=== PATIENT | female | born 1980 | race Caucasian/White ===

== ENCOUNTER → 2017-10-12 13:58 | Outpatient (CLI) | payer BC, SELFPAY ==
[2017-10-12 14:29] LABS: Basophils % 0.3 % (0.1-2.0); Eosinophils # 0.4 K/mm3 (0.0-0.4); Eosinophils % 3.4 % (0.1-12.0); Hematocrit 47.8 % (37.0-47.0); Hemoglobin 15.8 g/dL (12.2-16.2); Lymphocytes # 3.5 K/mm3 (0.7-4.5); Lymphocytes % 31.7 K/mm3 (10-50); Mean Corpuscular HGB Conc 33.1 g/dL (31.8-35.4); Mean Corpuscular Hemoglobin 30.2 pg (27.0-31.2); Mean Corpuscular Volume 91.3 fl (81-99); Mean Platelet Volume 7.7 fl (7.4-10.4); Monocytes # 0.6 K/mm3 (0.1-1.0); Monocytes % 5.7 % (1.7-9.3); Neutrophils # 6.4 K/mm3 (1.8-7.8); Neutrophils % 58.9 % (37.0-80.0); Platelet Count 253 K/mm3 (142-424); Red Blood Count 5.23 M/mm3 (4.20-5.40); Red Cell Distribution Width 13.7 % (11.5-17.5); White Blood Count 10.9 K/mm3 (4.8-10.8)
[2017-10-12 14:52] LABS: Alanine Aminotransferase 36 U/L (12-78); Albumin Level 3.9 gm/dL (3.4-5.0); Albumin/Globulin Ratio 0.9 (1.1-1.8); Alkaline Phosphatase 128 U/L (46-116); Anion Gap 12.4 mEq/L (5-15); Aspartate Amino Transferase 22 U/L (15-37); Bilirubin,Total 0.4 mg/dL (0.2-1.0); Blood Urea Nitrogen 14 mg/dL (7-18); C-Reactive Protein 0.2 mg/L (0.0-0.9); Calcium 9.3 mg/dL (8.5-10.1); Carbon Dioxide 27 mmol/L (21.0-32.0); Chloride 104 mmol/L (98-107); Creatinine,Serum 0.98 mg/dL (0.55-1.02); Estimated Glomerular Filt Rate 64 ml/min (>60); Ferritin 41 ng/mL (8-388); GFR (African American) 77 ML/MIN (>60); Globulin 4.2 gm/dl (1.3-3.2); Glucose 80 mg/dL (74-106); Potassium 4.4 mmoL/L (3.5-5.1); Sodium 139 mmol/L (136-145); Total Protein,Serum 8.1 gm/dL (6.4-8.2)
[2017-10-14 06:39] LABS: Immunoglobulin A, Qn 447 mg/dL (87-352); Immunoglobulin G, Qn 1252 mg/dL (700-1600)
[2017-10-16 15:36] LABS: Immunoglobulin M, Qn 76 mg/dL (26-217)
[2017-10-16 15:38] LABS: Tissue Transglutaminase IgA Ab <2 U/mL (0-3); Tissue Transglutaminase IgG Ab 2 U/mL (0-5)
[2017-10-19 17:52] LABS: Immunoglobulin E, Total 44 IU/mL (0-100)
== END ==
PROVIDERS: Visit Provider Internal Medicine Gastroenterology
DX: R19.7 Diarrhea, unspecified (principal)
CPT/HCPCS: 36415; 80053; 82728; 82784; 82785; 83516; 85025; 86140

== ENCOUNTER 2018-02-27 13:00 | Outpatient (RCR) | payer BC, SELFPAY | END 2018-02-27 13:01 | disposition home or self-care (01) | LOC: PT 13:00 | PROVIDERS: Family Provider Family Medicine; PCP Family Medicine; Visit Provider Podiatrist | DX: M72.2 Plantar fascial fibromatosis (principal); G57.50 Tarsal tunnel syndrome, unspecified lower limb | CPT/HCPCS: 97010; 97014; 97033; 97035; 97140; 97163; 97164; G0283 ==

== ENCOUNTER → 2018-06-05 09:26 | Outpatient (CLI) | payer BC, SELFPAY ==
--- NOTE | 2018-06-05 09:31 | US_ITS ---
US extremity RT limited CLINICAL INDICATION: ITS.REASON: AXILLARY LYMPHADENDOPATHY ORDERING PHYSICIAN: Harmony Bautista MD PATIENT AGE: 37 years Comparison: 02/28/2017 FINDINGS: Small nodes are present in the right axilla measuring up to 3.4 cm. This is similar when compared to previous exam. No nodule seen in patient's reported palpable area. IMPRESSION: Mildly prominent right axillary lymph node at 3.4 cm. This may BE better evaluate with CT if clinically warranted
== END ==
PROVIDERS: PCP Family Medicine; Visit Provider Family Medicine
DX: R59.0 Localized enlarged lymph nodes (principal)
CPT/HCPCS: 76882

== ENCOUNTER 2018-11-11 11:23 | Observation (INO) ==
--- NOTE | 2018-11-11 12:09 | Emergency Department Note ---
ED Disposition Clinical Impression: Kidney stone on left side Disposition: Admitted as Observation Condition on Discharge: Fair Referrals: Aidan Vizcarra MD [Primary Care Provider] - Time of Disposition: 14:49 - Critical Care Critical Care Time: No Attestation: On 11/11/18, the high probability of a clinically significant, sudden or life threatening deterioration of the following system(s) required my full and direct attention, intervention and personal management. The time I documented below is in addition to time spent performing reported procedures but includes the f ollowing listed in this critical care notation. Medical Decision Making - Medical Records Medical records reviewed: Yes: I reviewed the patient's medical records. - Conrad Inquiry Pt receiving controlled substance: No Conrad was queried for this patient: No Vital Signs: 11/11/18 11:47 11/11/18 12:53 11/11/18 13:46 Temperature 97.7 F Temperature Source Oral Pulse Rate [Left] 105 H 72 66 Respiratory Rate 30 H 18 18 Blood Pressure [Left Arm] 139/70 94/54 L 169/70 H Blood Pressure Mean [Left Arm] 93 67 103 Blood Pressure Source [Left Arm] Automatic Cuff Automatic Cuff Automatic Cuff Blood Pressure Position [Left Arm] Sitting Sitting Supine 02 Sat by Pulse Oximetry 100 95 99 Oxygen Delivery Method Room Air Room Air Room Air 11/11/18 14:21 Temperature Temperature Source Pulse Rate [Left] 68 Respiratory Rate 18 Blood Pressure [Left Arm] 112/55 L Blood Pressure Mean [Left Arm] 74 Blood Pressure Source [Left Arm] Automatic Cuff Blood Pressure Position [Left Arm] Supine 02 Sat by Pulse Oximetry 97 Oxygen Delivery Method Room Air - Lab Data Lab results reviewed: Yes: I reviewed the patient's lab results. Lab Results 11/11/18 12:20: WBC 10.7, RBC 4.79, Hgb 14.6, Hct 42.5, MCV 88.6, MCH 30.4, MCHC 34.3, RDW 13.4, Plt Count 266, MPV 7.2 L, Neut % (Auto) 63.9, Lymph % (Auto) 27.2, Cannon % (Auto) 6.1, Eos % (Auto) 2.5, Baso % (Auto) 0.4, Neut # (Auto) 6.9, Lymph # (Auto) 2.9, Cannon # (Auto) 0.7, Eos # (Auto) 0.3, Baso # (Auto) 0.0 11/11/18 12:20: Sodium 141, Potassium 3.8, Chloride 107, Carbon Dioxide 24, Anion Gap 13.8, BUN 9, Creatinine 0.99, Estimated Creat Clear 101, Estimated GFR 63, Est GFR ( Amer) 76, Glucose 102, Calcium 8.8, Total Bilirubin 0.4, AST 12 L, ALT 23, Alkaline Phosphatase 108, Total Protein 7.5, Albumin 3.5, Globulin 4.0 H, Albumin/Globulin Ratio 0.9 L 11/11/18 12:20: Serum HCG, Qual Negative Result diagrams: 11/11/18 12:20 11/11/18 12:20 Orders (Tests/Meds): ED MEDICATIONS Discontinued Medications Generic Name Dose Route Start Last Admin Trade Name Freq PRN Reason Stop Dose Admin Hydromorphone HCl 1 mg 11/11/18 12:25 11/11/18 12:38 Dilaudid 2mg/Ml Syringe IV 11/11/18 12:26 1 mg ONCE ONE Administration Hydromorphone HCl 2 mg 11/11/18 13:48 11/11/18 13:49 Dilaudid 2mg/Ml Syringe IV 11/11/18 13:49 2 mg ONCE ONE Administration Sodium Chloride 1,000 mls @ 999 mls/hr 11/11/18 11:45 11/11/18 11:45 Sod Chlor 0.9% 1000ml Bag IV 11/11/18 12:45 999 mls/hr .Q1H1M ROJELIO Administration Sodium Chloride 1,000 mls @ 999 mls/hr 11/11/18 13:45 Sod Chlor 0.9% 1000ml Bag IV 11/11/18 14:45 .Q1H1M ROJELIO Ketorolac Tromethamine 30 mg 11/11/18 11:31 11/11/18 11:45 Toradol 30mg/Ml Vial IV 11/11/18 11:32 30 mg ONCE ONE Administration Ondansetron HCl 4 mg 11/11/18 11:31 11/11/18 11:45 Zofran 4mg/2ml Vial IV 11/11/18 11:32 4 mg ONCE ONE Administration Ondansetron HCl 4 mg 11/11/18 13:48 11/11/18 13:49 Zofran 4mg/2ml Vial IV 11/11/18 13:49 4 mg ONCE ONE Administration ORDERS Category Date Time Status UA [Urinalysis and Microscopic] Stat Lab 11/11/18 11:30 Ordered - Physician Consults Physician Consulted: mehdi Time: 14:46 Reason -: Admission, Pt condition, Urology Eval/Care Comment/Response: consult Ruby General Adult HPI - General Chief complaint: PAIN Stated complaint: poss kidney stone Time Seen by Provider: 11/11/18 12:07 Mode of Arrival: Ambulatory Source of Information: Patient Limitations: No Limitations Description of Symptoms (Recalled from ER Triage Doc. by RN): acute severe left kidney pain after quinn eleft kidney pain for the past 2 weeks. was on cirpo 4 weeks ago for WBCs in UA. also difficult urinaiton over past couple weeks - History of Present Illness HPI narrative: history of partial nephrectomy, left. Severe left flank pain today while driving. no history of stones - Related Data Home Medications Medication Instructions Recorded Confirmed Cetirizine HCl [Zyrtec] 10 mg PO DAILY 11/11/18 11/11/18 Allergies Allergy/AdvReac Type Severity Reaction Status Date / Time cefdinir Allergy Intermediate I-RASH Verified 11/11/18 12:37 Penicillins Allergy Intermediate I-RASH Verified 11/11/18 12:37 [facility] History - Hepatitis A Screen Drug use history?: No High risk sexual behaviors?: No History of sexually transmitted infection?: No Currently employed?: No Childcare worker?: No Do you have indoor plumbing?: Yes Do you have electricity?: Yes Attestation statement:: This patient has been screened for Hepatitis A risk factors. I have reviewed the patient's past medical history: Yes Medical History: Reports:: Cancer (left kidney) Denies:: Diabetes Mellitus Type 1, Diabetes Mellitus Type 2, MRSA Amputation: No - Social History Educational Level: Completed College Alcohol Intake: never Occupational Status: employed Housing: house Household Members: spouse - Psychiatric History Expresses thoughts of harming self/others: None Suicide Plan Description: No Plan ROS Obtained: Yes All systems reviewed & no additional complaints - Constitutional Constitutional: Denies fever(s) - Eyes Eyes: Denies blurry vision - Cardiovascular Cardiovascular: Denies chest pain, Denies chest pain at rest, Denies irregular heart rhythm - Gastrointestinal Gastrointestingal: Reports: abdominal pain, nausea - Genitourinary Female Genitourinary: Denies flank pain - Musculoskeletal Musculoskeletal: Denies joint stiffness, Denies joint swelling - Integumentary/Breasts Skin/Breast: Denies rash, Denies skin pain - Neurologic Neurologic: Denies headache(s) - Hematologic/Lymphatic Henatologic/Lymphatic: Denies easy bleeding, Denies easy bruising Physical Exam - General General appearance: alert, in distress - Eye Eye exam: Present: normal appearance, PERRL, EOMI - Chest Chest inspection: Present: normal inspection, symmetric chest wall rise. Absent: tenderness - Respiratory Respiratory exam: Present: normal lung sounds bilaterally. Absent: respiratory distress - Cardiovascular Cardiovascular exam: Present: regular rate, normal rhythm. Absent: JVD - Abdominal Exam Abdominal exam: Present: soft, normal bowel sounds. Absent: distention, tenderness, guarding - Extremities Exam Extremities exam: Present: normal inspection - Neurological Exam Neurological exam: Present: alert, oriented X3 - Psychiatric Psychiatric exam: Present: normal affect, normal mood - Skin Skin exam: Present: warm, dry, intact, normal color
[2018-11-11 12:32] LABS: Basophils % 0.4 % (0.1-2.0); Eosinophils # 0.3 K/mm3 (0.0-0.4); Eosinophils % 2.5 % (0.1-12.0); Hematocrit 42.5 % (37.0-47.0); Hemoglobin 14.6 g/dL (12.2-16.2); Lymphocytes # 2.9 K/mm3 (0.7-4.5); Lymphocytes % 27.2 % (10-50); Mean Corpuscular HGB Conc 34.3 g/dL (31.8-35.4); Mean Corpuscular Hemoglobin 30.4 pg (27.0-31.2); Mean Corpuscular Volume 88.6 fl (81-99); Mean Platelet Volume 7.2 fl (7.4-10.4); Monocytes # 0.7 K/mm3 (0.1-1.0); Monocytes % 6.1 % (1.7-9.3); Neutrophils # 6.9 K/mm3 (1.8-7.8); Neutrophils % 63.9 % (37.0-80.0); Platelet Count 266 K/mm3 (142-424); Red Blood Count 4.79 M/mm3 (4.20-5.40); Red Cell Distribution Width 13.4 % (11.5-17.5); White Blood Count 10.7 K/mm3 (4.8-10.8)
[2018-11-11 12:47] LABS: Albumin Level 3.5 gm/dL (3.4-5.0); Albumin/Globulin Ratio 0.9 (1.1-1.8); Anion Gap 13.8 mEq/L (5-15); Bilirubin,Total 0.4 mg/dL (0.2-1.0); Calcium 8.8 mg/dL (8.5-10.1); Potassium 3.8 mmoL/L (3.5-5.1); Total Protein,Serum 7.5 gm/dL (6.4-8.2)
--- NOTE | 2018-11-11 16:29 | History & Physical Report ---
*Admission Date: 11/11/18 <Petra Lorenzo 11/11/18 16:40> *Chief complaint: Left flank pain <Petra Lorenzo 11/11/18 16:40> *History of present illness: Ms. Tobar is a 37 year old female with a history of allergic rhinitis, hemangioma of the liver, polycystic ovary disease, renal cell carcinoma left kidney, with primary resection in 2017, and history of Clostridium difficile who presented to [facility] emergency via private vehicle with severe left flank pain. She states she was getting out of her vehicle when she had a sudden onset of sharp severe pain. This was associated with some nausea. She drove herself to work and then her mother picked her up and brought her to the emergency room department. In the emergency room she was given 2 L of IV fluids along with Zofran and Dilaudid. CT of the abdomen/ pelvis revealed a 4 to 5 mm stone in the left UVJ. She was then admitted for further evaluation and treatment with plans for urology to see her in the a.m. To note patient was seen in the office of [facility] this a.m. for pharyngitis at which time she had no complaints of abdominal discomfort. In addition to the sharp left flank pain she currently does have some lower abdominal aching. <Petra Lorenzo 11/11/18 16:45> [facility] History Medical History: Reports:: Cancer (left kidney) Denies:: Diabetes Mellitus Type 1, Diabetes Mellitus Type 2, MRSA <Petra Lorenzo 11/11/18 16:40> *Have you ever received a pneumonia vaccine?: No <Petra Lorenzo 11/11/18 16:40> *Have you received a flu vaccine this season?: Yes <Petra Lorenzo 11/11/18 16:40> Comment:: Allergic rhinitis; hemangiomas of the liver; polycystic ovary disease; renal cell carcinoma of the left kidney with primary resection in 2017; clostridium difficile. <Petra Lorenzo 11/11/18 16:40> Other Surgeries: Yes: Cholecystectomy <Petra Lorenzo 11/11/18 16:40> Amputation: No <Petra Lorenzo 11/11/18 16:40> Comment: in 2006 ovarian cyst removal 2004 renal cell carcinoma with removal of the left kidney 12/28/2016 <Petra Lorenzo 11/11/18 16:40> - *Social History Educational Level: Completed College <Petra Lorenzo 11/11/18 16:40> Smoking Status: Never smoker <Petra Lorenzo 11/11/18 16:40> Alcohol Intake: never <Petra Lorenzo 11/11/18 16:40> *Occupational Status:: employed <Petra Lorenzo 11/11/18 16:40> Housing: house <Petra Lorenzo 11/11/18 16:40> Household Members: spouse <Petra Lorenzo 11/11/18 16:40> *Travel in the last 8 weeks: None <Petra Lorenzo 11/11/18 16:40> - Psychiatric History Expresses thoughts of harming self/others: None <Petra Lorenzo Braxton 11/11/18 16:40> Suicide Plan Description: No Plan <Petra Lorenzo 11/11/18 16:40> Family Hx:: Cancer, Diabetes, Heart Attack, Hyperlipidemia, Hypertension, Stroke <Petra Lorenzo 11/11/18 16:40> Review of Systems - *Neurologic Denies headache(s) <Petra Lorenzo 11/11/18 16:40> Meds Home Medications Medication Instructions Recorded Confirmed Type Cetirizine HCl [Zyrtec] 10 mg PO DAILY 11/11/18 11/11/18 History <Aidan Vizcarra - 11/11/18 16:49> Allergies Allergy/AdvReac Type Severity Reaction Status Date / Time cefdinir Allergy Intermediate I-RASH Verified 11/11/18 12:37 Penicillins Allergy Intermediate I-RASH Verified 11/11/18 12:37 <Aidan Vizcarra - 11/11/18 16:49> Exam Vital signs and Labs for Last 24 Hours: Temp Pulse Resp BP Pulse Ox 98.5 F 69 18 127/72 100 11/11/18 16:31 11/11/18 16:31 11/11/18 16:31 11/11/18 16:31 11/11/18 16:31 Laboratory Results - last 24 hr 11/11/18 12:20: WBC 10.7, RBC 4.79, Hgb 14.6, Hct 42.5, MCV 88.6, MCH 30.4, MCHC 34.3, RDW 13.4, Plt Count 266, MPV 7.2 L, Neut % (Auto) 63.9, Lymph % (Auto) 27.2, Cook % (Auto) 6.1, Eos % (Auto) 2.5, Baso % (Auto) 0.4, Neut # (Auto) 6.9, Lymph # (Auto) 2.9, Cook # (Auto) 0.7, Eos # (Auto) 0.3, Baso # (Auto) 0.0 11/11/18 12:20: Sodium 141, Potassium 3.8, Chloride 107, Carbon Dioxide 24, Anion Gap 13.8, BUN 9, Creatinine 0.99, Estimated Creat Clear 101, Estimated GFR 63, Est GFR ( Amer) 76, Glucose 102, Calcium 8.8, Total Bilirubin 0.4, AST 12 L, ALT 23, Alkaline Phosphatase 108, Total Protein 7.5, Albumin 3.5, Globulin 4.0 H, Albumin/Globulin Ratio 0.9 L 11/11/18 12:20: Serum HCG, Qual Negative <[place],Aidan - 11/11/18 16:49> Temp Pulse Resp BP Pulse Ox 97.7 F 71 20 127/68 100 11/11/18 15:36 11/11/18 15:36 11/11/18 15:36 11/11/18 15:36 11/11/18 14:54 Laboratory Results - last 24 hr 11/11/18 12:20: WBC 10.7, RBC 4.79, Hgb 14.6, Hct 42.5, MCV 88.6, MCH 30.4, MCHC 34.3, RDW 13.4, Plt Count 266, MPV 7.2 L, Neut % (Auto) 63.9, Lymph % (Auto) 27.2, Cook % (Auto) 6.1, Eos % (Auto) 2.5, Baso % (Auto) 0.4, Neut # (Auto) 6.9, Lymph # (Auto) 2.9, Cook # (Auto) 0.7, Eos # (Auto) 0.3, Baso # (Auto) 0.0 11/11/18 12:20: Sodium 141, Potassium 3.8, Chloride 107, Carbon Dioxide 24, Anion Gap 13.8, BUN 9, Creatinine 0.99, Estimated Creat Clear 101, Estimated GFR 63, Est GFR ( Amer) 76, Glucose 102, Calcium 8.8, Total Bilirubin 0.4, AST 12 L, ALT 23, Alkaline Phosphatase 108, Total Protein 7.5, Albumin 3.5, Globulin 4.0 H, Albumin/Globulin Ratio 0.9 L 11/11/18 12:20: Serum HCG, Qual Negative <Petra Lorenzo - 11/11/18 16:40> I & O for Last 24 hours: Intake & Output 11/08/18 11/09/18 11/10/18 11/11/18 23:59 23:59 23:59 23:59 Intake Total 1500 / 1500 Balance 1500 / 1500 Weight 192 lb 8 oz <Aidan Vizcarra - 11/11/18 16:49> Intake & Output 11/09/18 11/10/18 11/11/18 11/12/18 11:59 11:59 11:59 11:59 Intake Total 1500 / 1500 Balance 1500 / 1500 Weight 183 lb <Joseline Lorenzohy 11/11/18 16:40> Radiology Reports for the Last 24 Hours: CT abdomen and pelvis 11/11/2018 IMPRESSION: 1. Moderate left hydronephrosis and hydroureter secondary to a 4 to 5 mm stone at the left ureterovesical junction. 2. Moderate amount fluid in the cul-de-sac with some heterogeneous density of the fluid superiorly and on the right raising the question of some underlying debris/infection or blood. <LorenzoPetra 11/11/18 16:40> - Constitutional no acute distress <BjPetra 11/11/18 16:40> - *Routine HEENT Exam Head: Present: normocephalic, atraumatic <LorenzoPetra 11/11/18 16:40> Eye: Present: PERRL. Absent: conjunctival icterus, scleral injection <Petra Lorenzo 11/11/18 16:40> ENT: Present: mucous membranes moist, TM's clear bilaterally <BjPetra - 11/11/18 16:40> Comments: Pharyngeal erythema <BjPetra - 11/11/18 16:40> - *Routine Neck Exam Present: supple. Absent: carotid bruit, lymphadenopathy, thyromegaly <Petra Lorenzo 11/11/18 16:40> - *Routine Respiratory Exam Present: CTA bilaterally (Anteriorly and posteriorly) <Petra Lorenzo 11/11/18 16:40> - *Routine Cardiovascular Exam Present: RRR <Petra Lorenzo 11/11/18 16:40> - *Routine Abdominal Exam Present: soft, normoactive bowel sounds <Petra Lorenzo 11/11/18 16:40> Comments: Left CVA tenderness <Petra Lorenzo 11/11/18 16:40> - *Routine Extremities Exam Absent: edema, calf tenderness <Petra Lorenzo 11/11/18 16:40> Assessment and Plan (1) Kidney stone on left side Current visit: Yes Status: Acute Category: Medical Code(s): N20.0 - Calculus of kidney (2) History of kidney cancer Current visit: Yes Status: Chronic Category: Medical Code(s): Z85.528 - Personal history of other malignant neoplasm of kidney <Aidan Vizcarra 11/11/18 16:49> (1) Kidney stone on left side Current visit: Yes Status: Acute Category: Medical Code(s): N20.0 - Calculus of kidney (2) History of kidney cancer Current visit: Yes Status: Chronic Category: Medical Code(s): Z85.528 - Personal history of other malignant neoplasm of kidney <Petra Lorenzo 11/11/18 16:41> - Assessment and plan all Dx Assessment and Plan for all problems:: Saw patient, agree with above note. <Aidan Vizcarra 11/11/18 16:49> Pain and nausea management. IV fluids. Urology to see in the a.m. Will need to also strain all urine. <BjPetra 11/11/18 16:45>
[2018-11-12 07:18] LABS: Basophils % 0.2 % (0.1-2.0); Eosinophils # 0.1 K/mm3 (0.0-0.4); Hematocrit 37.2 % (37.0-47.0); Lymphocytes # 1.6 K/mm3 (0.7-4.5); Lymphocytes % 20.1 % (10-50); Mean Corpuscular HGB Conc 32.8 g/dL (31.8-35.4); Mean Corpuscular Volume 91.7 fl (81-99); Mean Platelet Volume 7.3 fl (7.4-10.4); Monocytes # 0.6 K/mm3 (0.1-1.0); Monocytes % 7.4 % (1.7-9.3); Neutrophils # 5.8 K/mm3 (1.8-7.8); Neutrophils % 71.3 % (37.0-80.0); Platelet Count 219 K/mm3 (142-424); Red Blood Count 4.06 M/mm3 (4.20-5.40); Red Cell Distribution Width 13.7 % (11.5-17.5); White Blood Count 8.2 K/mm3 (4.8-10.8)
[2018-11-12 07:25] LABS: Anion Gap 11.9 mEq/L (5-15); Potassium 3.9 mmoL/L (3.5-5.1)
[2018-11-12 07:57] LABS: Hemoglobin 12.3 g/dL (12.2-16.2)
[2018-11-12 08:12] LABS: Calcium 7.3 mg/dL (8.5-10.1)
--- NOTE | 2018-11-12 08:38 | Progress Note ---
<Petra Lorenoz - Last Filed: 11/12/18 08:35> Internal Medicine - PN: Subj *Date: 11/12/18 *Time: 08:35 Interval history: She passed some stones during the night. She feels comfortable this morning. No further nausea or retching since 12 midnight. She is hungry. Since IV fluids increase she is voiding QS. She does have somewhat of a cough. Oropharyngeal area with less erythema. Exam Vital signs and Labs for Last 24 Hours: Temp Pulse Resp BP Pulse Ox 98.2 F 82 15 106/54 L 99 11/12/18 07:42 11/12/18 07:42 11/12/18 07:42 11/12/18 07:42 11/12/18 08:25 Laboratory Results - last 24 hr 11/11/18 12:20: WBC 10.7, RBC 4.79, Hgb 14.6, Hct 42.5, MCV 88.6, MCH 30.4, MCHC 34.3, RDW 13.4, Plt Count 266, MPV 7.2 L, Neut % (Auto) 63.9, Lymph % (Auto) 2 7.2, Sawyer % (Auto) 6.1, Eos % (Auto) 2.5, Baso % (Auto) 0.4, Neut # (Auto) 6.9, Lymph # (Auto) 2.9, Sawyer # (Auto) 0.7, Eos # (Auto) 0.3, Baso # (Auto) 0.0 11/11/18 12:20: Sodium 141, Potassium 3.8, Chloride 107, Carbon Dioxide 24, Anion Gap 13.8, BUN 9, Creatinine 0.99, Estimated Creat Clear 101, Estimated GFR 63, Est GFR ( Amer) 76, Glucose 102, Calcium 8.8, Total Bilirubin 0.4, AST 12 L, ALT 23, Alkaline Phosphatase 108, Total Protein 7.5, Albumin 3.5, Globulin 4.0 H, Albumin/Globulin Ratio 0.9 L 11/11/18 12:20: Serum HCG, Qual Negative 11/12/18 05:36: WBC 8.2, RBC 4.06 L, Hgb 12.3 D, Hct 37.2, MCV 91.7, MCH 30.0, MCHC 32.8, RDW 13.7, Plt Count 219, MPV 7.3 L, Neut % (Auto) 71.3, Lymph % (Auto) 20.1, Sawyer % (Auto) 7.4, Eos % (Auto) 1.0, Baso % (Auto) 0.2, Neut # (Auto) 5.8, Lymph # (Auto) 1.6, Sawyer # (Auto) 0.6, Eos # (Auto) 0.1, Baso # (Auto) 0.0 11/12/18 05:36: Sodium 142, Potassium 3.9, Chloride 110 H, Carbon Dioxide 24, An ion Gap 11.9, BUN 9, Creatinine 0.81, Estimated Creat Clear 134, Estimated GFR 79, Est GFR ( Amer) 96 D, Glucose 88, Calcium 7.3 L D I & O for Last 24 hours: Intake & Output 11/09/18 11/10/18 11/11/18 11/12/18 11:59 11:59 11:59 11:59 Intake Total 4207 / 4207 Output Total 600 / 600 Balance 3607 / 3607 Weight 183 lb 198 lb 3.129 oz - Constitutional no acute distress - *Routine HEENT Exam Head: Present: normocephalic, atraumatic ENT: Present: mucous membranes moist Comments: Oropharyngeal area with less erythema - *Routine Respiratory Exam Comments: Few left basilar crackles - *Routine Cardiovascular Exam Present: RRR - *Routine Abdominal Exam Present: soft, normoactive bowel sounds. Absent: tenderness - *Routine Extremities Exam Absent: edema, calf tenderness - *Routine Neurological Exam Present: alert, oriented X3 Assessment and Plan (1) Kidney stone on left side Current visit: Yes Status: Acute Category: Medical Code(s): N20.0 - Calculus of kidney (2) History of kidney cancer Current visit: Yes Status: Chronic Category: Medical Code(s): Z85.528 - Personal history of other malignant neoplasm of kidney - Assessment and plan all Dx Assessment and Plan for all problems:: Patient is feeling much better today. We will discontinue IV fluids and order a diet. Probable home later today <Aidan Vizcarra - Last Filed: 11/12/18 08:42> Internal Medicine - PN: Subj *Date: 11/12/18 *Time: 08:40 Exam Vital signs and Labs for Last 24 Hours: Temp Pulse Resp BP Pulse Ox 98.2 F 82 15 106/54 L 99 11/12/18 07:42 11/12/18 07:42 11/12/18 07:42 11/12/18 07:42 11/12/18 08:25 Laboratory Results - last 24 hr 11/11/18 12:20: WBC 10.7, RBC 4.79, Hgb 14.6, Hct 42.5, MCV 88.6, MCH 30.4, MCHC 34.3, RDW 13.4, Plt Count 266, MPV 7.2 L, Neut % (Auto) 63.9, Lymph % (Auto) 27.2, Sawyer % (Auto) 6.1, Eos % (Auto) 2.5, Baso % (Auto) 0.4, Neut # (Auto) 6.9, Lymph # (Auto) 2.9, Sawyer # (Auto) 0.7, Eos # (Auto) 0.3, Baso # (Auto) 0.0 11/11/18 12:20: Sodium 141, Potassium 3.8, Chloride 107, Carbon Dioxide 24, Anion Gap 13.8, BUN 9, Creatinine 0.99, Estimated Creat Clear 101, Estimated GFR 63, Est GFR ( Amer) 76, Glucose 102, Calcium 8.8, Total Bilirubin 0.4, AST 12 L, ALT 23, Alkaline Phosphatase 108, Total Protein 7.5, Albumin 3.5, Globulin 4.0 H, Albumin/Globulin Ratio 0.9 L 11/11/18 12:20: Serum HCG, Qual Negative 11/12/18 05:36: WBC 8.2, RBC 4.06 L, Hgb 12.3 D, Hct 37.2, MCV 91.7, MCH 30.0, MCHC 32.8, RDW 13.7, Plt Count 219, MPV 7.3 L, Neut % (Auto) 71.3, Lymph % (Auto) 20.1, Sawyer % (Auto) 7.4, Eos % (Auto) 1.0, Baso % (Auto) 0.2, Neut # (Auto) 5.8, Lymph # (Auto) 1.6, Sawyer # (Auto) 0.6, Eos # (Auto) 0.1, Baso # (Auto) 0.0 11/12/18 05:36: Sodium 142, Potassium 3.9, Chloride 110 H, Carbon Dioxide 24, Anion Gap 11.9, BUN 9, Creatinine 0.81, Estimated Creat Clear 134, Estimated GFR 79, Est GFR ( Amer) 96 D, Glucose 88, Calcium 7.3 L D I & O for Last 24 hours: Intake & Output 11/09/18 11/10/18 11/11/18 11/12/18 23:59 23:59 23:59 23:59 Intake Total 2260 / 226 194 / 194 Output Total 150 / 150 450 / 450 Balance 2110 1496 / 1496 Weight 192 lb 8 oz 198 lb 3.129 oz Assessment and Plan (1) Kidney stone on left side Current visit: Yes Status: Acute Category: Medical Code(s): N20.0 - Calculus of kidney (2) History of kidney cancer Current visit: Yes Status: Chronic Category: Medical Code(s): Z85.528 - Personal history of other malignant neoplasm of kidney - Assessment and plan all Dx Assessment and Plan for all problems:: Saw patient, agree with above note. Patient past a couple of small stone fragments but they were not sent to the lab for analysis. Plan to advance diet, possible home later today.
--- NOTE | 2018-11-12 09:26 | Pharmacy Consult Notes ---
[facility] Pharmacy VTE Monitoring - Patient Demographics Admission date: 11/11/18 Report Date: 11/12/18 Time: 09:25 Allergies/Adverse Reactions: Patient Allergies cefdinir Allergy (Intermediate, Verified 11/11/18 12:37) I-RASH Penicillins Allergy (Intermediate, Verified 11/11/18 12:37) I-RASH Height: 1.63 m Weight: 89.9 kg Patient Problems: Current Active Problems (Updated 11/11/18 @ 16:40 by Petra Lorenzo APRN) Kidney stone on left side (Acute) History of kidney cancer (Chronic) - VTE Risk Labs: VTE Related Lab Results Hgb 12.3 g/dL (12.2-16.2) D 11/12/18 05:36 Hct 37.2 % (37.0-47.0) 11/12/18 05:36 Plt Count 219 K/mm3 (142-424) 11/12/18 05:36 BUN 9 mg/dL (7-18) 11/12/18 05:36 Creatinine 0.81 mg/dL (0.55-1.02) 11/12/18 05:36 Estimated Creat Clear 134 mL/min (50-200) 11/12/18 05:36 VTE Score: 0 - Prophylaxis VTE Prophylaxis Ordered?: Yes Types of VTE Prophylaxis: TEDS Knee High Location of Applied Device: Bilateral Lower Extremeties - VTE Diagnosis Confirmed Treatment or plan recommended: Continue Current Treatment
--- NOTE | 2018-11-13 08:17 | Discharge Summary ---
General - General Admission date:: 11/11/18 Discharge date: 11/12/18 HPI HPI: Ms. Tobar is a 37 year old female with a history of allergic rhinitis, hemangioma of the liver, polycystic ovary disease, renal cell carcinoma left kidney, with primary resection in 2017, and history of Clostridium difficile who presented to [facility] emergency via private vehicle with severe left flank pain. She states she was getting out of her vehicle when she had a sudden onset of sharp severe pain. This was associated with some nausea. She drove herself to work and then her mother picked her up and brought her to the emergency room department. In the emergency room she was given 2 L of IV fluids along with Zofran and Dilaudid. CT of the abdomen/ pelvis revealed a 4 to 5 mm stone in the left UVJ. She was then admitted for further evaluation and treatment with plans for urology to see her in the a.m. To note patient was seen in the office of [facility] this a.m. for pharyngitis at which time she had no complaints of abdominal discomfort. In addition to the sharp left flank pain she currently does have some lower abdominal aching. Hospital Course Hospital Course: The patient was admitted for pain and nausea management. She was started on IV fluids and urology was consulted. She passed a few stone fragments during the night and her discomfort resolved. A diet was ordered and she tolerated this well. She was stable to be discharged home and will need to continue to strain her urine at home and follow-up in the office in 1 week. Objective Vital signs: Temp Pulse Resp BP Pulse Ox 98.2 F 82 15 106/54 L 99 11/12/18 07:42 11/12/18 07:42 11/12/18 07:42 11/12/18 07:42 11/12/18 08:25 Narrative: - Constitutional no acute distress - *Routine HEENT Exam Head: Present: normocephalic, atraumatic Eye: Present: PERRL. Absent: conjunctival icterus, scleral injection ENT: Present: mucous membranes moist, TM's clear bilaterally Comments: Pharyngeal erythema - *Routine Neck Exam Present: supple. Absent: carotid bruit, lymphadenopathy, thyromegaly - *Routine Respiratory Exam Present: CTA bilaterally (Anteriorly and posteriorly) - *Routine Cardiovascular Exam Present: RRR - *Routine Abdominal Exam Present: soft, normoactive bowel sounds Comments: Left CVA tenderness - *Routine Extremities Exam Absent: edema, calf tenderness DS: Diagnosis - Discharge Diagnosis (1) Kidney stone on left side Status: Acute (2) History of kidney cancer Status: Chronic Discharge Plan - Patient Discharge Instructions ACTIVITY: Continue current activity DIET: continue same diet Additional Instructions: Patient needs an order for kidney stone analysis. Please continue to strain urine at home with strainer, if any stones collected please place in specimen container and bring container with order for kidney stone analysis to registration. Patient Instructions: DI for Kidney Stones - Follow up Plan Follow up with: Aidan Vizcarra MD [Primary Care Provider] - 1 week Disposition: Home, Self-Half-Way Medications: Home Medications Medication Instructions Recorded Confirmed Type Cetirizine HCl [Zyrtec] 10 mg PO DAILY 11/11/18 11/11/18 History Prescriptions/Medication Reconciliation: Continued Cetirizine HCl [Zyrtec] 10 mg PO DAILY Other Amb Orders: Stone Analysis Location: None Selected
== END 2018-11-12 13:42 | disposition home or self-care (01) ==
LOC: ER 11:23 → 2ND 11:23
PROVIDERS: ADMIT Family Medicine; ATTEND Family Medicine
DX: Z90.5 Acquired absence of kidney; Z84.89 Family history of other specified conditions; Z88.1 Allergy status to other antibiotic agents; Z85.528 Personal history of other malignant neoplasm of kidney; Z82.3 Family history of stroke; R52 Pain, unspecified; Z82.49 Family history of ischemic heart disease and other diseases of the circulatory system; R39.198 Other difficulties with micturition; Z79.899 Other long term (current) drug therapy; Z87.42 Personal history of other diseases of the female genital tract; Z80.9 Family history of malignant neoplasm, unspecified; Z88.0 Allergy status to penicillin; N20.0 Calculus of kidney
CPT/HCPCS: 36415; 74176; 80048; 80053; 84703; 85025; 96365; 96366; 96367; 96375; 96376; 99284; G0378; J2405

== ENCOUNTER → 2018-11-29 08:01 | Outpatient (CLI) | payer BC, SELFPAY ==
--- NOTE | 2018-11-29 08:06 | US_ITS ---
US transvaginal HISTORY: ITS.REASON: UTERUS NEOPLASM ORDERING PHYSICIAN: Aidan Vizcarra MD PATIENT AGE: 38 years Comparison: None FINDINGS: The uterus measures 9.5 x 5 x 4.4 cm. Combined endometrial thickness is 4 mm. There is a section scar noted anteriorly and nabothian cysts are noted. The left ovary measures 4 x 1.7 cm containing small follicles. The right ovary is 4 x 2 cm and contains a 2 cm cyst as well as other small follicles. There is trace cul-de-sac fluid. IMPRESSION: 1. No evidence of uterine mass. 2. Abdomen only noted on the CT scan smoking-related to the left ovary which is situated along the posterior aspect of the uterus. 3. 2 cm right ovarian cyst with a small amount of cul-de-sac fluid.
== END ==
PROVIDERS: PCP Family Medicine; Visit Provider Family Medicine
DX: D39.0 Neoplasm of uncertain behavior of uterus (principal)
CPT/HCPCS: 76830

== ENCOUNTER → 2019-12-29 11:46 | Outpatient (CLI) | payer BC, SELFPAY ==
[2019-12-29 13:04] LABS: Basophils # 0.1 K/mm3 (0-0.2); Basophils % 0.4 % (0.1-2.0); Eosinophils # 0.3 K/mm3 (0.0-0.4); Eosinophils % 2.3 % (0.1-12.0); Hematocrit 46.4 % (37.0-47.0); Hemoglobin 15.6 g/dL (12.2-16.2); Mean Corpuscular HGB Conc 33.7 g/dL (31.8-35.4); Mean Corpuscular Hemoglobin 31.5 pg (27.0-31.2); Mean Corpuscular Volume 93.6 fl (81-99); Mean Platelet Volume 7.4 fl (7.4-10.4); Monocytes # 0.8 K/mm3 (0.1-1.0); Monocytes % 6.7 % (1.7-9.3); Neutrophils # 6.9 K/mm3 (1.8-7.8); Neutrophils % 57.7 % (37.0-80.0); Platelet Count 332 K/mm3 (142-424); Red Blood Count 4.95 M/mm3 (4.20-5.40); Red Cell Distribution Width 13.4 % (11.5-17.5)
[2019-12-29 14:22] LABS: Coronavirus 19 IgG Antibody Negative (Negative); Coronavirus 19 IgM Antibody Negative (Negative)
[2019-12-29 14:35] LABS: Strep Scrn Group A (Rapid) Negative (Negative)
[2019-12-31 09:27] LABS: Covid-19 Nasal PCR Sendout Lex NOT DETECTED
== END ==
PROVIDERS: PCP Family Medicine; Visit Provider Family Medicine
DX: Z03.818 Encounter for observation for suspected exposure to other biological agents ruled out (principal)
CPT/HCPCS: 36415; 85025; 86328; 87430; U0004

== ENCOUNTER → 2020-03-17 15:25 | Outpatient (CLI) | payer BC, SELFPAY ==
--- NOTE | 2020-03-17 15:32 | US_ITS ---
PROCEDURE: US EXTREMITY RT LIMITED CLINICAL INDICATION: RT AXILLA MASS COMPARISON: No exams were available for comparison FINDINGS: Limited ultrasound is performed of the right axillary region in the area of reported palpable abnormality. There is a lentiform area of isoechoic [place] at this region similar to the surrounding adipose tissue and may represent a lipoma or prominence of a fatty lobule. No cystic fluid collection or other soft tissue mass apparent. The area of concern measures approximately 2 cm. IMPRESSION: Possible right axillary lipoma versus prominent fatty lobule Dictated by: Ventura Collazo MD 03/17/2020 18:07 Ventura Collazo MD in [place] 03/17/2020 18:07
== END ==
PROVIDERS: PCP Family Medicine; Visit Provider Physician Assistant
DX: R22.31 Localized swelling, mass and lump, right upper limb (principal)
CPT/HCPCS: 76882

== ENCOUNTER 2020-07-19 10:20 | Emergency (ER) | payer BC, SELFPAY ==
[2020-07-19 11:20] VITALS: BP 139/66; PULSE 78; RESP 20; TEMP 36.5; O2SAT 98; BMI 36.0
--- NOTE | 2020-07-19 11:38 | HMH.EDUTC ---
[facility] [place] Disposition Clinical Impression: Exposure to COVID-19 virus Disposition: Home, Self-Care Condition on Discharge: Good Instructions: DI for COVID-19 (Suspected or Confirmed ), Coronavirus Disease 2019, Preventing the Spread of Coronavirus Discharge Instructions Additional Instructions: *Monitor Temp, Over the counter Motrin or Tylenol as directed/as needed Tylenol every 4 hours and Motrin every 6 hours (as long as your family doctor has told you that you can take it) for fever or pain. and straight to ER if unable to lower temp less than 101.0 after medication given Follow up IMMEDIATELY for new or worsening symptoms or no Noticeable improvement over the next 48-72 hours. 911 for difficulty breathing or swallowing You were tested for today for COVID19 your test result should be back in the next 24-48 hours, you may call to the [facility] to see if your test results are back in the next 48 hours [phone] [facility] hours are 9am-9pm You was given a handout with instructions for Self Quarantine and Self isolation for while you wait on test results and what to do if they are positive If you are positive the Health Dept will be contacting you also Referrals: Aidan Vizcarra MD [Primary Care Provider] - As needed Forms: Work/School Release Time of Disposition: 11:41 Medical Decision Making - Conrad Inquiry Pt receiving controlled substance: No Conrad was queried for this patient: No Vital Signs: 07/19/20 11:20 Temperature 97.7 F Temperature Source Oral Pulse Rate [Right Brachial] 78 Respiratory Rate 20 Blood Pressure [Right Arm] 139/66 Blood Pressure Mean [Right Arm] 90 Blood Pressure Source [Right Arm] Automatic Cuff Blood Pressure Position [Right Arm] Sitting 02 Sat by Pulse Oximetry 98 Oxygen Delivery Method Room Air Orders (Tests/Meds): ORDERS Category Date Time Status Covid-19 Nasal PCR ([facility]) Routine Lab 07/19/20 11:15 Received [facility] [place] HPI - General Stated complaint: covid exposure Time Seen by Provider: 07/19/20 11:39 Mode of Arrival: Ambulatory Source of Information: Patient Limitations: No Limitations Description of Symptoms (Recalled from Triage Doc. by RN): COVID TEST D/T EXPOSURE; DENIES SYMPTOMS HEENT Symptoms (Recalled from RN notes): No Resp Symptoms (Recalled from RN notes): No Skin Symptoms (Recalled from RN notes): No MS Symptoms (Recalled from RN notes): No Functional Status (Recalled from RN notes): WNL - History of Present Illness Provider Complaint: Patient states that she was recently around someone that later tested positive for COVID States that she is not having any symptoms but wanted to get tested before going back to work - Related Data Home Medications Medication Instructions Recorded Confirmed Cetirizine HCl [Zyrtec] 10 mg PO DAILY 11/11/18 11/19/18 Allergies Allergy/AdvReac Type Severity Reaction Status Date / Time cefdinir Allergy Intermediate I-RASH Verified 11/19/18 11:32 Penicillins Allergy Intermediate I-RASH Verified 11/19/18 11:32 - Worker's Comp Is this a Worker's Comp case?: No [facility] History - Hepatitis A Screen Drug use history?: No High risk sexual behaviors?: No History of sexually transmitted infection?: No Currently employed?: No Childcare worker?: No Do you have indoor plumbing?: Yes Do you have electricity?: Yes Attestation statement:: This patient has been screened for Hepatitis A risk factors. I have reviewed the patient's past medical history: Yes Medical History: Reports:: Cancer Denies:: Diabetes Mellitus Type 1, Diabetes Mellitus Type 2, MRSA Comment: Allergic rhinitis; hemangiomas of the liver; polycystic ovary disease; renal cell carcinoma of the left kidney with primary resection in 2016; clostridium difficile. Other Surgeries: Yes: Cholecystectomy Amputation: No Comment: in 2006 ovarian cyst removal 2004 renal cell carcinoma with removal of the left kidney 12/28/2016 - Social History Smoking Status: Never
[2020-07-19 11:44] VITALS: BP 139/66; PULSE 78; RESP 20; TEMP 36.5; O2SAT 98
== END 2020-07-19 11:45 | disposition home or self-care (01) ==
PROVIDERS: Emergency Provider Nurse Practitioner; PCP Family Medicine
DX: Z20.822 Contact with and (suspected) exposure to COVID-19 (principal)
CPT/HCPCS: 99202; G0463; U0003

== ENCOUNTER → 2021-01-13 11:12 | Outpatient (CLI) | payer BC, SELFPAY ==
--- NOTE | 2021-01-13 11:16 | CA_ITS ---
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 Indications c/o ithciness posterior politeal area with bruising Vein Imaging Peroneals (R):Compressible CFV (L): compressive, spontaneous, phasic, augmentation SFJ (L): compressive, spontaneous, phasic, augmentation FEM (L): compressive, spontaneous, phasic, augmentation POP (L): compressive, spontaneous, phasic, augmentation DFV (L): compressive, spontaneous, phasic, augmentation PTV (L): compressive, spontaneous, phasic, augmentation GSV (L): compressive, spontaneous, phasic, augmentation SSV (L): compressive, spontaneous, phasic, augmentation Peroneals (L):compressive, spontaneous, phasic, augmentation GAS (L): compressive, spontaneous, phasic, augmentation Findings Color flow duplex demonstrates no evidence of DVT of the following left lower extremity Veins:Common Femoral Vein, Femoral Vein, Popliteal Vein, Posterior Tibial Veins, Peroneal Veins, Deep Femoral Vein. Negative for DVT. Conclusion Negative for DVT. Electronically signed by : Ventura Collazo MD 01/13/2021 15:28:17
== END ==
PROVIDERS: PCP Nurse Practitioner Family; Visit Provider Nurse Practitioner Family
DX: M79.662 Pain in left lower leg (principal); M79.89 Other specified soft tissue disorders
CPT/HCPCS: 93971

== ENCOUNTER → 2021-03-28 12:52 | Outpatient (CLI) | payer BC, SELFPAY ==
--- NOTE | 2021-03-28 12:58 | XR_ITS ---
PROCEDURE: XR CHEST 2V CLINICAL HISTORY: DYSPNEA ON EXERTION COMPARISON: No exams were available for comparison FINDINGS: The cardiomediastinal silhouette and pulmonary vascularity are within normal limits. The lungs are clear without infiltrates, suspicious nodules, or pleural effusions. Calcified granulomas are present in the lung bases. No acute bony finding. IMPRESSION: No acute findings. Dictated by: Ventura Collazo MD 03/28/2021 13:27 Ventura Collazo MD in [place] 03/28/2021 13:27
== END ==
PROVIDERS: PCP Family Medicine; Visit Provider Family Medicine
DX: R06.00 Dyspnea, unspecified (principal)
CPT/HCPCS: 71046

== ENCOUNTER → 2021-04-07 08:02 | Outpatient (CLI) | payer BC, SELFPAY ==
[2021-04-07 08:25] VITALS: PULSE 68; PULSE 70
== END ==
PROVIDERS: PCP Family Medicine; Visit Provider Family Medicine
DX: R06.09 Other forms of dyspnea (principal)
CPT/HCPCS: 94060; 94618; 94640

== ENCOUNTER → 2021-08-04 11:55 | Outpatient (CLI) | payer BC, SELFPAY | PROVIDERS: Visit Provider Nurse Practitioner | DX: U07.1 COVID-19 (principal) | CPT/HCPCS: C9803; U0003; U0005 ==

== ENCOUNTER → 2021-10-28 14:42 | Outpatient (CLI) | payer BC, SELFPAY ==
--- NOTE | 2021-10-28 14:50 | XR_ITS ---
FINAL REPORT CLINICAL HISTORY: CHEST PAIN, MID STERNAL. SOB COMPARISON: 03/28/2021 FINDINGS: TWO-VIEW CHEST The heart size is normal. The mediastinum is normal. The lungs are clear. There is no pneumothorax. IMPRESSION: No acute cardiopulmonary process. Reviewed, Interpreted and Dictated by Alcides Thayer MD Transcribed by Petra Bird Authenticated by Alcides Thayer MD on 10/28/2021 04:00:18 PM [facility]
== END ==
PROVIDERS: PCP Nurse Practitioner Family; Visit Provider Nurse Practitioner Family
DX: R06.02 Shortness of breath (principal); R07.89 Other chest pain
CPT/HCPCS: 71046

== ENCOUNTER → 2021-11-02 14:14 | Outpatient (CLI) | payer BC, SELFPAY | PROVIDERS: PCP Nurse Practitioner Family; Visit Provider Nurse Practitioner Family | DX: R06.02 Shortness of breath (principal); R07.9 Chest pain, unspecified | CPT/HCPCS: 93225; 93226 ==

== ENCOUNTER → 2021-11-09 16:24 | Outpatient (CLI) | payer BC, SELFPAY ==
[2021-11-09 17:40] LABS: D-Dimer 0.52 ug/mL (0.0-0.5)
== END ==
PROVIDERS: PCP Nurse Practitioner Family; Visit Provider Nurse Practitioner Family
DX: R06.02 Shortness of breath (principal); R07.89 Other chest pain
CPT/HCPCS: 36415; 85378

== ENCOUNTER → 2021-11-10 09:54 | Outpatient (CLI) | payer BC, SELFPAY ==
--- NOTE | 2021-11-10 10:02 | CT_ITS ---
FINAL REPORT TECHNIQUE: Thin section axial CT images were obtained from the lung apices to the upper abdomen. IV contrast was administered. MIP 3-D reformats were obtained. This study was performed with techniques to keep radiation doses as low as reasonably achievable (ALARA). Individualized dose reduction techniques using automated exposure control or adjustment of mA and/or kV according to the patient's size were employed. CLINICAL HISTORY: SOB ELEVATED D-DIMER FINDINGS: The mediastinal vasculature is adequately opacified. The heart size is normal. There is no adenopathy. There is no filling defect to suggest PE. There is no aortic dissection. There is no pericardial effusion. There is no suspicious infiltrate or nodule. No pleural effusion. Limited images of the upper abdomen demonstrate the gallbladder to be absent. There is a minimal sliding-type hiatal hernia. IMPRESSION: No pulmonary embolism or aortic dissection. Reviewed, Interpreted and Dictated by Alcides Thayer MD Transcribed by Nick Busby Authenticated by Alcides Thayer MD on 11/10/2021 11:20:25 AM [facility]
== END ==
PROVIDERS: PCP Nurse Practitioner Family; Visit Provider Nurse Practitioner Family
DX: R06.02 Shortness of breath (principal); R79.89 Other specified abnormal findings of blood chemistry
CPT/HCPCS: 71275; Q9967

== ENCOUNTER → 2021-11-29 06:33 | Outpatient (CLI) | payer BC, SELFPAY ==
--- NOTE | 2021-11-29 08:35 | HMH.ITSHM ---
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 []CETIRIZINE
== END ==
PROVIDERS: PCP Nurse Practitioner Family; Visit Provider Nurse Practitioner
DX: R06.00 Dyspnea, unspecified (principal); R07.89 Other chest pain; R00.0 Tachycardia, unspecified; R00.2 Palpitations; R53.83 Other fatigue
CPT/HCPCS: 78452; 93017; 93306; A9502

== ENCOUNTER → 2022-01-23 12:39 | Outpatient (CLI) | payer BC, SELFPAY | PROVIDERS: PCP Nurse Practitioner Family; Visit Provider Internal Medicine Pulmonary Disease | DX: R06.02 Shortness of breath (principal) | CPT/HCPCS: 94762 ==

== ENCOUNTER → 2022-01-24 08:02 | Outpatient (CLI) | payer BC, SELFPAY ==
[2022-01-24 08:30] VITALS: PULSE 83; PULSE 86
== END ==
PROVIDERS: PCP Nurse Practitioner Family; Visit Provider Internal Medicine Pulmonary Disease
DX: R06.09 Other forms of dyspnea (principal)
CPT/HCPCS: 94060; 94618; 94640; 94727; 94729

== ENCOUNTER → 2022-04-20 14:56 | Outpatient (CLI) | payer BC, SELFPAY | PROVIDERS: PCP Nurse Practitioner Family; Visit Provider Internal Medicine Pulmonary Disease | DX: R06.00 Dyspnea, unspecified (principal) | CPT/HCPCS: 94070; 95070; J7674 ==

== ENCOUNTER → 2022-05-09 12:15 | Outpatient (CLI) | payer BC, SELFPAY | PROVIDERS: PCP Nurse Practitioner Family; Visit Provider Internal Medicine Pulmonary Disease | DX: G47.30 Sleep apnea, unspecified (principal); R06.83 Snoring; R40.0 Somnolence; R53.82 Chronic fatigue, unspecified | CPT/HCPCS: G0399 ==

== ENCOUNTER 2022-08-19 08:37 | Emergency (ER) | payer BC, SELFPAY ==
[2022-08-19 08:50] VITALS: BP 125/83; PULSE 91; RESP 18; TEMP 37.1; O2SAT 98; BMI 38.0
[2022-08-19 09:06] LABS: UTC Strep Screen (Rapid) Negative (Negative)
--- NOTE | 2022-08-19 09:25 | EXP.UTC ---
Discharge Plan Disposition Patient Disposition: Home, Self-Care Condition: Good Prescriptions Prescriptions: New azithromycin [azithromycin] 250 mg tablet 250 mg PO DIRECTED Qty: 6 0RF Rx Instructions: Take two (2) tablets on day #1, then one (1) tablet day #2 thru #5 fluticasone propionate [fluticasone propionate] 50 mcg/actuation spray,suspension 1 spray intranasal DAILY Qty: 9.9 0RF No Action levalbuterol tartrate [Xopenex HFA] 45 mcg/actuation HFA aerosol inhaler 2 inh inhalation Q6H PRN (Reason: shortness of breath or wheezing) 90 Days Qty: 15 3RF fluticasone furoate-vilanterol [Breo Ellipta] 100-25 mcg/dose blister with device 1 inh IH DAILY Qty: 60 1RF cetirizine 10 MG tablet 10 mg PO DAILY Referrals Follow up/Referrals: Aidan Vizcarra MD [Primary Care Provider] - See instructions Activity Restrictions/Add. Instructions Additional Instructions/Restrictions: Start antibiotic patient to take as ordered for a full length of time even if you feel better. Sinus infections do not get better overnight. It may take 2-3 days to notice much improvement so be sure to use conservative measures as discussed for symptoms. Flonase 1 spray each nostril daily to help with nasal congestion, sinus and ear pressure/information Increase fluids Humidifier/vaporizer as needed Tylenol and ibuprofen as needed for fever or pain. If symptoms do not improve or get worse return or be seen in the ER Follow-up with primary care this week Clinical Impressions Clinical Impression: Acute maxillary sinusitis Instructions Patient Instructions: DI for Sinusitis Discharge ED Provider: Brayan ([facility])[place] [facility] [place] HPI General Stated complaint: Sore throat sinus pressure Mode of Arrival: Ambulatory Source of Information: Patient Limitations: No Limitations Time Seen by Provider: 08/19/22 09:25 Description of Symptoms (Recalled from Triage Doc. by RN): PATIENT C/O SORE THROAT AND SINUS PRESSURE X 3 DAYS HEENT Symptoms (Recalled from RN notes): Yes Resp Symptoms (Recalled from RN notes): No Skin Symptoms (Recalled from RN notes): No MS Symptoms (Recalled from RN notes): No Functional Status (Recalled from RN notes): WNL History of Present Illness Provider Complaint: 41 yr old female presents for sore throat, sinus pressure, sinus congestion, teeth pain, and yellow/green sputum Related Data Home Medications Medication Instructions Recorded Confirmed cetirizine 10 mg tablet 10 mg PO DAILY allergies 11/11/18 05/02/22 Previous Rx's Medication Instructions Recorded fluticasone furoate 100 1 inh inhalation DAILY #60 ea 05/02/22 mcg-vilanterol 25 mcg/dose inhalation powder (Breo Ellipta) levalbuterol tartrate 45 2 inh inhalation Q6H PRN shortness 05/02/22 mcg/actuation aerosol inhaler of breath or wheezing 90 days #15 (Xopenex HFA) grams azithromycin 250 mg tablet 250 mg PO DIRECTED #6 tabs 08/19/22 fluticasone propionate 50 1 spray intranasal DAILY #9.9 mL 08/19/22 mcg/actuation nasal spray,suspension Allergies Allergy/AdvReac Type Severity Reaction Status Date / Time cefdinir Allergy Intermediate I-RASH Verified 05/02/22 16:23 Penicillins Allergy Intermediate I-RASH Verified 05/02/22 16:23 Worker's Comp Is this a Worker's Comp case?: No [facility] Disclaimer: The information contained in this section may have been updated after the patient was seen, as this information can be updated by other users. 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
[2022-08-19 09:30] VITALS: BP 125/83; PULSE 91; RESP 18; TEMP 37.1; O2SAT 98
== END 2022-08-19 09:32 | disposition home or self-care (01) ==
PROVIDERS: Emergency Provider Nurse Practitioner Family; PCP Family Medicine
DX: J01.00 Acute maxillary sinusitis, unspecified
CPT/HCPCS: 87880; 99212; 99213; G0463

== ENCOUNTER 2023-03-10 17:14 | Emergency (ER) | payer BC, SELFPAY ==
[2023-03-10 17:14] VITALS: BP 137/72; PULSE 97; RESP 18; TEMP 36.7; O2SAT 99; BMI 37.8
[2023-03-10 17:33] LABS: UTC Strep Screen (Rapid) Positive (Negative)
--- NOTE | 2023-03-10 18:26 | EXP.UTC ---
Discharge Plan Disposition Patient Disposition: Home, Self-Care Condition: Good Prescriptions Prescriptions: New azithromycin [Zithromax] 250 mg tablet See Rx Instructions .ROUTE .COMPLEX Qty: 6 0RF Rx Instructions: For 250 mg dose pack: take 500 mg today (day 1), then 250 mg for 4 days (days 2-5) No Action azithromycin 250 mg tablet See Rx Instructions PO .COMPLEX Qty: 6 0RF Rx Instructions: For 250 mg dose pack: take 500 mg today (day 1), then 250 mg for 4 days (days 2-5) PO estradiol 0.5 mg tablet 0.5 mg PO DAILY Rx Instructions: off 5 days; repeat cycle levalbuterol tartrate [Xopenex HFA] 45 mcg/actuation HFA aerosol inhaler 2 inh inhalation Q6H PRN (Reason: shortness of breath or wheezing) 90 Days Qty: 15 3RF [id number]-[id number] [Bromfed DM] 2-30-10 mg/5 mL syrup 5 ml PO Q4-6H PRN (Reason: cough) Qty: 200 0RF fluticasone propion-salmeterol [Advair HFA] 115-21 mcg/actuation HFA aerosol inhaler 2 puff inhalation BID 90 Days Qty: 12 3RF cetirizine 10 MG tablet 10 mg PO DAILY Referrals Follow up/Referrals: Aidan Vizcarra MD [Primary Care Provider] - See instructions Activity Restrictions/Add. Instructions Additional Instructions/Restrictions: Take all antibiotics until gone Replace toothbrush Clinical Impressions Clinical Impression: Strep pharyngitis Instructions Patient Instructions: DI for Strep Throat Discharge ED Provider: Orly Arriola [facility] [place] General Stated complaint: sore throat Mode of Arrival: Ambulatory Source of Information: Patient Limitations: No Limitations Time Seen by Provider: 03/10/23 17:45 Description of Symptoms (Recalled from Triage Doc. by RN): Complaint of sore throat for 2 days. HEENT Symptoms (Recalled from RN notes): Yes Resp Symptoms (Recalled from RN notes): No Skin Symptoms (Recalled from RN notes): No MS Symptoms (Recalled from RN notes): No Functional Status (Recalled from RN notes): wnl History of Present Illness Provider Complaint: Sore throat X 2 days Onset (ago): day(s) Location: mouth Radiation: non-radiation Associated symptoms: fever/chills and headaches Treatments prior to arrival: none Related Data Home Medications Medication Instructions Recorded Confirmed cetirizine 10 mg tablet 10 mg PO DAILY allergies 11/11/18 09/20/22 estradiol 0.5 mg tablet 0.5 mg PO DAILY 09/12/22 09/20/22 Previous Rx's Medication Instructions Recorded levalbuterol tartrate 45 2 inh inhalation Q6H PRN shortness 09/12/22 mcg/actuation aerosol inhaler of breath or wheezing 90 days #15 (Xopenex HFA) grams azithromycin 250 mg tablet See Rx Instructions PO .COMPLEX #6 09/20/22 tabs [id number]-bxzbgbpnrfowtxb-[id number] 5 ml PO Q4-6H PRN cough #200 mL 09/28/22 2 mg-30 mg-10 mg/5 mL oral syrup (Bromfed DM) fluticasone propionate 115 2 puff inhalation BID 90 days #12 11/14/22 mcg-salmeterol 21 mcg/actuation grams HFA inhaler (Advair HFA) azithromycin 250 mg tablet See Rx Instructions PO .COMPLEX #6 03/10/23 (Zithromax) tabs Allergies Allergy/AdvReac Type Severity Reaction Status Date / Time cefdinir Allergy Intermediate I-RASH Verified 09/20/22 16:12 Penicillins Allergy Intermediate I-RASH Verified 09/20/22 16:12 Worker's Comp Is this a Worker's Comp case?: No [facility] Disclaimer: The information contained in this section may have been updated after the patient was seen, as this information can be updated by other users. Medical History (Updated 03/10/23 @ 18:31 by LO Mcfarland) Acute maxillary sinusitis Asthma Chest pain Chronic dyspnea Daytime somnolence Dyspnea Exposure to COVID-19 virus Fatigue H/O Clostridium difficile infection History of 2019 novel coronavirus disease (COVID-19) History of kidney cancer Hx of Clostridium difficile infection Kidney stone on left side Mild persistent asthma Moderate persistent asthma Palpitations Penicillin allergy
[2023-03-10 18:40] VITALS: BP 137/72; PULSE 97; RESP 18; TEMP 36.7; O2SAT 99
== END 2023-03-10 18:40 | disposition home or self-care (01) ==
PROVIDERS: Emergency Provider Physician Assistant; PCP Family Medicine
DX: J02.0 Streptococcal pharyngitis (principal); R50.9 Fever, unspecified; R51.9 Headache, unspecified; J45.909 Unspecified asthma, uncomplicated
CPT/HCPCS: 87880; 99212; 99214; G0463

== ENCOUNTER 2024-06-05 06:58 | Day surgery (SDC) | payer BC, SELFPAY ==
[2024-06-03 10:56] VITALS: BMI 41.1
[2024-06-05] MEDS: LACTATED RINGERS 1000ML 1,000 ML 25 ML IV (07:37)
[2024-06-05 07:40] VITALS: BP 134/86; PULSE 83; RESP 18; TEMP 36.3; O2SAT 98
--- NOTE | 2024-06-05 07:53 | P.PNANES_ITS ---
[facility] Disclaimer: The information contained in this section may have been updated after the patient was seen, as this information can be updated by other users. Medical History GERD (gastroesophageal reflux disease) Hx of Clostridium difficile infection Strep pharyngitis Visit for TB skin test Acute maxillary sinusitis Moderate persistent asthma Witnessed episode of apnea Daytime somnolence Asthma Peripheral eosinophilia Mild persistent asthma Chronic dyspnea Post-COVID syndrome History of 2019 novel coronavirus disease (COVID-19) Chest pain Fatigue Dyspnea Palpitations Sinus tachycardia Exposure to COVID-19 virus Renal insufficiency H/O Clostridium difficile infection Penicillin allergy Ureteric stone History of kidney cancer Kidney stone on left side Surgical History Hx of hysterectomy History of left nephrectomy History of section Hx of cholecystectomy H/O partial nephrectomy Family History Other Cancer Diabetes Heart attack Hyperlipidemia Hypertension Stroke Social History Smoking Status: Never smoker alcohol intake: never substance use type: denies use current occupational status: other Travel in the last 8 weeks: None household members: family housing: house 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 current occupational exposures/hazards: No [facility] Anesthesia Checklist Patient Identification Patient Identification: Arm Band and Verbal (Name & ) Structural Data Admitted From: Home Planned Operative Procedure/s: EGD Consent for Planned Operative Procedure(s) Verified: Yes Verified Documents: Surgical Consent NPO Status Verified Time NPO: 00:00 Additional verifications Patient : No Anesthesia Reactions: Yes (PONV) Airway Assessment Mallampati Score:: Class II C-Spine Mobility Assessed: Yes TMJ Mobility Assessed: Yes Dentition: Good Dentition Neurological Assessment Level of Consciousness: Awake Hx Seizures: No Numbness or tingling in extremities: No Anesthesia Plan Anesthesia Risk discussed: Yes Anesthesia Plan: Verified ASA Class: III Anesthesia Type: MAC
[2024-06-05 08:22] VITALS: O2SAT 100
--- NOTE | 2024-06-05 08:22 | P.HP_ITS ---
History of Present Illness *Admission Date: 06/05/24 *Reason for visit:: GERD/reflux *History of present illness: Mrs. Tobar is a 43-year-old female who is here for diagnostic upper endoscopy secondary to intractable GERD. She has improved with pantoprazole. She has had asthma that she is struggling to control. She also has some bile acid diarrhea after cholecystectomy. The examination is deemed medically necessary for EGD. The patient has been seen, interviewed and examined prior to the procedure by both myself and the anesthesia provider. [facility] Disclaimer: The information contained in this section may have been updated after the patient was seen, as this information can be updated by other users. Medical History GERD (gastroesophageal reflux disease) Hx of Clostridium difficile infection Strep pharyngitis Visit for TB skin test Acute maxillary sinusitis Moderate persistent asthma Witnessed episode of apnea Daytime somnolence Asthma Peripheral eosinophilia Mild persistent asthma Chronic dyspnea Post-COVID syndrome History of 2019 novel coronavirus disease (COVID-19) Chest pain Fatigue Dyspnea Palpitations Sinus tachycardia Exposure to COVID-19 virus Renal insufficiency H/O Clostridium difficile infection Penicillin allergy Ureteric stone History of kidney cancer Kidney stone on left side Surgical History Hx of hysterectomy History of left nephrectomy History of section Hx of cholecystectomy H/O partial nephrectomy Family History Other Cancer Diabetes Heart attack Hyperlipidemia Hypertension Stroke Social History Smoking Status: Never smoker alcohol intake: never substance use type: denies use current occupational status: other Travel in the last 8 weeks: None household members: family housing: house 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 current occupational exposures/hazards: No Other Medical History Have you received the Flu Vaccine for this season: No Have you received the Pneumonia Vaccine: No Review of Systems Review of Systems Review of systems (narrative): Negative *Cardiovascular Comments: Negative *Gastrointestinal Comments: Negative *Genitourinary Comments: Negative *Musculoskeletal Comments: Negative *Neurologic Comments: Negative Meds Home Medications and Allergies Home Medications ?Medication ?Instructions ?Recorded ?Confirmed ?Type budesonide-formoterol HFA 160 2 puff inhalation BID 90 days 11/06/23 06/03/24 Rx mcg-4.5 mcg/actuation aerosol #10.2 grams inhaler (Symbicort) montelukast 10 mg tablet 10 mg PO QPM 90 days #90 tabs 12/17/23 06/03/24 Rx albuterol sulfate 90 mcg/actuation 90 mcg inhalation DAILY 04/03/24 06/03/24 History aerosol inhaler colestipol 1 gram tablet 1 g PO DAILY #30 tabs 04/03/24 06/03/24 Rx estradiol 0.5 mg/0.5 gram (0.1 %) 0.5 mg topical DAILY 04/03/24 06/03/24 History transdermal gel packet pantoprazole 20 mg tablet,delayed 20 mg PO DAILY #90 tabs 04/03/24 06/03/24 Rx release New Prescriptions to Start Prescriptions: Allergies Allergy/AdvReac Type Severity Reaction Status Date / Time cefdinir Allergy Intermediate I-RASH Verified 06/05/24 07:37 Penicillins Allergy Intermediate I-RASH Verified 06/05/24 07:37 Exam Data for Last 24 hours Vital signs and Labs for Last 24 Hours: Temp Pulse Resp BP Pulse Ox O2 Del Method 97.4 F L 83 18 134/86 98 Room Air 06/05/24 07:40 06/05/24 07:40 06/05/24 07:40 06/05/24 07:40 06/05/24 07:40 06/05/24 07:40 I & O for Last 24 hours: Intake & Output 06/02/24 06/03/24 06/04/24 06/05/24 23:59 23:59 23:59 23:59 Weight 240 lb *Routine HEENT Exam Head: Present normocephalic Eye: Present EOMI and PERRL ENT: Present mucous membranes moist *Routine Neck Exam Neck: Present supple *Routine Respiratory Exam Respiratory: Present CTA bilaterally *Routine Cardiovascular Exam Cardiovascular: Present RRR *Routine Abdominal Exam Abdominal: Present soft and normoactive bowel sounds; Absent tenderness *Routine Rectal Exam Rectal:: deferred *Routine Genitalia Exam Genitalia:: deferred *Routine Extremities Exam Extremities: Absent cyanosis, clubbing or edema *Routine Skin Exam Skin: Present warm; Absent rash *Routine Neurological Exam Neurological: Present alert and oriented X3 Assessment and Plan *Assessment and plan (1) GERD (gastroesophageal reflux disease): Status: Acute Category: Medical Code(s): K21.9 - Gastro-esophageal reflux disease without esophagitis (2) Bile acid malabsorption syndrome: Status: Acute Category: Medical Code(s): K90.89 - Other intestinal malabsorption (3) Moderate persistent asthma: Status: Chronic Category: Medical Code(s): J45.40 - Moderate persistent asthma, uncomplicated Plan A/P: 1. GERD for many years and last EGD more than 20 years ago is the preprocedural diagnosis. The patient will be anesthetized/sedated using MAC sedation. The patient has been seen and examined. Cardiac and lung assessment prior to the examination is stable. Proceed with planned EGD
--- NOTE | 2024-06-05 08:25 | HMH.PROCNOTE ---
[facility] Procedure Note Date: 06/05/24 Time: 08:34 Procedure Note:: Upper Endoscopy Procedure Report: Esophagogastroduodenoscopy with cold biopsies Endoscopost: Harman Bermudez II, MD Referring Physician: Aidan Vizcarra MD Date of Procedure: June 05, 2024 Equipment: Olympus GIF 190 standard upper endoscope Sedation: MAC sedation Indications: Mrs. oTbar is a 43-year-old female who is here for longstanding GERD. She will get this with certain foods. She does take pantoprazole as needed and will only need this once every 2 or 3 weeks. She does get some belching and bloating. She reports no dysphagia. She reports not having any prior EGD. She is having some difficult to control asthma which may be GERD related. She does have a history of renal cell carcinoma and had partial nephrectomy in 2016. She does get some intermittent urgency and diarrhea and had cholecystectomy in 2007. Procedure: Prior to the procedure, a history and physical exam was performed, and patient's medications and allergies were reviewed. The risks, benefits and alternatives of the sedation and procedure were discussed with the patient. All questions were answered and informed consent was obtained. The patient was brought to the procedure room. Patient identification and proposed procedure were verified by the physician and the nurse. The patient was placed in a left lateral decubitus position and the scope was passed under direct vision. Throughout the procedure, the patient's blood pressure, pulse, and oxygen saturations were monitored continuously. The upper GI endoscopy was accomplished without difficulty. The patient tolerated the procedure well. Findings: The scope was passed directly into the upper esophagus and advanced to the third portion of the duodenum. The post bulbar duodenum and duodenal bulb were normal with normal mucosa and conniventes. Cold biopsies were taken from the first portion of the duodenum to rule out celiac disease. The scope was withdrawn through a normal duodenal bulb and pylorus into the stomach. There was moderate bile reflux with mild linear reactive gastropathy of the antrum. The body and fundus of the stomach were normal. Upon retroflexion there was a 2 cm hiatal hernia. Biopsies were taken from the antrum and lesser curvature. The scope was then withdrawn into the esophagus. There was no evidence of reflux esophagitis or Torrez's. There was some tertiary contractions and evidence of mild esophageal dysmotility. The remainder of the esophageal mucosa was normal. Impression: 1. Nonerosive GERD with mild esophageal dysmotility and small 2 cm hiatal hernia 2. Bile reflux with mild linear reactive gastropathy Plan: I do feel that the patient most likely has more duodenal/bile reflux driven by gas pressure gradients. She does have uncomplicated GERD. Uncomplicated GERD (gastro-esophageal reflux disease) is primarily defined as heartburn and reflux symptoms that occur intermittently and at the time of endoscopy there are no breaks in the esophageal lining caused by esophageal reflux. This can be controlled by dietary measures, short-term antacids or short-term acid reflux therapy. Complicated GERD is defined by having more advanced changes with ulceration, erosion or damage to the esophagus and/or with the presence of Torrez's esophagus. With complicated GERD/reflux we are more apt to recommend proton pump inhibitors (i.e. omeprazole) which are more effective in treating GERD long-term and the risks of not taking a PPI outweigh any risk of taking this therapy.
[2024-06-05 08:39] VITALS: BP 127/47; PULSE 99; RESP 16; TEMP 36.3; O2SAT 97
[2024-06-05 08:49] VITALS: BP 114/58; PULSE 89; RESP 18; O2SAT 97
[2024-06-05 08:59] VITALS: BP 106/65; PULSE 92; RESP 18; O2SAT 96
[2024-06-05 09:09] VITALS: BP 105/76; PULSE 80; RESP 16; O2SAT 98
== END 2024-06-05 09:17 | disposition home or self-care (01) ==
PROVIDERS: PCP Family Medicine; Visit Provider Internal Medicine Gastroenterology
PROC: 0DJ08ZZ Inspection of Upper Intestinal Tract, Via Natural or Artificial Opening Endoscopic (ICD-10-PCS; CPT 43235; principal; 2024-06-05 08:30)
DX: K21.9 Gastro-esophageal reflux disease without esophagitis (principal); K90.89 Other intestinal malabsorption; J45.40 Moderate persistent asthma, uncomplicated; K44.9 Diaphragmatic hernia without obstruction or gangrene; K31.9 Disease of stomach and duodenum, unspecified; K22.4 Dyskinesia of esophagus
CPT/HCPCS: 43239; J7120

== ENCOUNTER 2024-06-20 10:49 | Outpatient (CLI) | payer BC, SELFPAY ==
--- OUTSIDE RECORDS SUMMARY | 2024-06-20 10:53 | XMS_ITS | Encounter Summary ---
Author Organization [employer] Address [address] [place] [address] Care Team Providers Care Health Support Specialist Name Role Phone Unavailable Primary Care Provider Unavailabl e Encounter Details Date Type Department Care Team (Late st Contact Info) Description 11/16/2018 Transcribed Document [facility] [place] [address] [place] [address] ProviderGoyo MD [address], [place] [id number] Social History Tobacco Use Types Packs/Day Years Used Date Smoking Tobacco: Never Assessed Comments Unknown Sex and Gender Information Value Date Recorded Sex Assigned at Female 01/10/2022 5:11 PM CDT Legal Sex Female 5:11 PM CDT Gender Identity Female 01/10/2022 5:11 PM CDT Sexual Orientation Not on file documented as of this encounter Miscellaneous Notes * Cerner Conversion Note - Goyo ProviderMD - 11/16/2018 3:38 PM CDT [facility] Main OR PACU Summary Primary Physician: KODY Humphrey, JOHNNY Montgomery MD-URO Finalized Date/Time: 11/16/18 16:29:08 Pt. Name: LORENZO TOBAR /Sex: 1980 Female Med Rec #: [id number] Physician: TAMMI MENA MD-INT Financial #: [id number] Pt. Type: I Room/Bed: [facility]/1 Admit/Disch: 11/16/18 15:12:00 - Institution: [facility] Main OR PACU I Case Times Entry 1 In PACU I 11/16/18 16:00:00 Ready for PACU 11/16/18 16:27:00 Discharge Discharge from PACU 11/16/18 16:30:00 I Last Modified By: Carmina Lizama RN 11/16/18 16:28:58 [facility] Main OR PACU Acuity Entry 1 Start Time 11/16/18 16:27:00 Stop Time 11/16/18 16:30:00 Acuity Level [facility] PACU Acuity I Last Modified By: Carmina Lizama RN 11/16/18 16:29:07 Finalized By: Carmina Lizama, PIA Document Signatures Signed By: Carmina Lizama RN 11/16/18 16:29 Electronically signed by Charissa [facility] Conversion Showcase Maker Cerner at 11/03/2022 3:46 PM CDT documented in this encounter Plan of Treatment Not on file documented as of this encounter Visit Diagnoses Not on filedocumented in this encounter
--- OUTSIDE RECORDS SUMMARY | 2024-06-20 10:53 | XMS_ITS | Encounter Summary ---
Author Organization [employer] Address [address] [place] [address] Care Team Providers Care Sterile Supervisor Name Role Phone Unavailable Primary Care Provider Unavailabl e Encounter Details Date Type Department Care Team (Late st Contact Info) Description 11/16/2018 Transcribed Document [facility] [place] Medicine [facility] [place] [address] ProviderGoyo MD [facility] [address], [place] [id number] Social History Tobacco Use Types Packs/Day Years [...] Conversion Note - Goyo ProviderMD - 11/16/2018 4:06 PM CDT Patient: LORENZO TOBAR Age: 37 Years Sex: Female : 1980 Chief Complaint Left flank and abdominal pain Reason for Consultation Left ureteral stone Consulting physician: Lamont Bain M.D. Requesting physician: Evangelist Hassan EMD History of Present Illness 37-year-old white female, patient of Jose L Beltran M.D., with a history of renal cell cancer status post left partial nephrectomy in 2017. This is her first stone episode. She has been symptomatic about 5 days. She had left flank pain, nausea, and vomiting. She denies fever. She was admitted to [facility] on 11/11/2018 with a left ureterovesical junction stone. She had edema of the hands and feet and was given Lasix. She subsequently was discharged home and came back today with recurrence of severe left flank pain. She denies nausea and vomiting currently. A repeat CT scan showed a 5 mm left ureterovesical junction stone with hydronephrosis. Labs include WBC 10.5, creatinine 1.14, urinalysis blood 3+, nitrite negative, and leukocyte esterase negative. She has a history of C. difficile toxin and has not been treated with antibiotics. She is transferred here for stone extraction. Review of Systems General: No fever or weight loss Cardiovascular: No chest pain or palpitations Respiratory: No shortness of breath or cough Gastrointestinal: Left-sided flank and abdominal pain, previously had nausea and vomiting Genitourinary: Frequency with low urine output, no dysuria or gross hematuria All others negative Vital Signs No qualifying data available Oxygen Settings (Last) No qualifying data available. Physical Exam General: No acute distress, appears comfortable currently Cardiovascular: Heart regular rate and rhythm, 2+ radial pulses Respiratory: Normal respiratory effort, lungs clear to auscultation Gastrointestinal: Abdomen soft, nondistended, no mass, mild left lower quadrant tenderness, no rebound, no guarding, mild left CVA tenderness Genitourinary: Deferred Extremities: Mild ankle edema bilateral Psychological: Mood and affect normal Assessment/Plan 37-year-old female with a 5 mm left ureterovesical junction stone with hydronephrosis. This is her first stone episode. She has a previous history of left partial nephrectomy for renal cell cancer in 2017. She has left renal colic and was admitted to the hospital a few days ago and came back to the emergency room today. She continues to be symptomatic and has been unable to pass the stone. We agreed to proceed with stone extraction. Potential risks include bleeding, infection, injury to the urethra, bladder, ureter, kidney, and anesthetic risks. The postoperative expectations and care were discussed. Her questions were answered. Plan: To the operating room today for cystoscopy with left ureteroscopy, basket stone extraction, possible laser lithotripsy, and stent. She will be admitted postoperatively by the hospitalist for IV fluids and pain control. Calculus of kidney, Calculus of kidney Orders: levoFLOXacin, 500 mg, IV Piggyback, Inj, 1-Time, infuse over 60 Minute(s), Start 11/16/18 16:00:00 EDT, Stop 11/16/18 16:00:00 EDT, 100 mL/Hr, Indication: Surgical Prophylaxis Diet, Adult VTE Prophylaxis - Medical No VTE Prophylaxis Orders. Provider Information Primary Care Physician - GABRIEL HEWITT (REF) T Attending Physician - EVANGELIST HASSAN MD-INT Admitting Physician - EVANGELIST HASSAN MD-INT Consulting Physician - SANDRO, GARCIA Cedillo MD Consulting Physician - KODY Humphrey, LAMONT Montgomery MD-URO Referring Physician - YANIRA, NOT LISTED Problem List/Past Medical History Ongoing Endometriosis Hematuria Irritable bowel syndrome PCO - Polycystic ovaries Prolapsed uterus Renal disease Renal mass, left Historical No qualifying data Left renal cell carcinoma Procedure/Surgical History EXCISION OF LEFT KIDNEY, PERCUTANEOUS ENDOSCOPIC APPROACH (12/28/2016), ROBOTIC ASSISTED PROCEDURE OF TRUNK, PERC ENDO APPROACH (12/28/2016), exploratory laparoscopy (2008), lap wilder (2007), c--section for twin (2005), nasal tumor in nose removed (2005), circlage (2004), ovarian cyst (2003). SN - Proc - Procedure: Cystoscopy Adult (11/16/18 16:02:35 EDT) SN - Proc - Procedure: Ureteroscopy (11/16/18 16:02:35 EDT) SN - Proc - Procedure: Ureteral Stent Insertion (11/16/18 16:02:35 EDT) Medications Inpatient fentaNYL, 25 mcg= 0.5 mL, IV Push, Q10Min, PRN fentaNYL, 25 mcg= 0.5 mL, IV Push, 1-Time, PRN HYDROmorphone, 0.25 mg= 0.25 mL, IV Push, Q10Min, PRN HYDROmorphone, 0.5 mg= 0.5 mL, IV Push, Q10Min, PRN Levaquin, 500 mg= 100 mL, IV Piggyback, 1-Time ondansetron, 4 mg= 2 mL, IV Push, 1-Time, PRN oxyCODONE, 5 mg= 1 Tab, Oral, 1-Time, PRN Home Colace 100 mg oral capsule, 100 mg= 1 Cap, Oral, Daily ibuprofen 600 mg oral tablet, 600 mg= 1 Tab, Oral, Q6H, PRN Non Formulary med, Seasonale ( control) 1 tab, Oral, Daily Percocet 5/325 oral tablet, 2 Tab, Oral, Q4H, PRN ZyrTEC, 10 mg, Oral, Daily Allergies Omnicef (Rash) penicillin Social History Nonsmoker, does not drink alcohol, 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
--- OUTSIDE RECORDS SUMMARY | 2024-06-20 10:53 | XMS_ITS | Encounter Summary ---
Author Organization [employer] Address [address] [place] [address] Care Team Providers Care Phlebotomist Supervisor/Instructor Name Role Phone Unavailable Primary Care Provider Unavailabl e Encounter Details Date Type Department Care Team (Late st Contact Info) Description 11/17/2018 Transcribed Document [facility] [place] Family Medicine [facility] [address] [facility] [place] [id number] Social History Tobacco Use Types Packs/Day Years Used Date Smoking Tobacco: Never Assessed Comments Unknown Sex and Gender Information Value Date Recorded Sex Assigned at Female 01/10/2022 5:11 PM CDT Legal Sex Female 5:11 PM CDT Gender Identity Female 01/10/2022 5:11 PM CDT Sexual Orientation Not on file documented as of this encounter Miscellaneous Notes * Cerner Conversion Note - Goyo ProviderMD - 11/17/2018 9:41 AM CDT Patient: LORENZO TOBAR Age: 38 Years Sex: Female : 1980 Subjective She feels much better today after stone extraction. She is tolerating the stent okay. She has some frequency and slight dysuria. She denies fever or nausea. Her is at the bedside. Intake & Output Intake & Output Totals Last 24 Hours (7a-7a) Intake (3 Events) Medications (2 mL) Surgical Services Intake (900 mL) Output (1 Events) Urine Voided (Volume) (400 mL) Input Total: 902 mL Output Total: 400 mL Balance: 502 mL Vital Signs T: 36.9 ??C TMIN: 36.5 ??C TMAX: 36.9 ??C HR: 72(Monitored) RR: 15 BP: 106/57 SpO2: 98% HT: 162.56 cm WT: 81.82 kg BMI: 31 Physical Exam No acute distress, sitting up in bed, pleasant, appears comfortable Breathing nonlabored VTE Risk Total Score VTE Prophylaxis - Surgical Sequential Compression Device Start: 11/16/18 16:16:00 EDT, Bilateral, Length: Knee High, While patient is in bed, Continuous Order (TAMMI MENA) Assessment/Plan 38 year-old female with a 5 mm left ureterovesical junction stone with hydronephrosis. This is her first stone episode. She has a previous history of left partial nephrectomy for renal cell cancer in 2017. She had left renal colic and was admitted to the hospital a few days ago and came back to the emergency room and was transferred here. She underwent left ureteroscopic basket stone extraction 11/16/2018. Currently she is doing well and is stable for discharge. She is instructed to remove the stent and string on Sunday morning 2018, she may come to the office if needed. She will follow up with me in 2-3 weeks. She was sent home on Colace, ibuprofen, Levaquin 3 days, and Percocet by the hospitalist. Calculus of kidney N20.0, Calculus of kidney N20.0 Orders: phenazopyridine, 95 mg, Oral, Tab, TID, PRN for Urinary Discomfort, Routine, Start 11/16/18 16:28:00 EDT tamsulosin, 0.4 mg, Oral, CR Cap, Daily, Routine, Start 11/17/18 9:00:00 EDT Pathology Tissue Request Medications Inpatient Colace, 100 mg= 1 Cap, Oral, BID DuoNeb 0.5 mg-2.5 mg/3 mL inhalation solution, 3 mL, Nebulized Inhalation , Q6H, PRN Levaquin, 750 mg= 150 mL, IV Piggyback, [id number] loratadine, 10 mg= 1 Tab, Oral, Daily morphine, 2 mg= 1 mL, IV Push, Q2H, PRN Percocet 5/325 oral tablet, 2 Tab, Oral, Q4H, PRN phenazopyridine, 95 mg= 1 Tab, Oral, TID, PRN Protonix, 40 mg= 1 Tab, Oral, Daily Sodium Chloride 0.9% intravenous solution 1,000 mL, 1000 mL, IntraVENous tamsulosin, 0.4 mg= 1 Cap, Oral, Daily Tylenol, 650 mg= 2 Tab, Oral, Q4H, PRN Zofran, 4 mg= 2 mL, IV Push, Q4H, PRN Home Levaquin 500 mg oral tablet, 500 mg= 1 Tab, Oral, [id number] ZyrTEC, 10 mg, Oral, Daily Routine Labs - Last 24 Hours NOVEMBER 17 06:50 141 108 19 / 81 4.1 28 H 1.20 \ Anion Gap: 9 Calcium Level: 8.3 mg/dL Low Imaging Results (Last 24 Hours) No Radiology Results Found Problem List/Past Medical History Ongoing Endometriosis Hematuria Irritable bowel syndrome PCO - Polycystic ovaries Prolapsed uterus Renal disease Renal mass, left Historical No qualifying data Procedure/Surgical History EXCISION OF LEFT KIDNEY, PERCUTANEOUS ENDOSCOPIC APPROACH (12/28/2016), ROBOTIC ASSISTED PROCEDURE OF TRUNK, PERC ENDO APPROACH (12/28/2016), exploratory laparoscopy (2008), lap wilder (2007), c--section for twin (2005), nasal tumor in nose removed (2005), circlage (2004), ovarian cyst (2003). Allergies Omnicef (Rash) penicillin documented in this encounter Plan of Treatment Not on file documented as of this encounter Visit Diagnoses Not on filedocumented in this encounter
--- OUTSIDE RECORDS SUMMARY | 2024-06-20 10:53 | XMS_ITS | Encounter Summary ---
Author Organization [facility] ystem Address [address] [place] [id number] Care Team Providers Care Endoscopy Support Specialist Name Role Phone Aidan Vizcarra MD Primary Care Provider [phone] Reason for Visit * Reason Onset Date Comments Results 04/06/2023 Encounter Details Date Type Department Care Team (Late st Contact Info) Description 04/06/2023 Telephone [facility] OBGYN [address] [address] Shara Timmons MD 1700 [facility] [address] [place], [place] [id number] Results Social History Tobacco Use Types Packs/Day Years Used Date Smoking Tobacco: Never Smokeless Tobacco: Never Alcohol Use Standard Drinks/Week Comments No 0 (1 standard drink = 0.6 oz pur e alcohol) AUDIT-C Answer Date Recorded Q1: How often do you have a drink containing alcohol? Never 06/28/2022 Q2: How many drinks containi ng alcohol do you have on a typical day when you are drinking? Patient does not drink Q3: How often do you have si x or more drinks on one occasion? Never 06/28/2022 Abuse Screen Answer Date Recorded Feels Unsafe at Home or Work/School no 06/28/2022 Feels Threatened by Someone no 06/15 Does Anyone Try to Keep You From Having Contact with Others or Doing Things Outside Your Home? no 06/28/2022 Physical Signs of Abuse Present no 06/28/2022 Housing Stability Answer Date Recorded Current Living Arrangements home 06/15 Potentially Unsafe Housing Conditions Not on carlos e 06/28/2022 Disabilities Answer Date Recorded Difficulty Concentrating, Remembering or Making Decisions no 06/28/2022 Difficulty Managing Errands Independently no 06/28/2022 Education Answer Date Recorded Help with school or training? Not on file Preferred Language Vietnamese 06/22/2022 Comments No Sex and Gender Information Value Date Recorded Sex Assigned at Not on file Legal Sex Female 11:45 AM EDT Gender Identity Not on file Sexual Orientation Not on file documented as of this encounter Miscellaneous Notes * Telephone Encounter - Eva Ramírez RN - 04/06/2023 1:05 PM EDT Informed patient that her results are not back yet. Informed patient that we will contact her when her results are back. She v/u. * Telephone Encounter - Bowen Parks RegSched Rep - 04/06/2023 12:50 PM EDT PATIENT STATES SHE WOULD LIKE A CALL BACK WITH TEST RESULTS. CALL BACK [phone] documented in this encounter Plan of Treatment Upcoming Encounters Date Type Department Care Team (Late st Contact Info) Description 09/02/2024 3:30 PM EST Office Visit [facility] OBGYN [address] [address] Shara Timmons MD [address] [address] documented as of this encounter Visit Diagnoses Not on filedocumented in this encounter Care Teams Endoscopy Support Specialist Relationship Specialty Start Date End Date Aidan Vizcarra MD 1210 [facility] [address] [place] [address] PCP - General Family Medicine 04/20/16 documented as of this encounter
--- OUTSIDE RECORDS SUMMARY | 2024-06-20 10:53 | XMS_ITS | Encounter Summary ---
Author Organization [facility] ystem Address [address] [place] [address] Care Team Providers Care Revenue Collector Name Role Phone Aidan Vizcarra MD Primary Care Provider [phone] Encounter Details Date Type Department Care Team (Late st Contact Info) Description 10/17/2022 Refill [facility] OBGYN [address] [address] Shara Timmons MD 1700 [facility] [address] [place], [place] [address] Hormone replacement therapy (Primary Dx) Social History Tobacco Use Types Packs/Day Years [...] or training? Not on file Preferred Language Polish 06/22/2022 Comments No Sex and Gender Information Value Date Recorded Sex Assigned at Not on file Legal Sex Female 11:45 AM EDT Gender Identity Not on file Sexual Orientation Not on file documented as of this encounter Progress Notes * Benigno Lawson RN - 10/24/2022 2:49 PM EDTAddended by: BENIGNO LAWSON on: 10/24/2022 02:49 PM Modules accepted: Orders documented in this encounter Miscellaneous Notes * Telephone Encounter - Benigno Lawson RN - 10/24/2022 2:41 PM EDT They cover estradiol transdermal gel - I called the pharmacy and she gave the closest generic to Divigel. The cost is still 123.39 going to her deductible. * Telephone Encounter - Shara Timmons MD - 10/24/2022 1:38 PM EDT She cannot do a patch. What about Divigel? * Telephone Encounter - Benigno Lawson RN - 10/17/2022 1:31 PM EDT The pt called back and she is aware this new insurance did not approved the Estrogel. It was expensive with the PA and may not last the full month. She paid 113 dollars and has enough to last for 3 weeks. She has skin reaction to adhesives. * Telephone Encounter - Benigno Lawson RN - 10/17/2022 1:03 PM EDT The PA for Estrogel 0.06% gel was denied.The Formulary alternative(s) are estradiol transdermal gel. LMCB. I called the pharmacy to let them know. documented in this encounter Plan of Treatment Upcoming Encounters Date Type Department Care Team (Late st Contact Info) Description 09/02/2024 3:30 PM EST Office Visit [facility] OBGYN [address] [address] Shara Timmons MD [address] [address] documented as of this encounter Visit Diagnoses Diagnosis Hormone replacement therapy- Primary documented in this encounter Care Teams Revenue Collector Relationship Specialty Start Date End Date Aidan Vizcarra MD 1210 [facility] [address] [facility] [address] [place] [address] PCP - General Family Medicine 04/20/16 documented as of this encounter
--- OUTSIDE RECORDS SUMMARY | 2024-06-20 10:53 | XMS_ITS | Encounter Summary ---
Author Organization [employer] Address [address] [place] [address] Care Team Providers Care Anatomy And Physiology Instructor Name Role Phone Unavailable Primary Care Provider Unavailabl e Encounter Details Date Type Department Care Team (Late st Contact Info) Description 11/17/2018 Transcribed Document [facility] Family Medicine [address] [place] [address] ProviderGoyo MD [address] [place] [id number] Social History Tobacco Use Types Packs/Day Years [...] Conversion Note - Goyo ProviderMD - 11/17/2018 10:18 AM CDT Stroke/Warfarin Instructions Entered On: 11/17/2018 10:18 EDT Performed On: 11/17/2018 10:18 EDT by LISANDRO JOHNSON RN Stroke/Warfarin Instructions Stroke/TIA Discharge Ins : N/A Warfarin Discharge Ins : N/A LISANDRO JOHNSON RN - 11/17/2018 10:18 EDT documented in this encounter Plan of Treatment Not on file documented as of this encounter Visit Diagnoses Not on filedocumented in this encounter
--- OUTSIDE RECORDS SUMMARY | 2024-06-20 10:53 | XMS_ITS | Encounter Summary ---
Author Organization [employer] Address [address] [place] [address] Care Team Providers Care Project Coach Name Role Phone Unavailable Primary Care Provider Unavailabl e Encounter Details Date Type Department Care Team (Late st Contact Info) Description 11/16/2018 Transcribed Document [facility] Radiology [address] [place] [phone] Evangelist Hassan MD [address] [place] [address] [address] Social History Tobacco Use Types Packs/Day Years Used Date Smoking Tobacco: Never Assessed Comments Unknown Sex and Gender Information Value Date Recorded Sex Assigned at Female 01/10/2022 5:11 PM CDT Legal Sex Female 5:11 PM CDT Gender Identity Female 01/10/2022 5:11 PM CDT Sexual Orientation Not on file documented as of this encounter Miscellaneous Notes * Cerner Conversion Note - Evangelist Hassan MD - 11/16/2018 5:17 PM EDT Patient: LORENZO TOBAR Age: 37 years Sex: Female : 1980 Associated Diagnoses: None Author: EVANGELIST HASSAN MD-INT Basic Information Admit information: Admit from ER / [facility] . Source of history: Self, Medical record. Present at bedside: Medical personnel. PCP: Not listed DOA: 11/16/2018 CODE STATUS: Full code Referral source: Emergency department. Chief Complaint 1. Left flank pain 2. Left renal colic 3. Hematuria History of Present Illness This is 37-year-old female transferred from [facility] emergency department for urology evaluation. Patient has a history of kidney disease he has had renal cell carcinoma and underwent partial left nephrectomy in the past and history of kidney stones. Presented to the emergency department with left renal colic and pain and workup revealed left renal lithiasis. Urology accepted the patient to see in consultation we are asked to admit the patient for further Rx and Evaluation. No fever noted. No Syncope. No Headache or Vision Change. No Recent Travel, Trauma or Injury. PAST MEDICAL HISTORY: Partial left nephrectomy History of renal cell carcinoma [per ER physician] Nephrolithiasis PCOD I BS Endometriosis FAMILY HISTORY: Unknown and unrelated to her current condition. SOCIAL HISTORY: Lives at home No current history of smoking alcohol or any other recreational drug use. Histories Family History: No family history items have been selected or recorded. Procedure history: exploratory laparoscopy in 2008 at 28 Years. Comments: 12/25/2016 14:39 - [facility] RN endometriosis lap wilder in 2007 at 27 Years. c--section for twin in 2005 at 25 Years. nasal tumor in nose removed in 2005 at 25 Years. circlage in 2004 at 24 Years. ovarian cyst in 2003 at 23 Years. Social History Social & Psychosocial Habits No Data Available . Allergies (2) Active Reaction Omnicef Rash penicillin None Documented Medications (14) Active Scheduled: (2) docusate sodium 100 mg cap 100 mg 1 Cap, Oral, BID pantoprazole EC 40 mg tab 40 mg 1 Tab, Oral, Daily Continuous: (1) NaCl 0.9% 1,000 mL 1,000 mL, IntraVENous, 75 mL/Hr PRN: (11) acetaminophen 325 mg tab 650 mg 2 Tab, Oral, Q4H acetaminophen/HYDROcodone 325/5 mg tab 1 Tab, Oral, Q4H albuterol-ipratropium inh 3 mL 3 mL, Nebulized Inhalation, Q6H fentaNYL 100 mcg/2 mL inj 25 mcg 0.5 mL, IV Push, Q10Min fentaNYL 100 mcg/2 mL inj 25 mcg 0.5 mL, IV Push, 1-Time HYDROmorphone 1 mg/1 mL inj 0.25 mg 0.25 mL, IV Push, Q10Min HYDROmorphone 1 mg/1 mL inj 0.5 mg 0.5 mL, IV Push, Q10Min morphine 2 mg/1 ml inj 2 mg 1 mL, IV Push, Q2H ondansetron 4 mg/2 mL inj 4 mg 2 mL, IV Push, 1-Time ondansetron 4 mg/2 mL inj 4 mg 2 mL, IV Push, Q4H oxyCODONE 5 mg tab 5 mg 1 Tab, Oral, 1-Time Home Medications (5) Active Colace 100 mg oral capsule 100 mg = 1 Cap, Oral, Daily ibuprofen 600 mg oral tablet 600 mg = 1 Tab, PRN, Oral, Q6H Non Formulary med Seasonale ( control) 1 tab, Oral, Daily Percocet 5/325 oral tablet 2 Tab, PRN, Oral, Q4H ZyrTEC 10 mg, Oral, Daily Review of Systems Patient is very drowsy, status post surgery and sedated. Unable to give a good review of system but seems to be negative unremarkable other than what explained in history of present illness and past medical history. All other systems are negative Health Status Problem list: Active Problems (7) Endometriosis Hematuria Irritable bowel syndrome PCO - Polycystic ovaries Prolapsed uterus Renal disease Renal mass, left Physical Examination VS/Measurements Vitals Signs (last 24 hrs) Last Charted Minimum Maximum Temp 98 (NOVEMBER 16 16:) 98 (NOVEMBER 16 16:00) 98 (NOVEMBER 16:) Mon HR 76 (NOVEMBER 16:15) 76 (NOVEMBER 16:15) 98 (NOVEMBER 16:10) Resp Rate L 12 (NOVEMBER 16:15) L 10 (NOVEMBER 16:05) 19 (NOVEMBER 16 16:10) SBP 119 (NOVEMBER 16:15) 110 (NOVEMBER 16 16:00) 128 (NOVEMBER 16:05) DBP 66 (NOVEMBER 16:15) L 51 (NOVEMBER 16 16:00) 68 (NOVEMBER 16 16:10) MAP 87 (NOVEMBER 16:15) 73 (NOVEMBER 16 16:00) 93 (NOVEMBER 16 16:10) SpO2 100 (NOVEMBER 16:15) 100 (NOVEMBER 16 16:00) 100 (NOVEMBER 16:00) General: No acute distress, Postprocedure and sedated. Eye: Pupils are equal, round and reactive to light, Extraocular movements are intact, Normal conjunctiva. HENT: Normocephalic, Oral mucosa is moist. Neck: Supple, Non-tender, No carotid bruit. Respiratory: Lungs are clear to auscultation, Respirations are non-labored, Breath sounds are equal. Cardiovascular: Normal rate, Regular rhythm, S1, S2. Gastrointestinal: Soft, Non-tender, Non-distended, Normal bowel sounds. Musculoskeletal: Normal range of motion, No tenderness. Integumentary: Warm, Intact, Moist. Neurologic: Alert, Oriented, Normal motor function, No focal deficits. Psychiatric: Cooperative. Review / Management Results review: No qualifying data available. Impression and Plan DIAGNOSIS: Acute Left renal colic Status post cystoscopy and stent placement and stone extraction. Possible UTI. History of left partial nephrectomy Polycystic ovary disease Endometriosis Irritable bowel syndrome PLAN: Postprocedure phase patient is a still sedated but pretty stable. We'll be monitored on the floor Start IV antibiotic continue IV hydration, continue pain management. Br Rx, O2, Pulmonary Toilet Home Meds will be Reconciled, when finalized. D/W Pt and PACU staff nurse D/W Urology documented in this encounter Plan of Treatment Not on file documented as of this encounter Visit Diagnoses Not on filedocumented in this encounter
--- OUTSIDE RECORDS SUMMARY | 2024-06-20 10:53 | XMS_ITS | Encounter Summary ---
Author Organization [facility] Address [address] [place] [id number] Care Team Providers Care Doughnut Icer Machine Name Role Phone Aidan Vizcarra MD Primary Care Provider [phone] Reason for Visit * Reason Onset Date Comments DR. TIMMONS - REFILL ISSUE 11/07/2022 Encounter Details Date Type Department Care Team (Late st Contact Info) Description 11/07/2022 Telephone [facility] OBGYN [address] [place] [phone] Shara Timmons MD [address] [place] [address] DR. TIMMONS - CALLY ISSUE Social History Tobacco Use Types Packs/Day Years [...] or training? Not on file Preferred Language Romansh 06/22/2022 Comments No Sex and Gender Information Value Date Recorded Sex Assigned at Not on file Legal Sex Female 11:45 AM EDT Gender Identity Not on file Sexual Orientation Not on file documented as of this encounter Miscellaneous Notes * Telephone Encounter - Benigno Khan RN - 11/07/2022 3:15 PM EDT Insurance prefers the patch and she has issues with adhesives. Dr. Timmons does not want her to take a pill either. The Estrogel was working fine and she had a coupon for 35 dollars, then she changed plans and it was denied. She is going to call her insurance and ask for a tier exception and I will attempt the PA again for Estrogel. Pending. * Telephone Encounter - Rebekah Cabrera RegSched Rep - 11/07/2022 3:01 PM EDT Caller: Hannah Tobar Relationship: Self Best call back number: [phone] Requested Prescriptions: estradiol 0.25 MG/0.25GM gel [[id number]] Requested Prescriptions No prescriptions requested or ordered in this encounter Pharmacy where request should be sent: [facility] [place] Last office visit with prescribing clinician: 08/15/2022 Last telemedicine visit with prescribing clinician: Visit date not found Next office visit with prescribing clinician: 08/23/2023 Additional details provided by patient: PT'S NEW INSURANCE HAS PT PAYING AN ENORMOUS AMOUNT OUT OF POCKET FOR THIS MEDICATION - IS THERE ANYTHING ELSE THAT CAN BE SENT IN FOR THE PAT?? Does the patient have less than a 3 day supply: [x] Yes [x] No Would you like a call back once the refill request has been completed: [x] Yes [] No If the office needs to give you a call back, can they leave a voicemail: [x] Yes [] No Maicol Mclean Rep 11/07/22 15:02 EDT documented in this encounter Plan of Treatment Upcoming Encounters Date Type Department Care Team (Late st Contact Info) Description 09/02/2024 3:30 PM EST Office Visit [facility] OBGYN 1700 [facility] [address] [place] [phone] Shara Timmons MD [address] [place] [phone] documented as of this encounter Visit Diagnoses Not on filedocumented in this encounter Care Teams Doughnut Icer Machine Relationship Specialty Start Date End Date Aidan Vizcarra MD 1210 [facility] [address] [facility] [address] [place] [address] PCP - General Family Medicine 04/20/16 documented as of this encounter
--- OUTSIDE RECORDS SUMMARY | 2024-06-20 10:53 | XMS_ITS | Encounter Summary ---
Author Organization [employer] Address [address] [place] [address] Care Team Providers Care Home Sales Service Professional Name Role Phone Unavailable Primary Care Provider Unavailabl e Encounter Details Date Type Department Care Team (Late st Contact Info) Description 11/17/2018 Transcribed Document [facility] Family Medicine [facility] [place] [address] ProviderGoyo MD [facility] [place], [place] [id number] Social History Tobacco Use Types Packs/Day Years [...] Conversion Note - Goyo ProviderMD - 11/17/2018 10:19 AM CDT Nursing Discharge Summary Entered On: 11/17/2018 10:20 EDT Performed On: 11/17/2018 10:19 EDT by LISANDRO JOHNSON, tip tester Documentation Discharge Date/Time : 11/17/2018 10:45 EDT LISANDRO JOHNSON RN - 2018 7:24 EDT Patient Disposition, General : Discharge Discharge To : Home with ambulatory/outpatient follow-up Mode Of Departure, General Discharge : Private vehicle Accompanied By, Discharge : Spouse IV Discontinued : Yes Personal Belongings With Patient : Yes Prescriptions Given to Patient : Yes Discharge Instructions Reviewed With, Opportunity For Questions Given : Patient, Spouse Patient Education Completed : Yes Number of Prescriptions Given : 1 Teaching Method : Explanation Teaching Evaluation : Verbalizes understanding Education Comment : Pt v/u of poc, medications, use of call light, fall prevention and safety LISANDRO JOHNSON RN - 11/17/2018 10:19 EDT Electronically signed by Charissa, [facility] Conversion Corporate Treasury Analyst Cerner at 11/03/2022 3:37 PM CDT documented in this encounter Plan of Treatment Not on file documented as of this encounter Visit Diagnoses Not on filedocumented in this encounter
--- OUTSIDE RECORDS SUMMARY | 2024-06-20 10:53 | XMS_ITS | Encounter Summary ---
Author Organization [facility] Address [address] [place] [address] Care Team Providers Care Weir Fisher Name Role Phone Aidan Vizcarra MD Primary Care Provider [phone] Reason for Referral * Diagnostic Imaging (Routine) - Closed Specialty Diagnoses / Procedures Referred By Marly arce Referred To Contact Radiology Diagnoses Screening mammogram for breast cancer Procedures Mammo Screening Digital Tomosynthesis Bilateral With CAD Aidan Vizcarra MD [address] [place] [address] [address] [place] [address] Phone: tel: fax: [address] [address] Phone: tel: fax: Referral ID Status Reason Start Date Expiration Date Visits Re quested Visits Authorized [id number] Closed 03/13/2023 03/12/2024 1 1 Reason for Visit * Diagnostic Imaging (Routine) - Closed Specialty Diagnoses / Procedures Referred By Marly arce Referred To Contact Radiology Diagnoses Screening mammogram for breast cancer Procedures Mammo Screening Digital Tomosynthesis Bilateral With CAD Aidan Vizcarra MD [address] [place] [address] [address] [place] [address] Phone: tel: fax: [address] [address] Phone: tel: fax: Referral ID Status Reason Start Date Expiration Date Visits Re quested Visits Authorized [id number] Closed 03/13/2023 03/12/2024 1 1 Encounter Details Date Type Department Care Team (Latest Contact Info) Description 04/24/2023 9:18 AM EDT - 04/24/2023 11:59 PM EDT Hospital Encounter [facility] [address] [place], [place] [address], [place] [address] Aidan Vizcarra MD [address] [facility] [address] [place] [address] Screening mammogram for breast cancer Discharge Disposition: Home or Self Care Social History Tobacco Use Types Packs/Day Years [...] Housing Conditions Not on carlos e 06/28/2022 Family and Community Support Answer Silver e Recorded Help with Day-to-Day Activities Not on file 04/23/2023 Lonely or Isolated Not on file 04/23/2023 Employment Answer Date Recorded Do you want help finding or keeping work or a brent b? Not on file 04/23/2023 Disabilities Answer Date Recorded Difficulty Concentrating, Remembering or Making Decisions no 06/28/2022 Difficulty Managing Errands Independently no 06/28/2022 Education Answer Date Recorded Help with school or training? Not on file Preferred Language Wallisian 06/22/2022 Comments No Sex and Gender Information Value Date Recorded Sex Assigned at Not on file Legal Sex Female 11:45 AM EDT Gender Identity Not on file Sexual Orientation Not on file documented as of this encounter Medications at Time of Discharge Breo Ellipta 100-25 MCG/INH inhaler 05/02/2022 Cetirizine HCl (ZyrTEC Allergy) 10 MG capsule Zyrtec 10 mg capsule Take by oral route. levalbuterol (XOPENEX HFA) 45 MCG/ACT inhaler 05/02/2022 pantoprazole (PROTONIX) 20 MG EC tablet 03/14/2023 estradiol 0.25 MG/0.25GM gelIndications:Ho rmone replacement therapy Place 1 application on the skin as directed by provider Daily. Right or left upper thigh 30 each 11 10/25/2022 documented as of this encounter Plan of Treatment Upcoming Encounters Date Type Department Care Team (Late st Contact Info) Description 09/02/2024 3:30 PM EST Office Visit [facility] OBGYN [address] [phone] Shara Timmons MD [address] [address] documented as of this encounter Procedures Procedure Name Priority Date/Time Associated Diagnosis Comments MAMMO SCREENING DIGITAL TOMOSYNTHESIS BILATERAL W CAD Routine 04/24/2023 9:39 AM EDT Screening mammogram for breast cancer documented in this encounter Results * Mammo Screening Digital Tomosynthesis Bilateral With CAD (04/24/2023 9:39 AM EDT) Anatomical Region Laterality Modality Breast N/A Mammography 04/27/2023 12:1 8 PM EDT Impressions 04/27/2023 12:18 PM EDT Benign screening mammogram. ??No findings suspicious for malignancy. ?? ACR BI-RADS CATEGORY: ??2, BENIGN RECOMMENDATION: Yearly mammogram, yearly clinical breast exam, and encourage self breast awareness. CAD was used. The standard false negative rate of mammography is between 10% and 25%. Complex patterns or increased breast density will markedly elevate the false negative rate of mammography. A letter, in lay terminology, with the results of this exam will be mailed to the patient. ?? At our facility, a triangular marker is positioned over a palpable area of concern indicated by the patient. A blackfeet marker is placed over a visible skin lesion. A linear marker indicates a scar. If there is a palpable area of concern, biopsy should be considered regardless of imaging findings. This report was finalized on 04/27/2023 12:[address] Serena Porter MD. Narrative 04/27/2023 12:18 PM EDT DIGITAL SCREENING MAMMOGRAM WITH TOMOSYNTHESIS HISTORY: Routine screening. IMAGE COMPARISON: 04/10/2022, 04/05/2021, 03/03/2021, 02/20/2020. TECHNIQUE: Low dose full field digital breast tomosynthesis imaging was performed with 2D and 3D acquisitions consisting of bilateral CC and MLO views. FINDINGS: There are scattered areas of fibroglandular density. The fibroglandular pattern is stable. There is stable mild mammographic nodularity. There is no mass, worrisome microcalcifications, or architectural distortion to suggest development of malignancy. Aidan Vizcarra MD IMG MAMMOGRAPHY ORDERABLES F inal Result documented in this encounter Visit Diagnoses Diagnosis Screening mammogram for breast cancer documented in this encounter Care Teams Weir Fisher Relationship Specialty Start Date End Date Aidan Vizcarra MD [address] [facility] [address] [place] [address] PCP - General Family Medicine 04/20/16 documented as of this encounter
--- OUTSIDE RECORDS SUMMARY | 2024-06-20 10:53 | XMS_ITS | Clinical Summary ---
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 Nitrofurantoin Hives 07/19/2021 Other Rash Low 06/22/2022 Surgical Glue Penicillins Other (See Comments) 04/20/2016 Patient states that this was a reaction that happened when she was a baby. States that her mother doesn't remember what type of reaction she had. Medications Cetirizine HCl (ZyrTEC Allergy) 10 MG capsule Zyrtec 10 mg capsule Take by oral route. Active Breo Ellipta 100-25 MCG/INH inhaler 2 Active levalbuterol (XOPENEX HFA) 45 MCG/ACT inhaler 2 Active pantoprazole (PROTONIX) 20 MG EC tablet 3 Active estradiol 0.5 MG/0.5GM gelIndications:H ormone replacement therapy Place 1 Application on the skin as directed by provider Daily. 90 each 3 4 Active Active Problems Problem Noted Date Diagnosed Date Status post laparoscopic hysterectomy with BSO 1 08/29/2021 Overview (07/18/2022): 06/2022 ERT patch .1mg started PCOS (polycystic ovarian syndrome) Oligomenorrhea Mixed incontinence Fibrocystic breast changes, bilateral Clostridium difficile infection Cancer of kidney, left Vitamin D deficiency Resolved Problems Problem Noted Date Diagnosed Date Resolved Date Abnormal uterine bleeding (AUB) 06/28/2022 06/29/2022 Fibroids 06/22/2022 06/28/2022 Oral contraceptive pill surveillance 04/20/2016 06/20/2017 Uterine prolapse 06/20/2017 Endometriosis 06/29/2022 Encounters Date Type Department Care Team Description 04/25/2024 1:40 PM EDT - 04/25/2024 11:59 PM EDT Hospital Encounter [address] [address] Shara Timmons MD Encounter for breast cancer screening using non-mammogram modality Discharge Disposition: Home or Self Care from Last 3 Months Family History Medical History Relation Name Comments Stroke Father Hermila Malagon Breast cancer Neg Hx Colon cancer Neg Hx Ovarian cancer Neg Hx Uterine cancer Neg Hx Relation Name Status Comments Father Hermila Malagon Social History Tobacco Use Types Packs/Day Years Used Date Smoking Tobacco: Never Smokeless Tobacco: Never Tobacco Cessation:Counseling Given: Not Answered Alcohol Use Standard Drinks/Week Comments No 0 [...] Never 06/28/2022 Abuse Screen Answer Date Recorded Unsafe at Home or Work/School Not on file Feels Threatened by Someone? Not on file Does Anyone Keep You from Co ntacting Others or Doint Things Outside the Home? Not on file 06/29/2023 Physical Sign of Abuse Present Not on file 1 08/30/2022 Housing Stability Answer Date Recorded Current Living Arrangements Not on file 06/15 Potentially Unsafe Housing Conditions Not on carlos e 06/29/2023 Family and Community Support Answer Silver e Recorded Help with Day-to-Day Activities Not on file 04/23/2023 Lonely or Isolated Not on file 04/23/2023 Employment Answer Date Recorded Do you want help finding or keeping work or a brent b? Not on file 04/23/2023 Disabilities Answer Date Recorded Concentrating, Remembering, or Making Decisions Difficulty Not on file 06/29/2023 Doing Errands Independently Difficulty Not on fi le 06/29/2023 Education Answer Date Recorded Help with school or training? Not on file Preferred Language Not on file 06/29/2023 Comments No Sex and Gender Information Value Date Recorded Sex Assigned at Not on file Legal Sex Female 11:45 AM EDT Gender Identity Not on file Sexual Orientation Not on file Last Filed Vital Signs Vital Sign Reading Time Taken Comments Blood Pressure 110/74 08/23/2023 5:02 PM EST Pulse 87 06/29/2022 10:25 AM EST Temperature 37 ??C (98.6 ??F) 06/29/2022 10:25 AM EST Respiratory Rate 16 06/29/2022 10:25 AM EST Oxygen Saturation 91% 06/29/2022 10:25 AM EST Inhaled Oxygen Concentration - - Weight 107 kg (235 lb) 08/23/2023 5:02 PM EST Height 162.6 cm (5' 4 ) 08/23/2023 5:02 PM EST Body Mass Index 40.34 08/23/2023 5:02 PM EST Plan of Treatment Upcoming Encounters Date Type Department Care Team (Late st Contact Info) Description 09/02/2024 3:30 PM EST Office Visit [facility] [address] [address] Shara Timmons MD [address] [facility] [address] [place] [address] Health Maintenance Due Date Last Done Comments BMI FOLLOWUP 1979 TDAP/TD VACCINES (1 - Tdap) 11/17/1998 ANNUAL PHYSICAL 04/03/2016 HEPATITIS C SCREENING 04/03/2016 INFLUENZA VACCINE 01/14/2024 05/24/2023 COVID-19 Vaccine ( season) 2024 11/11/2020, 10/14/2020 PAP SMEAR 07/19/2024 07/19/2021, 06/15, 06/20/2017, Additional history exists Annual Gynecologic Pelvic and Breast Exam 08/24/2024 08/23/2023, 07/19/2021, 06/24/2018, Additional history exists MAMMOGRAM 04/25/2026 04/25/2024, 04/15, 04/10/2022, Additional history exists Pneumococcal Vaccine 0-64 Aged Out No longer eligible based on patient's age to complete this topic Medical Devices Implanted Type Area Porcelain Turner Device Identifier Shelf Expiration Date Model / Serial / Lot Clipapplr M/ Endo Ligamax5 5mm 33cm Md/Lg - [id number] Implanted:Qty : 1 on 06/28/2022 by Shara Timmons MD at [facility] Implant N/A: Abdomen [employer] ENDO [employer] DIV OF J AND J 04/14/2027 [id number] / / [id number] Fermin Adhs I/O Interceed Abs 3x4in - [id number] Implanted:Qty : 1 on 06/28/2022 by Shara Timmons MD at [facility] Implant N/A: Abdomen [employer] DIV OF J AND J 04/14/2026 [id number] / / [id number] Hemost Abs Surgicel 4x8in - [id number] Implanted:Qty : 1 on 06/28/2022 by Shara Timmons MD at [facility] Implant N/A: Abdomen [employer] DIV OF J AND J 02/13/2024 1952 / / [id number] Procedures Procedure Name Priority Date/Time Associated Diagnosis Comments MAMMO SCREENING DIGITAL TOMOSYNTHESIS BILATERAL W CAD Routine 04/25/2024 2:18 PM EDT Encounter for breast cancer screening using non-mammogram modality AMBRY GENETIC ASSESSMENT Routine 04/18/2024 8:12 AM EDT SCANNED - PAP SMEAR 07/19/2021 from Last 3 Months or Most Recently Relevant to Health Maintenance Results * Mammo Screening Digital Tomosynthesis Bilateral With CAD (04/25/2024 2:18 PM EDT) Anatomical Region Laterality Modality Breast N/A Mammography 04/29/2024 12:5 6 PM EDT Impressions 04/29/2024 12:59 PM EDT No findings suspicious for malignancy. ACR BI-RADS CATEGORY: ??1, NEGATIVE RECOMMENDATION: Yearly mammogram, yearly clinical breast exam, and encourage self breast awareness. CAD was used. The standard false negative rate of mammography is between 10% and 25%. Complex patterns or increased breast density will markedly elevate the false negative rate of mammography. A letter, in lay terminology, with the results of this exam will be mailed to the patient. ?? If there is a palpable area of concern, biopsy should be considered regardless of imaging findings. This report was finalized on 04/29/2024 12:59 PM by Lucita Vyas MD. Narrative 04/29/2024 12:59 PM EDT ROUTINE DIGITAL SCREENING MAMMOGRAM WITH TOMOSYNTHESIS HISTORY: Routine screening. IMAGE COMPARISON: Extending to 2020. TECHNIQUE: ??Low dose full field digital breast tomosynthesis imaging was performed with 2D and 3D acquisitions consisting of bilateral CC and MLO views. FINDINGS: There are scattered fibroglandular densities. The fibroglandular pattern appears stable. ??There is no mass, worrisome microcalcifications, or architectural distortion to suggest development of malignancy. us Shara Timmons MD IMG MAMMOGRAPHY ORDERABLES Annelise l Result * [facility]ESS[facility] QUESTIONNAIRE - , (04/18/2024 8:12 AM EDT) Alicia 6.4 SARAH [employer] NCCN NCCN not met [employer] Comment:High Risk Cancer Ris k Assessment 04/18/2024 8:12 AM EDT us Shara Timmons MD GENETIC TESTING Final Result [employer]
[address] [facility], [place], [place] [address], [place] [phone] * SCANNED - PAP SMEAR (07/19/2021) Barbie Martinez [facility] CHART REVIEW TABS F inal Result from Last 3 Months or Most Recently Relevant to Health Maintenance Insurance [employer] Advance Directives * CPR (Attempt to Resuscitate) (Latest Code Status on File) Date Activated Date Inactivated Comments 06/28/2022 4:36 PM 06/29/2022 6:28 PM Question Answer Comments Code Status (Patient has no pulse and is not breathing): CPR (Attempt to Resuscitate) Medical Interventions (Patie nt has pulse or is breathing): Full Support Level Of Support Discussed With: Patient Release to patient: Routine Release 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
--- OUTSIDE RECORDS SUMMARY | 2024-06-20 10:53 | XMS_ITS | Encounter Summary ---
Author Organization [employer] Address [address] [place] [address] Care Team Providers Care Financial Aid Officer Name Role Phone Unavailable Primary Care Provider Unavailabl e Encounter Details Date Type Department Care Team (Late st Contact Info) Description 11/17/2018 Transcribed Document [facility] [place] [facility] [place] [address] ProviderGoyo MD [facility] [place] [address] Social History Tobacco Use Types Packs/Day Years Used Date Smoking Tobacco: Never Assessed Comments Unknown Sex and Gender Information Value Date Recorded Sex Assigned at Female 01/10/2022 5:11 PM CDT Legal Sex Female 5:11 PM CDT Gender Identity Female 01/10/2022 5:11 PM CDT Sexual Orientation Not on file documented as of this encounter Miscellaneous Notes * Cerner Conversion Note - Goyo Jenkins MD - 11/17/2018 10:22 AM CDT [facility] [place] [id number] LORENZO TOBAR :1980 Visit Time:11/16/2018 Your Visit Summary Your Care Team Admitting Physician - TAMMI MENA MD-INT Attending Physician - TAMMI MENA MD-BEN Primary Care Physician - GABRIEL HEWITT (REF), MARCO ANTONIO Referring Physician - YANIRA, NOT LISTED Your Diagnosis Calculus of kidney, Calculus of kidney These Are Your Goals Patient states to get rid of stone and have some pain relief - Met Discharge Vitals Temperature 36.9 ??C Heart Rate (Monitored) 72 Respiratory Rate 15 Blood Pressure 106/57 What to do next Instructions From Your Care Team call office and follow up with MD as instructed Discharge Follow Up Instructions: Instruct the patient to remove the stent and string on Sunday morning 11/19/2018. She may come to the office if needed. Follow Up Instructions: Arrange follow-up with Dr. Bain in 2-3 weeks Follow Up Instructions: Follow-Up Appointments Follow Up with KODY Humphrey, JOHNNY Montgomery MD-URO When Within 1 week Comments follow up as instructed by urology-remove stent in 3 days per note Where: [address] [facility] [place] [address]- Follow Up with GABRIEL HEWITT (REF) T When Within 1 week Comments follow up in 1 week /labs BMP Where: [facility] [address] [place] [address]- Medications What How Much When Instructions Next Dose levoFLOXacin (Levaquin 500 mg oral tablet) 1 Tablet(s) Oral Interval Every 24 Hours Duration: 3 Day(s) Printed Prescription 11/17/18 cetirizine (ZyrTEC) 10 Milligram(s) Oral Every Day Take your medications faithfully. Do NOT skip medication. Do NOT stop taking medications without the direction of a physician. Carry a list of your medications with you at all times, and take this medication list with you to your first follow up visit. Report any side effects. Avoid herbal remedies unless discussed with your physician. As part of your treatment plan, your physician may have prescribed a limited course of a controlled substance. This medication may be given to help people with moderate or severe pain or for other medical conditions, but there are risks involved with treatment. Common side effects may include nausea, constipation, drowsiness, sweating, itching, dry mouth, and rash. More serious side effects may include cognitive and motor impairment, like problems with thinking, concentrating, alertness, and movement (e.g. slowed reflexes), and driving and operating heavy machinery can be dangerous. It is important for you to talk to your physician if you have these side effects or questions. These controlled substances can produce physical dependence and be habit-forming if taken for an extended period of time, which means that the body has gotten used to them and may experience withdrawal symptoms if they are abruptly stopped. Withdrawal symptoms can include runny nose, sweating, goose bumps, diarrhea, abdominal cramping, rapid heartbeat, difficulty sleeping, and nervousness. Please dispose of unused and medications per your retail pharmacy guidance. Allergies Omnicef (Rash) penicillin Immunizations This Visit No Immunizations Found Education Materials Cystoscopy, Care After Refer to this sheet in the next few weeks. These instructions provide you with information about caring for yourself after your procedure. Your health care provider may also give you more specific instructions. Your treatment has been planned according to current medical practices, but problems sometimes occur. Call your health care provider if you have any problems or questions after your procedure. What can I expect after the procedure? After the procedure, it is common to have: ??? Mild pain when you urinate. Pain should stop within a few minutes after you urinate. This may last for up to 1 week. ??? A small amount of blood in your urine for several days. ??? Feeling like you need to urinate but producing only a small amount of urine. Follow these instructions at home: Medicines ??? Take ikxk-kox-ktzljmq and prescription medicines only as told by your health care provider. ??? If you were prescribed an antibiotic medicine, take it as told by your health care provider. Do not stop taking the antibiotic even if you start to feel better. General instructions ??? Return to your normal activities as told by your health care provider. Ask your health care provider what activities are safe for you. ??? Do notdrive for 24 hours if you received a sedative. ??? Watch for any blood in your urine. If the amount of blood in your urine increases, call your health care provider. ??? Follow instructions from your health care provider about eating or drinking restrictions. ??? If a tissue sample was removed for testing (biopsy) during your procedure, it is your responsibility to get your test results. Ask your health care provider or the department performing the test when your results will be ready. ??? Drink enough fluid to keep your urine clear or pale yellow. ??? Keep all follow-up visits as told by your health care provider. This is important. Contact a health care provider if: ??? You have pain that gets worse or does not get better with medicine, especially pain when you urinate. ??? You have difficulty urinating. Get help right away if: ??? You have more blood in your urine. ??? You have blood clots in your urine. ??? You have abdominal pain. ??? You have a fever or chills. ??? You are unable to urinate. This information is not intended to replace advice given to you by your health care provider. Make sure you discuss any questions you have with your health care provider. Document Released: 01/19/2006 Document Revised: 12/07/2016 Document Reviewed: 05/18/2016 [employer] Patient Education ?? 2017 [employer] Kidney Stones Kidney stones (urolithiasis) are solid, rock-like deposits that form inside of the organs that make urine (kidneys). A kidney stone may form in a kidney and move into the bladder, where it can cause intense pain and block the flow of urine. Kidney stones are created when high levels of certain minerals are found in the urine. They are usually passed through urination, but in some cases, medical treatment may be needed to remove them. What are the causes? Kidney stones may be caused by: ??? A condition in which certain glands produce too much parathyroid hormone (primary hyperparathyroidism), which causes too much calcium buildup in the blood. ??? Buildup of uric acid crystals in the bladder (hyperuricosuria). Uric acid is a chemical that the body produces when you eat certain foods. It usually exits the body in the urine. ??? Narrowing (stricture) of one or both of the tubes that drain urine from the kidneys to the bladder (ureters). ??? A kidney blockage that is present at (congenital obstruction). ??? Past surgery on the kidney or the ureters, such as gastric bypass surgery. What increases the risk? The following factors make you more likely to develop kidney stones: ??? Having had a kidney stone in the past. ??? Having a family history of kidney stones. ??? Not drinking enough water. ??? Eating a diet that is high in protein, salt (sodium), or sugar. ??? Being overweight or obese. What are the signs or symptoms? Symptoms of a kidney stone may include: ??? Nausea. ??? Vomiting. ??? Blood in the urine (hematuria). ??? Pain in the side of the abdomen, right below the ribs (flank pain). Pain usually spreads (radiates) to the groin. ??? Needing to urinate frequently or urgently. How is this diagnosed? This condition may be diagnosed based on: ??? Your medical history. ??? A physical exam. ??? Blood tests. ??? Urine tests. ??? CT scan. ??? Abdominal X-ray. ??? A procedure to examine the inside of the bladder (cystoscopy). How is this treated? Treatment for kidney stones depends on the size, location, and makeup of the stones. Treatment may involve: ??? Analyzing your urine before and after you pass the stone through urination. ??? Being monitored at the hospital until you pass the stone through urination. ??? Increasing your fluid intake and decreasing the amount of calcium and protein in your diet. ??? A procedure to break up kidney stones in the bladder using: ? A focused beam of light (laser therapy). ? Shock waves (extracorporeal shock wave lithotripsy). ??? Surgery to remove kidney stones. This may be needed if you have severe pain or have stones that block your urinary tract. Follow these instructions at home: Eating and drinking ??? Drink enough fluid to keep your urine clear or pale yellow. This will help you to pass the kidney stone. ??? If directed, change your diet. This may include: ? Limiting how much sodium you eat. ? Eating more fruits and vegetables. ? Limiting how much meat, poultry, fish, and eggs you eat. ??? Follow instructions from your health care provider about eating or drinking restrictions. General instructions ??? Collect urine samples as told by your health care provider. You may need to collect a urine sample: ? 24 hours after you pass the stone. ? 8???12 weeks after passing the kidney stone, and every 6???12 months after that. ??? Strain your urine every time you urinate, for as long as directed. Use the strainer that your health care provider recommends. ??? Do notthrow out the kidney stone after passing it. Keep the stone so it can be tested by your health care provider. Testing the makeup of your kidney stone may help prevent you from getting kidney stones in the future. ??? Take zynt-lad-kekjkrr and prescription medicines only as told by your health care provider. ??? Keep all follow-up visits as told by your health care provider. This is important. You may need follow-up X-rays or ultrasounds to make sure that your stone has passed. How is this prevented? To prevent another kidney stone: ??? Drink enough fluid to keep your urine clear or pale yellow. This is the best way to prevent kidney stones. ??? Eat a healthy diet and follow recommendations from your health care provider about foods to avoid. You may be instructed to eat a low-protein diet. Recommendations vary depending on the type of kidney stone that you have. ??? Maintain a healthy weight. Contact a health care provider if: ??? You have pain that gets worse or does not get better with medicine. Get help right away if: ??? You have a fever or chills. ??? You develop severe pain. ??? You develop new abdominal pain. ??? You faint. ??? You are unable to urinate. This information is not intended to replace advice given to you by your health care provider. Make sure you discuss any questions you have with your health care provider. Document Released: 07/02/2006 Document Revised: 01/19/2017 Document Reviewed: 12/15/2016 [employer] Patient Education ?? 2017 [employer]. levofloxacin (oral) (ANDREW Cole What is the most important information I should know about levofloxacin? Levofloxacin can cause serious side effects, including tendon problems, nerve damage, serious mood or behavior changes, or low blood sugar. Stop using this medicine and call your doctor at once if you have symptoms such as: headache, hunger, irritability, numbness, tingling, burning pain, confusion, agitation, paranoia, problems with memory or concentration, thoughts of suicide, or sudden pain or movement problems in any of your joints. In rare cases, levofloxacin may cause damage to your aorta, which could lead to dangerous bleeding or . Get emergency medical help if you have severe and constant pain in your chest, stomach, or back. What is levofloxacin? Levofloxacin is a fluoroquinolone (nisi-b-AAEJ-o-lone) antibiotic that fights bacteria in the body. Levofloxacin is used to treat different types of bacterial infections. Levofloxacin is also used to treat people who have been exposed to anthrax or certain types of plague. Fluoroquinolone antibiotics can cause serious or disabling side effects. Levofloxacin should be used only for infections that cannot be treated with a safer antibiotic. Levofloxacin may also be used for purposes not listed in this medication guide. What should I discuss with my healthcare provider before taking levofloxacin? You should not use this medicine if you are allergic to levofloxacin or other fluoroquinolones (ciprofloxacin, gemifloxacin, moxifloxacin, norfloxacin, ofloxacin, and others). Levofloxacin may cause swelling or tearing of a tendon (the fiber that connects bones to muscles in the body), especially in the Achilles' tendon of the heel. This can happen during treatment or up to several months after you stop taking levofloxacin. Tendon problems may be more likely in certain people (children and older adults, or people who use steroid medicine or have had an organ transplant). Tell your doctor if you have ever had: ? tendon problems, bone problems, arthritis or other joint problems (especially in children); ?? blood circulation problems, aneurysm, narrowing or hardening of the arteries; ?? heart problems, high blood pressure; ?? a genetic disease such as Marfan syndrome or Ehler's-Danlos syndrome; ?? diabetes; ?? a muscle or nerve disorder, such as myasthenia gravis; ?? kidney disease; ?? seizures or epilepsy; ?? a head injury or brain tumor; ?? long QT syndrome (in you or a family member); or ?? low levels of potassium in your blood (hypokalemia). Do not give this medicine to a child without medical advice. It is not known whether this medicine will harm an unborn baby. Tell your doctor if you are . You should not breast-feed while using this medicine. How should I take levofloxacin? Follow all directions on your prescription label and read all medication guides or instruction sheets. Use the medicine exactly as directed. Take levofloxacin with water, at the same time each day. Drink extra fluids to keep your kidneys working properly while taking this medicine. You may take levofloxacin tablets with or without food. Take levofloxacin oral solution (liquid) on an empty stomach, at least 1 hour before or 2 hours after a meal. Measure liquid medicine carefully. Use the dosing syringe provided, or use a medicine dose-measuring device (not a kitchen spoon). Use this medicine for the full prescribed length of time, even if your symptoms quickly improve. Skipping doses can increase your risk of infection that is resistant to medication. Levofloxacin will not treat a viral infection such as the flu or a common cold. Do not share levofloxacin with another person. This medicine may affect a drug-screening urine test and you may have false results. Tell the laboratory staff that you use levofloxacin. Store at room temperature away from moisture and heat. Keep the bottle tightly closed when not in use. What happens if I miss a dose? Take the medicine as soon as you can, but skip the missed dose if it is almost time for your next dose. Do not take two doses at one time. What happens if I overdose? Seek emergency medical attention or call the Poison Help line at . What should I avoid while taking levofloxacin? Avoid driving or hazardous activity until you know how this medicine will affect you. Your reactions could be impaired. Antibiotic medicines can cause diarrhea, which may be a sign of a new infection. If you have diarrhea that is watery or bloody, call your doctor before using anti-diarrhea medicine. Levofloxacin could make you sunburn more easily. Avoid sunlight or tanning beds. Wear protective clothing and use sunscreen (SPF 30 or higher) when you are outdoors. Tell your doctor if you have severe burning, redness, itching, rash, or swelling after being in the sun. What are the possible side effects of levofloxacin? Get emergency medical help if you have signs of an allergic reaction (hives, difficult breathing, swelling in your face or throat) or a severe skin reaction (fever, sore throat, burning in your eyes, skin pain, red or purple skin rash that spreads and causes blistering and peeling). Levofloxacin can cause serious side effects, including tendon problems, side effects on your nerves (which may cause permanent nerve damage), serious mood or behavior changes (after just one dose), or low blood sugar (which can lead to coma). Stop taking this medicine and call your doctor at once if you have: ? low blood sugar--headache, hunger, sweating, irritability, dizziness, nausea, fast heart rate, or feeling anxious or shaky; ?? nerve symptoms in your hands, arms, legs, or feet--numbness, weakness, tingling, burning pain; ?? serious mood or behavior changes--nervousness, confusion, agitation, paranoia, hallucinations, memory problems, trouble concentrating, thoughts of suicide; or ?? signs of tendon rupture--sudden pain, swelling, bruising, tenderness, stiffness, movement problems, or a snapping or popping sound in any of your joints (rest the joint until you receive medical care or instructions). In rare cases, levofloxacin may cause damage to your aorta, the main blood artery of the body. This could lead to dangerous bleeding or . Get emergency medical help if you have severe and constant pain in your chest, stomach, or back. Stop taking levofloxacin and call your doctor at once if you have: ? severe stomach pain, diarrhea that is watery or bloody; ?? fast or pounding heartbeats, fluttering in your chest, shortness of breath, and sudden dizziness (like you might pass out); ?? the first sign of any skin rash, no matter how mild; ?? muscle weakness, breathing problems; ?? seizure (convulsions); ?? increased pressure inside the skull--severe headaches, ringing in your ears, dizziness, nausea, vision problems, pain behind your eyes; or ?? liver problems--upper stomach pain, loss of appetite, dark urine, domenic-colored stools, jaundice (yellowing of the skin or eyes). Common side effects may include: ? nausea, constipation, diarrhea; ?? headache, dizziness; or ?? trouble sleeping. This is not a complete list of side effects and others may occur. Call your doctor for medical advice about side effects. You may report side effects to FDA at 0-431-WYB-0107. What other drugs will affect levofloxacin? Some medicines can make levofloxacin much less effective when taken at the same time. If you take any of the following medicines, take your levofloxacin dose 2 hours before or 2 hours after you take the other medicine. ? antacids that contain magnesium or aluminum (such as Maalox, Mylanta, or Rolaids), or the ulcer medicine sucralfate (Carafate); ?? didanosine (Videx) powder or chewable tablets; or ?? vitamin or mineral supplements that contain aluminum, iron, magnesium, or zinc. Tell your doctor about all your other medicines, especially: ? theophylline; ?? a diuretic or 'water pill'; ?? heart rhythm medication; ?? insulin or oral diabetes medicine (check your blood sugar regularly); ?? medicine to treat depression or mental illness; ?? steroid medicine (such as prednisone); ?? a blood thinner--warfarin, Coumadin, Jantoven; or ?? NSAIDs (nonsteroidal anti-inflammatory drugs)--aspirin, ibuprofen (Advil, Motrin), naproxen (Aleve), celecoxib, diclofenac, indomethacin, meloxicam, and others. This list is not complete. Other drugs may affect levofloxacin, including prescription and wdou-hfh-wnkbbag medicines, vitamins, and herbal products. Not all possible drug interactions are listed here. Where can I get more information? Your pharmacist can provide more information about levofloxacin. Remember, keep this and all other medicines out of the reach of children, never share your medicines with others, and use this medication only for the indication prescribed. Every effort has been made to ensure that the information provided by [employer] ('[employer]') is accurate, up-to-date, and complete, but no guarantee is made to that effect. Drug information contained herein may be time sensitive. [employer] information has been compiled for use by healthcare practitioners and consumers in the [place] and therefore [employer] does not warrant that uses outside of the [place] are appropriate, unless specifically indicated otherwise. [employer]'s drug information does not endorse drugs, diagnose patients or recommend therapy. [employer] drug information is an informational resource designed to assist licensed healthcare practitioners in caring for their patients and/or to serve consumers viewing this service as a supplement to, and not a substitute for, the expertise, skill, knowledge and judgment of healthcare practitioners. The absence of a warning for a given drug or drug combination in no way should be construed to indicate that the drug or drug combination is safe, effective or appropriate for any given patient. [employer] does not assume any responsibility for any aspect of healthcare administered with the aid of information [employer] provides. The information contained herein is not intended to cover all possible uses, directions, precautions, warnings, drug interactions, allergic reactions, or adverse effects. If you have questions about the drugs you are taking, check with your doctor, nurse or pharmacist. Copyright 8756-3475 [employer]. Version: 14.01. Revision Date: 07/22/2018. Emergency Awareness and Preventative Care STROKE is an EMERGENCY Every Minute Counts Act FAST and Check for these signs: FACE Does the face look uneven? ARM Does one arm drift down? SPEECH Does their speech sound strange? TIME Call at any sign of stroke Stroke Risk Factors Atrial Fibrillation (irregular heartbeat) Diabetes Family history of stroke Heart Disease Heavy alcohol use High Blood Pressure High Cholesterol Physical inactivity and obesity Smoking Cigarette Smoking The facts are clear, cigarette smoking will shorten your life. Smoking can cause many illnesses along the way. As a healthcare provider, we recommend that you stop smoking. Assistance with quitting is available by contacting 4-811-JKYRRedbiotecNOW. This is a free resource providing counseling, support, and referral. Or you may contact your personal physician. [facility] Suicide Prevention Lifeline: The National Suicide Prevention Lifeline is a national network of local crisis centers that provides free and confidential emotional support to people in suicidal crisis or emotional distress 24 hours a day, 7 days a week. Don't Wait! Stop a Heart Attack Before it Starts What is a heart attack? A heart attack is damage or to a part of the heart from severely decreased or lack of blood flow to the heart. Over time, arteries can become narrow from the buildup of fat and cholesterol, which is called plaque. The plaque can rupture causing a blood clot to form. When the blood clot forms, the artery can become severely narrowed or completely blocked, causing a heart attack. Heart attack is the leading cause of in the [place]. 85% of muscle damage occurs within the first 2 hours. Delay in the recognition of heart attack symptoms increases the chances of . Know the early symptoms of a heart attack: Nausea Feeling of fullness in chest Jaw Pain Pain that travels down one or both arms Fatigue/being tired Anxiety Back Pain Chest pressure, squeezing, or discomfort Shortness of breath Sweating, or a cold sweat Feeling of impending doom There are unusual signs of a heart attack, too! Women, the elderly, and diabetics may present with atypical symptoms: Fainting/dizziness Weakness Confusion Risk Factors for a Heart Attack Some heart disease risk factors, such as age and family history, cannot be changed. Others, like smoking and lack of exercise, can be changed. Smoking High Cholesterol High Blood Pressure Family History Obesity Age Gender (Males are at higher risk) Lack of Exercise Diabetes Diet Stress Excessive Alcohol Intake If you or someone you know is experiencing the signs and symptoms of a heart attack, DON???T DELAY. Call immediately and seek help. If someone collapses, perform CPR! Do not attempt to drive if you are having symptoms of heart attack. Hands-Only CPR Why Hands-Only CPR? Hands-Only CPR has been shown to be as effective as conventional CPR for cardiac arrests that occur outside of a hospital. Survival depends on immediately receiving CPR from someone nearby. How do you perform Hands-Only CPR? There are two easy steps: Call if you see a teen or adult collapse Push hard and fast in the center of the chest at a beat of 100 beats per minute. Save a life! 4 WAYS TO GET AHEAD OF SEPSIS SEPSIS is a MEDICAL EMERGENCY. Time matters! Infections put you and your family at risk for a life-threatening condition called sepsis. Sepsis is the body's extreme response to an infection. It is life-threatening, and without timely treatment, sepsis can rapidly lead to tissue damage, organ failure, and . Sepsis happens when an infection you already have-in your skin, lungs, urinary tract or somewhere else-triggers a chain reaction throughout your body. 1 PREVENT INFECTIONS Take good care of chronic conditions. Talk to your doctor about getting the recommended vaccines. 2 PRACTICE GOOD HYGIENE Wash your hands frequently. Keep cuts or open sores clean and covered until they are healed. 3 KNOW THE SYMPTOMS Confusion or disorientation Shortness of breath High heart rate Fever, shivering, or feeling very cold Extreme pain or discomfort Clammy or sweaty skin 4 ACT FAST Get medical care IMMEDIATELY if you suspect sepsis or if you have an infection that is not getting better or is getting worse. To learn more about sepsis and how to prevent infections, visit www.cdc.gov/sepsis. Patient Portal Reminder: Be sure to sign up for the [facility] patient portal, which gives you 05/02 access to your medical information ??? including these discharge instructions ??? using your computer, smartphone, or tablet. Just go to [employer] to get started. Questions? Call . Test Results Laboratory or Other Results This Visit (last charted value for your 11/16/2018 visit) Hematology 11/17/18 06:50:00 WBC: 7.9 K/uL -- Normal range between ( 4.5 and 10.5 ) RBC: 4.59 Million/uL -- Normal range between ( 3.93 and 5.22 ) Hct: 41.4 % -- Normal range between ( 34.1 and 44.9 ) Hgb: 13.9 g/dL -- Normal range between ( 11.2 and 15.7 ) Platelet Count: 235 K/uL -- Normal range between ( 163 and 369 ) MCH: 30.3 pg -- Normal range between ( 25.6 and 32.2 ) MCHC: 33.6 Gram/dL -- Normal range between ( 32.2 and 36.5 ) MCV: 90.2 fL -- Normal range between ( 79.0 and 94.8 ) Slide Review: No Eos %: 2.5 % -- Normal range between ( 0.0 and 7.0 ) [place] #: 0.75 K/uL -- Normal range between ( 0.16 and 1.00 ) Eos #: 0.20 x10(3)/uL -- Normal range between ( 0.00 and 0.80 ) [place] %: 9.5 % -- Normal range between ( 3.0 and 9.0 ) Baso %: 0.3 % -- Normal range between ( 0.0 and 1.5 ) Baso #: 0.02 x10(3)/uL -- Normal range between ( 0.00 and 0.20 ) RDW: 13.2 % -- Normal range between ( 11.7 and 14.9 ) Neut %: 59.7 % -- Normal range between ( 34.0 and 71.0 ) Neut #: 4.70 K/uL -- Normal range between ( 1.56 and 6.13 ) Lymph %: 27.7 % -- Normal range between ( 19.3 and 53.1 ) Lymph #: 2.18 x10(3)/uL -- Normal range between ( 1.00 and 3.90 ) MPV: 9.8 fL -- Normal range between ( 9.4 and 12.4 ) IG#: 0.02 x10(3)/uL -- Normal range between ( 0.00 and 0.05 ) IG%: 0.30 % -- Normal range between ( 0.00 and 0.60 ) General Chemistry 11/17/18 06:50:00 Creatinine Level: 1.20 mg/dL -- Normal range between ( 0.55 and 1.02 ) Sodium Level: 141 mmol/L -- Normal range between ( 136 and 146 ) Potassium Level: 4.1 mmol/L -- Normal range between ( 3.5 and 5.1 ) Chloride Level: 108 mmol/L -- Normal range between ( 102 and 112 ) Carbon Dioxide Level: 28 mmol/L -- Normal range between ( 21 and 32 ) Anion Gap: 9 -- Normal range between ( 9 and 20 ) Bun/Creatinine: 15.8 -- Normal range between ( 8.0 and 20.0 ) Calcium Level: 8.3 mg/dL -- Normal range between ( 8.4 and 10.1 ) eGFR : >60 mL/min/1.73m2 eGFR NonAfrican: 50 mL/min/1.73m2 Glucose Level: 81 mg/dL -- Normal range between ( 74 and 106 ) Blood Urea Nitrogen: 19 mg/dL -- Normal range between ( 7 and 22 ) Endocrinology 11/16/18 17:00:00 HCG Serum Quant: <1.0 mIU/mL Patient Name:LORENZO TOBAR I have received and understand this information and was given the opportunity to ask questions. Patient/Cotton Stomper Name: Patient/Cotton Stomper Signature: Relationship to Patient: Clinician/Hospital Cotton Stomper Signature: Date: documented in this encounter Plan of Treatment Not on file documented as of this encounter Visit Diagnoses Not on filedocumented in this encounter
--- OUTSIDE RECORDS SUMMARY | 2024-06-20 10:53 | XMS_ITS | Referral Summary ---
Author Organization [employer] [employer] Address [address] [place] [address] Care Team Providers Care Counterintelligence Analyst Name Role Phone Unavailable Primary Care Provider Unavailabl e Social History Tobacco Use Types Packs/Day Years Used Date Smoking Tobacco: Never Assessed Comments Unknown Sex and Gender Information Value Date Recorded Sex Assigned at Female 01/10/2022 5:11 PM CDT Legal Sex Female 5:11 PM CDT Gender Identity Female 01/10/2022 5:11 PM CDT Sexual Orientation Not on file Plan of Treatment Not on file
--- OUTSIDE RECORDS SUMMARY | 2024-06-20 10:53 | XMS_ITS | Encounter Summary ---
[facility] Address [address] [id number] Care Team Providers Care General Dentist/Owner Name Role Phone Aidan Vizcarra MD Primary Care Provider [phone] Reason for Visit * Reason Comments vaginal lesion Encounter Details Date Type Department Care Team (Late st Contact Info) Description 04/03/2023 2:30 PM EDT Office Visit [facility] OBGYN [address] [facility] [address] [place], [place] [id number] Sheryl Amador, PYTHON JAVA DEVELOPER [address] [facility] [address] [place] [address] Perineal laceration involving vagina, initial encounter (Primary Dx); Vaginal burning Social History Tobacco Use Types Packs/Day Years [...] or training? Not on file Preferred Language Mosotho 06/22/2022 Comments No Sex and Gender Information Value Date Recorded Sex Assigned at Not on file Legal Sex Female 11:45 AM EDT Gender Identity Not on file Sexual Orientation Not on file documented as of this encounter Last Filed Vital Signs Vital Sign Reading Time Taken Comments Blood Pressure 108/72 04/03/2023 2:48 PM EDT Pulse - - Temperature - - Respiratory Rate - - Oxygen Saturation - - Inhaled Oxygen Concentration - - Weight 104 kg (229 lb 6.4 oz) 04/03/2023 2:48 PM EDT Height 162.6 cm (5' 4 ) 04/03/2023 2:48 PM EDT Body Mass Index 39.38 04/03/2023 2:48 PM EDT documented in this encounter Progress Notes * Jin Perea MA - 04/03/2023 2:30 PM EDTAddended by: JIN PEREA on: 04/03/2023 03:32 PM Modules accepted: Orders * Sheryl Amador APRN - 04/03/2023 2:30 PM EDT Images from the original note were not included. Chief Complaint Patient presents with vaginal lesion Subjective HPI Hannah Tobar is a 42 y.o. female, . Her last LMP was Patient's last menstrual period was 05/27/2022.. who presents for possible vaginal lesion. Patient reports she thought she may have had a tear or sore somewhere due to burning with urination/bowel movements. She reports it feels like there is something between her vagina and her anus. She reports vaginal itching. Patient reports bleeding with wiping. Denies changes in soaps, detergents, toilet tissues. Discomfort first began x 1 week ago. She reports one new sexual partner. Patient is unsure if she would like STD screening, would like to discuss. Additional SHAKE SAWYER History Last Pap : 07/19/2021 Last Completed Pap Smear PAP SMEAR (Every 3 Years) Next due on 07/19/2024 07/19/2021 SCANNED - PAP SMEAR 06/24/2018 SCANNED - PAP SMEAR 06/20/2017 SCANNED - PAP SMEAR 04/20/2016 SCANNED - PAP SMEAR Tobacco Usage?: No OB History 1 Para 1 Term 1 AB Living 2 SAB IAB Ectopic Molar Multiple 1 Live Births 2 Current Outpatient Medications: Breo Ellipta 100-25 MCG/INH inhaler, , Disp: , Rfl: Cetirizine HCl (ZyrTEC Allergy) 10 MG capsule, Zyrtec 10 mg capsule Take by oral route., Disp: , Rfl: estradiol 0.25 MG/0.25GM gel, Place 1 application on the skin as directed by provider Daily. Right or left upper thigh, Disp: 30 each, Rfl: 11 levalbuterol (XOPENEX HFA) 45 MCG/ACT inhaler, , Disp: , Rfl: pantoprazole (PROTONIX) 20 MG EC tablet, , Disp: , Rfl: Past Medical History: Diagnosis Date Asthma Cancer of kidney, left Clostridium difficile infection COVID 07/2021 Endometriosis Female infertility Kidney stone Mixed incontinence Multiple gestation Oligomenorrhea PCOS (polycystic ovarian syndrome) PMS (premenstrual syndrome) Polycystic ovary syndrome PONV (postoperative nausea and vomiting) Urinary tract infection Uterine prolapse Vitamin D deficiency Past Surgical History: Procedure Laterality Date CERVICAL CERCLAGE SECTION 2005 CHOLECYSTECTOMY D & C HYSTEROSCOPY LAPAROSCOPY ENDOMETRIAL ABLATION KIDNEY STONE SURGERY LAPAROSCOPIC ASSISTED VAGINAL HYSTERECTOMY SALPINGO OOPHORECTOMY 2021 LAPAROSCOPIC CHOLECYSTECTOMY 2009 LAPAROSCOPIC PARTIAL NEPHRECTOMY Left LIPOMA EXCISION back OVARIAN CYST REMOVAL Left laser drilling OVARIAN CYST SURGERY 2003 TOTAL LAPAROSCOPIC HYSTERECTOMY SALPINGO OOPHORECTOMY Bilateral 06/28/2022 Procedure: TOTAL LAPAROSCOPIC HYSTERECTOMY BILATERAL SALPINGECTOMY OOPHORECTOMY, LYSIS OF ADHESIONS, CYSTOSCOPY; Surgeon: Shara Timmons MD; Location: [facility]; Service: Obstetrics/Gynecology; Laterality: Bilateral; TUMOR EXCISION NOSE--BENIGN The additional following portions of the patient's history were reviewed and updated as appropriate: allergies, current medications, past family history, past medical history, past social history, past surgical history, and problem list. Review of Systems Constitutional: Negative. Respiratory: Negative. Cardiovascular: Negative. Gastrointestinal: Negative. Genitourinary: Positive for genital sores. Psychiatric/Behavioral: Negative. I have reviewed and agree with the HPI, ROS, and historical information as entered above. Sheryl Amador, PYTHON JAVA DEVELOPER Objective BP 108/72 Ht 162.6 cm (64 ) Wt 104 kg (229 lb 6.4 oz) LMP 05/27/2022 BMI 39.38 kg/m?? Physical Exam Vitals and nursing note reviewed. Exam conducted with a mill platform supervisor present. Constitutional: Appearance: Normal appearance. Genitourinary: Exam position: Lithotomy position. Labia: Right: No rash, tenderness or lesion. Left: No rash, tenderness or lesion. Vagina: Normal. No lesions. Cervix: No cervical motion tenderness, discharge, lesion or cervical bleeding. Uterus: Normal. Not enlarged, not fixed and not tender. Adnexa: Right adnexa normal and left adnexa normal. Right: No mass or tenderness. Left: No mass or tenderness. Rectum: Normal. No external hemorrhoid. Comments: Home Service Advisor Present. Two, shallow 0.5 cm lacerations at the posterior vaginal introitus andat the perineum superior to the rectum. They do not appear infected. Neurological: Mental Status: She is alert. Assessment & Plan Assessment Problem List Items Addressed This Visit None Visit Diagnoses Perineal laceration involving vagina, initial encounter - Primary Vaginal burning Plan Nuswab sent for culture. Will treat if positive. HSV culture of lacerations Keep area clean and dry. Sitz baths 2-3 times daily. Use a cool blow dryer after bath. Apply antibiotic ointment or aquaphor as a skin barrier. Keep area open to air as much as possible. Return if symptoms worsen or fail to improve. Sheryl Amador APRN 04/03/2023 documented in this encounter Plan of Treatment Upcoming Encounters Date Type Department Care Team (Late st Contact Info) Description 09/02/2024 3:30 PM EST Office Visit [facility] OBGYN [address] [facility] [address] [place] [phone] Shara Timmons MD [address] [facility] [address] [place] [address] documented as of this encounter Procedures Procedure Name Priority Date/Time Associated Diagnosis Comments HSV MELANIA Routine 04/03/2023 12:00 AM EDT Perineal laceration involving vagina, initial encounter Vaginal burning documented in this encounter Results * (ABNORMAL) Herpes Simplex Virus (HSV) 1 & 2, MELANIA (04/03/2023 12:00 AM EDT) HSV 1 MELANIA Positive(A) Negative [facility] HSV 2 [place]ANIA Negative Negative [facility] ThinPrep Vial 04/03/2023 04/04/2023 Comment:ThinPrep Release to p [facility] - 04/07/2023 9:10 AM EDT Performed at: ??01 - [facility] [address] ??[id number] Electrical Appliance Repairer: Donell Collado MD, Phone: ??[phone] Sheryl Amador APRN LAB BLOOD ORDERABLES Final Result [facility] [address] [place] [address], [place] [phone] [facility] [address] [place] [address], [place] [phone] documented in this encounter Visit Diagnoses Diagnosis Perineal laceration involving vagina, initial encounter- Primary Vaginal burning Other specified symptom associated with female genital organs documented in this encounter Care Teams General Dentist/Owner Relationship Specialty Start Date End Date Aidan Vizcarra MD [address] [place] [address] PCP - General Family Medicine 04/20/16 documented as of this encounter
--- OUTSIDE RECORDS SUMMARY | 2024-06-20 10:53 | XMS_ITS | Encounter Summary ---
Author Organization [employer] [facility] Address [address] [place] [address] Care Team Providers Care Car Starter Name Role Phone Unavailable Primary Care Provider Unavailabl e Encounter Details Date Type Department Care Team (Late st Contact Info) Description 11/16/2018 Transcribed Document [facility] Family Medicine [facility] [place] [address] ProviderGoyo MD [address] [place] [id number] Social History Tobacco Use Types Packs/Day Years [...] Conversion Note - Goyo ProviderMD - 11/16/2018 4:21 PM CDT Patient: LORENZO TOBAR Age: 37 Years Sex: Female : 1980 *Operation 1. Cystoscopy with left ureteroscopy and basket stone extraction. 2. Left indwelling ureteral stent placement. 3. Fluoroscopy, supervision and interpretation. Indication for Surgery 37-year-old female with her first stone episode. She has a 5 mm left ureterovesical junction stone with hydronephrosis. This is her first stone episode. She has a previous history of left partial nephrectomy for renal cell cancer in 2017. She has been unable to pass the stone and came back to the emergency room today after an admission a couple days ago. She opts for stone extraction. *Preoperative Diagnosis Left ureteral stone. *Postoperative Diagnosis Left ureteral stone. *Surgeon(s) Primary Surgeon KODY Humphrey, JOHNNY Montgomery MD-URO (Surgeon/Proceduralist, First) *Procedure Narrative After informed consent, the patient was taken to the cystoscopy room in stable condition. Anesthesia was induced without complications. She was placed in a dorsal lithotomy position. The genitalia, groins, and perineum were prepped and draped in the usual fashion. A timeout was taken to identify the correct patient and procedure and side. A 22 Syriac cystoscope was placed per urethra into the bladder. Inspection revealed a normal bladder other than some edema at the left ureteral orifice. A 0.035 hydrophilic guidewire was inserted into the left ureteral orifice and advanced up to the level of the kidney under fluoroscopy guidance. There was no difficulty advancing the wire. The cystoscope was removed. Left ureteroscopy was performed using a semirigid ureteroscope. The stone was readily identified in the distal ureter and pushed back slightly to allow more room. A 1.9 Syriac 0 tip basket was used to extract the stone intact. Follow-up ureteroscopy up to the upper ureter showed no other stones. The ureteroscope was withdrawn. The cystoscope was backloaded over the wire. A 4.8 Syriac by 24 cm double-J indwelling ureteral stent was passed over the wire and up to the level of the kidney under fluoroscopy guidance. The wire was removed. There was adequate crural in the kidney and in the bladder. The string was left intact. The bladder was drained. The cystoscope was removed. Lidocaine jelly was inserted into the urethra. The string was tied and cut shorter and tucked into the vagina. She was awakened from anesthesia and taken to the recovery room in satisfactory condition. Disposition: She will be admitted overnight for observation and likely go home tomorrow. The stent can be removed in approximately 3 days. She may follow up with me or Dr. Beltran afterward. Drains/Packs Used Left ureteral stent 4.8 Syriac by 24 cm, string intact Anesthesia General GARCIA JO MD (Anesthesiologist) GARCIA Howard MD (Anesthesiologist) GARCIA Howard MD (Anesthesiologist) *Estimated Blood Loss Minimal *Findings Normal-appearing urethra and bladder. Mild edema of the left ureteral orifice. Left ureteroscopy revealed a 5 x 4 mm stone inside the ureteral orifice which was extracted intact. There was moderate edema of the ureterovesical junction. There was proper placement of the stent at the end of the procedure. *Specimen(s) Left ureteral stone for stone analysis Complications None Date of Service Date/Time of Service SN - Proc - Start Time: 11/16/18 15:38:00 (EDT) (11/16/18 16:10:21 EDT) SN - Proc - Start Time: 11/16/18 15:38:00 (EDT) (11/16/18 16:10:21 EDT) SN - Proc - Start Time: 11/16/18 15:38:00 (EDT) (11/16/18 16:10:21 EDT) documented in this encounter Plan of Treatment Not on file documented as of this encounter Visit Diagnoses Not on filedocumented in this encounter
--- OUTSIDE RECORDS SUMMARY | 2024-06-20 10:53 | XMS_ITS | Encounter Summary ---
[facility] Organization [facility] Address [address] [id number] Care Team Providers Care It Systems Manager Name Role Phone Aidan Vizcarra MD Primary Care Provider [phone] Reason for Referral * Diagnostic Imaging (Routine) - Closed Specialty Diagnoses / Procedures Referred By Marly arce Referred To Contact Radiology Diagnoses Encounter for breast cancer screening using non-mammogram modality Procedures Mammo Screening Digital Tomosynthesis Bilateral With CAD Shara Timmons MD [address] [address] Phone: tel: fax: [facility] [address] [place] [address] Phone: tel: Referral ID Status Reason Start Date Expiration Date Visits Re quested Visits Authorized [id number] Closed 08/23/2023 08/22/2024 1 1 Reason for Visit * Reason Comments Gynecologic Exam Encounter Details Date Type Department Care Team (Late st Contact Info) Description 08/23/2023 4:30 PM EST Office Visit [facility] OBGYN [address] [address] Shara Timmons MD [address] [place] [address] Women's annual routine gynecological examination (Primary Dx); Hormone replacement therapy; Encounter for breast cancer screening using non-mammogram modality; Status post laparoscopic hysterectomy with BSO Social History Tobacco Use Types Packs/Day Years [...] Pressure 110/74 08/23/2023 5:02 PM EST Pulse - - Temperature - - Respiratory Rate - - Oxygen Saturation - - Inhaled Oxygen Concentration - - Weight 107 kg (235 lb) 08/23/2023 5:02 PM EST Height 162.6 cm (5' 4 ) 08/23/2023 5:02 PM EST Body Mass Index 40.34 08/23/2023 5:02 PM EST documented in this encounter Progress Notes * Shara Timmons MD - 08/23/2023 4:30 PM EST Images from the original note were not included. 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 HPI Hannah Tobar is a 42 y.o. female, , who presents for annual well woman exam as a established patient. She is s/p TLH/BSO on 06/28/2022 for chronic pelvic pain, endometriosis , and ovarian cysts.. Denies vaginal bleeding. There were no changes to her medical or surgical history since her last visit. Marital Status: engaged. She is sexually active. She has not had new partners.. STD testing recommendations have been explained to the patient and she desires STD testing. 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 Details: Estradiol gel Last Pap : 07/19/2021. Results: ASCUS. HPV: HPV pool +. Colpo performed on 08/22/2021. Results were benign. Last Completed Pap Smear Ordered - PAP SMEAR (Every 3 Years) Ordered on 08/23/2023 04/03/2023 Herpes Simplex Virus (HSV) 1 & 2, MELANIA 07/19/2021 SCANNED - PAP SMEAR 06/24/2018 SCANNED - PAP SMEAR 06/20/2017 SCANNED - PAP SMEAR 04/20/2016 SCANNED - PAP SMEAR Only the first 5 history entries have been loaded, but more history exists. History of abnormal Pap smear: yes - ASCUS and HPV pool + in 2021 Family history of uterine, colon, breast, or ovarian cancer: no Performs monthly Self-Breast Exam: yes Last mammogram: 04/24/2023. Done at . Results benign. Last Completed Mammogram This patient has no relevant Health Maintenance data. Last colonoscopy: has never had a colonoscopy or cologuard Last Completed Colonoscopy This patient has no relevant Health Maintenance data. She has never had a bone density scan Exercises Regularly: no Feelings of Anxiety or Depression: no Tobacco Usage?: No Current Outpatient Medications: Breo Ellipta 100-25 MCG/INH inhaler, , Disp: , Rfl: Cetirizine HCl (ZyrTEC Allergy) 10 MG capsule, Zyrtec 10 mg capsule Take by oral route., Disp: , Rfl: levalbuterol (XOPENEX HFA) 45 MCG/ACT inhaler, , Disp: , Rfl: pantoprazole (PROTONIX) 20 MG EC tablet, , Disp: , Rfl: estradiol 0.5 MG/0.5GM gel, Place 1 Application on the skin as directed by provider Daily., Disp: 90 each, Rfl: 3 Patient is requesting refills of Estradiol gel. OB History 1 Para 1 Term 1 AB Living 2 SAB IAB Ectopic Molar Multiple 1 Live Births 2 Past Medical History: Diagnosis Date Asthma Cancer [...] VAGINAL HYSTERECTOMY SALPINGO OOPHORECTOMY 2021 LAPAROSCOPIC CHOLECYSTECTOMY 2008 LAPAROSCOPIC PARTIAL NEPHRECTOMY Left LIPOMA EXCISION back OOPHORECTOMY OVARIAN CYST REMOVAL Left laser drilling OVARIAN CYST SURGERY 2003 TOTAL LAPAROSCOPIC HYSTERECTOMY SALPINGO OOPHORECTOMY Bilateral 06/28/2022 Procedure: TOTAL LAPAROSCOPIC HYSTERECTOMY BILATERAL SALPINGECTOMY OOPHORECTOMY, LYSIS OF ADHESIONS, CYSTOSCOPY; Surgeon: Shara Timmons MD; Location: [facility]; Service: Obstetrics/Gynecology; Laterality: Bilateral; TUMOR EXCISION NOSE--BENIGN Health Maintenance Topic Date Due BMI FOLLOWUP Never done TDAP/TD VACCINES (1 - Tdap) Never done HEPATITIS C SCREENING Never done ANNUAL PHYSICAL Never done Annual Gynecologic Pelvic and Breast Exam 07/20/2022 COVID-19 Vaccine (3 - 2022-24 season) 2023 PAP SMEAR 04/03/2026 INFLUENZA VACCINE Completed Pneumococcal Vaccine 0-64 Aged Out The additional following portions of the patient's history were reviewed and updated as appropriate: allergies, current medications, past family history, past medical history, past social history, past surgical history, and problem list. Review of Systems Constitutional: Negative. HENT: Negative. Eyes: Negative. Respiratory: Negative. Cardiovascular: Negative. Gastrointestinal: Negative. Endocrine: Negative. Genitourinary: Negative. Musculoskeletal: Negative. Skin: Negative. Allergic/Immunologic: Negative. Neurological: Negative. Hematological: Negative. Psychiatric/Behavioral: Negative. I have reviewed and agree with the HPI, ROS, and historical information as entered above. Shara Timmons MD Objective BP 110/74 Ht 162.6 cm (64 ) Wt 107 kg (235 lb) LMP 05/27/2022 BMI 40.34 kg/m?? Physical Exam Vitals and nursing note reviewed. Exam conducted with a sash installer present. Constitutional: Appearance: She is well-developed. HENT: Head: Normocephalic and atraumatic. Neck: Thyroid: No thyroid mass or thyromegaly. Cardiovascular: Rate and Rhythm: Normal rate and regular rhythm. Heart sounds: No murmur heard. Pulmonary: Effort: Pulmonary effort is normal. No retractions. Breath sounds: Normal breath sounds. No wheezing, rhonchi or rales. Chest: Chest wall: No mass or tenderness. Breasts: Right: Normal. No mass, nipple discharge, skin change or tenderness. Left: Normal. No mass, nipple discharge, skin change or tenderness. Abdominal: General: Bowel sounds are normal. Palpations: Abdomen is soft. Abdomen is not rigid. There is no mass. Tenderness: There is no abdominal tenderness. There is no guarding. Hernia: No hernia is present. There is no hernia in the left inguinal area or right inguinal area. Genitourinary: General: Normal vulva. Exam position: Lithotomy position. Pubic Area: No rash. Labia: Right: No rash, tenderness or lesion. Left: No rash, tenderness or lesion. Urethra: No urethral pain or urethral swelling. Vagina: Normal. No vaginal discharge or lesions. Uterus: Absent. Adnexa: Right: No mass, tenderness or fullness. Left: No mass, tenderness or fullness. Rectum: No external hemorrhoid. Comments: Cervix surgically absent. Vaginal cuff intact. Musculoskeletal: Cervical back: Normal range of motion. No muscular tenderness. Neurological: Mental Status: She is alert and oriented to person, place, and time. Psychiatric: Behavior: Behavior normal. 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 Recommended use of Vitamin D replacement and getting adequate calcium in her diet. (1500mg) Reviewed monthly self breast exams. Instructed to call with lumps, pain, or breast discharge. Continue yearly mammography Reviewed HPV guidelines. Reviewed exercise as a preventative health measures. Reviewed risks/benefits of ERT including the lack of evidence estrogen alone increases the risk of breast cancer or stroke and decreases risk of hip fracture, colon cancer and all cause mortality. However there is concern slight increase risk of pulmonary embolism. She is on such a low dose will increase to .5mg. Return in about 1 year (around 08/23/2024), or if symptoms worsen or fail to improve. Shara Timmons MD 08/23/2023 documented in this encounter Plan of Treatment Upcoming Encounters Date Type Department Care Team (Late st Contact Info) Description 09/02/2024 3:30 PM EST Office Visit [facility] OBGYN [address] [address] Shara Timmons MD [address] [address] Scheduled Orders Name Type Priority Associated Diagnoses Orde r Schedule LIQUID-BASED PAP SMEAR WITH HPV GENOTYPING IF ASCUS (ELE,COR,MAD) Pathology and Cytology Routine Women's annual routine gynecological examination Expected: 08/23/2023 (Approximate), Expires: 08/23/2024 documented as of this encounter Results * Mammo Screening Digital [...] Shara Timmons MD IMG MAMMOGRAPHY ORDERABLES Annelise meeks Result documented in this encounter Visit Diagnoses Diagnosis Women's annual routine gynecological examination- Primary Hormone replacement therapy Encounter for breast cancer screening using non-mammogram modality Status post laparoscopic hysterectomy with BSO Acquired absence of both cervix and uterus Encounter for breast cancer screening using non-mammogram modality documented in this encounter Care Teams It Systems Manager Relationship Specialty Start Date End Date Aidan Vizcarra MD [address] [facility] [address] [place] [address] PCP - General Family Medicine 04/20/16 documented as of this encounter
--- OUTSIDE RECORDS SUMMARY | 2024-06-20 10:53 | XMS_ITS | Encounter Summary ---
[facility] Address [address] [id number] Care Team Providers Care O And M Supervisor Name Role Phone Aidan Vizcarra MD Primary Care Provider [phone] Reason for Referral * Diagnostic Imaging (Routine) - Closed Specialty Diagnoses / Procedures Referred By Marly arce Referred To Contact Radiology Diagnoses Encounter for breast cancer screening using non-mammogram modality Procedures Mammo Screening Digital Tomosynthesis Bilateral With CAD Shara Timmons MD [address] [place] [address] Phone: tel: fax: [address] [address] Phone: tel: Referral ID Status Reason Start Date Expiration Date Visits Re quested Visits Authorized [id number] Closed 08/23/2023 08/22/2024 1 1 Reason for Visit * Diagnostic Imaging (Routine) - Closed Specialty Diagnoses / Procedures [facility] Referred To Contact Radiology Diagnoses Encounter for breast cancer screening using non-mammogram modality Procedures Mammo Screening Digital Tomosynthesis Bilateral With CAD Shara Timmons MD [address] [place] [address] Phone: tel: fax: [address] [address] Phone: tel: Referral ID Status Reason Start Date Expiration Date Visits Re quested Visits Authorized [id number] Closed 08/23/2023 08/22/2024 1 1 Encounter Details Date Type Department Care Team (Amol masters Contact Info) Description 04/25/2024 1:40 PM EDT - 04/25/2024 11:59 PM EDT Hospital Encounter [facility] BREAST [address] [place] [address] Shara Timmons MD [address] [facility] [address] [id number] Encounter for breast cancer screening using non-mammogram modality Discharge Disposition: Home or Self Care Social [...] 10 mg capsule Take by oral route. estradiol 0.5 MG/0.5GM gelIndications:Ho rmone replacement therapy Place 1 Application on the skin as directed by provider Daily. 90 each 3 01/24/2024 levalbuterol (XOPENEX HFA) 45 MCG/ACT inhaler 05/02/2022 pantoprazole (PROTONIX) 20 MG EC tablet 03/14/2023 documented as of this encounter Plan of Treatment Upcoming Encounters Date Type Department Care Team (Late st Contact Info) Description 09/02/2024 3:30 PM EST Office Visit [facility] OBGYN [address] [address] Shara Timmons MD [address] [address] documented as of this encounter Procedures Procedure Name Priority Date/Time Associated Diagnosis Comments MAMMO SCREENING DIGITAL TOMOSYNTHESIS BILATERAL W CAD Routine 04/25/2024 2:18 PM EDT Encounter for breast cancer screening using non-mammogram modality documented in this encounter Results * Mammo [...] MD IMG MAMMOGRAPHY ORDERABLES Annelise l Result documented in this encounter Visit Diagnoses Diagnosis Encounter for breast cancer screening using non-mammogram modality documented in this encounter Care Teams O And M Supervisor Relationship Specialty Start Date End Date Aidan Vizcarra MD [address] [facility] [address] [place] [address] PCP - General Family Medicine 04/20/16 documented as of this encounter
--- OUTSIDE RECORDS SUMMARY | 2024-06-20 10:53 | XMS_ITS | Encounter Summary ---
Author Organization [facility] Address [address] [id number] Care Team Providers Care Solar Installer Pv Name Role Phone Aidan Vizcarra MD Primary Care Provider [phone] Reason for Visit * Reason Onset Date Comments DR. TIMMONS - VAGINAL PAIN 04/02/2023 Encounter Details Date Type Department Care Team (Late st Contact Info) Description 04/02/2023 Telephone [facility] OBGYN [address] [address] Shara Timmons MD [address] [facility] [address] [place] [address] DR. TIMMONS - VAGINAL PAIN Social History Tobacco Use Types Packs/Day Years [...] or training? Not on file Preferred Language Azeri 06/22/2022 Comments No Sex and Gender Information Value Date Recorded Sex Assigned at Not on file Legal Sex Female 11:45 AM EDT Gender Identity Not on file Sexual Orientation Not on file documented as of this encounter Miscellaneous Notes * Telephone Encounter - Peyton Moscoso RN - 04/02/2023 1:56 PM EDT LOS patient. Last OV: 08/15/22. Patient reports she thought she may have had a tear or sore somewhere due to burning with urination/bowel movements.She reports it feels like there is something between her vagina and her anus. She reports vaginal itching. Patient reports bleeding with wiping. Denies changes in soaps, detergents, toilet tissues, no new sexual partners. Appointment scheduled for tomorrow, patient v/u. * Telephone Encounter - Patty Dennis RegSched Rep - 04/02/2023 12:29 PM EDT Provider: DR. TIMMONS Caller: LORENZO BOYLE Relationship to Patient: SELF Pharmacy: NA Reason for Call: [facility] S[employer] OFFBEARER PT; SINCE THE BEGINNING OF LAST WEEK SHE'S BEEN EXPERIENCING VAGINAL PAIN MOSTLY WHEN SHE SITS OR USING THE RESTROOM, SHE THINKS THERE MAY BE A POSSIBLE LUMP BETWEEN VAGINA AND ANUS, THAT HAS BEEN CAUSING DISCOMFORT, SHE NOTICED OVER THE WEEKEND WHEN WIPING A BRIGHT RED BLOOD ON TOILET PAPER, PLEASE ADVISE ON SCHEDULING FOR PT When was the patient last seen: 08/15/22 When did it start: VAGINAL PAIN BEGINNING OF LAST WEEK, SPOTTING OVER THE WEEKEND Where is it located: VAGINAL AREA Characteristics of symptom/severity: NA Timing- Is it constant or intermittent: INTERMITTENT What makes it worse: SITTING/ USING THE RESTROOM What makes it better: NA What therapies/medications have you tried: NA OK TO CALLBACK ANYTIME, OK TO LEAVE A VM documented in this encounter Plan of Treatment Upcoming Encounters Date Type Department Care Team (Late st Contact Info) Description 09/02/2024 3:30 PM EST Office Visit [facility] OBGYN [address] [facility] [address] [place] [phone] Shara Timmons MD [address] [address] documented as of this encounter Visit Diagnoses Not on filedocumented in this encounter Care Teams Solar Installer Pv Relationship Specialty Start Date End Date Aidan Vizcarra MD [address] [facility] [address] [facility] [address] [place] [address] PCP - General Family Medicine 04/20/16 documented as of this encounter
--- OUTSIDE RECORDS SUMMARY | 2024-06-20 10:53 | XMS_ITS | Clinical Summary ---
Author Organization [facility] [facility] Address [address] [place] [address] Care Team Providers Care Translator Name Role Phone Unavailable Primary Care Provider [...]
--- OUTSIDE RECORDS SUMMARY | 2024-06-20 10:53 | XMS_ITS | Encounter Summary ---
Author Organization [employer] [facility] [facility] Address [address] [place] [address] Care Team Providers Care Vein Access Technician Name Role Phone Unavailable Primary Care Provider Unavailabl e Encounter Details Date Type Department Care Team (Late st Contact Info) Description 11/17/2018 Transcribed Document [facility] [place] Medicine [facility] [place] [address] ProviderGoyo MD [facility] [place] [id number] Social History Tobacco Use Types Packs/Day Years [...] Note - Goyo Jenkins MD - 11/17/2018 9:39 AM CDT Final Discharge Planning Entered On: 11/17/2018 9:42 EDT Performed On: 11/17/2018 9:39 EDT by Gloria Jung RN Final Discharge Planning Discharge Arrangements : Patient Post-Acute Information Patient Name: LORENZO TOBAR Gender: Female : [birth year] Age: 38 Years No Post-Acute Placement(s) Listed No Post-Acute Service(s) Listed No [place] Referral(s) Listed Discharge To Care Management : Home/Residential/Intermediate or Self Care -01 Gloria Jung RN - 11/17/2018 9:39 EDT Final Narrative Note Final Narrative Note : CM spoke to patient at bedside to aske about discharge needs. Patient is a 38 yr old that was admitted for kidney stones. Patient was seen by urology and stone was extracted and stent placed. MD notes say to follow urology notes remove stent in 3 days and f/u with PCP in 1 week with BMP. Patient is independent and there are no discharge needs. Gloria Jung RN - 11/17/2018 9:39 EDT documented in this encounter Plan of Treatment Not on file documented as of this encounter Visit Diagnoses Not on filedocumented in this encounter
--- OUTSIDE RECORDS SUMMARY | 2024-06-20 10:53 | XMS_ITS | Encounter Summary ---
Author Organization [employer] [facility] Address [address] [place] [address] Care Team Providers Care Algology Teacher Name Role Phone Unavailable Primary Care Provider Unavailabl e Encounter Details Date Type Department Care Team (Late st Contact Info) Description 11/16/2018 Transcribed Document [facility] [place] Family Medicine [address] [place] [address] ProviderGoyo MD [address] [place], [place] [id number] Social History Tobacco Use Types Packs/Day Years [...] Conversion Note - Goyo ProviderMD - 11/16/2018 5:00 PM CDT Chart Check - Review Order Profile Entered On: 11/16/2018 16:57 EDT Performed On: 11/16/2018 17:00 EDT by Rashad Hansen, RN Chart Check All Active Orders Reviewed : Yes Rashad Hansen RN - 11/16/2018 16:57 EDT Electronically signed by Christie Carrington Conversion Logistics Project Manager Leon at 11/03/2022 3:49 PM CDT documented in this encounter Plan of Treatment Not on file documented as of this encounter Visit Diagnoses Not on filedocumented in this encounter
--- OUTSIDE RECORDS SUMMARY | 2024-06-20 10:53 | XMS_ITS | Encounter Summary ---
Author Organization [employer] Address [address] [place] [address] Care Team Providers Care Sheeter Operator Name Role Phone Unavailable Primary Care Provider Unavailabl e Encounter Details Date Type Department Care Team (Late st Contact Info) Description 11/16/2018 Historic Encounter [address] [address] ProviderJaron Historical Social History Tobacco Use Types Packs/Day Years Used Date Smoking Tobacco: Never Assessed Comments Unknown Sex and Gender Information Value Date Recorded Sex Assigned at Female 01/10/2022 5:11 PM CDT Legal Sex Female 5:11 PM CDT Gender Identity Female 01/10/2022 5:11 PM CDT Sexual Orientation Not on file documented as of this encounter Plan of Treatment Not on file documented as of this encounter Procedures Procedure Name Priority Date/Time Associated Diagnosis Comments CBC W/ AUTO DIFF ([facility] DATA CONV) Routine 11/17/2018 6:50 AM EDT AUTOMATED DIFFERENTIAL ([facility] DATA CONV) Routine 11/17/2018 6:50 AM EDT BMP BASIC METABOLIC PANEL ([facility] DATA CONV) Routine 11/17/2018 6:50 AM EDT HCG SERUM QUANTITATIVE ([facility] DATA CONV) Routine 11/16/2018 5:00 PM EDT CALICULI (STONE) ANALYSIS ([facility]KR DATA CONV) Routine 11/16/2018 4:18 PM EDT URINE CULTURE AND SENSITIVITY Routine 11/16/2018 4:16 PM EDT documented in this encounter Results * (ABNORMAL) AUTOMATED DIFFERENTIAL ([facility] DATA CONV) (11/17/2018 6:50 AM EDT) Neut% 59.7 34.0 - 71.0 % 11/17/2018 11:36 AM EDT Lymph% 27.7 19.3 - 53.1 % 11/17/2018 11:36 AM EDT Lancaster% 9.5(H) 3.0 - 9.0 % 11/17/2018 11:36 AM EDT Eos% 2.5 0.0 - 7.0 % 11/17/2018 11:36 AM EDT Baso% 0.3 0.0 - 1.5 % 11/17/2018 11:36 AM EDT IG% 0.30 0.00 - 0.60 % 11/17/2018 11:36 AM EDT Neut# 4.70 1.56 - 6.13 K/uL 11/17/2018 11:36 AM EDT Lymph# 2.18 1.00 - 3.90 x10(3)/uL 11/17/2018 11:36 AM EDT Lancaster# 0.75 0.16 - 1.00 K/uL 11/17/2018 11:36 AM EDT Eos# 0.20 0.00 - 0.80 x10(3)/uL 11/17/2018 11:36 AM EDT Baso# 0.02 0.00 - 0.20 x10(3)/uL 11/17/2018 11:36 AM EDT IG# 0.02 0.00 - 0.05 x10(3)/uL 11/17/2018 11:36 AM EDT Blood 11/17/2018 6:50 AM EDT 11/17/2018 11:30 AM EDT Narrative [facility] - 11/17/2018 11:39 AM EDT Added by Discern Expert us [facility] Historical Provider LAB BLOOD ORDERABLES Fi nal Result [facility] [address] [phone] * (ABNORMAL) BMP BASIC METABOLIC PANEL ([facility]KR DATA CONV) (11/17/2018 6:50 AM EDT) Glucose Level 81 74 - 106 mg/dL 11/17/2018 11:55 AM EDT Comment: [employer] has become aware of sulfasalazine and sulfapyridine drug interference in the assays ALT, AST, T4, CKMB, glucose, and ammonia. The probability of misinterpretation of results for the assays is remote and would be limited to scenarios where a patient has taken the drug and had a blood sample drawn before clearance of the drug to a level that does not interfere with laboratory testing. Venipuncture should occur prior to administration of the drug. Blood Urea Nitrogen 19 7 - 22 mg/dL 11/17/2018 11:55 AM EDT Creatinine Level 1.20(H) 0.55 - 1.02 mg/dL 11/17/2018 11:55 AM EDT Sodium Level 141 136 - 146 mmol/L 11/17/2018 11:55 AM EDT Potassium Level 4.1 3.5 - 5.1 mmol/L 11/17/2018 11:55 AM EDT Chloride Level 108 102 - 112 mmol/L 11/17/2018 11:55 AM EDT Carbon Dioxide Level 28 21 - 32 mmol/L 11/17/2018 11:55 AM EDT Anion Gap 9 9 - 20 11/17/2018 11:55 AM EDT Calcium Level 8.3(L) 8.4 - 10.1 mg/dL 11/17/2018 11:55 AM EDT Bun/Creatinine 15.8 8.0 - 20.0 11/17/2018 11:55 AM EDT eGFR NonAfrican 50(L) >=60 mL/min/1. 73m2 11/17/2018 11:56 AM EDT Comment: GFR <60 suggests chronic kidney disease, if found over 3 month period. GFR <15 indicates renal failure. eGFR >60 >=60 mL/min/1. 73m2 11/17/2018 11:56 AM EDT Comment: GFR <60 suggests chronic kidney disease, if found over 3 month period. GFR <15 indicates renal failure. Blood 11/17/2018 6:50 AM EDT 11/17/2018 11:29 AM EDT [facility] Historical Provider LAB BLOOD ORDERABLES Fi nal Result [facility] [address] [phone] * CBC W/ AUTO DIFF ([facility]KR DATA CONV) (11/17/2018 6:50 AM EDT) WBC 7.9 4.5 - 10.5 K/uL 11/17/2018 11:36 AM EDT RBC 4.59 3.93 - 5.22 Million/uL 11/17/2018 11:36 AM EDT Hgb 13.9 11.2 - 15.7 g/dL 11/17/2018 11:36 AM EDT Hct 41.4 34.1 - 44.9 % 11/17/2018 11:36 AM EDT MCV 90.2 79.0 - 94.8 fL 11/17/2018 11:36 AM EDT MCH 30.3 25.6 - 32.2 pg 11/17/2018 11:36 AM EDT MCHC 33.6 32.2 - 36.5 Gram/dL 11/17/2018 11:36 AM EDT RDW 13.2 11.7 - 14.9 % 11/17/2018 11:36 AM EDT Platelet Count 235 163 - 369 K/uL 11/17/2018 11:36 AM EDT MPV 9.8 9.4 - 12.4 fL 11/17/2018 11:36 AM EDT Slide Review No 11/17/2018 11:39 AM EDT Blood 11/17/2018 6:50 AM EDT 11/17/2018 11:30 AM EDT [facility] Provider LAB BLOOD ORDERABLES Fi nal Result [facility] [address] [phone] * HCG SERUM QUANTITATIVE ([facility]KR DATA CONV) (11/16/2018 5:00 PM EDT) HCG Serum Quant <1.0 mIU/mL 9 9:27 PM EDT Comment: Non- 0 - 5 (miu/ml) Weeks since last menses Approx. HCG Range (miu/ml) 3-4 Weeks ? 9-130 4-5 Weeks ? 75-2,600 5-6 Weeks ? 850-20,800 6-7 Weeks ? 4,000-100,200 7-12 Weeks ?11,500-289,000 12-16 Weeks ? 18,300-137,000 16-29 Weeks ? 1,400-53,000 29-41 Weeks ? 940-60,000 Blood 11/16/2018 5:00 PM EDT 11/16/2018 9:06 PM EDT [facility] Historical Provider LAB BLOOD ORDERABLES Fi nal Result [facility] [address] [phone] * CALICULI (STONE) ANALYSIS ([facility] BKR DATA CONV) (11/16/2018 4:18 PM EDT) Calculi, Color Thakkar 11/21/2018 2:14 PM EDT Calculi, Size 5x3x2 mm 11/21/2018 2:14 PM EDT Calculi, Weight 17.0 mg 9 2:14 PM EDT Calculi, Nidus No Nidus visualized 11/21/2018 2:14 PM EDT Calculi, Comment3 Comment 019 2:14 PM EDT Comment: Physician questions regarding Calculi Analysis contact [facility] at: [phone]. Calculi, Disclaimer Comment 11/21 2:14 PM EDT Comment: This test was developed and its performance characteristics determined by [facility]. It has not been cleared or approved by the Food and Drug Administration. Performed At: [address] [id number] Tobias Marley MD Ph:[phone] Calculi, Composition Comment 03/2019 2:14 PM EDT Comment: Percentage (Represents the % composition) Calculi, Please note Comment 03/2019 2:14 PM EDT Comment: Calculi report without photograph will follow via computer, mail, or postal carrier delivery. Calculi, Caoxalatedihydrate 67 % 11/21/2018 2:14 PM EDT [facility], Caoxalate monohydrate 30 % 11/21/2018 2:14 PM EDT [facility]culi, Ca phosphate 03 % 03/2019 2:14 PM EDT 11/16/2018 4:18 PM EDT 2018 2:33 PM EDT [facility] Historical Provider PATHOLOGY/CYTOLOGY ORDE RABLES Final Result Performing Organization Address City/State/[facility] Co de Phone Number [facility] [address] [phone] * URINE CULTURE AND SENSITIVITY (11/16/2018 4:16 PM EDT) Final No growth Pre No growth 11/16/2018 4:16 PM EDT 11/17/2018 8:53 AM EDT [facility] Provider PATHOLOGY/CYTOLOGY ORDE RABLES Final Result Performing Organization Address [facility]/State/ZIP Co de Phone Number [facility] [address] [phone] documented in this encounter Visit Diagnoses Not on filedocumented in this encounter
--- OUTSIDE RECORDS SUMMARY | 2024-06-20 10:53 | XMS_ITS | Encounter Summary ---
Author Organization [employer] Address [address] [place] [address] Care Team Providers Care Ems Manager Name Role Phone Unavailable Primary Care Provider Unavailabl e Encounter Details Date Type Department Care Team (Late st Contact Info) Description 11/16/2018 Transcribed Document [facility] Family Medicine [facility] [place] [address] ProviderGoyo MD [facility] [place] [id number] Social History Tobacco Use Types Packs/Day Years [...] Conversion Note - Goyo ProviderMD - 11/16/2018 3:10 PM CDT Admission History, Adult Entered On: 11/16/2018 16:56 EDT Performed On: 11/16/2018 15:10 EDT by Rashad Hansen RN Advance Directive Patient has Advance Directive *Q : No, patient refuses Advance Directive information Rashad Hansen RN - 11/16/2018 16:52 EDT Anesthesia/Transfusion History Family History of Anesthesia Reaction : No prior transfusion(s) Transfusion History : Prior anesthesia without reaction Family History of Anesthesia Reaction : None Rashad Hansen RN - 11/16/2018 16:52 EDT Functional Assessment Living Situation : Home Persons Assisting Patient at Home : Spouse Current Home Treatments : None Rashad Hansen RN - 11/16/2018 16:52 EDT General Info Preferred Name : Hannah Support Person/Patient Histologist Technologist : Yes Support Person/Pt Rep Name : Eric Cook spouse Support Person/Pt Rep Contact Information : [phone] cell Want Family/Rep/Phys Notified of Admit : No Emergency Contact #1 : eric cook Emergency Contact #1 Phone Number : [phone] Emergency Contact #1 Relationship : Emergency Contact #2 : na Emergency Contact #2 Phone Number : na Emergency Contact #2 Relationship : na Primary Language : Occitan Preferred Communication Mode : Verbal Communication Barrier : None Rashad Hansen RN - 11/16/2018 16:52 EDT Fall Risk Scales ABCs Fall Injury Risk Identification : Surgery ABC Fall Injury Risk : Moderate to high injury risk MACIAS Hx Falls Immediate/Within 3 Months : No Macias Secondary Diagnosis : No MACIAS Use of Ambulatory Aid : Bed rest/Nurse assist MACIAS IV Therapy or IV Access : Yes Macias Gait/Transferring : Weak Macias Mental Status : Oriented to own ability Macias Fall Risk Score : 30 MACIAS Fall Scale Risk Level : 25-45 Medium Risk K[place] Fall Interventions : Adequate lighting, Assistive devices within reach, Bed in low position, Call device within reach, Fall prevention handout/education per facility policy, Frequent orientation to call device, Frequent orientation to surroundings, Hourly comfort/safety rounds, Personal items within reach, Reinforced to call for assistance before getting out of bed, Room free of clutter/spills, Upper side-rails up, Wheels locked, Wires/Cords secured Rashad Hansen RN - 11/16/2018 16:52 EDT Health Histories Smoking Status : Never (less than 100 in lifetime; none in last 30 days) Smokeless Tobacco Status : Never Rashad Hansen RN - 11/16/2018 16:52 EDT Social History (As Of: 11/16/2018 16:56:15 EDT) Height and Weight, Clinical Dosing Height Source : Stated Height Entry Format : [place] Height, Feet : 5 ft(Converted to: 152 cm, 60 Inch) Height, Inches : 4 Inch(Converted to: 0 ft 4 Inch, 10.16 cm) Clinical Height : 162.56 cm Weight Source : Bed scale Weight Entry Format : [place] Clinical Dosing Weight : 81.82 kg Weight, Pounds : 180 lb Body Surface Area (BSA) : 1.87 m2 Body Mass Index : 31 kg/m2 (HI) [place] Body Weight : 54 kg Rashad Hansen RN - 11/16/2018 16:56 EDT Infectious Disease History Infectious Disease History : Chicken pox/Shingles Isolation Needed : Standard Fever/Chills Last 48 Hours : No Travel To Regions with Travel Advisories : No Travel Outside [place] Within Last 30 Days : No Contact With Traveler to Advisory Region : No Tuberculosis Symptoms : None Rashad Hansen RN - 11/16/2018 16:52 EDT Influenza Vaccine Asmt, Adult Previous Vaccines from Immunization Schedule : No qualifying data available. Influenza Immunization, Current Season : Yes Rashad Hansen RN - 11/16/2018 16:52 EDT Pneumococcal Vaccine Previous Vaccines from Immunization Schedule : No qualifying data available. Pneumonia Immunization Received : No Pneumococcal Risk Assessment < Age 65 : None Rashad Hansen RN - 11/16/2018 16:52 EDT Nutrition History Eating Poorly Due to Decreased Appetite : No Unplanned Weight Loss in Past 3-6 Months : No Malnutrition Screening Tool Total(mal) : 0 Malnutrition Screening Tool Risk Level : Patient not at risk Rashad Hansen RN - 11/16/2018 16:52 EDT Psychosocial History Do You Have a History of the Following? : Patient denies history Currently in Unsafe Situation : No Tried to Harm Yourself in the Past? : No Thoughts of Harming/Killing Yourself : No Rashad Hansen RN - 11/16/2018 16:52 EDT Sleep Apnea Risk Assmt Hx of Obstructive Sleep Apnea Diagnosis : No Snore Loudly : No Tired, Fatigued, or Sleepy During Day : No Observed Stopping Breathing During Sleep : No Have/Are Being Treated for Hypertension : No BMI Greater Than 35 kg/m2 : No Age over 50 Years Old : No Neck Circumference Greater Than 40 cm : No Gender Male : No STOP-BANG Sleep Apnea Risk Level Score : 0 Rashad Hansen RN - 11/16/2018 16:52 EDT Valuables and Belongings Valuables and Belongings : Clothing Clothing : Common streetwear Clothing Disposition : With patient Rashad Hansen RN - 11/16/2018 16:52 EDT documented in this encounter Plan of Treatment Not on file documented as of this encounter Visit Diagnoses Not on filedocumented in this encounter
--- OUTSIDE RECORDS SUMMARY | 2024-06-20 10:53 | XMS_ITS | Encounter Summary ---
Author Organization [employer] Address [address] [place] [address] Care Team Providers Care Information Technology Security Analyst Name Role Phone Unavailable Primary Care Provider Unavailabl e Encounter Details Date Type Department Care Team (Late st Contact Info) Description 11/17/2018 Transcribed Document [facility] Family Medicine [facility] [place] [address] ProviderGoyo MD [address] [place], [place] [id number] Social History Tobacco Use Types Packs/Day Years [...] Note - Goyo Jenkins MD - 11/17/2018 10:17 AM CDT Patient Education Materials Follows: Cystoscopy, Care After Refer to this sheet [...] these instructions at home: Medicines ??? Take thhg-ghs-trrrwld and prescription medicines only as told by [...] 01/19/2006 Document Revised: 12/07/2016 Document Reviewed: 05/18/2016 [employer] Opinion Interactive Patient Education ? 2017 [employer] Kidney Stones Kidney stones (urolithiasis) are [...] hours after you pass the stone. ? 8??12 weeks after passing the kidney stone, and every 6?12 months after that. ??? Strain your urine [...] kidney stones in the future. ??? Take qcxo-dkz-exeyciw and prescription medicines only as told by [...] 07/02/2006 Document Revised: 01/19/2017 Document Reviewed: 12/15/2016 Elsevier Interactive Patient Education ? 2017 [employer] documented in this encounter Plan of Treatment Not on file documented as of this encounter Visit Diagnoses Not on filedocumented in this encounter
--- OUTSIDE RECORDS SUMMARY | 2024-06-20 10:53 | XMS_ITS | Encounter Summary ---
Author Organization [facility] ystem Address [address] [place] [address] Care Team Providers Care Traffic Sign Erection Supervisor Name Role Phone Aidan Vizcarra MD Primary Care Provider [phone] Encounter Details Date Type Department Care Team (Late st Contact Info) Description 01/22/2024 Telephone [facility] OBGYN [address] [address] Shara Timmons MD 1700 [facility] [address] [place], [place] [id number] Social History Tobacco Use Types Packs/Day Years [...] encounter Miscellaneous Notes * Telephone Encounter - Mariela Greene APRN - 01/24/2024 4:[address] PM EDT [address] with dr. Timmons she does not want to change current regimen. [facility] [place] [facility], patient will call and make sure they will be able to get it. She will notify usif they can't. VU. * Telephone Encounter - Pepper Parra RN - 01/22/2024 5:45 PM EDT Pt. Uses topical estrogen (estrogel) and they are on back order. She uses for treatment of vasomotor sx. She is s/p hysterectomy with BSO in 06/2022. She has been on this for over 1 year. * Telephone Encounter - Kari Rodriguez RegSched Rep - 01/22/2024 3:02 PM EDT estradiol 0.5 MG/0.5GM gel PT is having trouble finding a pharmacy that will prescribe this medication and would like a nurse to call her back and advise what to do. documented in this encounter Plan of Treatment Upcoming Encounters Date Type Department Care Team (Late st Contact Info) Description 09/02/2024 3:30 PM EST Office Visit [facility] OBGYN [address] [phone] Shara Timmons MD [address] [address] documented as of this encounter Visit Diagnoses Diagnosis Hormone replacement therapy- Primary documented in this encounter Care Teams Traffic Sign Erection Supervisor Relationship Specialty Start Date End Date Aidan Vizcarra MD [address] [facility] [address] [facility] [address] [place] [address] PCP - General Family Medicine 04/20/16 documented as of this encounter
--- OUTSIDE RECORDS SUMMARY | 2024-06-20 10:53 | XMS_ITS | Encounter Summary ---
Author Organization [facility] ystem Address [address] [place] [address] Care Team Providers Care Library Media Specialist Name Role Phone Aidan Vizcarra MD Primary Care Provider [phone] Encounter Details Date Type Department Care Team (Late st Contact Info) Description 01/25/2024 Telephone [facility] OBGYN [address] [place] [phone] Mariela Greene, STOCK PREPARATION OPERATOR 1700 [facility] [address] [place] [address] Social History Tobacco Use Types Packs/Day Years [...] Telephone Encounter - Eva Ramírez RN - 01/25/2024 10:04 AM EDT Called and spoke with [facility] and 0.5mL daily is equivalent to 0.5mg/0.5g gel. * Telephone Encounter - Nancy Marshall RegSched Rep - 01/25/2024 9:55 AM EDT Needs clarification for estradiol 0.5 MG/0.5GM gel , needing directions clarified how much is she applying at a time and how many mils? and also quantity is written as 90 needs to know if its 90 days, 90 grams etc documented in this encounter Plan of Treatment Upcoming Encounters Date Type Department Care Team (Late st Contact Info) Description 09/02/2024 3:30 PM EST Office Visit [facility] OBGYN [address] [facility] [address] [place] [address] Shara Timmons MD [address] [facility] [address] [place] [address] documented as of this encounter Visit Diagnoses Not on filedocumented in this encounter Care Teams Library Media Specialist Relationship Specialty Start Date End Date Aidan Vizcarra MD [address] [facility] [address] [place] [address] PCP - General Family Medicine 04/20/16 documented as of this encounter
--- OUTSIDE RECORDS SUMMARY | 2024-06-20 10:53 | XMS_ITS | Encounter Summary ---
Author Organization [facility] ystem Address [address] [place] [address] Care Team Providers Care Email Marketer Name Role Phone Aidan Vizcarra MD Primary Care Provider [phone] Encounter Details Date Type Department Care Team (Late st Contact Info) Description 09/05/2023 Telephone [facility] OBGYN [address] [address] Shara Timmons MD 1700 [facility] [address] [place], [place] [id number] Social History Tobacco Use Types Packs/Day Years [...] encounter Miscellaneous Notes * Telephone Encounter - Cara Wynn RN - 09/05/2023 12:22 PM EST Returned patient's call. States estradiol gel is out of stock at her pharmacy and they are not surewhen they will have it again. Advised her to contact other local pharmacies and request to have Rx transferred if another pharmacy has it available. If not, call us back to discuss other options. Shev/u and agreed. * Telephone Encounter - Nancy Marshall RegSched Rep - 09/05/2023 11:33 AM EST States her pharmacy is unable to get .5 estradiol gel, however can still fill the .[address] timmons prescribed enough to where she wont run out and double up on the .25 [facility] in [place] documented in this encounter Plan of Treatment Upcoming Encounters Date Type Department Care Team (Late st Contact Info) Description 09/02/2024 3:30 PM EST Office Visit [facility] OBGYN [address] [place] [phone] Shara Timmons MD [address] [facility] [address] [place] [phone] documented as of this encounter Visit Diagnoses Not on filedocumented in this encounter Care Teams Email Marketer Relationship Specialty Start Date End Date Aidan Vizcarra MD [facility] [address] [facility] [address] [place] [address] PCP - General Family Medicine 04/20/16 documented as of this encounter
--- OUTSIDE RECORDS SUMMARY | 2024-06-20 10:53 | XMS_ITS | Encounter Summary ---
Author Organization [employer] Address [address] [place] [address] Care Team Providers Care Health Administrator Name Role Phone Unavailable Primary Care Provider Unavailabl e Encounter Details Date Type Department Care Team (Late st Contact Info) Description 11/17/2018 Transcribed Document [facility] Radiology [address] [place] [id number] Evangelist Hassan MD [address] [place] [address] [address] Social History Tobacco Use Types [...] Conversion Note - Evangelist Hassan MD - 11/17/2018 9:10 AM EDT Patient: LORENZO TOBAR Age: 38 years Sex: Female : 1980 Associated Diagnoses: None Author: EVANGELIST HASSAN MD-INT Basic Information Admit information: Admit from ER / [facility] . Source of history: Self, Medical record. Present at bedside: Medical personnel. PCP: Aidan Vizcarra DOA: 11/16/2018 DOD: 11/17/2018 CODE STATUS: Full code. CONSULT: Urology Dr. Bain Referral source: Emergency department. Chief Complaint 1. Left flank pain 2. Left renal/Uretric Colic 3. Hematuria History of Present Illness This is 37-year-old female transferred from [facility] emergency department for urology evaluation. Patient [...] Change. No Recent Travel, Trauma or Injury. HOSPITAL COURSE: Patient was admitted from outlying ER, was taken directly to the procedure by Dr. Bain. Underwent urological procedure as listed. Postprocedure phase was uneventful. She remained afebrile. Pain is completely resolved. 11/17/2018 Patient is awake and alert, is at bedside. No chest pain, no shortness of breath, no new complains. Anxious to go home. Labs are fine creatinine is 1.2, white count is normal BP stable. Can be discharged today. OPERATION: 1. Cystoscopy with left ureteroscopy and basket [...] days ago. She opts for stone extraction. Primary Surgeon KODY Humphrey, JOHNNY Montgomery MD-URO (Surgeon/Proceduralist, [facility]) PAST MEDICAL HISTORY: Partial left nephrectomy History of left renal cell carcinoma Nephrolithiasis PCOD I BS Endometriosis Review of Systems Negative in all 14 systems other than as already described in history of present illness and past medical history.. All other systems are negative Health Status Problem list: Active Problems (7) Endometriosis Hematuria Irritable bowel syndrome PCO - Polycystic ovaries Prolapsed uterus Renal disease Renal mass, left Histories Family History: No family history items have been selected or recorded. Procedure history: exploratory laparoscopy in 2008 at 28 Years. Comments: 12/25/2016 14:39 - ELLA CHAMBERS RN endometriosis lap wilder in 2007 at 27 Years. c--section for twin in 2005 at 25 Years. nasal tumor in nose removed in 2005 at 25 Years. circlage in 2004 at 24 Years. ovarian cyst in 2003 at 23 Years. Social History Social & Psychosocial Habits No Data Available . Physical Examination VS/Measurements Vitals Signs (last 24 hrs) Last Charted Minimum Maximum Temp 98.4 (NOVEMBER 17 06:55) 97.7 (NOVEMBER 16 18:05) 98 (NOVEMBER 16 16:00) Mon HR 72 (NOVEMBER 17 06:55) 69 (NOVEMBER 16 18:05) 98 (NOVEMBER 16 16:10) Resp Rate 15 (NOVEMBER 17 06:55) L 10 (NOVEMBER 16 16:05) 19 (NOVEMBER 16 16:10) SBP 106 (NOVEMBER 17 06:55) 106 (NOVEMBER 17 06:55) 128 (NOVEMBER 16 16:05) DBP L 57 (NOVEMBER 17 06:55) L 51 (NOVEMBER 16 16:00) 68 (NOVEMBER 16 16:10) MAP 77 (NOVEMBER 17 06:55) 73 (NOVEMBER 16 16:00) 93 (NOVEMBER 16 16:10) SpO2 98 (NOVEMBER 16 18:05) 98 (NOVEMBER 16 16:20) 100 (NOVEMBER 16 16:00) General: Alert and oriented, No acute distress. Eye: Pupils are equal, round and reactive [...] Psychiatric: Cooperative. Review / Management Results review: Labs (Last four charted values) WBC 7.9 (NOVEMBER 17) HB 13.9 (NOVEMBER 17) HCT 41.4 (NOVEMBER 17) Plt 235 (NOVEMBER 17) Na 141 (NOVEMBER 17) K 4.1 (NOVEMBER 17) Cl 108 (NOVEMBER 17) CO2 28 (NOVEMBER 17) BUN 19 (NOVEMBER 17) Cr H 1.20 (NOVEMBER 17) Glu R 81 (NOVEMBER 17) Ca L 8.3 (NOVEMBER 17) . Impression and Plan DISCHARGE DIAGNOSIS: Acute Left renal/ureteric colic Status post cystoscopy and stent placement and stone extraction - 11/16/2018 History of left partial nephrectomy for renal cell carcinoma. Polycystic ovary disease Endometriosis Irritable bowel syndrome DC INSTRUCTIONS: 1- DC home today. 2- Follow with PCP in 1 week and check BMP 3- Follow with urology instructions. Discharge Medications (5) Active Colace 100 mg oral capsule 100 mg = 1 Cap, Oral, Daily ibuprofen 600 mg oral tablet 600 mg = 1 Tab, PRN, Oral, Q6H Levaquin 500 mg oral tablet 500 mg = 1 Tab, Oral, [id number] ??3 days Percocet 5/325 oral tablet 2 Tab, PRN, Oral, Q4H ZyrTEC 10 mg, Oral, Daily DC time: 31 minutes documented in this encounter Plan of Treatment Not on file documented as of this encounter Visit Diagnoses Not on filedocumented in this encounter
--- OUTSIDE RECORDS SUMMARY | 2024-06-20 10:53 | XMS_ITS | Encounter Summary ---
Author Organization [employer] Address [address] [place] [address] Care Team Providers Care Plant Puller Name Role Phone Unavailable Primary Care Provider Unavailabl e Encounter Details Date Type Department Care Team (Late st Contact Info) Description 11/16/2018 Transcribed Document [facility] Family Medicine [address] [place] [address] ProviderGoyo MD [address] [id number] Social History Tobacco Use Types Packs/Day Years [...] Goyo ProviderMD - 11/16/2018 3:38 PM CDT [facility] Main OR IntraOp Summary Primary Physician: KODY Humphrey, JOHNNY Montgomery MD-URO Finalized Date/Time: 11/17/18 09:30:36 Pt. Name: LORENZO TOBAR /Sex: 1980 Female Med Rec #: [id number] Physician: TAMMI MENA MD-INT Financial #: [id number] Pt. Type: O Room/Bed: [facility]/ Admit/Disch: 11/16/18 16:12:00 - Institution: [facility] IntraOp Case Attendance Entry 1 Entry 2 Entry 3 Case Attendee KODY Humphrey, JOHNNY J, NevaehLisa RN WILSON, MATTHEW L, MD MD-URO Role Performed Surgeon/Proceduralist, Web Database Developer, First Anesthesiologist First Time In 11/16/18 15:20:00 11/16/18 15:20:00 11/16/18 15:20:00 Time Out 11/16/18 15:58:00 11/16/18 15:58:00 11/16/18 15:58:00 Procedure Cystoscopy Adult, Cystoscopy Adult, Cystoscopy Adult, Ureteroscopy, Ureteral Ureteroscopy, Ureteral Ureteroscopy, Ureteral Stent Insertion Stent Insertion Stent Insertion Other Attendee Superficial Wound Closed By: Last Modified By: Lisa Herring, Lisa Deluca, Lisa Deluca, PIA 11/16/18 16:05:56 11/16/18 16:06:01 11/16/18 16:06:01 Entry 4 Entry 5 Case Attendee MARGIE NIETO PAULA R. Role Performed Scrub, First Laser Program Or Project Administrator Time In 11/16/18 15:20:00 11/16/18 15:20:00 Time Out 11/16/18 15:58:00 11/16/18 15:58:00 Procedure Cystoscopy Adult, Cystoscopy Adult, Ureteroscopy, Ureteral Ureteroscopy, Ureteral Stent Insertion Stent Insertion Other Attendee Superficial Wound Closed By: Last Modified By: Lisa Herring, Lisa Deluca RN 11/16/18 16:06:01 11/16/18 16:06:01 [facility] IntraOp Case Attendance Audit 11/16/18 16:06:01 Butcher Or Smallgoods Maker: [id number] Modifier: [id number] 1 <*> Procedure Cystoscopy Adult, Ureteroscopy, Ureteral Stent Insertion 2 <+> Time In 2 <+> Time Out 2 <*> Procedure Cystoscopy Adult, Ureteroscopy, Ureteral Stent Insertion 3 <+> Time In 3 <+> Time Out 3 <*> Procedure Cystoscopy Adult, Ureteroscopy, Ureteral Stent Insertion 4 <+> Time In 4 <+> Time Out 4 <*> Procedure Cystoscopy Adult, Ureteroscopy, Ureteral Stent Insertion 5 <+> Time In 5 <+> Time Out 5 <*> Procedure Cystoscopy Adult, Ureteroscopy, Ureteral Stent Insertion 11/16/18 16:05:56 Butcher Or Smallgoods Maker: [id number] Modifier: [id number] 1 <+> Time In 1 <+> Time Out 1 <*> Procedure Cystoscopy Adult, Ureteroscopy, Ureteral Stent Insertion <+> 2 Case Attendee <+> 2 Role Performed <+> 2 Procedure <+> 3 Case Attendee <+> 3 Role Performed <+> 3 Procedure <+> 4 Case Attendee <+> 4 Role Performed <+> 4 Procedure <+> 5 Case Attendee <+> 5 Role Performed <+> 5 Procedure [facility] IntraOp Case Times Entry 1 Patient In Room Time 11/16/18 15:20:00 Out Room Time 11/16/18 15:58:00 Anesthesia Start Time 11/16/18 15:20:00 Stop Time 11/16/18 15:58:00 Surgery / Procedure Times Start Time 11/16/18 15:38:00 Stop Time 11/16/18 15:50:00 Last Modified By: Lisa Herring RN 11/16/18 16:03:10 [facility] IntraOp Communication Entry 1 Entry 2 Communication To Family/Significant other Family/Significant other Comment START END Communication By Lisa Herring, Lisa Deluca RN Date and Time Last Modified By: Lisa Herring RN Hauer, Jessica, RN 11/16/18 16:06:21 11/16/18 16:06:21 [facility] IntraOp Cultures and Spec Summary Entry 1 Cultrures and Specimens Specimen Ordered: Yes Specimens Types Pathology Specimen(s) Labeled Pathology and Sent to Last Modified By: Lisa Herring RN 11/16/18 16:06:46 General Comments: A. LEFT URETERAL CALCULI [facility] IntraOp Departure from OR Entry 1 Integumentary Assessment Integumentary WDL Assessment WDL Transfer/Handoff Transfer to PACU Phase I Handoff Method Phone call Handoff Reported to KARLY PERKINS RN Post-op Transport Stretcher/Gurney Via Patient Transport Lisa Herring RN, Accompanied by GARCIA JO MD Last Modified By: Lisa Herring RN 11/16/18 16:07:03 [facility] IntraOp Fire Risk Assessment Entry 1 Fire Info Surgical Site or 0- No Incision Above the Xyphoid Open O2 Source 0- No (Mask or Cannula) Available Ignition 1- Yes (ESU, Laser, Light Source) Fire Risk 1 Assessment Score Fire Score Fire Risk Yes Assessment Complete Fire Risk Lisa Herring RN Assessment Verified By Fire Risk 11/16/18 15:20:00 Assessment Verified Date/Time Fire Risk Standard Fire Yes Safety Precautions Followed Last Modified By: Lisa Herring RN 11/16/18 16:07:13 [facility] IntraOp General Case Coin Rolling Machine Operator 1 Case Information OR OR 01 [facility] Case Level 1 Room Verified Yes Wound Class II - Clean-Contaminated Specialty SN Urology Anesthesia Type General ASA Class 2 Diagnosis Preop Diagnosis left ureteral calculi Postop Same As Preop Yes Postop Diagnosis left ureteral calculi Last Modified By: Lisa Herring RN 11/16/18 16:07:35 [facility] IntraOp General Case Data Audit 11/16/18 16:08:53 Butcher Or Smallgoods Maker: [id number] Modifier: [id number] 1 <*> ASA Class 2E [facility] IntraOp Implant Log Entry 1 Type Implant (Synthetic) Implant Log Implant Type Other Implant STENT URET BRAID + Identification [id number] Description Implant Quantity 1 Implant Site LEFT URETER Implant [id number] Identification Lot Number Implant [place] Identification Sci:Urology/Gynecology Flash Ranging Crewmember Name: Implant [id number] Identification Catalog Number Implant Has an Yes Expiration Date Implant Expiration 07/30/21 Date Tissue Implant Last Modified By: Lisa Herring RN 11/16/18 16:14:13 [facility] IntraOp Intraoperative Assessment Entry 1 Handoff Method Bedside/Face to face, Online nursing summary Valid History / Yes Physical in Chart Preoperative Yes Checklist Reviewed/Evaluated Allergies Reviewed Yes Patient is Latex No Sensitive Isolation Not applicable Precautions Noted Level of WDL Consciousness (WDL = Alert, Oriented to Person, Place, and Time) Skin Assessment No Verified Present Upon IVs Arrival to OR Last Modified By: Lisa Herring RN 11/16/18 16:07:49 [facility] IntraOp Intraoperative Equipment Entry 1 Equipment Intraop Monitoring Electrocardiogram Three lead placement (ECG) Electrode Placement Blood Pressure Non-Invasive BP Device Source Blood Pressure Arm, left upper Location Pulse Oximeter Hand, right Probe Site Antiembolic Devices Antiembolic Devices Sequential compression device, knee high Antiembolic Device Bilateral Location Scopes Photo/Video Documentation Last Modified By: Lisa Herring RN 11/16/18 16:08:49 [facility] IntraOp Medication Admin Entry 1 Entry 2 Medication/Irrigant lidocaine 2% urojet LUB SURGLUB JELLY FLIP 10ml jelly - [id number] --[id number] [facility] List Time Administered Route of URETHRA URETHRA Administration Dose Dose 10 10 Unit of Measure ml ml Volume Administered By JOHNNY GATES Md, MONNIG Md, DOMINGO MARQUEZURO MD-URO Procedure Irrigation Irrigant Volume In Irrigant Volume Out Last Modified By: Lisa Herring RN Hauer, Jessica, RN 11/16/18 16:09:24 11/16/18 16:09:24 [facility] IntraOp Patient Positioning Entry 1 Procedure Cystoscopy Adult Left Arm Position Tucked and padded at side Right Arm Position Tucked and padded at side Left Leg Position Secured in Leg Yoder Right Leg Position Secured in Leg Yoder Feet Uncrossed Yes Pressure Points Yes Checked Positioning Devices Head Rest, Table, Cysto, Pad, Elbow, Stirrups/Leg Yoder, Cysto Positioned By KODY Humphrey, JOHNNY Montgomery MD-URO, GARCIA JO MD, Lisa Herring RN Position Verified Positioning Yes Verified by Anesthesia Positioning Yes Verified by Surgeon Last Modified By: Lisa Herring RN 11/16/18 16:09:41 [facility] IntraOp Sign In Entry 1 Patient, Site, Yes Procedure Identified Surgical Consent Yes Confirmed Relevant Surgical Yes Documents Available Surgical Site N/A Marked by person performing procedure Anesthesia Machine Yes Check Completed Medication Checks Yes Completed Allergies Yes Airway Difficult Yes Airway/Aspiration Risk Difficult Yes Airway/Aspiration Intervention Equipment Available Blood Loss Risk Yes Blood Loss Yes Intervention Equipment Prepared and Ready Hypothermia Risk Yes Warming Measures Yes Taken Last Modified By: Lisa Herring RN 11/16/18 16:09:46 [facility] IntraOp Sign Out Entry 1 RN Confirmation Surgical Yes Procedure(s) Identified Instrument, Sponge N/A and Sharps Counts Correct/Documented Equipment Problems N/A Documented Specimen Labeled Yes Correctly Urinary Catheter N/A Documented in IView Ann Patient Yes Recovery Concerns Reviewed with Anesthesia Provider, Surgeon and RN Ann Patient Yes Management Concerns Reviewed with Anesthesia Provider, Surgeon and RN Safety Checklist Yes Elements Complete? RN Sign Out Lisa Herring RN Signature RN Sign Out 11/16/18 15:58:00 Signature Date/Time Plan of Care Outcome - Fire Risk OUTCOME STATEMENT: Goal met Patient is free from injury related to surgical fire Plan of Care Outcome - Pt Positioning OUTCOME STATEMENT: Goal met Absence of signs and symptoms of positioning injury. Plan of Care Outcome - Skin Prep OUTCOME STATEMENT: Goal met Intraoperative care is consistent with measures to prevent infection Plan of Care Outcome - Xray/Images OUTCOME STATEMENT: N/A Absence of observable signs or symptoms of radiation injury Plan of Care Outcome - Counts OUTCOME STATEMENT: Goal met Absence of signs and symptoms of injury related to extraneous objects Last Modified By: Lisa Herring RN 11/16/18 16:09:56 [facility] IntraOp Skin Prep Entry 1 Procedure Cystoscopy Adult, Ureteroscopy, Ureteral Stent Insertion Prescribed N/A Pre-Surgical Prep Completed Prep Area Genitalia Intraop Prep Integumentary WDL Assessment WDL Prep Agents Betadine solution Prep by Lisa Herring RN Hair Removal Last Modified By: Lisa Herring RN 11/16/18 16:10:08 [facility] IntraOp Surgical Procedures Entry 1 Entry 2 Entry 3 Procedure Cystoscopy Adult Ureteroscopy Ureteral Stent Insertion Modifiers Additional CYSTOSCOPY, LEFT Procedure URTEROSCOPY, BASKET Description STONE EXTRACTION, LEFT URETERAL STENT PLACEMENT Primary Procedure No Yes No Primary Surgeon KODY Humphrey, KODY MARQUEZ Md, KODY MARQUEZ Md, JOHNNY Montgomery MD-URO MD-URO MD-URO Start 11/16/18 15:38:00 11/16/18 15:38:00 11/16/18 15:38:00 Stop 11/16/18 15:50:00 11/16/18 15:50:00 11/16/18 15:50:00 Physician States Cecum Reached Anesthesia Type General General General Specialty SN Urology SN Urology SN Urology Wound Class II - Clean-Contaminated II - Clean-Contaminated II - Clean-Contaminated Last Modified By: Lisa Herring RN Hauer, Jessica, RN Hauer, Jessica, RN 11/16/18 16:02:35 11/16/18 16:02:35 11/16/18 16:02:35 General Comments: LEVAQUIN 500MG IV PER ANESTHESIA 1532 [facility] IntraOp Surgical Procedures Audit 11/16/18 16:10:21 Butcher Or Smallgoods Maker: [id number] Modifier: [id number] 1 <*> Procedure Cystoscopy Adult 1 <*> Procedure Cystoscopy Adult 1 <*> Procedure Cystoscopy Adult 1 <*> Start 1 <*> Start 1 <*> Stop 1 <*> Stop 2 <*> Start 2 <*> Start 2 <*> Stop 2 <*> Stop 3 <*> Start 3 <*> Start 3 <*> Stop 3 <*> Stop [facility] IntraOp Temp Regulation Devices Entry 1 Temp Regulation Temperature Warm blankets, Forced Regulation Device Air Warming device Temperature Upper body Regulation Site Temperature monitored per Regulation Comment anesthesia, thiago amaral available Last Modified By: Lisa Herring RN 11/16/18 16:10:24 [facility] IntraOP Time Out Entry 1 Procedure to be Cystoscopy Adult, Performed Ureteroscopy, Ureteral Stent Insertion Time Out Time Out Pause Time 11/16/18 15:38:00 All activity Yes suspended (unless life threatening emergency) Team Verbally Correct patient Confirms Information identity, Correct side and site are marked, Consent form is present and accurate, Agreement on the procedure to be done, Correct patient position, Relevant images/results properly labeled/appropriately displayed, Confirm antibiotics have been administered, Confirm the skin prep has dried, Confirm prosthesis/implant/devic e is present, Performed in location of procedure after prepped/draped Antibiotic Yes Prophylaxis Administered Or In Progress Within the Last 60 Minutes Beta Roslyn N/A Administered Venous Yes Thromboembolism Prophylaxis Required Anticipated Critical Events Surgeon None expected Anesthesia Provider None expected Nursing Assures Sterility of instruments Essential Imaging Yes Labeled and Displayed Last Modified By: Lisa Herring RN 11/16/18 16:13:00 Case Comments <None> Finalized By: MARGIE NIETO Document Signatures Signed By: Lisa Herring RN 11/16/18 16:14 Lisa Herring RN 11/16/18 16:15 MARGIE NIETO 11/17/18 09:30 Unfinalized History Date/Time Username Reason for Unfinalizing Freetext Reason for Unfinalizing 11/16/18 16:15 [id number] Modify Pick List 11/17/18 09:29 [id number] Correct Billing documented in this encounter Plan of Treatment Not on file documented as of this encounter Visit Diagnoses Not on filedocumented in this encounter
--- OUTSIDE RECORDS SUMMARY | 2024-06-20 10:54 | XMS_ITS | Encounter Summary ---
[facility] Address [address] [place] [address] Care Team Providers Care Editor Dictionary Name Role Phone Aidan Vizcarra MD Primary Care Provider + [phone] Reason for Visit * Auth/Cert (Routine) Specialty Diagnoses / Procedures Referred By Marly arce Referred To Contact Procedures OK LAPAROSCOPY W TOT HYSTERECTUTERUS <=250 GRAM W TUBE/OVARY TOTAL LAPAROSCOPIC HYSTERECTOMY BILATERAL SALPINGECTOMY OOPHORECTOMY Referral ID Status Reason Start Date Expiration Date Visits Re quested Visits Authorized [id number] 1 1 Encounter Details Date Type Department Care Team (Late st Contact Info) Description 06/28/2022 12:05 PM EST Anesthesia Event [facility] OR [address] [place] [id number] Ambrocio Cleveland MD [address] [place] [id number] Luis Enrique Vicente SRNA Anesthesia Record Procedure Summary Procedure Name Responsible Anesthesiologist Anesthesia Start Time Anesthesia Stop Time TOTAL LAPAROSCOPIC HYSTERECTOMY BILATERAL SALPINGECTOMY OOPHORECTOMY, LYSIS OF ADHESIONS, CYSTOSCOPY (Bilateral: Abdomen) Ambrocio Cleveland MD 06/28/22 1205 06/28/22 1509 Events Date Time Event Comment 06/28/2022 1008 1120 AN Equip Check 1205 An Start The patient was reevaluated immediately before moderate or deep sedation use and before anesthesia induction. 1205 An Start Data 1217 An Induction 1218 Block Placed 1218 An Intubation 1242 Quick Note recruitment 1457 An Extubation 1504 an stop data 1509 Handoff to RN The following has been completed: 1. Identification of Patient, eisenberg family member(s) or patient surrogate 2. Identification of the responsible Practitioner (primary service) 3. Discussion of the pertinent/attainable medical history 4. Discussion of the surgical/procedure course (procedure, reason for surgery, procedure performed) 5. Intraoperative anesthetic management and issue/concerns to include things such as airway, hemodynamics, narcotic, sedation level and paralytic management and intravenous fluids/blood products and urine output during the procedure 6. Expectations/Plans for the early post-procedure period to include things such as anticipated course (anticipatory guidance), complications, need for laboratory or ECG and medication administration 7. Opportunity for questions and acknowledgment of understanding of report from the receiving PACU/ICU team 1509 An Stop Meds Name Total lidocaine PF (XYLOCAINE) local injection 1% 50 mg propofol (DIPRIVAN) injection 150 mg Rocuronium 50 mg/5mL 70 mg dexamethasone (DECADRON) 4 mg/mL 8 mg fentaNYL citrate (PF) 100 MCG/2ML 200 mc g propofol (DIPRIVAN) infusion 10 mg/mL 10 0 mL 316.25 mg sugammadex (BRIDION) 200 mg/2 mL injecti on 200 mg gentamicin (GARAMYCIN) 370 mg in sodium chloride 0.9 % IVPB 370 mg clindamycin (CLEOCIN) 900 mg in dextrose 5% 50 mL IVPB (premix) 900 mg ePHEDrine Sulfate 50 MG/ML 30 mg ondansetron 2 mg/mL 4 mg lactated ringers infusion 1,400 mL * Agents Name O2 N2O Air Sevoflurane * Blood No blood administrations on file. Lines, Drains, and Airways Type Details Placement Removal Wound 06/28/22; 1231; Othe r (See comments) (LAPAROSCOPIC INCISIONS); midline; abdomen (LAPAROSCOPIC INCISIONS); Incision; N; LAPAROSCOPIC INCISIONS FOR TLH AND BSO 06/28/22 1231 by Gillian Montejo RN Peripheral IV Placement Date: 06/15 11/04; Placement Time: 922; Catheter Size: 18 G; Orientation: Left, Posterior; Location: Hand; Site Prep: Chlorhexidine; Local Anes: Injectable; Technique: Anatomical landmarks; Inserted by: Petra hurt [phone]; Insertion Attempts: 1; Patient Tolerance: Tolerated well; Removal Date: 06/29/22; Removal Time: 15306/28/22922 by Emelyn Mcbride RN 06/29/22 1537 by Khari Juan RN ETT Placement Date: 06/15 11/04; Placement Time: 122 (created via procedure documentation); Tube Size: 7 mm; Blade Size: 3; Location: Oral; Removal Date: 06/28/22; Removal Time: 1457 06/28/22 1222 by Ambrocio Cleveland MD 06/28/22 1457 by Luis Enrique Vicente SRNA Urethral Catheter Placement Date: 06/15 11/04; Placement Time: 1232; Inserted by: Giovana WATKINS MD; Type: Silicone; Size: 16 Fr.; Balloon Size: 10 mL; Urine Returned: Yes; Removal Date: 06/29/22; Removal Time: 134; Removal Reason: Per order 06/28/22 1232 by Gillian Montejo RN 06/29/22 1345 by Khari Juan RN documented in this encounter Social History Tobacco Use Types Packs/Day Years [...] or training? Not on file Preferred Language [place] Citizen 06/22/2022 Comments No Sex and Gender Information Value Date Recorded Sex Assigned at Not on file Legal Sex Female 11:45 AM EDT Gender Identity Not on file Sexual Orientation Not on file documented as of this encounter OR Notes * Anesthesia Postprocedure Evaluation - Vahid Porter CRNA - 06/28/2022 4:30 PM EST Patient: Hannah Tobar Procedure Summary Date: 06/28/22 Room / [facility] Anesthesia Start: 1205 Anesthesia Stop: 1509 Procedure: TOTAL LAPAROSCOPIC HYSTERECTOMY BILATERAL SALPINGECTOMY OOPHORECTOMY, LYSIS OF ADHESIONS, CYSTOSCOPY (Bilateral: Abdomen) Diagnosis: Surgeons: Shara Timmons MD Provider: Ambrocio Cleveland MD Anesthesia Type: general ASA Status: 3 Anesthesia Type: general Vitals Vitals Value Taken Time BP 108/69 06/28/22 1615 Temp 98.3 ??F (36.8 ??C) 06/28/22 1615 Pulse 75 06/28/22 1624 Resp 12 06/28/22 1615 SpO2 90 % 06/28/22 1625 Vitals shown include unvalidated device data. Post Anesthesia Care and Evaluation Patient location during evaluation: PACU Patient participation: complete - patient participated Level of consciousness: awake and alert Pain management: adequate Airway patency: patent Anesthetic complications: No anesthetic complications PONV Status: none Cardiovascular status: hemodynamically stable and acceptable Respiratory status: nonlabored ventilation, acceptable and nasal cannula Hydration status: acceptable * Anesthesia Procedure Notes - Vahid Porter CRNA - 06/28/2022 12:22 PM EST Associated Order(s): Airway Airway Urgency: elective Date/Time: 06/28/2022 12:18 PM Airway not difficult General Information and Staff Patient location during procedure: OR SRNA: Luis Enrique Vicente SRNA Indications and Patient Condition Indications for airway management: airway protection Preoxygenated: yes MILS not maintained throughout Mask difficulty assessment: 1 - vent by mask Final Airway Details Final airway type: endotracheal airway Successful airway: ETT Cuffed: yes Successful intubation technique: direct laryngoscopy Endotracheal tube insertion site: oral Blade: Gladys Blade size: 3 ETT size (mm): 7.0 Cormack-Lehane Classification: grade I - full view of glottis Placement verified by: chest auscultation and capnometry Cuff volume (mL): 8 Measured from: lips ETT/EBT to lips (cm): 22 Number of attempts at approach: 1 Assessment: lips, teeth, and gum same as pre-op and atraumatic intubation Additional Comments Negative epigastric sounds, Breath sound equal bilaterally with symmetric chest rise and fall * Anesthesia Preprocedure Evaluation - Ambrocio Cleveland MD - 06/28/2022 9:31 AM EST Anesthesia Evaluation Patient summary reviewed and Nursing notes reviewed history of anesthetic complications: PONV NPO Solid Status: > 8 hours NPO Liquid Status: > 2 hours Airway Mallampati: II TM distance: >3 FB Neck ROM: full No difficulty expected Dental Pulmonary (+) asthma (MDI x2 sees academy education director data def exercise induced ), (-) shortness of breath, recent URI, sleep apnea ROS comment: Sats 98% RA Gets asthma c exercise but walked extensively in last week . Took rescue MDI once . Sees local academy education director -(data def) had Stress test which reportedly was normal She called her academy education director (at my suggestion) who indicated no contraindication to her surgery Symptoms started after Covid in july Cardiovascular ECG reviewed (-) hypertension, dysrhythmias, angina ROS comment: ECG NSR Neuro/Psych (-) seizures, CVA GI/Hepatic/Renal/Endo (+) renal disease (Ca L kidney ) stones, (-) diabetes, no thyroid disorder Musculoskeletal Abdominal Substance History ACCOUNTS EXECUTIVE Comment: PCOS Other history of cancer (kidney ) remission Anesthesia Plan ASA 3 general (Propofol infusion as part of an anti PONV technique RAD(severity unk) took am MDI ) intravenous induction Anesthetic plan, risks, benefits, and alternatives have been provided, discussed and informed consent has been obtained with: patient. Plan discussed with LOOSE HAND PACKER. CODE STATUS: documented in this encounter Plan of Treatment Upcoming Encounters Date Type Department Care Team (Late st Contact Info) Description 09/02/2024 3:30 PM EST Office Visit [facility] OBGYN [address] [facility] [address] [place] [phone] Shara Timmons MD [address] [facility] [address] [place], [place] [id number] documented as of this encounter Procedures Procedure Name Priority Date/Time Associated Diagnosis Comments ANESTHESIA INTUBATION Routine 06/28/2022 12:22 PM EST documented in this encounter Results * BH AN ETT AIRWAY (06/28/2022 12:22 PM EST) Narrative Vahid Porter CRNA - 06/28/2022 12:22 PM EST Vahid Porter CRNA ? 06/29/2022 ??4:05 PM Airway Urgency: elective Date/Time: 06/28/2022 12:18 PM Airway not difficult General Information and Staff Patient location during procedure: OR SRNA: Luis Enrique Vicente SRNA Indications and Patient Condition Indications for airway management: airway protection Preoxygenated: yes MILS not maintained throughout Mask difficulty assessment: 1 - vent by mask Final Airway Details Final airway type: endotracheal airway Successful airway: ETT Cuffed: yes Successful intubation technique: direct laryngoscopy Endotracheal tube insertion site: oral Blade: Gladys Blade size: 3 ETT size (mm): 7.0 Cormack-Lehane Classification: grade I - full view of glottis Placement verified by: chest auscultation and capnometry Cuff volume (mL): 8 Measured from: lips ETT/EBT ??to lips (cm): 22 Number of attempts at approach: 1 Assessment: lips, teeth, and gum same as pre-op and atraumatic intubation Additional Comments Negative epigastric sounds, Breath sound equal bilaterally with symmetric chest rise and fall us Ambrocio Cleveland MD ANESTHESIA ORDERABLES Final Res ult documented in this encounter Visit Diagnoses Not on filedocumented in this encounter Administered Medications Inactive Administered Medications - up to 3 most recent administrations Medication Order MAR Action Action Date Dose Rate Site clindamycin (CLEOCIN) 900 mg in dextrose 5% 50 mL IVPB (premix) 900 mg, Intravenous, at 50 mL/hr, Administer over 60 Minutes, Once, On Sun06/28/22 at 0902, For 1 dose, Do Not refrigerate., Indications: Surgical ProphylaxisIndications:Surgical Prophylaxis Given 06/28/2022 12:32 PM EST 900 mg dexamethasone (DECADRON) injection Intravenous, As Needed, Starting on Sun06/28/22 at 1217 Given 06/28/2022 12:17 PM EST 8 mg ePHEDrine Sulfate Intravenous, As Needed, Starting on Sun06/28/22 at 1312 Given 06/28/2022 2:45 PM EST 10 mg Given 06/28/2022 1:26 PM EST 10 mg Given 06/28/2022 1:12 PM EST 10 mg fentaNYL citrate (PF) (SUBLIMAZE) injection Intravenous, As Needed, Starting on Sun06/28/22 at 1217 Given 06/28/2022 2:38 PM EST 50 mcg Given 06/28/2022 2:22 PM EST 50 mcg Given 06/28/2022 12:17 PM EST 100 mcg gentamicin (GARAMYCIN) 370 mg in sodium chloride 0.9 % IVPB 370 mg (rounded from 368 mg = 5 mg/kg ? 73.6 kg Adjusted weight), Intravenous, Administer over 30 Minutes, Once, On Sun06/28/22 at 0902, For 1 dose, Indications: Surgical ProphylaxisIndications:Surgic al Prophylaxis New Bag 06/28/2022 12:15 PM EST 370 mg lactated ringers infusion 9 mL/hr, Intravenous, Continuous PRN, Start prior to surgery, Starting on Sun06/28/22 at 0930 Currently Infusing 06/28/2022 12:05 PM EST 9 mL/hr New Bag 06/28/2022 9:31 AM EST 9 mL/hr 9 mL/hr lidocaine PF 1% (XYLOCAINE) injection Intravenous, As Needed, Starting on Sun06/28/22 at 1217 Given 06/28/2022 12:17 PM EST 50 mg ondansetron (ZOFRAN) injection Intravenous, As Needed, Starting on Sun06/28/22 at 1442 Given 06/28/2022 2:42 PM EST 4 mg propofol (DIPRIVAN) infusion 10 mg/mL 100 mL Intravenous, Continuous PRN, Starting on Sun06/28/22 at 1217 New Bag 06/28/2022 12:17 PM EST 25 mcg/kg/min 15.18 mL/hr Propofol (DIPRIVAN) injection Intravenous, As Needed, Starting on Sun06/28/22 at 1217 Given 06/28/2022 12:17 PM EST 150 mg rocuronium (ZEMURON) injection Intravenous, As Needed, Starting on Sun06/28/22 at 1217 Given 06/28/2022 1:26 PM EST 10 mg Given 06/28/2022 12:48 PM EST 10 mg Given 06/28/2022 12:17 PM EST 50 mg sugammadex (BRIDION) injection Intravenous, As Needed, Starting on Sun06/28/22 at 1442 Given 06/28/2022 2:42 PM EST 200 mg documented in this encounter Care Teams Editor Dictionary Relationship Specialty Start Date End Date Aidan Vizcarra MD [address] [facility] [address] [facility] [address] [place] [address] PCP - General Family Medicine 04/20/16 documented as of this encounter
--- OUTSIDE RECORDS SUMMARY | 2024-06-20 10:54 | XMS_ITS | Encounter Summary ---
Author Organization [facility] Address [address] [place] [address] Care Team Providers Care Cyber Security Instructor Name Role Phone Aidan Vizcarra MD Primary Care Provider [phone] Encounter Details Date Type Department Care Team (Late st Contact Info) Description 08/18/2022 Telephone [facility] OBGYN [address] [phone] Shara Timmons MD [address] [facility] [address] [place], [place] [id number] Social History Tobacco Use Types Packs/Day Years [...] or training? Not on file Preferred Language Malawian 06/22/2022 Comments No Sex and Gender Information Value Date Recorded Sex Assigned at Not on file Legal Sex Female 11:45 AM EDT Gender Identity Not on file Sexual Orientation Not on file documented as of this encounter Miscellaneous Notes * Telephone Encounter - Siri Perea MA - 08/18/2022 2:29 PM EST Spoke with patient and let her know that the PA was approved on 08/17/2022 thru 08/17/2023. Patientwill contact her pharmacy and will call us if she has any trouble getting the medication. * Telephone Encounter - Linda Patel RegSched Rep - 08/18/2022 1:25 PM EST Pt calling because her insurance will not cover the estrogel that she was prescribed and she is wanting to know what other options she may have. documented in this encounter Plan of Treatment Upcoming Encounters Date Type Department Care Team (Late st Contact Info) Description 09/02/2024 3:30 PM EST Office Visit [facility] [address] [facility] [address] [place] [phone] Shara Timmons MD [address] [facility] [address] [place] [address] documented as of this encounter Visit Diagnoses Not on filedocumented in this encounter Care Teams Cyber Security Instructor Relationship Specialty Start Date End Date Aidan Vizcarra MD [address] [facility] [address] [place] [address] PCP - General Family Medicine 04/20/16 documented as of this encounter
--- OUTSIDE RECORDS SUMMARY | 2024-06-20 10:54 | XMS_ITS | Encounter Summary ---
Author Organization [facility] Address [address] [place] [address] Care Team Providers Care Boiler House Mechanic Name Role Phone Aidan Vizcarra MD Primary Care Provider [phone] Encounter Details Date Type Department Care Team (Late st Contact Info) Description 07/06/2022 Telephone [facility] OBGYN [address] [phone] Shara Timmons MD 1700 [facility] [address] [place], [place] [id number] Social History Tobacco Use Types Packs/Day Years [...] or training? Not on file Preferred Language [place]ican 06/22/2022 Comments No Sex and Gender Information Value Date Recorded Sex Assigned at Not on file Legal Sex Female 11:45 AM EDT Gender Identity Not on file Sexual Orientation Not on file documented as of this encounter Miscellaneous Notes * Telephone Encounter - Pepper Parra RN - 07/06/2022 10:29 AM EST See previous telephone note: Per LOS start Pepcid OTC and call in Vistaril. Pt. Notified. Rx sent * Telephone Encounter - Linda Patel RegSched Rep - 07/06/2022 10:12 AM EST Pt calling because her rash is continuing to grow and the medications they have told her to try arenot working. documented in this encounter Plan of Treatment Upcoming Encounters Date Type Department Care Team (Late st Contact Info) Description 09/02/2024 3:30 PM EST Office Visit [facility] OBGYN [address] [phone] Shara Timmons MD [address] [facility] [address] [place] [phone] documented as of this encounter Visit Diagnoses Not on filedocumented in this encounter Care Teams Boiler House Mechanic Relationship Specialty Start Date End Date Aidan Vizcarra MD [address] [facility] [address] [place] [address] PCP - General Family Medicine 04/20/16 documented as of this encounter
--- OUTSIDE RECORDS SUMMARY | 2024-06-20 10:54 | XMS_ITS | Encounter Summary ---
[facility] Address [address] [place] [address] Care Team Providers Care Hearing Aid Repairer Name Role Phone Aidan Vizcarra MD Primary Care Provider [phone] Encounter Details Date Type Department Care Team (Latest Contact Info) Description 06/22/2022 12:15 PM EST Pre-Admission Testing [facility] T [address] [place] [phone] Pre-op testing (Primary Dx); Abnormal uterine bleeding (AUB) Social History Tobacco Use Types Packs/Day Years Used Date Smoking Tobacco: Never Smokeless Tobacco: Never Tobacco Cessation:Counseling Given: Not Answered Alcohol Use Standard Drinks/Week Comments No 0 (1 standard drink = 0.6 oz pur e alcohol) Education Answer Date Recorded Help with school [...] Sign Reading Time Taken Comments Blood Pressure - - Pulse - - Temperature - - Respiratory Rate - - Oxygen Saturation - - Inhaled Oxygen Concentration - - Weight 101 kg (223 lb 5.2 oz) 06/22/2022 11:56 A M EST Height 162.6 cm (5' 4 ) 06/22/2022 11:56 AM EST Body Mass Index 38.33 06/22/2022 11:56 AM EST documented in this encounter OR Notes * Michelle Kramer RN - 06/22/2022 12:15 PM EST An arrival time for procedure was not provided during PAT visit. If patient had any questions or concerns about their arrival time, they were instructed to contact their surgeon/physician. Additionally, if the patient referred to an arrival time that was acquired from their my chart account, patient was encouraged to verify that time with their surgeon/physician. Arrival times are NOT provided inPre Admission Testing Department. Patient to apply Chlorhexadine wipes to surgical area (as instructed) the night before procedure and the AM of procedure. Wipes provided. Patient instructed to drink 20 ounces of Gatorade and it needs to be completed 1 hour (for Main OR patients) or 2 hours (scheduled section & [facility] patients) before given arrival timefor procedure (NO RED Gatorade) Patient verbalized understanding. Patient denies any current skin issues. Patient viewed general PAT education video as instructed in their preoperative information receivedfrom their surgeon. Patient stated the general PAT education video was viewed in its entirety and survey completed. Copies of PAT general education handouts (Incentive Spirometry, Meds to Beds Program, Patient Belongings, Pre-op skin preparation instructions, Blood Glucose testing, Visitor policy, Surgery FAQ, Code H) distributed to patient if not printed. Education related to the PAT pass and skin preparation for surgery (if applicable) completed in PAT as a reinforcement to PAT education video. Patient instructed to return PAT pass provided today as well as completed skin preparation sheet ( if applicable) on the day of procedure. Additionally if patient had not viewed video yet but intended to view it at home or in our waiting area, then referred them to the handout with QR code/link provided during PAT visit. Instructed patient to complete survey after viewing the video in its entirety. Encouraged patient/family to read PAT general education handouts thoroughly and notify PAT staff with any questions or concerns. Patientverbalized understanding of all information and priority content. Patient ekg on chart and in epic from 06/22/2022 documented in this encounter Plan of Treatment Upcoming Encounters Date Type Department Care Team (Late st Contact Info) Description 09/02/2024 3:30 PM EST Office Visit [facility] [address] [place] [address] [place] [phone] Shara Timmons MD [address] [facility] [address] [place] [address] documented as of this encounter Procedures Procedure Name Priority Date/Time Associated Diagnosis Comments ABORH 2ND SPECIMEN VERIFICATION Routine 06/22/2022 12:06 PM EST Pre-op testing CBC WITH AUTO DIFFERENTIAL Routine 06/22/2022 11:47 AM EST Abnormal uterine bleeding (AUB) CBC AND DIFFERENTIAL Routine 06/22/2022 11:47 AM EST Abnormal uterine bleeding (AUB) HEMOGLOBIN A1C Routine 06/22/2022 11:47 AM EST Abnormal uterine bleeding (AUB) BASIC METABOLIC PANEL Routine 06/22/2022 11:47 AM EST Pre-op testing documented in this encounter Results * ABORH 2ND SPECIMEN VERIFICATION (06/22/2022 12:06 PM EST) ABO Type O 06/23/2022 12:43 AM EST [facility] RH type Positive 06/23/2022 12:43 AM EST [facility] Blood Venipuncture / Unknown 06/22/2022 12:06 PM EST 06/22/2022 12:52 PM EST us Shara Timmons MD BLOOD BANK TEST ORDERABLES Annelise meeks Result [facility]
[address] [place] [address], * CBC Auto Differential (06/22/2022 11:47 AM EST) WBC 10.67 3.40 - 10.80 10*3/mm3 06/22/2022 12:18 PM [facility] RBC 4.76 3.77 - 5.28 10*6/mm3 06/22/2022 12:18 PM [facility] Hemoglobin 14.6 12.0 - 15.9 g/dL 06/22/2022 12:18 PM [facility] Hematocrit 44.3 34.0 - 46.6 % 06/22/2022 12:18 PM [facility] MCV 93.1 79.0 - 97.0 fL 06/22/2022 12:18 PM [facility] MCH 30.7 26.6 - 33.0 pg 06/22/2022 12:18 PM [facility] MCHC 33.0 31.5 - 35.7 g/dL 06/22/2022 12:18 PM [facility] RDW 13.4 12.3 - 15.4 % 06/22/2022 12:18 PM [facility] RDW-SD 45.6 37.0 - 54.0 fl 06/22/2022 12:18 PM [facility] MPV 9.7 6.0 - 12.0 fL 06/22/2022 12:18 PM [facility] Platelets 299 140 - 450 10*3/mm3 06/22/2022 12:18 PM [facility] Neutrophil % 61.0 42.7 - 76.0 % 06/22/2022 12:18 PM [facility] Lymphocyte % 27.7 19.6 - 45.3 % 06/22/2022 12:18 PM [facility] Monocyte % 7.7 5.0 - 12.0 % 06/22/2022 12:18 PM [facility] Eosinophil % 2.8 0.3 - 6.2 % 06/22/2022 12:18 PM [facility] Basophil % 0.4 0.0 - 1.5 % 06/22/2022 12:18 PM [facility] Immature Grans % 0.4 0.0 - 0.5 % 06/22/2022 12:18 PM EST [facility] Neutrophils, Absolute 6.51 1.70 - 7.00 10*3/mm3 06/22/2022 12:18 PM EST [facility] Lymphocytes, Absolute 2.96 0.70 - 3.10 10*3/mm3 06/22/2022 12:18 PM EST [facility] Monocytes, Absolute 0.82 0.10 - 0.90 10*3/mm3 06/22/2022 12:18 PM EST [facility] Eosinophils, Absolute 0.30 0.00 - 0.40 10*3/mm3 06/22/2022 12:18 PM EST [facility] Basophils, Absolute 0.04 0.00 - 0.20 10*3/mm3 06/22/2022 12:18 PM EST [facility] Immature Grans, Absolute 0.04 0.00 - 0.05 10*3/mm3 06/22/2022 12:18 PM EST [facility] nRBC 0.0 0.0 - 0.2 /100 WBC 06/22/2022 12:18 PM EST [facility] Blood Venipuncture / Unknown 06/22/2022 11:47 AM EST 06/22/2022 12:11 PM EST Shara Timmons MD LAB BLOOD ORDERABLES Final Resu lt [facility]
[address] [place] [address], * Hemoglobin A1c (06/22/2022 11:47 AM EST) Hemoglobin A1C 4.90 4.80 - 5.60 % 06/22/2022 1:02 PM EST [facility] Blood Venipuncture / Unknown 06/22/2022 11:47 AM EST 06/22/2022 12:11 PM EST Narrative [facility] - 06/22/2022 1:02 PM EST Hemoglobin A1C Ranges: Increased Risk for Diabetes ??5.7% to 6.4% Diabetes ? >= 6.5% Diabetic Goal ?< 7.0% Shara Timmons MD LAB BLOOD ORDERABLES Final Resu lt [facility]
[address] [place] [address], * (ABNORMAL) Basic Metabolic Panel (06/22/2022 11:47 AM EST) Glucose 98 65 - 99 mg/dL 06/22/2022 12:46 PM EST [facility] BUN 10 6 - 20 mg/dL 06/22/2022 12:46 PM EST [facility] Creatinine 0.81 0.57 - 1.00 mg/dL 06/22/2022 12:46 PM EST [facility] Sodium 141 136 - 145 mmol/L 06/22/2022 12:46 PM EST [facility] Potassium 4.3 3.5 - 5.2 mmol/L 06/22/2022 12:46 PM EST [facility] Comment:Slight hemolysis det ected by analyzer. Results may be affected. Chloride 108(H) 98 - 107 mmol/L 06/22/2022 12:46 PM EST [facility] CO2 24.0 22.0 - 29.0 mmol/L 06/22/2022 12:46 PM EST [facility] Calcium 9.1 8.6 - 10.5 mg/dL 06/22/2022 12:46 PM EST [facility] BUN/Creatinine Ratio 12.3 7.0 - 25.0 06/22/2022 12:46 PM EST [facility] Anion Gap 9.0 5.0 - 15.0 mmol/L 06/22/2022 12:46 PM [facility] eGFR 93.1 >60.0 mL/min/1. 73 06/22/2022 12:46 PM EST [facility] Comment:National Kidney Foun dation and [place] Society of Nephrology (ASN) Task Force recommended calculation based on the Chronic Kidney Disease Epidemiology Collaboration (CKD-EPI) equation refit without adjustment for race. Blood Venipuncture / Unknown 06/22/2022 11:47 AM EST 06/22/2022 12:10 PM EST Narrative [facility] - 06/22/2022 12:46 PM EST GFR Normal >60 Chronic Kidney Disease <60 Kidney Failure <15 us Shara Timmons MD LAB BLOOD ORDERABLES Final Resu lt [facility]
[address] [place] [address], documented in this encounter Visit Diagnoses Diagnosis Pre-op testing- Primary Unspecified pre-operative examination Abnormal uterine bleeding (AUB) documented in this encounter Care Teams Hearing Aid Repairer Relationship Specialty Start Date End Date Aidan Vizcarra MD [address] [facility] [address] [facility] [address] [facility] [place] [address] PCP - General Family Medicine 04/20/16 documented as of this encounter
--- OUTSIDE RECORDS SUMMARY | 2024-06-20 10:54 | XMS_ITS | Encounter Summary ---
Author Organization [facility] Address [address] [place] [address] Care Team Providers Care Clinic Lpn Name Role Phone Aidan Vizcarra MD Primary Care Provider [phone] Encounter Details Date Type Department Care Team (Late st Contact Info) Description 07/04/2022 Telephone [facility] [address] [phone] Shara Timmons MD [address] [facility] [address] [place], [place] [id number] Social History Tobacco Use Types Packs/Day Years [...] or training? Not on file Preferred Language Barbadian 06/22/2022 Comments No Sex and Gender Information Value Date Recorded Sex Assigned at Not on file Legal Sex Female 11:45 AM EDT Gender Identity Not on file Sexual Orientation Not on file documented as of this encounter Progress Notes * Benigno Lawson RN - 07/04/2022 5:11 PM ESTAddended by: BENIGNO LAWSON on: 07/04/2022 05:11 PM Modules accepted: Orders documented in this encounter Miscellaneous Notes * Telephone Encounter - Benigno Lawson RN - 07/04/2022 5:[address] Timmons said call in Medrol dose pack and benadryl cream and take the bandages off. * Telephone Encounter - Linda Patel RegSched Rep - 07/04/2022 3:54 PM EST Pt returning call. * Telephone Encounter - Benigno Lawson RN - 07/04/2022 3:47 PM EST I was asked to call this patient, she called about a rash and I sent a message to Dr. Timmons yesterday but I do not see a response. LMCB * Telephone Encounter - Linda Patel RegSched Rep - 07/04/2022 3:00 PM EST Pt calling because she is having an allergic reaction to adhesive from bandage. Per pt, Spoke with someone yesterday to see if she could get medications for this. documented in this encounter Plan of Treatment Upcoming Encounters Date Type Department Care Team (Late st Contact Info) Description 09/02/2024 3:30 PM EST Office Visit [facility] [address] [phone] Shara Timmons MD [address] [address] documented as of this encounter Visit Diagnoses Diagnosis Rash- Primary Rash and other nonspecific skin eruption Itching Unspecified pruritic disorder documented in this encounter Care Teams Clinic Lpn Relationship Specialty Start Date End Date Aidan Vizcarra MD [address] [facility] [address] [facility] [address] [place] [address] PCP - General Family Medicine 04/20/16 documented as of this encounter
--- OUTSIDE RECORDS SUMMARY | 2024-06-20 10:54 | XMS_ITS | Encounter Summary ---
Author Organization [facility] Address [address] [id number] Care Team Providers Care Associate Director Of Sales Name Role Phone Aidan Vizcarra MD Primary Care Provider [phone] Reason for Visit * Reason Comments Pre-op Exam Encounter Details Date Type Department Care Team (Late st Contact Info) Description 06/22/2022 9:50 AM EST Office Visit [facility] [address] [phone] Shara Timmons MD [address] [place] [phone] Preoperative exam for gynecologic surgery (Primary Dx); Abnormal uterine bleeding (AUB); Endometriosis Social History Tobacco Use Types Packs/Day Years Used Date Smoking Tobacco: Never Smokeless Tobacco: Never Alcohol Use Standard Drinks/Week Comments No 0 (1 standard drink = 0.6 oz pur e alcohol) Education Answer Date Recorded Help with school or training? Not on file Preferred Language Beninese 06/22/2022 Comments No Sex and Gender Information Value Date Recorded Sex Assigned at Not on file Legal Sex Female 11:45 AM EDT Gender Identity Not on file Sexual Orientation Not on file documented as of this encounter Last Filed Vital Signs Vital Sign Reading Time Taken Comments Blood Pressure 112/80 06/22/2022 10:51 AM EST Pulse - - Temperature - - Respiratory Rate - - Oxygen Saturation - - Inhaled Oxygen Concentration - - Weight 102 kg (224 lb) 06/22/2022 10:51 AM EST Height 162.6 cm (5' 4 ) 06/22/2022 10:51 AM EST Body Mass Index 38.45 06/22/2022 10:51 AM EST documented in this encounter Progress Notes * Shara Timmons MD - 06/22/2022 9:50 AM EST Images from the original note were not included. Gynecologic Preoperative Exam Note Subjective Hannah Tobar is a 41 y.o. year old who is scheduled for TLH with bilateral salpingo-oophorectomy at [facility] on 06/28/2022 at 10AM. Pre Admission testing has been scheduled for 06/22/2022 at 12:15AM at [facility]. Her pre operative diagnosis is DUB, Chronic Pelvic Pain and Symptomatic Endometriosis. She does not need to see her PCP for preop clearance for this surgery. No LMP recorded. Her control method is condoms. Her BMI is There is no height or weighton file to calculate BMI. She has reviewed the informational pamphlet on 06/22/2022. She understands the risks of bleeding, infection, possible damage to other organ systems, includingbut not limited to the gastrointestinal tract and genitourinary tract. She also understands the specific risks listed in the preop information (video, pamphlets, etc.). She has reviewed and signed the preop consent form. She has been instructed to have a light dinner the night before surgery, then nothing to eat or drink after midnight. The day of surgery do not chew gum or smoke. Remove all jewelry, nail fijian, contact lenses prior to coming to the hospital. Do not bring valuables or large sums of money with you.Patient was instructed on what time to arrive and where to check in, maps were given. She was instructed that she will meet an Anesthesiologist and that an IV will be started to provide fluids and sedation. The total time of procedure was discussed. She was instructed that she will need a entry driver operator. Allergies Allergen Reactions ??? Lidocaine-Epinephrine Other (See Comments) Patient states that she had an allergic reaction at the dentist but does not remember what the reaction was. ??? Macrobid [Nitrofurantoin] Hives ??? Penicillins Other (See Comments) Patient states that this was a reaction that happened when she was a baby. States that her mother doesn't remember what type of reaction she had. ??? Cefdinir Rash She has confirmed that she is not allergic to Latex. She is on the following medications. These were reviewed with the patient today and instructed on which medications are ok to take with a sip of water prior to the surgery. Current Outpatient Medications: ??? Breo Ellipta 100-25 MCG/INH inhaler, , Disp: , Rfl: ??? Cetirizine HCl (ZyrTEC Allergy) 10 MG capsule, Zyrtec 10 mg capsule Take by oral route., Disp: , Rfl: ??? levalbuterol (XOPENEX HFA) 45 MCG/ACT inhaler, , Disp: , Rfl: Past Medical History: Diagnosis Date ??? Cancer of kidney, left (HCC) ??? Clostridium difficile infection ??? Endometriosis ??? Female infertility ??? Mixed incontinence ??? Multiple gestation ??? Oligomenorrhea ??? PCOS (polycystic ovarian syndrome) ??? PMS (premenstrual syndrome) ??? Polycystic ovary syndrome ??? PONV (postoperative nausea and vomiting) ??? Urinary tract infection ??? Uterine prolapse ??? Vitamin D deficiency Past Surgical History: Procedure Laterality Date ??? CERVICAL CERCLAGE ??? SECTION ??? CHOLECYSTECTOMY ? ? D & C HYSTEROSCOPY LAPAROSCOPY ??? ENDOMETRIAL ABLATION ??? KIDNEY STONE SURGERY ??? LAPAROSCOPIC CHOLECYSTECTOMY 2008 ??? LAPAROSCOPIC PARTIAL NEPHRECTOMY Left ??? LIPOMA EXCISION back ??? OVARIAN CYST REMOVAL Left laser drilling ??? OVARIAN CYST SURGERY 2003 ??? TUMOR EXCISION NOSE--BENIGN OB History Para Term AB Living 1 1 1 0 0 2 SAB IAB Ectopic Molar Multiple Live Births 0 0 0 0 1 0 # Outcome Date GA Lbr Terrance/2nd Weight Sex Delivery Anes PTL Lv 1 Term Social History Tobacco Use Smoking Status Never Smokeless Tobacco Never Social History Substance and Sexual Activity Alcohol Use No Social History Substance and Sexual Activity Drug Use No Review of Systems Constitutional: Negative. HENT: Negative. Eyes: Negative. Respiratory: Negative. Cardiovascular: Negative. Gastrointestinal: Negative. Endocrine: Negative. Genitourinary: Negative. Musculoskeletal: Negative. Skin: Negative. Allergic/Immunologic: Negative. Neurological: Negative. Hematological: Negative. Psychiatric/Behavioral: Negative. Objective There were no vitals filed for this visit. Physical Exam Vitals and nursing note reviewed. Exam conducted with a family advocate present. Constitutional: Appearance: She is well-developed. HENT: Head: Normocephalic and atraumatic. Cardiovascular: Rate and Rhythm: Normal rate and regular rhythm. Pulmonary: Effort: Pulmonary effort is normal. Breath sounds: Normal breath sounds. Abdominal: General: Bowel sounds are normal. Palpations: Abdomen is soft. Abdomen is not rigid. Musculoskeletal: Cervical back: Normal range of motion. No muscular tenderness. Skin: General: Skin is warm and dry. Neurological: Mental Status: She is alert and oriented to person, place, and time. Psychiatric: Behavior: Behavior normal. Encounter Diagnoses Name Primary? Preoperative exam for gynecologic surgery Yes ??? Abnormal uterine bleeding (AUB) ??? Endometriosis Plan 1. Plan is for TLH/BSO but given h/o endometriosis/previous cesareans/ablation she understands laparotomy is possible 2. H/O previous nephrectomy and reaction to skin glue 3. Risks of surgery were reviewed with the patient including risks of bleeding, infection, damage to other organ systems including, ovarian remnants but not limited to GI and tracts (bowel, bladder, blood vessels, nerves) risks of Anesthesia, as well as the risk the surgery will not produce the desired results, possible need for additional surgery, , risk of uterine perforation. 4. PAT Scheduled 5. Conrad has been obtained and reviewed 6. Pain Medication Consent Form has been signed. A review regarding proper medication administration, impact on driving and working while medicated, the safety of use in , the potential for overdose and the proper disposal and storage of controlled medications has been done with the patient. Eva Ramírez RN 06/22/2022 documented in this encounter Plan of Treatment Upcoming Encounters Date Type Department Care Team (Late st Contact Info) Description 09/02/2024 3:30 PM EST Office Visit [facility] [address] [facility] [address] [place] [address] Shara Timmons MD [address] [facility] [address] [place] [address] documented as of this encounter Visit Diagnoses Diagnosis Preoperative exam for gynecologic surgery- Primary Abnormal uterine bleeding (AUB) Endometriosis Endometriosis, site unspecified documented in this encounter Care Teams Associate Director Of Sales Relationship Specialty Start Date End Date Aidan Vizcarra MD 1210 [facility] [address] [facility] [address] [place] [address] PCP - General Family Medicine 04/20/16 documented as of this encounter
--- OUTSIDE RECORDS SUMMARY | 2024-06-20 10:54 | XMS_ITS | Encounter Summary ---
[facility] Address [address] [place] [address] Care Team Providers Care Company Truck Driver Name Role Phone Aidan Vizcarra MD Primary Care Provider [phone] Encounter Details Date Type Department Care Team (Late Contact Info) Description 06/22/2022 Prep for Surgery [facility] [address] [place] [address] Shara Timmons MD [address] [place] [address] Abnormal uterine bleeding (AUB) (Primary Dx) Social History Tobacco Use Types Packs/Day Years Used Date Smoking Tobacco: Never Smokeless Tobacco: Never Alcohol Use Standard Drinks/Week Comments No 0 (1 standard drink = 0.6 oz pur e alcohol) Education Answer Date Recorded Help with school or training? Not on file Preferred Language Greek 06/22/2022 Comments No Sex and Gender Information Value Date Recorded Sex Assigned at Not on file Legal Sex Female 11:45 AM EDT Gender Identity Not on file Sexual Orientation Not on file documented as of this encounter Plan of Treatment Upcoming Encounters Date Type Department Care Team (Late Contact Info) Description 09/02/2024 3:30 PM EST Office Visit [facility] [facility] [address] [place] [phone] Shara Timmons MD [address] [id number] documented as of this encounter Results * Hemoglobin A1c (06/22/2022 11:47 AM EST) Hemoglobin A1C 4.90 4.80 - 5.60 % 06/22/2022 1:02 PM EST [facility] Blood Venipuncture / Unknown 06/22/2022 11:47 AM EST 06/22/2022 12:11 PM EST Narrative [facility] - 06/22/2022 1:02 PM EST Hemoglobin A1C Ranges: Increased Risk for Diabetes ??5.7% to 6.4% Diabetes ? >= 6.5% Diabetic Goal ?< 7.0% us Shara Timmons MD LAB BLOOD ORDERABLES Final Resu lt [facility]
[address] [place] [address], documented in this encounter Visit Diagnoses Diagnosis Abnormal uterine bleeding (AUB)- Primary documented in this encounter Care Teams Company Truck Driver Relationship Specialty Start Date End Date Aidan Vizcarra MD [address] [place] [address] [address] [facility] [address] [place] [address] PCP - General Family Medicine 04/20/16 documented as of this encounter
--- OUTSIDE RECORDS SUMMARY | 2024-06-20 10:54 | XMS_ITS | Encounter Summary ---
Author Organization [facility] ystem Address [address] [place] [address] Care Team Providers Care Tile Grader Name Role Phone Aidan Vizcarra MD Primary Care Provider [phone] Encounter Details Date Type Department Care Team (Late st Contact Info) Description 07/05/2022 Telephone [facility] OBGYN [address] [phone] Shara Timmons MD [address] [facility] [address] [place], [place] [id number] Social History Tobacco Use Types Packs/Day Years [...] or training? Not on file Preferred Language Bolivian 06/22/2022 Comments No Sex and Gender Information Value Date Recorded Sex Assigned at Not on file Legal Sex Female 11:45 AM EDT Gender Identity Not on file Sexual Orientation Not on file documented as of this encounter Miscellaneous Notes * Telephone Encounter - Eva Ramírez RN - 07/05/2022 2:[address] Timmons patient S/p TLH-BSO & Lysis of adhesions on 06/28/2022 S/w patient- patient states that she called on 07/04/2022 with an allergic reaction to the adhesivetape and bandages. Patient states that she is taking the Medrol dose pack and using Benadryl cream,but the rash is spreading down her legs. Patient states that she had an allergic reaction to adhesive tape and bandages a couple of years ago after another procedure and was given Vistaril and Pepcid. Informed patient that I will inform LOS of this and CB tomorrow with plan of care. She v/u. * Telephone Encounter - Linda Patel RegSched Rep - 07/05/2022 2:48 PM EST Pt requesting to speak to a nurse about her symptoms post op. documented in this encounter Plan of Treatment Upcoming Encounters Date Type Department Care Team (Late st Contact Info) Description 09/02/2024 3:30 PM EST Office Visit [facility] OBGYN [address] [phone] Shara Timmons MD [address] [address] documented as of this encounter Visit Diagnoses Not on filedocumented in this encounter Care Teams Tile Grader Relationship Specialty Start Date End Date Aidan Vizcarra MD [address] [facility] [address] [facility] [address] [place] [address] PCP - General Family Medicine 04/20/16 documented as of this encounter
--- OUTSIDE RECORDS SUMMARY | 2024-06-20 10:54 | XMS_ITS | Encounter Summary ---
[facility] Address [address] [place] [address] Care Team Providers Care Room Designer Name Role Phone Aidan Vizcarra MD Primary Care Provider [phone] Reason for Visit * Auth/Cert (Routine) Specialty Diagnoses / Procedures Referred By Marly arce Referred To Contact Procedures WV LAPAROSCOPY W TOT HYSTERECTUTERUS <=250 GRAM W TUBE/OVARY TOTAL LAPAROSCOPIC HYSTERECTOMY BILATERAL SALPINGECTOMY OOPHORECTOMY Referral ID Status Reason Start Date Expiration Date Visits Re quested Visits Authorized [id number] 1 1 Encounter Details Date Type Department Care Team (Late st Contact Info) Description 06/28/2022 8:21 AM EST - 06/29/2022 4:15 PM [facility] Hospital Encounter [address] [place] [id number] Shara Timmons MD [address] [facility] [address] [place] [address] Status post laparoscopic hysterectomy with BSO (Primary Dx); Abnormal uterine bleeding (AUB); Perineal neuralgia; Hemorrhage in uterus Discharge Disposition: Home or Self Care Social [...] or training? Not on file Preferred Language North Korean 06/22/2022 Comments No Sex and Gender Information Value Date Recorded Sex Assigned at Not on file Legal Sex Female 11:45 AM EDT Gender Identity Not on file Sexual Orientation Not on file documented as of this encounter Last Filed Vital Signs Vital Sign Reading Time Taken Comments Blood Pressure 94/55 06/29/2022 10:25 AM EST Pulse 87 06/29/2022 10:25 AM EST Temperature 37 ??C (98.6 ??F) 06/29/2022 10:25 AM EST Respiratory Rate 16 06/29/2022 10:25 AM EST Oxygen Saturation 91% 06/29/2022 10:25 AM EST Inhaled Oxygen Concentration - - Weight 101 kg (223 lb) 06/28/2022 9:17 AM EST Height 162.6 cm (5' 4 ) 06/28/2022 9:17 AM EST Body Mass Index 38.28 06/28/2022 9:17 AM EST documented in this encounter Discharge Summaries * Shara Timmons MD - 06/29/2022 2:02 PM EST Leesa Mayenkita Tobar : 1980 CSN: [id number] Discharge Summary Date of Admission: 06/28/2022 Date of Discharge: 06/29/2022 Discharge Diagnosis: Status post laparoscopic hysterectomy Procedures Performed: Procedure(s): TOTAL LAPAROSCOPIC HYSTERECTOMY BILATERAL SALPINGECTOMY OOPHORECTOMY, LYSIS OF ADHESIONS, CYSTOSCOPY Consults: None Brief History: Patient is a 41 y.o.who presented for TLH/BSO for pelvic pain Hospital Course: Patient admitted and underwent a TLH/BSO on 06/28/22. Her postoperative course wasunremarkable. She remained hemodynamically stable with good UOP. She was able to void and pain wellcontrolled at discharge home. She will continue ERT and pain meds with pelvic rest for 12 weeks. Pending Studies: None Condition at discharge: stable Discharge Medications: Your medication list START taking these medications Instructions Last Dose Given Next Dose Due estradiol 0.1 MG/24HR patch Commonly known as: VIVELLE-DOT Start taking on: July 03, 2022 Place 1 patch on the skin as directed by provider 2 (Two) Times a Week. oxyCODONE 5 MG immediate release tablet Commonly known as: ROXICODONE Take 1 tablet by mouth Every 4 (Four) Hours As Needed for Moderate Pain for up to 6 days. CONTINUE taking these medications Instructions Last Dose Given Next Dose Due Breo Ellipta 100-25 MCG/ACT aerosol powder Generic drug: Fluticasone Furoate-Vilanterol levalbuterol 45 MCG/ACT inhaler Commonly known as: XOPENEX HFA ZyrTEC Allergy 10 MG capsule Generic drug: Cetirizine HCl Zyrtec 10 mg capsule Take by oral route. Where to Get Your Medications These medications were sent to [facility] [place] [id number] Hours: 7:00 AM-5:30 PM M-F, 8:00 AM-4:30 PM [facility] ?? estradiol 0.1 MG/24HR patch ?? oxyCODONE 5 MG immediate release tablet Discharge Disposition: home Follow-up: Future Appointments Date Time Provider Department Center 07/18/2022 2:10 PM Shara Timmons MD [id number] 07/21/2022 9:00 AM Barbie Martinez APRN [facility] This note has been electronically signed. Shara Timmons MD June 29, 2022 documented in this encounter Discharge Instructions * Discharge Instr - Activity* Khari Juan, RN - 06/29/2022 2:07 PM EST Pelvic rest for 12 weeks * Attachments The following attachments cannot be sent through Care Everywhere. * Estradiol Skin Patches (North Korean) * Acetaminophen; Oxycodone Tablets (North Korean) * Total Laparoscopic Hysterectomy Care After (North Korean) * Cystoscopy (North Korean) * Laparoscopic Lysis of Abdominal Adhesions Care After (North Korean) documented in this encounter Medications at Time of Discharge Breo Ellipta 100-25 MCG/INH inhaler 05/02/2022 Cetirizine HCl (ZyrTEC Allergy) 10 MG capsule Zyrtec 10 mg capsule Take by oral route. levalbuterol (XOPENEX HFA) 45 MCG/ACT inhaler 05/02/2022 estradiol (VIVELLE-DOT) 0.1 MG/24HR patch Place 1 patch on the skin as directed by provider 2 (Two) Times a Week. 24 patch 3 06/29/2022 2:29 PM EST 07/03/2022 3 oxyCODONE (ROXICODONE) 5 MG immediate release tabletIndications: Status post laparoscopic hysterectomy Take 1 tablet by mouth Every 4 (Four) Hours As Needed for Moderate Pain. 15 tablet 06/29/2022 2:29 PM EST 06/29/2022 3 documented as of this encounter H&P Notes * Shara Timomns MD - 06/28/2022 9:54 AM EST Images from the original note were not included. ?? Shara Timmons MD Physician [employer] Progress Notes ?? Addendum Date of Service: 06/28/22951 Creation Time: 06/28/22951 Expand All Collapse All ?? Gynecologic Preoperative Exam Note ? Subjective Hannah Tobar is a 41 y.o. year old who is scheduled for TLH with bilateral salpingo-oophorectomy at [facility] on 06/28/2022 at 10AM. Pre Admission testing has been scheduled for 06/22/2022 at 12:15AM at [facility]. Her pre operative diagnosis is DUB, Chronic Pelvic Pain and Symptomatic Endometriosis. She does not need to see her PCP for preop clearance for this surgery. No LMP recorded. Her control method is condoms. Her BMI is Body mass index is 38.28 kg/m??. ?? She has reviewed the informational pamphlet on 06/22/2022. ?? She understands the risks of bleeding, infection, possible damage to other organ systems, includingbut not limited to the gastrointestinal tract and genitourinary tract. She also understands the specific risks listed in the preop information (video, pamphlets, etc.). ?? She has reviewed and signed the preop consent form. ?? She has been instructed to have a light dinner the night before surgery, then nothing to eat or drink after midnight. The day of surgery do not chew gum or smoke. 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 ?? Allergies Allergen Reactions ??? Lidocaine-Epinephrine Other (See Comments) ? Patient states that she had an allergic reaction at the dentist but does not remember what the reaction was. ??? Macrobid [Nitrofurantoin] Hives ??? Penicillins Other (See Comments) ? Patient states that this was a reaction that happened when she was a baby. States that her mother doesn't remember what type of reaction she had. ??? Cefdinir Rash ??? Other Rash ? Surgical Glue ?? She has confirmed that she is not allergic to Latex. ?? She is on the following medications. These were reviewed with the patient today and instructed on which medications are ok to take with a sip of water prior to the surgery. ? Current Facility-Administered Medications: ??? clindamycin (CLEOCIN) 900 mg in dextrose 5% 50 mL IVPB (premix), 900 mg, Intravenous, Once AND gentamicin (GARAMYCIN) 370 mg in sodium chloride 0.9 % IVPB, 5 mg/kg (Adjusted), Intravenous, Once, Shara Timmons MD ??? lactated ringers infusion, 9 mL/hr, Intravenous, Continuous PRN, Ambrocio Cleveland MD, Last Rate:9 mL/hr at 06/28/22 09, 9 mL/hr at 06/28/22930 ??? midazolam (VERSED) injection 1 mg, 1 mg, Intravenous, Q10 Min PRN, Ambrocio Cleveland MD ??? scopolamine patch 1 mg/72 hr, 1 patch, Transdermal, Continuous, Shara Timmons MD, 1 patch at 06/28/22 09 ??? sodium chloride 0.9 % flush 10 mL, 10 mL, Intravenous, JOSTIN, Shara Timmons MD ??? sodium chloride 0.9 % flush 10 mL, 10 mL, Intravenous, Q12H, Ambrocio Cleveland MD ??? sodium chloride 0.9 % flush 10 mL, 10 mL, Intravenous, PRTk, Ambrocio Cleveland MD ??? sodium chloride 0.9 % flush 3 mL, 3 mL, Intravenous, Q12H, Shara Timmons MD ??? sodium chloride 0.9 % infusion 40 mL, 40 mL, Intravenous, JOSTIN, Shara Timmons MD ??? sodium chloride 0.9 % infusion 40 mL, 40 mL, Intravenous, Megha FRANKEL Paul, MD ?? Medical History Past Medical History: Diagnosis Date ??? COVID 07/2021 ??? Asthma ? Cancer of kidney, left (HCC) ? Clostridium difficile infection ? Endometriosis ? Female infertility ? Kidney stone ? Mixed incontinence ? Multiple gestation ? Oligomenorrhea ? PCOS (polycystic ovarian syndrome) ? PMS (premenstrual syndrome) ? PONV (postoperative nausea and vomiting) ? Urinary tract infection ? Uterine prolapse ? Vitamin D deficiency ? Surgical History Past Surgical History: Procedure Laterality Date ??? CERVICAL CERCLAGE ? SECTION ? 2006 ??? CHOLECYSTECTOMY ? D & C HYSTEROSCOPY LAPAROSCOPY ? ENDOMETRIAL ABLATION ? KIDNEY STONE SURGERY ? LAPAROSCOPIC CHOLECYSTECTOMY ?? 2009 ??? LAPAROSCOPIC PARTIAL NEPHRECTOMY Left ? LIPOMA EXCISION ? back ??? OVARIAN CYST REMOVAL Left ? laser drilling ??? OVARIAN CYST SURGERY ?? 2003 ??? TUMOR EXCISION ? NOSE--BENIGN ?? OB History Para Term AB Living 1 1 1 0 0 2 SAB IAB Ectopic Molar Multiple Live Births 0 0 0 0 1 2 ?? # Outcome Date GA Lbr Terrance/2nd Weight Sex Delivery Anes PTL Lv 1A Term ? HEATHER 1B Term ? HEATHER ?? Social History ?? Tobacco Use Smoking Status Never Smokeless Tobacco Never ?? Social History ?? Substance and Sexual Activity Alcohol Use No ?? Social History ?? Substance and Sexual Activity Drug Use No ? Review of Systems Constitutional: Negative. HENT: Negative. Eyes: Negative. Respiratory: Negative. Cardiovascular: Negative. Gastrointestinal: Negative. Endocrine: Negative. Genitourinary: Negative. Musculoskeletal: Negative. Skin: Negative. Allergic/Immunologic: Negative. Neurological: Negative. Hematological: Negative. Psychiatric/Behavioral: Negative. ? Objective Vitals: ?? 06/28/22916 BP: 126/72 Pulse: 94 Resp: 18 Temp: 98.1 ??F (36.7 ??C) SpO2: 99% ?? Vitals: ?? 06/28/22916 BP: 126/72 Pulse: 94 Resp: 18 Temp: 98.1 ??F (36.7 ??C) SpO2: 99% ? Physical Exam Vitals and nursing note reviewed. Exam conducted with a accounts specialist present. Constitutional: Appearance: She is well-developed. HENT: [...] place, and time. Psychiatric: Behavior: Behavior normal. ? Encounter Diagnoses Name Primary? Preoperative exam for gynecologic surgery Yes ??? Abnormal uterine bleeding (AUB) ? Endometriosis ? Plan 1. Plan is for TLH/BSO but [...] medications has been done with the patient. ? Shara Timmons MD 06/28/2022 ? Revision History documented in this encounter Nursing Notes * Khari Juan RN - 06/29/2022 2:09 PM EST Problem: Adult Inpatient Plan of Care Goal: Optimal Comfort and Wellbeing Outcome: Ongoing, Progressing Intervention: Provide Person-Centered Care Recent Flowsheet Documentation Taken 06/29/2022 0800 by Khari Juan, RN Trust Relationship/Rapport: care explained choices provided Goal Outcome Evaluation: Plan of Care Reviewed With: patient, mother Progress: improving Tolerating PO. No nausea. Pain very well controlled. Ambulating. Weller removed at 1400; due to voidwithin 4-6 hours. Patient will be discharged home once has voided. * Luanne Hyman RN - 06/29/2022 6:00 AM EST Problem: Adult Inpatient Plan of Care Goal: Plan of Care Review Outcome: Ongoing, Progressing Flowsheets (Taken 06/29/2022 0621) Progress: improving Plan of Care Reviewed With: patient Outcome Evaluation: Pt lethargic until 0330 then awakened. VSS. Adequate I&O. c/o LLQ pain thatis better with rest. Offered pains. Pt declined. Ambulated in hallway. Up in chair. Anticipate DC in am. * Khari Juan RN - 06/28/2022 6:03 PM EST Problem: Adult Inpatient Plan of Care Goal: Optimal Comfort and Wellbeing Outcome: Ongoing, Progressing Intervention: Provide Person-Centered Care Recent Flowsheet Documentation Taken 06/28/2022 1645 by Khari Juan RN Trust Relationship/Rapport: care explained choices provided Goal Outcome Evaluation: Plan of Care Reviewed With: patient Progress: improving Weller in place with clear yellow urine. Tolerating some PO. Pain controlled. No nausea. Lap sites CDI. documented in this encounter OR Notes * Op Note - Shara Timmons MD - 06/28/2022 12:31 PM EST Operative Note: Subjective Date of Service: 06/28/22 Time of Service: 14:57 EST Attending: cv rn: Surgeon(s) and Role: * Shara Timmons MD - Primary * Pia Flowers MD - Resident - Assisting * Steven Ferrari MD was responsible for performing the following activities: Retraction, Suction, Irrigation and Suturing and their skilled assistance was necessary for the success of this case. Pre-operative diagnosis(es): H/O endometriosis Pelvic pain Post-operative diagnosis(es): Same Omental adhesions Left ovarian cyst Procedure(s): Total Laparoscopic hysterectomy, bilateral salpingectomy both ovaries Cystoscopy for ureteral integrity Antibiotics: cefazolin (Ancef) ordered flight reservations manager to OR Anesthesia: Type: General ASA: III Objective Operative findings: Omental curtain from umbilicus to LLQ, 5 cm left ovarian cyst Specimens removed: Specimens ID Source Type Tests Collected By Collected At Frozen? A Uterus with Cervix, Bilateral Tubes and Ovaries Tissue ?? TISSUE PATHOLOGY EXAM Shara Timmons MD 06/28/22 3636 No Description: UTERUS, CERVIX, BILATERAL FALLOPIAN TUBES AND OVARIES FOR PERMANENT Comment: UTERUS, CERVIX, BILATERAL FALLOPIAN TUBES AND OVARIES FOR PERMANENT Fluid Intake: 1500 mL Output: Documented Output Est. Blood Loss 150 mL Urine Output 300 ccmL I/O this shift: In: 1500 [I.V.:1400; IV Piggyback:100] Out: 925 [Urine:900; Blood:25] Blood products used: No Drains: Urethral Catheter Silicone 16 Fr. (Active) Implant Information: Complications: None Intraoperative consult(s): Condition: stable Disposition: to PACU and then admit to medical - surgical floor Procedure Note: Patient was taken to the operating room where she underwent general endotracheal anesthesia and was then prepped and draped in the usual sterile fashion. A weighted vaginal speculum was placed in the posterior vaginal fornix and the internal os was identified after placing a single-tooth tenaculum on the anterior lip of the cervix. The uterus was sounded and the correct size uterine manipulator and O ring was then placed and secured with a 0 Vicryl. The intrauterine balloon and vaginal bleeding were then inflated and a Weller catheter was placed. At this point attention was turned to the laparoscopic portion of the case. An incision was made inthe umbilicus and a 12 mm trocar was placed through the fascia and peritoneum without difficulty. Intra-abdominal placement was confirmed with low CO2 pressure and direct visualization. The Umbilicaltrocar was placed through an omental curtain. No bleeding was noted and no bowel was within the omentum. The laparoscope was placed and the anterior abdomen and pelvis was inspected with the aforementioned findings. At this point a 12 mm trocar was placed into the left lower quadrant under direct visualization followed by a 5 mm right lower quadrant trocar both placed with care to avoid injury tothe inferior epigastric artery. The LLQ port ended up behind the omental curtain as well and a second 112 LLQ port was placed low just above the mons but lateral to the round ligament. Both ureters were then visualized peristalsing in the broad ligaments or pelvic sidewalls. At this point the left IP was elevated and with the Harmonic scalpel s transected And carried to the past the round ligament and then ultimately to the uterine artery. The uterine artery was skeletonized. Bladder flap was taken down with care to avoid injury to the bladder and with use of an endo Kitner. Once the bladder flap was adequately developed the uterine artery was secured on the left. The same procedure was performed on the right starting with the IP ligament past the round ligament to the level of the uterine artery which was then secured with the Harmonic scalpel. At this point the Harmonic scalpel was used to enter the anterior vaginal wall at the anterior bevel of the O ring and then the vagina was circumferentially transected and the cervix, uterus, and tubes removed through the vagina. The vaginaloccluder was replaced. The harmonic was not used to take down the omental curtain with good hemostasis. Good hemostasis was noted. The vaginal cuff was closed with the Endo Stitch in a 2 layer fashion. Cystoscopy was now performed after IV injection of methylene blue. No evidence of any stitches orbladder injuries and dye could be seen spilling easily from both ureteral orifices. After cystoscopy attention was turned back to the intra- abdominal portion of the case. All pedicles were inspected oon low pressure. An endoloop was placed around the right IP ligament and noted be hemostatic. Interc eed was placed over the vaginal cuff and all pedicles were inspected on low CO2 pressure. The left lower quadrant trocar sites was closed with a Berhane-Beck device and the remaining incisions with 3-0 Vicryl and Band-Aids were placed over the incisions. The patient went to recovery awake and stable. All sponge, instrument, and needle counts were correct. Shara Timmons MD 06/28/22 14:57 EST documented in this encounter Miscellaneous Notes * Case Management/Social Work - Hannah Carlson MSW - 06/29/2022 2:47 PM EST Continued Stay Note [facility] Patient Name: Hannah Tobar Today's Date: 06/29/2022 Admit Date: 06/28/2022 Plan: Home Discharge Plan Row Name 06/29/22 1446 Plan Plan Home Plan Comments Anticipate discharge home today. Hannah Carlson, Ext. [phone] Final Discharge Disposition Code 01 - home or self-care Discharge Codes No documentation. Expected Discharge Date and Time Expected Discharge Date Expected Discharge Time Jun 29, 2022 MARCI Ricketts documented in this encounter Plan of Treatment Upcoming Encounters Date Type Department Care Team (Late st Contact Info) Description 09/02/2024 3:30 PM EST Office Visit [facility] [address] [facility] [id number] Shara Timmons MD [address] [address] documented as of this encounter Procedures Procedure Name Priority Date/Time Associated Diagnosis Comments CBC WITH AUTO DIFFERENTIAL Routine 06/29/2022 8:37 AM EST CBC AND DIFFERENTIAL Routine 06/29/2022 8:37 AM EST BASIC METABOLIC PANEL Routine 06/29/2022 8:37 AM EST CBC (NO DIFF) Routine 06/28/2022 5:41 PM EST TOTAL LAPAROSCOPIC HYSTERECTOMY BILATERAL SALPINGO OOPHORECTOMY 06/28/2022 11:50 AM EST Special Needs * POCT PEFORM URINE Routine 06/28/2022 9:41 AM EST TISSUE PATHOLOGY EXAM Routine 06/28/2022 9:20 AM EST Perineal neuralgia Hemorrhage in uterus documented in this encounter Results * (ABNORMAL) CBC Auto Differential (06/29/2022 8:37 AM EST) WBC 17.11(H) 3.40 - 10.80 10*3/mm3 06/29/2022 9:34 AM EST [facility] RBC 4.27 3.77 - 5.28 10*6/mm3 06/29/2022 9:34 AM [facility] Hemoglobin 13.0 12.0 - 15.9 g/dL 06/29/2022 9:34 AM [facility] Hematocrit 40.3 34.0 - 46.6 % 06/29/2022 9:34 AM [facility] MCV 94.4 79.0 - 97.0 fL 06/29/2022 9:34 AM [facility] MCH 30.4 26.6 - 33.0 pg 06/29/2022 9:34 AM [facility] MCHC 32.3 31.5 - 35.7 g/dL 06/29/2022 9:34 AM [facility] RDW 13.7 12.3 - 15.4 % 06/29/2022 9:34 AM [facility] RDW-SD 47.4 37.0 - 54.0 fl 06/29/2022 9:34 AM [facility] MPV 10.2 6.0 - 12.0 fL 06/29/2022 9:34 AM [facility] Platelets 319 140 - 450 10*3/mm3 06/29/2022 9:34 AM [facility] Neutrophil % 80.5(H) 42.7 - 76.0 % 06/29/2022 9:34 AM [facility] Lymphocyte % 9.6(L) 19.6 - 45.3 % 06/29/2022 9:34 AM [facility] Monocyte % 9.1 5.0 - 12.0 % 06/29/2022 9:34 AM [facility] Eosinophil % 0.1(L) 0.3 - 6.2 % 06/29/2022 9:34 AM [facility] Basophil % 0.2 0.0 - 1.5 % 06/29/2022 9:34 AM [facility] Immature Grans % 0.5 0.0 - 0.5 % 06/29/2022 9:34 AM [facility] Neutrophils, Absolute 13.79(H) 1.70 - 7.00 10*3/mm3 06/29/2022 9:34 AM [facility] Lymphocytes, Absolute 1.65 0.70 - 3.10 10*3/mm3 06/29/2022 9:34 AM [facility] Monocytes, Absolute 1.55(H) 0.10 - 0.90 10*3/mm3 06/29/2022 9:34 AM [facility] Eosinophils, Absolute 0.01 0.00 - 0.40 10*3/mm3 06/29/2022 9:34 AM [facility] Basophils, Absolute 0.03 0.00 - 0.20 10*3/mm3 06/29/2022 9:34 AM [facility] Immature Grans, Absolute 0.08(H) 0.00 - 0.05 10*3/mm3 06/29/2022 9:34 AM [facility] nRBC 0.0 0.0 - 0.2 /100 WBC 06/29/2022 9:34 AM [facility] Blood Venipuncture / Unknown 06/29/2022 8:37 AM EST 06/29/2022 9:07 AM EST us Shara Timmons MD LAB BLOOD ORDERABLES Final Resu lt [facility]
[address] [place] [address], * (ABNORMAL) Basic Metabolic Panel (06/29/2022 8:37 AM EST) Glucose 79 65 - 99 mg/dL 06/29/2022 10:02 AM [facility] BUN 10 6 - 20 mg/dL 06/29/2022 10:02 AM [facility] Creatinine 0.93 0.57 - 1.00 mg/dL 06/29/2022 10:02 AM [facility] Sodium 140 136 - 145 mmol/L 06/29/2022 10:02 AM [facility] Potassium 4.0 3.5 - 5.2 mmol/L 06/29/2022 10:02 AM [facility] Comment:Slight hemolysis det ected by analyzer. Results may be affected. Chloride 107 98 - 107 mmol/L 06/29/2022 10:02 AM [facility] CO2 20.0(L) 22.0 - 29.0 mmol/L 06/29/2022 10:02 AM [facility] Calcium 8.0(L) 8.6 - 10.5 mg/dL 06/29/2022 10:02 AM [facility] BUN/Creatinine Ratio 10.8 7.0 - 25.0 06/29/2022 10:02 AM [facility] Anion Gap 13.0 5.0 - 15.0 mmol/L 06/29/2022 10:02 AM [facility] eGFR 78.9 >60.0 mL/min/1. 73 06/29/2022 10:02 AM [facility] Comment:National Kidney Foun dation and [place] Society of Nephrology (ASN) Task Force recommended calculation based on the Chronic Kidney Disease Epidemiology Collaboration (CKD-EPI) equation refit without adjustment for race. Blood Venipuncture / Unknown 06/29/2022 8:37 AM EST 06/29/2022 9:07 AM EST [facility] - 06/29/2022 10:02 AM EST GFR Normal >60 Chronic Kidney Disease <60 Kidney Failure <15 us Shara Timmons MD LAB BLOOD ORDERABLES Final Resu lt [facility]
[address] [place] [address], * (ABNORMAL) CBC (No Diff) (06/28/2022 5:41 PM EST) WBC 15.90(H) 3.40 - 10.80 10*3/mm3 06/28/2022 6:17 PM EST [facility] RBC 4.53 3.77 - 5.28 10*6/mm3 06/28/2022 6:17 PM EST [facility] Hemoglobin 14.0 12.0 - 15.9 g/dL 06/28/2022 6:17 PM EST [facility] Hematocrit 42.3 34.0 - 46.6 % 06/28/2022 6:17 PM EST [facility] MCV 93.4 79.0 - 97.0 fL 06/28/2022 6:17 PM EST [facility] MCH 30.9 26.6 - 33.0 pg 06/28/2022 6:17 PM EST [facility] MCHC 33.1 31.5 - 35.7 g/dL 06/28/2022 6:17 PM EST [facility] RDW 13.3 12.3 - 15.4 % 06/28/2022 6:17 PM EST [facility] RDW-SD 45.3 37.0 - 54.0 fl 06/28/2022 6:17 PM EST [facility] MPV 9.9 6.0 - 12.0 fL 06/28/2022 6:17 PM EST [facility] Platelets 294 140 - 450 10*3/mm3 06/28/2022 6:17 PM EST [facility] Blood Venipuncture / Unknown 06/28/2022 5:41 PM EST 06/28/2022 6:13 PM EST us Shara Timmons MD LAB BLOOD ORDERABLES Final Resu lt [facility]
[address] [place] [address], * POC , Urine (06/28/2022 9:41 AM EST) HCG, Urine, QL Negative Negative [facility] Lot Number [id number] [facility] Internal Positive Control Positive Positive, Passed [facility] Internal Negative Control Negative Negative, Passed [facility] Expiration Date 06-07 [facility] Urine 06/28/2022 9:41 AM EST Shara Timmons MD POINT OF CARE TEST ORDERABLES F inal Result [facility]
[address] [place] [address], * Tissue Pathology Exam (06/28/2022 9:20 AM EST) Case Report Surgical Pathology Report ? Case: [id number] ? Authorizing Provider: ??Shara Timmons MD ? Collected: ? 06/28/2022 09:20 AM ? Ordering Location: ? [facility] ?? Received: ?06/29/2022 08:03 AM ? OR ? Pathologist: ? To Connolly MD ? Specimen: ?Uterus with Cervix, Bilateral Tubes and Ovaries, UTERUS, CERVIX, BILATERAL FALLOPIAN ? TUBES AND OVARIES FOR PERMANENT ? 06/30/2022 12:[address] [facility] Clinical Information Perineal neuralgia Hemorrhage in uterus Abnormal uterine bleeding 06/30/2022 12:44 PM [facility] Final Diagnosis UTERUS, CERVIX, BILATERAL OVARIES AND FALLOPIAN TUBES, HYSTERECTOMY WITH BILATERAL SALPINGO-OOPHORECT BIENVENIDO: Benign cervix with mild chronic cervicitis Benign endometrial glands and stroma Adenomyosis Bilateral ovaries with benign physiologic cysts Benign bilateral fimbriated fallopian tubes Negative for dysplasia or malignancy 06/30/2022 12:[address] [facility] Gross Description 1. Uterus with Cervix, Bilateral Tubes and Ovaries. Received in formalin labeled uterus, cervix, bilateral fallopian tubes and ovaries is a 9 cm superior to inferior, 5 cm cornu to cornu, 3.5 cm anterior to posterior, 115.4 g simple hysterectomy with bilateral attached fallopian tubes and ovaries. The serosa is smooth and martin with mild adhesions on the posterior aspect. The martin, glistening ectocervix is 3.5 x 3.5 cm and the slitlike os is 0.7 x 0.2 cm. The endocervix is martin-red and corrugated. The triangular endometrial cavity is 5 cm in length with a cornu to cornu width of 2 cm. The endometrium is smooth, martin-red and glistening. No masses or polyps are grossly identified. The endometrial thickness averages 0.1 cm and the myometrial thickness averages 2 cm. The myometrium is martin and has a scattered glandular pattern. No myometrial nodules or other gross lesions are identified. The martin-mg, cerebriform right ovary is 3 x 2 x 1.6 cm. Sectioning of the right ovary reveals at least 2 cysts containing clear fluid up to 1.2 cm in greatest dimension. The purple, cystic left ovary is 5.2 x 4.5 x 3.5 cm. Sectioning of the left ovary reveals a 4.5 cm in greatest dimension cyst containing yellow watery fluid. Multiple additional peripheral cysts containing clear fluid are present ranging from 0.2 to 0.8 cm in greatest dimension. The cyst wall thickness averages 0.1 cm. Papillary excrescences are not identified. The bilateral fimbriated fallopian tubes average 4.5 cm in length by 0.5 cm in diameter. Sectioning of both tubes reveals a grossly unremarkable lumen. Dinker sections are submitted as follows: 1A-serosal adhesions; 1B-anterior cervix; 1C-posterior cervix; 1D-anterior endomyometrium; 1E-posterior endomyometrium; 1F-right ovary; 1G-1H-left ovary; 1I-right fallopian tube and fimbria; 1J-left fallopian tube and fimbria. LDP 06/30/2022 12:44 PM EST [facility] Microscopic Description The slides are reviewed and demonstrate histopathologic features supporting the above rendered diagnosis. 06/30/2022 12:44 PM EST [facility] Tissue Uterus and cervix, CS / Unknown 06/28/2022 9:20 AM EST 06/29/2022 8:03 AM EST Comment:UTERUS, CERVIX, BILA TERAL FALLOPIAN TUBES AND OVARIES FOR PERMANENT us Shara Timmons MD PATHOLOGY/CYTOLOGY ORDERABLES F inal Result [facility]
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 Hemorrhage in uterus Hematometra Status post laparoscopic hysterectomy with BSO Acquired absence of both cervix and uterus Status post laparoscopic hysterectomy with BSO Acquired absence of both cervix and uterus Abnormal uterine bleeding (AUB) documented in this encounter Admitting Diagnoses Diagnosis Fibroids Leiomyoma of uterus, unspecified Abnormal uterine bleeding (AUB) documented in this encounter Administered Medications Inactive Administered Medications - up to 3 most recent administrations Medication Order MAR Action Action Date Dose Rate Site acetaminophen (TYLENOL) tablet 1,000 mg 1,000 mg, Oral, Once, On Sun06/28/22 at 0902, For 1 dose, Do not exceed 4 grams of acetaminophen in a 24 hr period. If given for pain, use the following pain scale: Mild Pain = Pain Score of 1-3, CPOT 1-2 Moderate Pain = Pain Score of 4-6, CPOT 3-4 Severe Pain = Pain Score of 7-10, CPOT 5-8 Do not exceed 4 grams of acetaminophen in a 24 hr period. Max dose of 2gm for AST/ALT greater than 120 units/L If given for fever, use fever parameter: fever greater than 100.4 ??F. If given for pain, use the following pain scale: Mild Pain = Pain Score of 1-3, CPOT 1-2 Moderate Pain = Pain Score of 4-6, CPOT 3-4 Severe Pain = Pain Score of 7-10, CPOT 5-8Indications:Abnormal uterine bleeding (AUB) Given 06/28/2022 9:15 AM EST 1,000 mg acetaminophen (TYLENOL) tablet 1,000 mg 1,000 mg, Oral, Every 8 Hours, First dose on Sun06/28/22 at 1700, Based on patient request - if ordered for moderate or severe pain, provider allows for administration of a medication prescribed for a lower pain scale. Do not exceed 4 grams of acetaminophen in a 24 hr period. Max dose of 2gm for AST/ALT greater than 120 units/L If given for fever, use fever parameter: fever greater than 100.4 ??F. If given for pain, use the following pain scale: Mild Pain = Pain Score of 1-3, CPOT 1-2 Moderate Pain = Pain Score of 4-6, CPOT 3-4 Severe Pain = Pain Score of 7-10, CPOT 5-8 Given 06/29/2022 8:11 AM EST 1,000 mg Given 06/29/2022 1:17 AM EST 1,000 mg Given 06/28/2022 5:06 PM EST 1,000 mg clindamycin (CLEOCIN) 900 mg in dextrose 5% 50 mL IVPB (premix) 900 mg, Intravenous, at 50 mL/hr, Administer over 60 Minutes, Every 8 Hours, First dose on Sun06/28/22 at 2000, For 2 doses, Time first dose from pre-op dose Do Not refrigerate., Indications: Surgical ProphylaxisIndications:Surgical Prophylaxis New Bag 06/29/2022 3:35 AM EST 900 mg 50 mL/hr New Bag 06/28/2022 7:52 PM EST 900 mg 50 mL/hr droperidol (INAPSINE) injection 0.625 mg 0.625 mg, Intravenous, Every 15 Minutes PRN, Nausea, Vomiting, Starting on Sun06/28/22 at 1510, For 2 doses Given 06/28/2022 3:49 PM EST 0.625 mg estradiol (VIVELLE-DOT) 0.1 MG/24HR patch 1 patch 1 patch, Transdermal, 2 Times Weekly (Once per day on Sun), First dose on Sun06/29/22 at 0900, Apply to clean, dry skin, preferably on lower abdomen, upper buttock, or hip. Do not apply to breast or waistline. Do not use a site twice within seven days. Medication Applied 06/29/2022 8:11 AM EST 1 patch Other famotidine (PEPCID) tablet 20 mg 20 mg, Oral, 60 Minutes Pre-Op, Starting on Sun06/28/22 at 0930, For 1 dose Given 06/28/2022 9:31 AM EST 20 mg fentaNYL citrate (PF) (SUBLIMAZE) 50 mcg/mL injection - ADS Override Pull Starting on Sun06/28/22 at 1603, For 1 dose, Created by cabinet override If given for pain, use the following pain scale: Mild Pain = Pain Score of 1-3, CPOT 1-2 Moderate Pain = Pain Score of 4-6, CPOT 3-4 Severe Pain = Pain Score of 7-10, CPOT 5-8 fentaNYL citrate (PF) (SUBLIMAZE) injection 50 mcg 50 mcg, Intravenous, Every 5 Minutes PRN, Moderate Pain, Starting on Sun06/28/22 at 1510, For 4 doses, Maximum total dose of fentanyl is 200 mcg. If given for pain, use the following pain scale: Mild Pain = Pain Score of 1-3, CPOT 1-2 Moderate Pain = Pain Score of 4-6, CPOT 3-4 Severe Pain = Pain Score of 7-10, CPOT 5-8 Given 06/28/2022 4:12 PM EST 50 mcg Given 06/28/2022 4:03 PM EST 50 mcg gabapentin (NEURONTIN) capsule 100 mg 100 mg, Oral, 3 Times Daily, First dose on Sun06/28/22 at 1730, For 48 hours, {JOSEPH} Given 06/29/2022 8:11 AM EST 10 0 mg Given 06/28/2022 5:06 PM EST 100 mg gabapentin (NEURONTIN) capsule 600 mg 600 mg, Oral, Once, On Sun06/28/22 at 0902, For 1 dose, {JOSEPH}Indications:Abnormal uterine bleeding (AUB) Given 06/28/2022 9:15 AM EST 600 mg heparin (porcine) 5000 UNIT/ML injection 5,000 Units 5,000 Units, Subcutaneous, Every 8 Hours Scheduled, First dose on Cris 06/29/22 at 0600, Indications: VTE ProphylaxisIndications:VTE Prophylaxis Given 06/29/2022 1:40 PM EST 5,000 Units Left Lateral Thigh Given 06/29/2022 6:01 AM EST 5,000 Units R ight Lateral Thigh HYDROmorphone (DILAUDID) 1 MG/ML injection - ADS Override Pull Starting on Sun06/28/22 at 1538, For 1 dose, Created by cabinet override {JOSEPH} Caution: Look alike/sound alike drug alert If given for pain, use the following pain scale: Mild Pain = Pain Score of 1-3, CPOT 1-2 Moderate Pain = Pain Score of 4-6, CPOT 3-4 Severe Pain = Pain Score of 7-10, CPOT 5-8 HYDROmorphone (DILAUDID) injection 0.5 mg 0.5 mg, Intravenous, Every 10 Minutes PRN, Severe Pain, Starting on Sun06/28/22 at 1510, For 4 doses, Maximum total dose of hydromorphone is 2 mg. If given for pain, use the following pain scale: Mild Pain = Pain Score of 1-3, CPOT 1-2 Moderate Pain = Pain Score of 4-6, CPOT 3-4 Severe Pain = Pain Score of 7-10, CPOT 5-8 Given 06/28/2022 3:52 PM EST 0.5 mg Given 06/28/2022 3:39 PM EST 0.5 mg ipratropium-albuterol (DUO-NEB) nebulizer solution 3 mL 3 mL, Nebulization, Once As Needed, Wheezing, Shortness of Air, bronchospasm, Starting on Sun06/28/22 at 1510, For 1 dose Given 06/28/2022 4:07 PM EST 3 mL ketorolac (TORADOL) 30 MG/ML injection - ADS Override Pull Starting on Sun06/28/22 at 1516, For 1 dose, Created by cabinet override {BKC} If given for pain, use the following pain scale: Mild Pain = Pain Score of 1-3, CPOT 1-2 Moderate Pain = Pain Score of 4-6, CPOT 3-4 Severe Pain = Pain Score of 7-10, CPOT 5-8 ketorolac (TORADOL) injection 15 mg 15 mg, Intravenous, Every 6 Hours, First dose on Sun06/28/22 at 1800, For 2 doses, {BKC} If given for pain, use the following pain scale: Mild Pain = Pain Score of 1-3, CPOT 1-2 Moderate Pain = Pain Score of 4-6, CPOT 3-4 Severe Pain = Pain Score of 7-10, CPOT 5-8 Given 06/29/2022 12:13 AM EST 15 mg Given 06/28/2022 5:05 PM EST 15 mg ketorolac (TORADOL) injection 30 mg 30 mg, Intravenous, Once, On Sun06/28/22 at 1517, For 1 dose, (BKC) Based on patient request - if ordered for moderate or severe pain, provider allows for administration of a medication prescribed for a lower pain scale. {BKC} If given for pain, use the following pain scale: Mild Pain = Pain Score of 1-3, CPOT 1-2 Moderate Pain = Pain Score of 4-6, CPOT 3-4 Severe Pain = Pain Score of 7-10, CPOT 5-8 Given 06/28/2022 3:17 PM EST 30 mg lactated ringers infusion 9 mL/hr, Intravenous, Continuous PRN, Start prior to surgery, Starting on Sun06/28/22 at 0930 Currently Infusing 06/28/2022 12:05 PM EST 9 mL/hr New Bag 06/28/2022 9:31 AM EST 9 mL/hr 9 mL/hr meloxicam (MOBIC) tablet 7.5 mg 7.5 mg, Oral, Daily, First dose on Cris 06/29/22 at 0800, For 48 hours, Take with food. If given for pain, use the following pain scale: Mild Pain = Pain Score of 1-3, CPOT 1-2 Moderate Pain = Pain Score of 4-6, CPOT 3-4 Severe Pain = Pain Score of 7-10, CPOT 5-8 Given 06/29/2022 8:11 AM EST 7.5 mg ondansetron (ZOFRAN) 2 mg/mL injection - ADS Override Pull Starting on Sun06/28/22 at 1537, For 1 dose, Created by cabinet override ondansetron (ZOFRAN) injection 4 mg 4 mg, Intravenous, Once As Needed, Nausea, Vomiting, Starting on Sun06/28/22 at 1510, For 1 dose, If BOTH ondansetron (ZOFRAN) and promethazine (PHENERGAN) are ordered use ondansetron first and THEN promethazine IF ondansetron is ineffective. Given 06/28/2022 3:39 PM EST 4 mg scopolamine patch 1 mg/72 hr 1 patch, Transdermal, Administer over 72 Hours, Continuous, Starting on Sun06/28/22 at 0902, For 72 hours, DO NOT use in patients >65 or hx of glaucoma {BK}Indications:Abno rmal uterine bleeding (AUB) Medication Applied 06/28/2022 9:15 AM EST 1 patch Behind Left Ear sodium chloride 0.9 % infusion 125 mL/hr, Intravenous, Continuous, Starting on Sun06/28/22 at 1730 Currently Infusing 06/29/2022 1:26 PM EST 125 mL/hr 125 mL/hr New Bag 06/29/2022 8:54 AM EST 125 mL/hr 125 mL/hr Currently Infusing 06/29/2022 8:12 AM EST 125 mL/hr 125 m L/hr documented in this encounter Active and Recently Administered Medications Times are shown in EST. Scheduled Medication Order 06/27/2022 06/28/2022 06/29/2022 acetaminophen (TYLENOL) tablet 1,000 mg (COMPLETED) 1,000 mg, Oral, Once, On Sun06/28/22 at 0902, For 1 dose, Do not exceed 4 grams of acetaminophen in a 24 hr period. If given for pain, use the following pain scale: Mild Pain = Pain Score of 1-3, CPOT 1-2 Moderate Pain = Pain Score of 4-6, CPOT 3-4 Severe Pain = Pain Score of 7-10, CPOT 5-8 Do not exceed 4 grams of acetaminophen in a 24 hr period. Max dose of 2gm for AST/ALT greater than 120 units/L If given for fever, use fever parameter: fever greater than 100.4 ??F. If given for pain, use the following pain scale: Mild Pain = Pain Score of 1-3, CPOT 1-2 Moderate Pain = Pain Score of 4-6, CPOT 3-4 Severe Pain = Pain Score of 7-10, CPOT 5-8 0915 (Given - Provider: Emelyn Mcbride RN) acetaminophen (TYLENOL) tablet 1,000 mg 1,000 mg, Oral, Every 8 Hours, First dose on Sun06/28/22 at 1700, Based on patient request - if ordered for moderate or severe pain, provider allows for administration of a medication prescribed for a lower pain scale. Do not exceed 4 grams of acetaminophen in a 24 hr period. Max dose of 2gm for AST/ALT greater than 120 units/L If given for fever, use fever parameter: fever greater than 100.4 ??F. If given for pain, use the following pain scale: Mild Pain = Pain Score of 1-3, CPOT 1-2 Moderate Pain = Pain Score of 4-6, CPOT 3-4 Severe Pain = Pain Score of 7-10, CPOT 5-8 1706 (Given - Provider: Khari Juan RN) 0117 (Given - Provider: Luanne Hyman RN)0811 (Given - Provider: Khari Juan RN) clindamycin (CLEOCIN) 900 mg in dextrose 5% 50 mL IVPB (premix) (COMPLETED)(Linked Group 1) 900 mg, Intravenous, at 50 mL/hr, Administer over 60 Minutes, Once, On Sun06/28/22 at 0902, For 1 dose, Do Not refrigerate., Indications: Surgical Prophylaxis 1232 (Given - Provider: ROLAND Templeton) clindamycin (CLEOCIN) 900 mg in dextrose 5% 50 mL IVPB (premix) (COMPLETED) 900 mg, Intravenous, at 50 mL/hr, Administer over 60 Minutes, Every 8 Hours, First dose on Sun06/28/22 at 2000, For 2 doses, Time first dose from pre-op dose Do Not refrigerate., Indications: Surgical Prophylaxis 1951 (New Bag - Provider: Luanne Hyman, PIA)2051 (Stopped - Provider: Luanne Hyman, PIA) 334 (New Bag - Provider: Luanne Hyman, PIA)043 (Stopped - Provider: Luanne Hyman RN) estradiol (VIVELLE-DOT) 0.1 MG/24HR patch 1 patch 1 patch, Transdermal, 2 Times Weekly (Once per day on Sun), First dose on Sun06/29/22 at 0900, Apply to clean, dry skin, preferably on lower abdomen, upper buttock, or hip. Do not apply to breast or waistline. Do not use a site twice within seven days. 0811 (Medication Applied - Provider: Khari Juan RN - Comment: HIP) famotidine (PEPCID) tablet 20 mg (COMPLETED) 20 mg, Oral, 60 Minutes Pre-Op, Starting on Sun06/28/22 at 0930, For 1 dose 0931 (Given - Provider: Emelyn Mcbride RN) gabapentin (NEURONTIN) capsule 100 mg 100 mg, Oral, 3 Times Daily, First dose on Sun06/28/22 at 1730, For 48 hours, {JOSEPH} 1706 (Given - Provider: Khari Juan RN)2204 (Not Given - Provider: Luanne Hyman RN - Reason: Contraindicated - Comment: pt lethargic) 0811 (Given - Provider: Khari Juan RN)1600 (Due) gabapentin (NEURONTIN) capsule 600 mg (COMPLETED) 600 mg, Oral, Once, On Sun06/28/22 at 0902, For 1 dose, {JOSEPH} 0915 (Given - Provider: Emelyn Mcbride RN) gentamicin (GARAMYCIN) 370 mg in sodium chloride 0.9 % IVPB (COMPLETED)(Linked Group 1) 370 mg (rounded from 368 mg = 5 mg/kg ? 73.6 kg Adjusted weight), Intravenous, Administer over 30 Minutes, Once, On Sun06/28/22 at 0902, For 1 dose, Indications: Surgical Prophylaxis 1215 (New Bag - Provider: ROLAND Templeton) heparin (porcine) 5000 UNIT/ML injection 5,000 Units 5,000 Units, Subcutaneous, Every 8 Hours Scheduled, First dose on Cris 06/29/22 at 0600, Indications: VTE Prophylaxis 0601 (Given - Provider: Luanne Hyman RN)1340 (Given - Provider: Khari Juan RN) ketorolac (TORADOL) injection 15 mg (COMPLETED) 15 mg, Intravenous, Every 6 Hours, First dose on Sun06/28/22 at 1800, For 2 doses, {BKC} If given for pain, use the following pain scale: Mild Pain = Pain Score of 1-3, CPOT 1-2 Moderate Pain = Pain Score of 4-6, CPOT 3-4 Severe Pain = Pain Score of 7-10, CPOT 5-8 1705 (Given - Provider: Khari Juan, PIA) 0013 (Given - Provider: Luanne Hyman RN) ketorolac (TORADOL) injection 30 mg (COMPLETED) 30 mg, Intravenous, Once, On Sun06/28/22 at 1517, For 1 dose, (BKC) Based on patient request - if ordered for moderate or severe pain, provider allows for administration of a medication prescribed for a lower pain scale. {BKC} If given for pain, use the following pain scale: Mild Pain = Pain Score of 1-3, CPOT 1-2 Moderate Pain = Pain Score of 4-6, CPOT 3-4 Severe Pain = Pain Score of 7-10, CPOT 5-8 1517 (Given - Provider: Harjinder Hilario RN) meloxicam (MOBIC) tablet 7.5 mg 7.5 mg, Oral, Daily, First dose on Cris 06/29/22 at 0800, For 48 hours, Take with food. If given for pain, use the following pain scale: Mild Pain = Pain Score of 1-3, CPOT 1-2 Moderate Pain = Pain Score of 4-6, CPOT 3-4 Severe Pain = Pain Score of 7-10, CPOT 5-8 0811 (Given - Provider: Khari Juan RN) Continuous Medication Order 06/27/2022 06/28/2022 06/29/2022 scopolamine patch 1 mg/72 hr (CANCELED) 1 patch, Transdermal, Administer over 72 Hours, Continuous, Starting on Sun06/28/22 at 0902, For 72 hours, DO NOT use in patients >65 or hx of glaucoma {BK} 0915 (Medication Applied - Provider: Emelyn Mcbride RN)1715 (Canceled Entry - Provider: Khari Juan RN - Comment: Time automatically adjusted from order being discontinued) sodium chloride 0.9 % infusion 125 mL/hr, Intravenous, Continuous, Starting on Sun06/28/22 at 1730 1705 (New Bag - Provider: Khari Juan RN)1952 (Currently Infusing - Provider: Luanne Hyman RN) 0012 (Stopped - Provider: Luanne Hyman RN)0013 (New Bag - Provider: Luanne Hyman RN)0340 (Currently Infusing - Provider: Luanne Hyman RN)0604 (Currently Infusing - Provider: Luanne Hyman RN)0812 (Currently Infusing - Provider: Khari Juan RN)0854 (New Bag - Provider: Khari Juan RN)1326 (Currently Infusing - Provider: Khari Juan RN)1358 (Stopped - Provider: Khari Juan RN) PRN Medication Order 06/27/2022 06/28/2022 06/29/2022 Chloroprocaine HCl (PF) (NESACAINE) 3 % injection (CANCELED) As Needed, Starting on Sun06/28/22 at 1231 1231 (Given - Provider: Shara Timmons MD - Comment: given to sterile field) docusate sodium (COLACE) capsule 100 mg 100 mg, Oral, 2 Times Daily PRN, Constipation, Starting on Sun06/28/22 at 1636, Swallow whole. Do not open, crush, or chew capsule. droperidol (INAPSINE) injection 0.625 mg (CANCELED)(Linked Group 2) 0.625 mg, Intravenous, Every 15 Minutes PRN, Nausea, Vomiting, Starting on Sun06/28/22 at 1510, For 2 doses 1549 (Given - Provider: Harjinder Hilario RN) fentaNYL citrate (PF) (SUBLIMAZE) injection 50 mcg (CANCELED) 50 mcg, Intravenous, Every 5 Minutes PRN, Moderate Pain, Starting on Sun06/28/22 at 1510, For 4 doses, Maximum total dose of fentanyl is 200 mcg. If given for pain, use the following pain scale: Mild Pain = Pain Score of 1-3, CPOT 1-2 Moderate Pain = Pain Score of 4-6, CPOT 3-4 Severe Pain = Pain Score of 7-10, CPOT 5-8 1603 (Given - Provider: Harjinder Hilario RN)1612 (Given - Provider: Harjinder Hilario RN) HYDROmorphone (DILAUDID) injection 0.5 mg (CANCELED) 0.5 mg, Intravenous, Every 10 Minutes PRN, Severe Pain, Starting on Sun06/28/22 at 1510, For 4 doses, Maximum total dose of hydromorphone is 2 mg. If given for pain, use the following pain scale: Mild Pain = Pain Score of 1-3, CPOT 1-2 Moderate Pain = Pain Score of 4-6, CPOT 3-4 Severe Pain = Pain Score of 7-10, CPOT 5-8 1539 (Given - Provider: Harjinder Hilario RN)1552 (Given - Provider: Harjinder Hilario RN) ipratropium-albuterol (DUO-NEB) nebulizer solution 3 mL (COMPLETED) 3 mL, Nebulization, Once As Needed, Wheezing, Shortness of Air, bronchospasm, Starting on Sun06/28/22 at 1510, For 1 dose 1607 (Given - Provider: Za Mcconnell) lactated ringers infusion (CANCELED) 9 mL/hr, Intravenous, Continuous PRN, Start prior to surgery, Starting on Sun06/28/22 at 0930 0931 (New Bag - Provider: Emelyn Mcbride RN)1205 (Currently Infusing - Provider: ROLAND Templeton)1415 (Anesthesia Volume Adjustment - Provider: ROLAND Templeton)1445 (Anesthesia Volume Adjustment - Provider: ROLAND Templeton) ondansetron (ZOFRAN) injection 4 mg (COMPLETED) 4 mg, Intravenous, Once As Needed, Nausea, Vomiting, Starting on Sun06/28/22 at 1510, For 1 dose, If BOTH ondansetron (ZOFRAN) and promethazine (PHENERGAN) are ordered use ondansetron first and THEN promethazine IF ondansetron is ineffective. 1539 (Given - Provider: Harjinder Hilario RN) oxyCODONE (ROXICODONE) immediate release tablet 5 mg 5 mg, Oral, Every 4 Hours PRN, Moderate Pain, Starting on Sun06/28/22 at 1636, For 7 days, Based on patient request - if ordered for moderate or severe pain, provider allows for administration of a medication prescribed for a lower pain scale. {JOSEPH} If given for pain, use the following pain scale: Mild Pain = Pain Score of 1-3, CPOT 1-2 Moderate Pain = Pain Score of 4-6, CPOT 3-4 Severe Pain = Pain Score of 7-10, CPOT 5-8 0505 (Return to [facility] - Provider: Luanne Hyman RN) oxyCODONE-acetaminophen (PERCOCET) 10-325 MG per tablet 1 tablet 1 tablet, Oral, Every 4 Hours PRN, Severe Pain, Starting on Sun06/28/22 at 1636, For 7 days, Based on patient request - if ordered for moderate or severe pain, provider allows for administration of a medication prescribed for a lower pain scale. [JOSEPH] Do not exceed 4 grams of acetaminophen in a 24 hr period. Max dose of 2gm for AST/ALT greater than 120 units/L If given for pain, use the following pain scale: Mild Pain = Pain Score of 1-3, CPOT 1-2 Moderate Pain = Pain Score of 4-6, CPOT 3-4 Severe Pain = Pain Score of 7-10, CPOT 5-8 simethicone (MYLICON) chewable tablet 80 mg 80 mg, Oral, 4 Times Daily PRN, Flatulence, Starting on Sun06/28/22 at 1636 sodium chloride (NS) irrigation solution (CANCELED) As Needed, Starting on Sun06/28/22 at 1231 1231 (Given - Provider: Shara Timmons MD - Comment: IRRIGATION) sodium chloride (NS) irrigation solution (CANCELED) As Needed, Starting on Sun06/28/22 at 1337 1337 (Given - Provider: Shara Timmons MD - Comment: CYSTO IRRIGATION) sodium chloride 0.9 % bolus 1,000 mL 1,000 mL, Intravenous, at 2,000 mL/hr, Administer over 0.5 Hours, Once As Needed, if urine output < 30mL/hr x 2 hours, then give fluid bolus of 500mL. If UOP remains <30 mL/hr, notify MD, Starting on Sun06/28/22 at 1636, For 1 dose sterile water irrigation solution (CANCELED) As Needed, Starting on Sun06/28/22 at 1158 1158 (Given - Provider: Shara Timmons MD - Comment: GIVEN TO STERILE FIELD) temazepam (RESTORIL) capsule 15 mg 15 mg, Oral, Nightly PRN, Sleep, Starting on Sun06/28/22 at 1636, For 7 days, For patient less than 65 years old {JOSEPH} Linked Groups Order Group 1: clindamycin (CLEOCIN) 900 mg in dextrose 5% 50 mL IVPB (premix) (COMPLETED)Jump to med 900 mg, Intravenous, at 50 mL/hr, Administer over 60 Minutes, Once, On Sun06/28/22 at 0902, For 1 dose, Do Not refrigerate., Indications: Surgical Prophylaxis And gentamicin (GARAMYCIN) 370 mg in sodium chloride 0.9 % IVPB (COMPLETED)Jump to med 370 mg (rounded from 368 mg = 5 mg/kg ? 73.6 kg Adjusted weight), Intravenous, Administer over 30 Minutes, Once, On Sun06/28/22 at 0902, For 1 dose, Indications: Surgical Prophylaxis Group 2: droperidol (INAPSINE) injection 0.625 mg (CANCELED)Jump to med 0.625 mg, Intravenous, Every 15 Minutes PRN, Nausea, Vomiting, Starting on Sun06/28/22 at 1510, For 2 doses Or droperidol (INAPSINE) injection 0.625 mg (CANCELED) 0.625 mg, Intramuscular, Once As Needed, Nausea, Vomiting, Starting on Sun06/28/22 at 1510, For 2 doses documented in this encounter Care Teams Room Designer Relationship Specialty Start Date End Date Aidan Vizcarra MD [address] [place] [address] PCP - General Family Medicine 04/20/16 documented as of this encounter
--- OUTSIDE RECORDS SUMMARY | 2024-06-20 10:54 | XMS_ITS | Encounter Summary ---
[facility] Address [address] [place] [address] Care Team Providers Care Hospice Team Lead Name Role Phone Aidan Vizcarra MD Primary Care Provider [phone] Reason for Visit * Auth/Cert (Routine) Specialty Diagnoses / Procedures Referred By Marly arce Referred To Contact Procedures [place] LAPAROSCOPY W TOT HYSTERECTUTERUS <=250 GRAM W TUBE/OVARY TOTAL LAPAROSCOPIC HYSTERECTOMY BILATERAL SALPINGECTOMY OOPHORECTOMY Referral ID Status Reason Start Date Expiration Date Visits Re quested Visits Authorized [id number] 1 1 Encounter Details Date Type Department Care Team (Late st Contact Info) Description 06/28/2022 10:11 AM EST - 06/28/2022 1:09 PM EST Surgery [facility] OR [address] [place] [id number] Shara Timmons MD [address] [facility] [address] [place] [address] TOTAL LAPAROSCOPIC HYSTERECTOMY BILATERAL SALPINGECTOMY OOPHORECTOMY, LYSIS OF ADHESIONS, CYSTOSCOPY Social History Tobacco Use Types Packs/Day Years [...] or training? Not on file Preferred Language Bahraini 06/22/2022 Comments No Sex and Gender Information Value Date Recorded Sex Assigned at Not on file Legal Sex Female 11:45 AM EDT Gender Identity Not on file Sexual Orientation Not on file documented as of this encounter Last Filed Vital Signs Vital Sign Reading Time Taken Comments Blood Pressure 126/72 06/28/2022 9:17 AM EST Pulse 94 06/28/2022 9:17 AM EST Temperature 36.7 ??C (98.1 ??F) 06/28/2022 9:17 AM ES T Respiratory Rate 18 06/28/2022 9:17 AM EST Oxygen Saturation 99% 06/28/2022 9:17 AM EST Inhaled Oxygen Concentration - - Weight 101 kg (223 lb) 06/28/2022 9:17 AM EST Height 162.6 cm (5' 4 ) 06/28/2022 9:17 AM EST Body Mass Index 38.28 06/28/2022 9:17 AM EST documented in this encounter Discharge Summaries * Shara Timmons MD - 06/29/2022 2:02 PM EST Leesa Hannah Tobar : 1980 CSN: [id number] Discharge Summary Date of Admission: 06/28/2022 Date [...] Your Medications These medications were sent to [facility] - [place] [address] Hours: 7:00 AM-5:30 PM M-F, 8:00 AM-4:30 PM Sat-Sun ?? estradiol 0.1 MG/24HR patch ?? oxyCODONE 5 MG immediate release tablet Discharge Disposition: home Follow-up: Future Appointments Date Time Provider Department Center 07/18/2022 2:10 PM Shara Timmons MD [facility] [id number] 07/21/2022 9:00 AM Barbie Martinez APRN [facility] This note has been electronically signed. Shara Timmons MD June 29, 2022 documented in this encounter Discharge Instructions * Discharge Instr - Activity* Abshear, Khari N, RN - 06/29/2022 2:07 PM EST Pelvic rest for 12 weeks * Attachments The following attachments cannot be sent through Care Everywhere. * Estradiol Skin Patches (Bahraini) * Acetaminophen; Oxycodone Tablets (Bahraini) * Total Laparoscopic Hysterectomy Care After (Bahraini) * Cystoscopy (Bahraini) * Laparoscopic Lysis of Abdominal Adhesions Care After (Bahraini) documented in this encounter Medications at Time [...] of this encounter H&P Notes * Shara Timmons MD - 06/28/2022 9:54 AM EST Images from the original note were not included. ?? Shara Timmons MD Physician RETAIL MERCHANDISING COORDINATOR Progress Notes ?? Addendum Date of Service: 06/28/22951 Creation Time: 06/28/22951 Expand All Collapse All ?? Gynecologic Preoperative Exam Note ? Subjective Hannah Tobar is a 41 y.o. year old who is scheduled for TLH with bilateral salpingo-oophorectomy at [facility] on 06/28/2022 at 10AM. Pre Admission testing has been scheduled for 06/22/2022 at 12:15AM at [facility]. Her pre operative diagnosis is DUB, [...] gum or smoke. Remove all jewelry, nail turkish, contact lenses prior to coming to the [...] was instructed that she will need a wrecker driver. ?? Allergies Allergen Reactions ??? Lidocaine-Epinephrine [...] Cleveland MD, Last Rate:9 mL/hr at 06/28/22 0931, 9 mL/hr at 06/28/22 0931 ??? midazolam (VERSED) injection 1 mg, 1 mg, Intravenous, Q10 Min PRN, Ambrocio Cleveland MD ??? scopolamine patch 1 mg/72 hr, 1 patch, Transdermal, Continuous, Shara Timmons MD, 1 patch at 06/28/22 09 ??? sodium chloride 0.9 % flush 10 mL, 10 mL, Intravenous, PRTk, Shara Timmons MD ??? sodium chloride 0.9 % flush 10 mL, 10 mL, Intravenous, Q12H, Ambrocio Cleveland MD ??? sodium chloride 0.9 % flush 10 mL, 10 mL, Intravenous, Megha FRANKEL Paul, MD ??? sodium chloride 0.9 % flush [...] (36.7 ??C) SpO2: 99% ?? Vitals: ?? 06/28/22 0917 BP: 126/72 Pulse: 94 Resp: 18 Temp: 98.1 ??F (36.7 ??C) SpO2: 99% ? Physical Exam Vitals and nursing note reviewed. Exam conducted with a hander in present. Constitutional: Appearance: She is well-developed. HENT: [...] 06/28/22 Time of Service: 14:57 EST Attending: automotive refinisher: Surgeon(s) and Role: * Shara Timmons MD [...] for ureteral integrity Antibiotics: cefazolin (Ancef) ordered national investigative producer to OR Anesthesia: Type: General ASA: III Objective Operative findings: Omental curtain from umbilicus to LLQ, 5 cm left ovarian cyst Specimens removed: Specimens ID Source Type Tests Collected By Collected At Frozen? A Uterus with Cervix, Bilateral Tubes and Ovaries Tissue ?? TISSUE PATHOLOGY EXAM Shara Timmons MD 06/28/22 8865 No Description: UTERUS, CERVIX, BILATERAL FALLOPIAN TUBES [...] 06/29/2022 2:47 PM EST Continued Stay Note [facility] Patient Name: Hannah Tobar Today's Date: 06/29/2022 Admit Date: 06/28/2022 Plan: Home Discharge Plan Row Name 06/29/22 1446 Plan Plan Home Plan Comments Anticipate discharge home today. Hannah Aldo, Ext. [phone] Final Discharge Disposition Code 01 - home or self-care Discharge Codes No documentation. Expected Discharge Date and Time Expected Discharge Date Expected Discharge Time Jun 29, 2022 MARCI Ricketts documented in this encounter Plan of Treatment Upcoming Encounters Date Type Department Care Team (Late st Contact Info) Description 09/02/2024 3:30 PM EST Office Visit [facility] OBGYN [address] [facility] [address] [place] [phone] Shara Timmons MD [address] [facility] [address] [place] [address] documented as of this encounter Procedures Procedure [...] - 10.80 10*3/mm3 06/29/2022 9:34 AM EST [facility] RBC 4.27 3.77 - 5.28 10*6/mm3 06/29/2022 9:34 AM EST [facility] Hemoglobin 13.0 12.0 - 15.9 g/dL 06/29/2022 9:34 AM [facility] Hematocrit 40.3 34.0 - 46.6 % 06/29/2022 9:34 AM EST [facility] MCV 94.4 79.0 - 97.0 fL 06/29/2022 9:34 AM EST [facility] MCH 30.4 26.6 - 33.0 pg 06/29/2022 9:34 AM EST [facility] MCHC 32.3 31.5 - 35.7 g/dL 06/29/2022 9:34 AM [facility] RDW 13.7 12.3 - 15.4 % 06/29/2022 9:34 AM EST [facility] RDW-SD 47.4 37.0 - 54.0 fl 06/29/2022 9:34 AM [facility] MPV 10.2 6.0 - 12.0 fL 06/29/2022 9:34 AM [facility] Platelets 319 140 - 450 10*3/mm3 06/29/2022 9:34 AM [facility] Neutrophil % 80.5(H) 42.7 - 76.0 % 06/29/2022 9:34 AM EST [facility] Lymphocyte % 9.6(L) 19.6 - 45.3 % 06/29/2022 9:34 AM EST [facility] Monocyte % 9.1 5.0 - 12.0 % 06/29/2022 9:34 AM EST [facility] Eosinophil % 0.1(L) 0.3 - 6.2 % 06/29/2022 9:34 AM EST [facility] Basophil % 0.2 0.0 - 1.5 % 06/29/2022 9:34 AM EST [facility] Immature Grans % 0.5 0.0 - 0.5 % 06/29/2022 9:34 AM EST [facility] Neutrophils, Absolute 13.79(H) 1.70 - 7.00 10*3/mm3 06/29/2022 9:34 AM EST [facility] Lymphocytes, Absolute 1.65 0.70 - 3.10 10*3/mm3 06/29/2022 9:34 AM [facility] Monocytes, Absolute 1.55(H) 0.10 - 0.90 10*3/mm3 06/29/2022 9:34 AM [facility] Eosinophils, Absolute 0.01 0.00 - 0.40 10*3/mm3 06/29/2022 9:34 AM [facility] Basophils, Absolute 0.03 0.00 - 0.20 10*3/mm3 06/29/2022 9:34 AM [facility] Immature Grans, Absolute 0.08(H) 0.00 - 0.05 10*3/mm3 06/29/2022 9:34 AM EST [facility] nRBC 0.0 0.0 - 0.2 /100 WBC 06/29/2022 9:34 AM [facility] Blood Venipuncture / Unknown 06/29/2022 8:37 AM EST 06/29/2022 9:07 AM EST us Shara Timmons MD LAB BLOOD ORDERABLES Final Resu lt [facility]
[address] [place] [address], * (ABNORMAL) Basic Metabolic Panel (06/29/2022 8:37 AM EST) [facility] Glucose 79 65 - 99 mg/dL 06/29/2022 10:02 AM [facility] BUN 10 6 - 20 mg/dL 06/29/2022 10:02 AM [facility] Creatinine 0.93 0.57 - 1.00 mg/dL 06/29/2022 10:02 AM [facility] Sodium 140 136 - 145 mmol/L 06/29/2022 10:02 AM [facility] Potassium 4.0 3.5 - 5.2 mmol/L 06/29/2022 10:02 AM [facility] Comment:Slight hemolysis det ected by analyzer. Results may be affected. Chloride 107 98 - 107 mmol/L 06/29/2022 10:02 AM [facility] CO2 20.0(L) 22.0 - 29.0 mmol/L 06/29/2022 10:02 AM [facility] Calcium 8.0(L) 8.6 - 10.5 mg/dL 06/29/2022 10:02 AM [facility] BUN/Creatinine Ratio 10.8 7.0 - 25.0 06/29/2022 10:02 AM [facility] Anion Gap 13.0 5.0 - 15.0 mmol/L 06/29/2022 10:02 AM [facility] eGFR 78.9 >60.0 mL/min/1. 73 06/29/2022 10:02 AM [facility] Comment:National Kidney Foun dation and [place] Society of Nephrology (ASN) Task Force recommended calculation based on the Chronic Kidney Disease Epidemiology Collaboration (CKD-EPI) equation refit without adjustment for race. Blood Venipuncture / Unknown 06/29/2022 8:37 AM EST 06/29/2022 9:07 AM EST [facility] - 06/29/2022 10:02 AM EST GFR Normal >60 Chronic Kidney Disease <60 Kidney Failure <15 us Shara Timmons MD LAB BLOOD ORDERABLES Final Resu lt [facility]
[address] [place] [address], * (ABNORMAL) CBC (No Diff) (06/28/2022 5:41 PM EST) WBC 15.90(H) 3.40 - 10.80 10*3/mm3 06/28/2022 6:17 PM EST [facility] RBC 4.53 3.77 - 5.28 10*6/mm3 06/28/2022 6:17 PM EST [facility] Hemoglobin 14.0 12.0 - 15.9 g/dL 06/28/2022 6:17 PM EST [facility] Hematocrit 42.3 34.0 - 46.6 % 06/28/2022 6:17 PM EST [facility] MCV 93.4 79.0 - 97.0 fL 06/28/2022 6:17 PM EST [facility] MCH 30.9 26.6 - 33.0 pg 06/28/2022 6:17 PM EST [facility] MCHC 33.1 31.5 - 35.7 g/dL 06/28/2022 6:17 PM EST [facility] RDW 13.3 12.3 - 15.4 % 06/28/2022 6:17 PM EST [facility] RDW-SD 45.3 37.0 - 54.0 fl 06/28/2022 6:17 PM EST [facility] MPV 9.9 6.0 - 12.0 fL 06/28/2022 6:17 PM EST [facility] Platelets 294 140 - 450 10*3/mm3 06/28/2022 6:17 PM EST [facility] Blood Venipuncture / Unknown 06/28/2022 5:41 PM EST 06/28/2022 6:13 PM EST us Shara Timmons MD LAB BLOOD ORDERABLES Final Resu lt [facility]
[address] [place] [id number], * POC , Urine (06/28/2022 9:41 AM EST) HCG, Urine, QL Negative Negative [facility] Lot Number [id number] [facility] Internal Positive Control Positive Positive, Passed [facility] Internal Negative Control Negative Negative, Passed [facility] Expiration Date 06-07 [facility] Urine 06/28/2022 9:41 AM EST us Shara Timmons MD POINT OF CARE TEST ORDERABLES F inal Result [facility]
[address] [place] [address], * Tissue Pathology Exam (06/28/2022 9:20 AM EST) Case Report Surgical Pathology Report ? Case: [id number] ? Authorizing Provider: ??Shara Timmons MD ? Collected: ? 06/28/2022 09:20 AM ? Ordering Location: ? [facility] ?? Received: ?06/29/2022 08:03 AM ? OR ? Pathologist: ? To Connolly MD ? Specimen: ?Uterus with Cervix, Bilateral Tubes and Ovaries, UTERUS, CERVIX, BILATERAL FALLOPIAN ? TUBES AND OVARIES FOR PERMANENT ? 06/30/2022 12:44 PM [facility] Clinical Information Perineal neuralgia Hemorrhage in uterus Abnormal uterine bleeding 06/30/2022 12:44 PM [facility] Final Diagnosis UTERUS, CERVIX, BILATERAL OVARIES AND FALLOPIAN TUBES, HYSTERECTOMY WITH BILATERAL SALPINGO-OOPHORECT BIENVENIDO: Benign cervix with mild chronic cervicitis Benign endometrial glands and stroma Adenomyosis Bilateral ovaries with benign physiologic cysts Benign bilateral fimbriated fallopian tubes Negative for dysplasia or malignancy 06/30/2022 12:44 PM [facility] Gross Description 1. Uterus with Cervix, [...] both tubes reveals a grossly unremarkable lumen. Latcher sections are submitted as follows: 1A-serosal adhesions; 1B-anterior cervix; 1C-posterior cervix; 1D-anterior endomyometrium; 1E-posterior endomyometrium; 1F-right ovary; 1G-1H-left ovary; 1I-right fallopian tube and fimbria; 1J-left fallopian tube and fimbria. LDP 06/30/2022 12:44 PM EST [facility] Microscopic Description The slides are reviewed and demonstrate histopathologic features supporting the above rendered diagnosis. 06/30/2022 12:44 PM [facility] Tissue Uterus and cervix, CS / Unknown 06/28/2022 9:20 AM EST 06/29/2022 8:03 AM EST Comment:UTERUS, CERVIX, BILA TERAL FALLOPIAN TUBES AND OVARIES FOR PERMANENT us Shara Timmons MD PATHOLOGY/CYTOLOGY ORDERABLES F inal Result [facility]
[address] [place] [address], documented in this encounter Visit Diagnoses Not on filedocumented in this encounter Admitting Diagnoses Diagnosis Fibroids [...] Given 06/28/2022 5:06 PM EST 1,000 mg Chloroprocaine HCl (PF) (NESACAINE) 3 % injection As Needed, Starting on Sun06/28/22 at 1231 Given 06/28/2022 12:31 PM EST 20 mL Abdominal Tissue clindamycin (CLEOCIN) 900 mg in dextrose 5% 50 mL IVPB (premix) 900 mg, Intravenous, at 50 mL/hr, Administer over 60 Minutes, Every 8 Hours, First dose on Sun06/28/22 at 2000, For 2 doses, Time first dose from pre-op dose Do Not refrigerate., Indications: Surgical ProphylaxisIndications:Hanna gical Prophylaxis New Bag 06/29/2022 3:35 AM EST [...] in patients >65 or hx of glaucoma {BKC}Indications:Abno rmal uterine bleeding (AUB) Medication Applied 06/28/2022 9:15 AM EST 1 patch Behind Left Ear sodium chloride (NS) irrigation solution As Needed, Starting on Sun06/28/22 at 1231 Given 06/28/2022 12:31 PM EST 3,000 mL sodium chloride (NS) irrigation solution As Needed, Starting on Sun06/28/22 at 1337 Given 06/28/2022 1:37 PM EST 1,000 mL sodium chloride 0.9 % infusion 125 mL/hr, Intravenous, Continuous, Starting on Sun06/28/22 at 1730 Currently Infusing 06/29/2022 1:26 PM EST 125 mL/hr 125 mL/hr New Bag 06/29/2022 8:54 AM EST 125 mL/hr 125 mL/hr Currently Infusing 06/29/2022 8:12 AM EST 125 mL/hr 125 m L/hr sterile water irrigation solution As Needed, Starting on Sun06/28/22 at 1158 Given 06/28/2022 11:58 AM EST 1,000 mL documented in this encounter Active and Recently [...] RN) 0117 (Given - Provider: Luanne Hyman RN)08 (Given - Provider: Khari Juan RN) clindamycin [...] Prophylaxis 1951 (New Bag - Provider: Luanne Hyman RN)2051 (Stopped - Provider: Luanne Hyman RN) 033 (New Bag - Provider: Luanne Hyman RN)0435 (Stopped - Provider: Luanne Hyman RN) estradiol (VIVELLE-DOT) 0.1 MG/24HR patch 1 patch 1 patch, Transdermal, 2 Times Weekly (Once per day on Sun), First dose on Sun06/29/22 at 0900, Apply to clean, dry skin, preferably on lower abdomen, upper buttock, or hip. Do not apply to breast or waistline. Do not use a site twice within seven days. 810 (Medication Applied - Provider: Khari Juan RN [...] - Reason: Contraindicated - Comment: pt lethargic) 08 (Given - Provider: Khari Juan RN)1600 (Due) [...] CPOT 5-8 1705 (Given - Provider: Khari Juan RN) 0013 (Given - Provider: Luanne Hyman RN) [...] of 7-10, CPOT 5-8 0505 (Return to [facility] - Provider: Luanne Hyman RN) oxyCODONE-acetaminophen (PERCOCET) [...] at 1158 1158 (Given - Provider: Shara iTmmons MD - Comment: GIVEN TO STERILE FIELD) [...] doses documented in this encounter Care Teams Hospice Team Lead Relationship Specialty Start Date End Date Aidan Vizcarra MD [address] [facility] [address] [facility] [address] [place] [address] PCP - General Family Medicine 04/20/16 documented as of this encounter
--- OUTSIDE RECORDS SUMMARY | 2024-06-20 10:54 | XMS_ITS | Encounter Summary ---
[facility] Address [address] [place] [address] Care Team Providers Care Metallic Yarn Slitting Machine Operator Name Role Phone Aidan Vizcarra MD Primary Care Provider [phone] Reason for Referral * Diagnostic Imaging (Routine) - Closed Specialty Diagnoses / Procedures Referred By Marly arce Referred To Contact Radiology Diagnoses Visit for screening mammogram Procedures Mammo Screening Digital Tomosynthesis Bilateral With CAD Barbie Martinez APRN Referral ID Status Reason Start Date Expiration Date Visits Re quested Visits Authorized [id number] Closed 03/03/2022 03/03/2023 1 1 Reason for Visit * Diagnostic Imaging (Routine) - Closed Specialty Diagnoses / Procedures Referred By Marly arce Referred To Contact Radiology Diagnoses Visit for screening mammogram Procedures Mammo Screening Digital Tomosynthesis Bilateral With CAD Barbie Martinez APRN Referral ID Status Reason Start Date Expiration Date Visits Re quested Visits Authorized [id number] Closed 03/03/2022 03/03/2023 1 1 Encounter Details Date Type Department Care Team (Latest Contact Info) Description 04/10/2022 11:02 AM EDT - 04/10/2022 11:59 PM EDT Hospital Encounter [address] [phone] Barbie Martinez APRN Visit for screening mammogram Discharge Disposition: Home or Self Care Social History Tobacco Use Types Packs/Day Years Used Date Smoking Tobacco: Never Smokeless Tobacco: Never Alcohol Use Standard Drinks/Week Comments No 0 (1 standard drink = 0.6 oz pur e alcohol) Comments No Sex and Gender Information Value Date Recorded Sex Assigned at Not on file Legal Sex Female 11:45 AM EDT Gender Identity Not on file Sexual Orientation Not on file documented as of this encounter Medications at Time of Discharge cetirizine (zyrTEC) 10 MG tablet Take 10 mg by mouth Daily. 05/04/2022 HAVRIX 1440 EL U/ML vaccine 06/21/2018 05/04/2022 documented as of this encounter Plan of Treatment Upcoming Encounters Date Type Department Care Team (Late st Contact Info) Description 09/02/2024 3:30 PM EST Office Visit [facility] OBGYN [address] [phone] Shara Timmons MD [address] [address] documented as of this encounter Procedures Procedure Name Priority Date/Time Associated Diagnosis Comments MAMMO SCREENING DIGITAL TOMOSYNTHESIS BILATERAL W CAD Routine 04/10/2022 11:52 AM EDT Visit for screening mammogram documented in this encounter Results * Mammo Screening Digital Tomosynthesis Bilateral With CAD (04/10/2022 11:52 AM EDT) Anatomical Region Laterality Modality Breast N/A Mammography 04/11/2022 1:55 PM EDT Impressions 04/11/2022 2:06 PM EDT No findings suspicious for malignancy. BI-RADS CATEGORY: ??1, NEGATIVE RECOMMENDATION: Yearly mammogram, yearly clinical breast exam, and encourage self breast awareness. CAD was used. The standard false negative rate of mammography is between 10% and 25%. Complex patterns or increased breast density will markedly elevate the false negative rate of mammography. A letter, in lay terminology, with the results of this exam will be mailed to the patient. This report was finalized on 04/11/2022 2:[address] Nirali Garza MD. Narrative 04/11/2022 2:06 PM EDT ROUTINE SCREENING MAMMOGRAM WITH TOMOSYNTHESIS HISTORY: 41-year-old female for routine screening IMAGE COMPARISON: ??Prior exams, most recently 03/03/2021 bilaterally TECHNIQUE: Low dose full field digital breast tomosynthesis imaging was performed with 2D and 3D acquisitions consisting of bilateral CC and MLO views. Bilateral extended CC views were also performed. FINDINGS: There are scattered areas of fibroglandular density. There is no worrisome mass, group of calcifications, or architectural distortion to suggest malignancy. Barbie Ponce [facility] IMG MAMMOGRAPHY ORDERA BLES Final Result documented in this encounter Visit Diagnoses Diagnosis Visit for screening mammogram documented in this encounter Care Teams Metallic Yarn Slitting Machine Operator Relationship Specialty Start Date End Date Aidan Vizcarra MD [address] [facility] [address] [facility] [address] [facility] [address] PCP - General Family Medicine 04/20/16 documented as of this encounter
--- OUTSIDE RECORDS SUMMARY | 2024-06-20 10:54 | XMS_ITS | Encounter Summary ---
[facility] Address [address] [id number] Care Team Providers Care Metalsmith Helper Name Role Phone Aidan Vizcarra MD Primary Care Provider [phone] Reason for Visit * Reason Onset Date Comments - MEDICATION REQUEST 06/29/2022 Encounter Details Date Type Department Care Team (Late st Contact Info) Description 06/29/2022 Telephone [facility] O[facility]YN [address] [address] Shara Timmons MD 1700 [facility] [address] [place] [address] - MEDICATION REQUEST Social History Tobacco Use Types Packs/Day Years [...] or training? Not on file Preferred Language Bulgarian 06/22/2022 Comments No Sex and Gender Information Value Date Recorded Sex Assigned at Not on file Legal Sex Female 11:45 AM EDT Gender Identity Not on file Sexual Orientation Not on file documented as of this encounter Miscellaneous Notes * Telephone Encounter - Benigno Khan RN - 06/29/2022 5:02 PM EST She is S/P hysterectomy with Dr. Timmons and she would like Zofran, she has taken it in the past. Rx sent in for the 4mg ODT * Telephone Encounter - Pura Arriola RegSched Rep - 06/29/2022 3:04 PM EST Caller: Hannah Tobar Relationship: Self Best call back number: [phone] What is the best time to reach you: ANYTIME What was the call regarding: PT CALLED IN TO REQUEST A PRESCRIPTION FOR ZOFRAN. CONFIRMED PHARMACY ON FILE. Do you require a callback: YES documented in this encounter Plan of Treatment Upcoming Encounters Date Type Department Care Team (Late st Contact Info) Description 09/02/2024 3:30 PM EST Office Visit [facility] OBGYN [address] [address] [place] [address] Shara Timmons MD [address]00 [facility] [address] [place] [address] documented as of this encounter Visit Diagnoses Not on filedocumented in this encounter Care Teams Metalsmith Helper Relationship Specialty Start Date End Date Aidan Vizcarra MD [address]10 [facility] [address] [place] [address] PCP - General Family Medicine 04/20/16 documented as of this encounter
--- OUTSIDE RECORDS SUMMARY | 2024-06-20 10:54 | XMS_ITS | Encounter Summary ---
[facility] [address] [place] [address] Care Team Providers Care Reshipping Clerk Name Role Phone Aidan Vizcarra MD Primary Care Provider [phone] Reason for Referral * Diagnostic Imaging (Emergency) - Closed Specialty Diagnoses / Procedures Referred By Contact Referred To Contact Obstetrics and Gynecology Diagnoses Pelvic pain Procedures US Non-ob Transvaginal Kalani Timmons MD [address] [address] Phone: tel: fax: [facility] OBGYN [address] [address] Phone: tel: fax: Referral ID Status Reason Start Date Expiration Date Visits Re quested Visits Authorized [id number] Closed 05/04/2022 05/04/2023 1 1 Reason for Visit * Reason Comments Pelvic Pain Encounter Details Date Type Department Care Team (Late st Contact Info) Description 05/04/2022 2:10 PM EDT Office Visit [facility] OBGYN [address] [address] Kalani Timmons MD [address] [address] Pelvic pain (Primary Dx); Abnormal uterine bleeding (AUB); Endometriosis [...] Sign Reading Time Taken Comments Blood Pressure 118/82 05/04/2022 2:32 PM EDT Pulse - - Temperature - - Respiratory Rate - - Oxygen Saturation - - Inhaled Oxygen Concentration - - Weight 102 kg (225 lb 6.4 oz) 05/04/2022 2:32 PM EDT Height 165.1 cm (5' 5 ) 05/04/2022 2:32 PM EDT Body Mass Index 37.51 05/04/2022 2:32 PM EDT documented in this encounter Progress Notes * Kalani Timmons MD - 05/04/2022 2:10 PM EDT Pelvic Pain HPI Lorenzo Tobar is a 41 y.o. female, former patient that is reestablishing care. She presents for initial evaluation evaluation of pelvic pain. The pain is located in the left lower quadrant and lower back and it does not radiate. She has experienced this problem for 3 weeks. She describes the pain as burning, sharp and stabbing and it occured 8 times over the 3 weeks. She rates her pain score as a 4-5/10 when at its worst. Patient reportshaving a dull ache constantly. Patient notes aggravating factors include none and alleviating factors are nothing. The patient reports additional symptoms as heavy bleeding. The patient uses 1 super plus tampon every 1-2 hours. The patient has previously been evaluated for pelvic pain. The patient is sexually active. She has had new partners.. Did the patient have u/s today? No. Her last LMP was No LMP recorded.. Periods are regular every 30-40 days, lasting 5-6 days. Dysmenorrhea:moderate, occurring premenstrually and first 1-2 days of flow. Problems with GI: no History of urinary disease: yes - Kidney CA- Partial nephrectomy 12/2016 Concern for Anxiety or Depression: no Exercises Regularly: no Tobacco Usage?: No Additional OPERA SINGER History Last Pap : 07/19/21 Ascus, HPV pool positive- Colposcopy 08/22/21 Last Completed Pap Smear PAP SMEAR (Every 3 Years) Next due on 07/19/2024 07/19/2021 SCANNED - PAP SMEAR 06/24/2018 SCANNED - PAP SMEAR 06/20/2017 SCANNED - PAP SMEAR 04/20/2016 SCANNED - PAP SMEAR OB History 1 Para 1 Term 1 AB Living 2 SAB IAB Ectopic Molar Multiple 1 Live Births Current Outpatient Medications: ??? Breo Ellipta 100-25 [...] ??? KIDNEY STONE SURGERY ??? LAPAROSCOPIC CHOLECYSTECTOMY 2009 ??? LAPAROSCOPIC PARTIAL NEPHRECTOMY Left ??? LIPOMA EXCISION back ??? OVARIAN CYST REMOVAL Left laser drilling ??? OVARIAN CYST SURGERY 2003 ??? TUMOR EXCISION NOSE--BENIGN The additional following portions of the patient's history were reviewed and updated as appropriate: allergies, current medications, past family history, past medical history, past social history, past surgical history and problem list. Review of Systems Constitutional: Negative. HENT: Negative. Eyes: Negative. Respiratory: Negative. Cardiovascular: Negative. Gastrointestinal: Negative. Endocrine: Negative. Genitourinary: Positive for menstrual problem and pelvic pain. Musculoskeletal: Negative. Skin: Negative. Allergic/Immunologic: Negative. Neurological: Negative. Hematological: Negative. Psychiatric/Behavioral: Negative. All other systems reviewed and are negative. I have reviewed and agree with the HPI, ROS, and historical information as entered above. Kalani Timmons MD Objective BP 118/82 Ht 165.1 cm (65 ) Wt 102 kg (225 lb 6.4 oz) BMI 37.51 kg/m?? Physical Exam Constitutional: Appearance: She is well-developed. HENT: Head: Normocephalic. Eyes: Conjunctiva/sclera: Conjunctivae normal. Pulmonary: Effort: Pulmonary effort is normal. Psychiatric: Behavior: Behavior normal. Assessment & Plan Assessment and Plan Problem List Items Addressed This Visit Genitourinary and Reproductive Endometriosis Other Visit Diagnoses Pelvic pain - Primary Relevant Orders US Non-ob Transvaginal Abnormal uterine bleeding (AUB) 1. AUB/Pelvic pain/ H/O endometriosis - she has not done well with hormonal treatment in the past. She has had an endometrial ablation. Options are somewhat limited to definitive treatment. U/S does not show any worrisome masses or cysts. 2. F/U for preop for TLH/BSO if she decides against another trial of EMERITA or Orlissa. Kalani Timmons MD 05/04/2022 documented in this encounter Plan of Treatment Upcoming Encounters Date Type Department Care Team (Late st Contact Info) Description 09/02/2024 3:30 PM EST Office Visit [facility]YN [address] [facility] [address] [place] [phone] Kalani Timmons MD 1700 [facility] [address] [place] [address] documented as of this encounter Results * US Non-ob Transvaginal (05/04/2022 4:04 PM EDT) Anatomical Region Laterality Modality Body Ultrasound 05/04/2022 3:42 PM EDT Narrative 05/05/2022 9:35 AM EDT PAT NAME: LORENZO TOBAR MED REC#: [id number] DA: 1980 PAT GEND: F PAT TYPE: O EXAM SENTHIL: [id number] REF PHYS KALANI TIMMONS Indication ======== LLQ pain Comparison Studies The findings of this study are compared to the prior ultrasound study dated 09/15/15 History ====== Medical History Surgery: Diag. lap Ovarian cystectomy Previous Outcomes 1 Para 2 Other: c/s, twins Method ======= Voluson E6, Transvaginal ultrasound examination, 3D ultrasound examination. View: Adequate view Uterus ====== Uterus: Visualized Uterus position: Anteverted Description of uterine malformations: none Myometrium: Homogeneous Endometrium: Uniform. Small simple cyst visualized at the level of the c/s site. Cervix details: Nabothian cyst noted Uterus long 83 mm Uterus ap 41 mm Uterus tr 42 mm Uterus Vol 74.6 cm?? Endometrial thickness, total 9.5 mm Right Ovary Rt ovary: Visualized Rt ovary D1 31.4 mm Rt ovary D2 30.1 mm Rt ovary D3 21.9 mm Rt ovary Vol 10.8 cm?? Left Ovary ========= Lt ovary: Visualized Lt ovary D1 42.2 mm Lt ovary D2 21.6 mm Lt ovary D3 21.60 mm Lt ovary Vol 10.3 cm?? Lt ovarian cyst(s): Cysts identified Lt ovarian cyst D1 10.6 mm Lt ovarian cyst D2 11.4 mm Lt ovarian cyst D3 8.5 mm Lt ovarian cyst mean 10.2 mm Lt ovarian cyst vol 0.538 cm?? Lt ovarian cyst findings: Simple cyst Cul de Sac Visualized. No free fluid visualized Impression The uterus is normal in size The endometrium appears sonographically normal in shape and appearance with small cyst a site. The right ovary appear sonographically normal in size, shape and morphology The left ovary appear sonographically normal in size, shape and morphology with small simple cyst Recommendation Follow-up as clinically indicated. Glass Toughening Operator: Roma Holland RDMS Physician: Kalani Timmons MD, FACOG Electronically signed by: Kalani Timmons MD, FACOG at: 09:35 Procedure Note Kalani Timmons MD - 05/05/2022 PAT NAME: LORENZO TOBAR [facility] REC#: [id number] DA: [id number] PAT GEND: F PAT TYPE: O EXAM SENTHIL: [id number] REF PHYS KALANI TIMMONS Indication ======== LLQ pain Comparison Studies The findings of this study are compared to the prior ultrasound studydated 09/15/15 History ====== Medical History Surgery:Diag. lap Ovarian cystectomy Previous Outcomes Gravida1 Para2 Other:c/s, twins Method ======= Voluson E6, Transvaginal ultrasound examination, 3D ultrasoundexamination. View: Adequate view Uterus ====== Uterus:Visualized Uterus position:Anteverted Description of uterine malformations:none Myometrium:Homogeneous Endometrium:Uniform. Small simple cyst visualized at the level of the c/ssite. Cervix details:Nabothian cyst noted Uterus long83 mm Uterus ap41 mm Uterus tr42 mm Uterus Vol74.6 cm?? Endometrial thickness, total9.5 mm Right Ovary Rt ovary:Visualized Rt ovary D131.4 mm Rt ovary D230.1 mm Rt ovary D321.9 mm Rt ovary Vol10.8 cm?? Left Ovary ========= Lt ovary:Visualized Lt ovary D142.2 mm Lt ovary D221.6 mm Lt ovary D321.60 mm Lt ovary Vol10.3 cm?? Lt ovarian cyst(s):Cysts identified Lt ovarian cyst D110.6 mm Lt ovarian cyst D211.4 mm Lt ovarian cyst D38.5 mm Lt ovarian cyst mean10.2 mm Lt ovarian cyst vol0.538 cm?? Lt ovarian cyst findings:Simple cyst Cul de Sac Visualized. No free fluid visualized Impression The uterus is normal in size The endometrium appears sonographically normal in shape and appearancewith small cyst a site. The right ovary appear sonographically normal in size, shape andmorphology The left ovary appear sonographically normal in size, shape and morphologywith small simple cyst Recommendation Follow-up as clinically indicated. Glass Toughening Operator: Roma Holland RDMS Physician: Kalani Timmons MD, FACOG Electronically signed by: Kalani Timmons MD, FACOG at: 09:35 us Kalani Timmons MD [facility] US ORDERABLES Final Result documented in this encounter Visit Diagnoses Diagnosis Pelvic pain- Primary Abnormal uterine bleeding (AUB) Endometriosis Endometriosis, site unspecified Pelvic pain documented in this encounter Care Teams Reshipping Clerk Relationship Specialty Start Date End Date Aidan Vizcarra MD 1210 [facility] [address] [place] [address] PCP - General Family Medicine 04/20/16 documented as of this encounter
--- OUTSIDE RECORDS SUMMARY | 2024-06-20 10:54 | XMS_ITS | Encounter Summary ---
Author Organization [facility] Address [address] [id number] Care Team Providers Care Cost Control Supervisor Name Role Phone Aidan Vizcarra MD Primary Care Provider [phone] Reason for Visit * Diagnostic Imaging (Emergency) - Closed Specialty Diagnoses / Procedures Referred By Contact Referred To Contact Obstetrics and Gynecology Diagnoses Pelvic pain Procedures US Non-ob Transvaginal Kalani Timmons MD [address] [address] Phone: tel: fax: [facility] OBGYN [address] [address] Phone: tel: fax: Referral ID Status Reason Start Date Expiration Date Visits Re quested Visits Authorized [id number] Closed 05/04/2022 05/04/2023 1 1 Encounter Details Date Type Department Care Team (Late st Contact Info) Description 05/04/2022 3:35 PM EDT Ancillary Procedure [facility] OBGYN [address] [address] Pelvic pain Social History Tobacco Use Types Packs/Day Years [...] Description 09/02/2024 3:30 PM EST Office Visit [facility] OBGYN [address] [facility] [address] [place] [address] Kalani Timmons MD 1700 [facility] [address] [place] [address] documented as of this encounter Procedures Procedure Name Priority Date/Time Associated Diagnosis Comments US NON-OB TRANSVAGINAL STAT 05/04/2022 4:04 PM EDT Pelvic pain documented in this encounter Results * US Non-ob Transvaginal (05/04/2022 4:04 PM EDT) Anatomical Region Laterality Modality Body Ultrasound 05/04/2022 3:42 PM EDT Narrative 05/05/2022 9:35 AM EDT PAT NAME: LORENZO TOBAR [facility] REC#: [id number] DA: [id number] PAT GEND: F PAT TYPE: O EXAM SENTHIL: [id number] REF PHYS KALANI TIMMONS Indication ======== LLQ [...] simple cyst Recommendation Follow-up as clinically indicated. Health Care Coach: Roma Holland RDMS Physician: Kalani Timmons MD, FACOG Electronically signed by: Kalani Timmons MD, FACOG at: 09:35 Procedure Note Kalani Timmons MD - 05/05/2022 PAT NAME: LORENZO TOBAR [facility] REC#: [id number] DA: [id number] PAT GEND: F PAT TYPE: O EXAM SENTHIL: [id number] REF PHYS KALANI TIMMONS Indication ======== LLQ [...] simple cyst Recommendation Follow-up as clinically indicated. Health Care Coach: Roma Holland RDMS Physician: Kalani Timmons MD, FACOG Electronically signed by: Kalani Timmons MD, FACOG at: 09:35 Kalani Timmons MD [facility] US ORDERABLES Final Result documented in this encounter Visit Diagnoses Diagnosis Pelvic pain documented in this encounter Care Teams Cost Control Supervisor Relationship Specialty Start Date End Date Aidan Vizcarra MD 1210 [facility] [address] [place] [address] PCP - General Family Medicine 04/20/16 documented as of this encounter
--- OUTSIDE RECORDS SUMMARY | 2024-06-20 10:54 | XMS_ITS | Encounter Summary ---
[facility] Organization [facility] Address [address] [place] [address] Care Team Providers Care Radio Time Buyer Name Role Phone Aidan Vizcarra MD Primary Care Provider [phone] Reason for Visit * Auth/Cert (Routine) Specialty Diagnoses / Procedures Referred By Marly arce Referred To Contact Procedures TN LAPAROSCOPY W TOT HYSTERECTUTERUS <=250 GRAM W TUBE/OVARY TOTAL LAPAROSCOPIC HYSTERECTOMY BILATERAL SALPINGECTOMY OOPHORECTOMY Referral ID Status Reason Start Date Expiration Date Visits Re quested Visits Authorized [id number] 1 1 Encounter Details Date Type Department Care Team (Latest Contact Info) Description 06/28/2022 12:25 PM EST Anesthesia Event Converted [facility] [address] [place] [address] Social History Tobacco Use Types Packs/Day Years [...] or training? Not on file Preferred Language Tajik 06/22/2022 Comments No Sex and Gender Information Value Date Recorded Sex Assigned at Not on file Legal Sex Female 11:45 AM EDT Gender Identity Not on file Sexual Orientation Not on file documented as of this encounter Plan of Treatment Upcoming Encounters Date Type Department Care Team (Late st Contact Info) Description 09/02/2024 3:30 PM EST Office Visit [facility] OBGYN [address] [address] Shara Timmons MD [address] [place] [address] documented as of this encounter Visit Diagnoses Not on filedocumented in this encounter Care Teams Radio Time Buyer Relationship Specialty Start Date End Date Aidan Vizcarra MD 1210 [facility] [address] [facility] [address] [place] [address] PCP - General Family Medicine 04/20/16 documented as of this encounter
--- OUTSIDE RECORDS SUMMARY | 2024-06-20 10:54 | XMS_ITS | Encounter Summary ---
Author Organization [facility] Address [address] [place] [address] Care Team Providers Care Final Coat Sprayer Name Role Phone Aidan Vizcarra MD Primary Care Provider [phone] Encounter Details Date Type Department Care Team (Late st Contact Info) Description 07/03/2022 Telephone [facility] OBGYN [address] [address] Shara Timmons MD 1700 [facility] [address] [place], [place] [id number] Social History Tobacco Use Types Packs/Day Years [...] encounter Miscellaneous Notes * Telephone Encounter - Gloria Auguste RN - 07/03/2022 3:11 PM ESTSummary: Post op call Called patient to follow up on sx with Dr. Timmons. Patient doing well, without s/s of infection at site. No n/v but has Zofran if needed. Patient does report bandage has came off and notices a rash and reports had a terrible rash with previous surgery with Dr. PERSAUD in 2019 and had to get three different things called in to clear it up. Thinks she is allergic to adhesive, wants Dr. Timmons to call in something to pharmacy so it does not get worse over . documented in this encounter Plan of Treatment Upcoming Encounters Date Type Department Care Team (Late st Contact Info) Description 09/02/2024 3:30 PM EST Office Visit [facility] OBGYN [address] [phone] Shara Timmons MD 1700 [facility] [address] [place] [address] documented as of this encounter Visit Diagnoses Not on filedocumented in this encounter Care Teams Final Coat Sprayer Relationship Specialty Start Date End Date Aidan Vizcarra MD 1210 [facility] [address] [place] [address] PCP - General Family Medicine 04/20/16 documented as of this encounter
--- OUTSIDE RECORDS SUMMARY | 2024-06-20 10:54 | XMS_ITS | Encounter Summary ---
Author Organization [facility]: [address] Address [address] [id number] Care Team Providers Care Interlocking Tower Operator Name Role Phone Aidan Vizcarra MD Primary Care Provider [phone] Reason for Visit * Reason Comments Post-op Encounter Details Date Type Department Care Team (Late st Contact Info) Description 08/15/2022 4:30 PM EST Office Visit [facility] OBGYN [address] [phone] Shara Timmons MD [address] [id number] Status post laparoscopic hysterectomy with BSO (Primary Dx) Social History Tobacco Use Types [...] or training? Not on file Preferred Language Burkinan 06/22/2022 Comments No Sex and Gender Information Value Date Recorded Sex Assigned at Not on file Legal Sex Female 11:45 AM EDT Gender Identity Not on file Sexual Orientation Not on file documented as of this encounter Last Filed Vital Signs Vital Sign Reading Time Taken Comments Blood Pressure 120/80 08/15/2022 4:41 PM EST Pulse - - Temperature - - Respiratory Rate - - Oxygen Saturation - - Inhaled Oxygen Concentration - - Weight 101 kg (223 lb) 08/15/2022 4:41 PM EST Height 162.6 cm (5' 4 ) 08/15/2022 4:41 PM EST Body Mass Index 38.28 08/15/2022 4:41 PM EST documented in this encounter Progress Notes * Shara Timmons MD - 08/15/2022 4:30 PM EST Images from the original note were not included. OBGYN Postoperative Exam Note Subjective Chief Complaint Patient presents with ??? Post-op Hannah Tobar is a 41 y.o. year old presenting to be seen for her post-operative visit. She is S/P TLH with bilateral salpingo-oophorectomy, lysis of adhesions, and cystoscopy on 06/28/2022 at [facility] for Chronic Pelvic Pain, Ovarian Cyst and Symptomatic Endometriosis. Currentlyshe reports One incision that has some drainage and tender to the touch. Her.pain is well controlled. She denies any issues with eating patterns. Patient is currently using Vivelle Dot and is experiencing a rash and skin irritation. The results have previously been discussed with Hannah. OTHER THINGS SHE WANTS TO DISCUSS TODAY: Nothing else Current Outpatient Medications: ??? Breo Ellipta 100-25 MCG/INH inhaler, , Disp: , Rfl: ??? Cetirizine HCl (ZyrTEC Allergy) 10 MG capsule, Zyrtec 10 mg capsule Take by oral route., Disp: , Rfl: ??? estradiol (VIVELLE-DOT) 0.1 MG/24HR patch, Place 1 patch on the skin as directed by provider 2 (Two) Times a Week., Disp: 24 patch, Rfl: 3 ??? levalbuterol (XOPENEX HFA) 45 MCG/ACT inhaler, , Disp: , Rfl: Past Medical History: Diagnosis Date ??? Asthma ??? Cancer of kidney, left (HCC) ??? Clostridium difficile infection ??? COVID 07/2021 ??? Endometriosis ??? Female infertility ??? Kidney stone ??? Mixed incontinence ??? Multiple gestation ??? Oligomenorrhea ??? PCOS (polycystic ovarian syndrome) ??? PMS (premenstrual syndrome) ??? Polycystic ovary syndrome ??? PONV (postoperative nausea and vomiting) ??? Urinary tract infection ??? Uterine prolapse ??? Vitamin D deficiency Past Surgical History: Procedure Laterality Date ??? CERVICAL CERCLAGE ??? SECTION 2006 ??? CHOLECYSTECTOMY ? ? D & C HYSTEROSCOPY LAPAROSCOPY ??? ENDOMETRIAL ABLATION ??? KIDNEY STONE SURGERY ??? LAPAROSCOPIC ASSISTED VAGINAL HYSTERECTOMY SALPINGO OOPHORECTOMY 2021 ??? LAPAROSCOPIC CHOLECYSTECTOMY 2008 ??? LAPAROSCOPIC PARTIAL NEPHRECTOMY Left ??? LIPOMA EXCISION back ??? OVARIAN CYST REMOVAL Left laser drilling ??? OVARIAN CYST SURGERY 2003 ??? TOTAL LAPAROSCOPIC HYSTERECTOMY SALPINGO OOPHORECTOMY Bilateral 06/28/2022 Procedure: TOTAL LAPAROSCOPIC HYSTERECTOMY BILATERAL SALPINGECTOMY OOPHORECTOMY, LYSIS OF ADHESIONS, CYSTOSCOPY; Surgeon: Shara Timmons MD; Location: [facility]; Service: Obstetrics/Gynecology; Laterality: Bilateral; ??? TUMOR EXCISION NOSE--BENIGN The following portions of the patient's history were reviewed and updated as appropriate:current medications and allergies Review of Systems Constitutional: Negative. HENT: Negative. Eyes: Negative. Respiratory: Negative. Cardiovascular: Negative. Gastrointestinal: Negative. Endocrine: Negative. Genitourinary: Negative. Musculoskeletal: Negative. Skin: Negative. Allergic/Immunologic: Negative. Neurological: Negative. Hematological: Negative. Psychiatric/Behavioral: Negative. Objective BP 120/80 Ht 162.6 cm (64 ) Wt 101 kg (223 lb) LMP 05/27/2022 BMI 38.28 kg/m?? Physical Exam Vitals and nursing note reviewed. Exam conducted with a batcher operator present. Constitutional: Appearance: She is well-developed. HENT: Head: Normocephalic and atraumatic. Neck: Thyroid: No thyroid mass or thyromegaly. Pulmonary: Breath sounds: No rhonchi. Abdominal: Palpations: Abdomen is soft. Abdomen is not rigid. There is no mass. Tenderness: There is no abdominal tenderness. There is no guarding. Hernia: No hernia is present. Genitourinary: Vagina: Normal. Cervix: Normal. Uterus: Normal. Musculoskeletal: Cervical back: Normal range of motion. No muscular tenderness. Neurological: Mental Status: She is alert and oriented to person, place, and time. Psychiatric: Behavior: Behavior normal. Assessment 1. S/P TLH with bilateral salpingo-oophorectomy Plan 1. OK to drive 2. OK to lift 3. Nothing per vagina still until 4 weeks after her procedure. 4. The importance of keeping all planned follow-up and taking all medications as prescribed was emphasized. 5. Discussed ERT options. Shara Timmons MD 08/15/2022 documented in this encounter Plan of Treatment Upcoming Encounters Date Type Department Care Team (Late st Contact Info) Description 09/02/2024 3:30 PM EST Office Visit [facility] OBGYN [address] [phone] Shara Timmons MD [address] [address] documented as of this encounter Visit Diagnoses Diagnosis Status post laparoscopic hysterectomy with BSO- Primary Acquired absence of both cervix and uterus documented in this encounter Care Teams Interlocking Tower Operator Relationship Specialty Start Date End Date Aidan Vizcarra MD [address] [facility] [address] [place] [address] PCP - General Family Medicine 04/20/16 documented as of this encounter
--- OUTSIDE RECORDS SUMMARY | 2024-06-20 10:54 | XMS_ITS | Encounter Summary ---
Author Organization [facility] Address [address] [place] [address] Care Team Providers Care Bass String Winder Name Role Phone Aidan Vizcarra MD Primary Care Provider [phone] Encounter Details Date Type Department Care Team (Late st Contact Info) Description 10/16/2022 Telephone [facility] OBGYN [address] [phone] Shara Timmons MD 1700 [facility] [address] [place], [place] [id number] Social History Tobacco Use Types Packs/Day Years [...] or training? Not on file Preferred Language Slovak 06/22/2022 Comments No Sex and Gender Information Value Date Recorded Sex Assigned at Not on file Legal Sex Female 11:45 AM EDT Gender Identity Not on file Sexual Orientation Not on file documented as of this encounter Miscellaneous Notes * Telephone Encounter - Benigno Khan RN - 10/16/2022 3:16 PM EDT PA received for [place]. We have a current PA. The pharmacist will investigate and call me back. The pharmacist called back and they think the PA is not syncing up with the plan ID so they will callher insurance and see if they can work it out. documented in this encounter Plan of Treatment Upcoming Encounters Date Type Department Care Team (Late st Contact Info) Description 09/02/2024 3:30 PM EST Office Visit [facility] OBGYN [address] [phone] Shara Timmons MD [address] [address] documented as of this encounter Visit Diagnoses Not on filedocumented in this encounter Care Teams Bass String Winder Relationship Specialty Start Date End Date Aidan Vizcarra MD [address] [facility] [address] [place] [address] PCP - General Family Medicine 04/20/16 documented as of this encounter
--- OUTSIDE RECORDS SUMMARY | 2024-06-20 10:54 | XMS_ITS | Encounter Summary ---
[facility] Address [address] [phone] Care Team Providers Care Director Microbiology Name Role Phone Aidan Vizcarra MD Primary Care Provider [phone] Reason for Visit * Reason Comments Post-op Encounter Details Date Type Department Care Team (Late st Contact Info) Description 07/18/2022 2:10 PM EST Office Visit [facility] OBGYN [address] [phone] Shara Timmons MD 1700 [facility] [address] [place], [place] [phone] Status post laparoscopic hysterectomy with BSO (Primary [...] or training? Not on file Preferred Language Peruvian 06/22/2022 Comments No Sex and Gender Information Value Date Recorded Sex Assigned at Not on file Legal Sex Female 11:45 AM EDT Gender Identity Not on file Sexual Orientation Not on file documented as of this encounter Last Filed Vital Signs Vital Sign Reading Time Taken Comments Blood Pressure 120/76 07/18/2022 2:30 PM EST Pulse - - Temperature - - Respiratory Rate - - Oxygen Saturation - - Inhaled Oxygen Concentration - - Weight 99.8 kg (220 lb) 07/18/2022 2:30 PM EST Height 162.6 cm (5' 4 ) 07/18/2022 2:30 PM EST Body Mass Index 37.76 07/18/2022 2:30 PM EST documented in this encounter Progress Notes * Shara Timmons MD - 07/18/2022 2:10 PM EST Images from the original note were not included. OBGYN Postoperative Exam Note Subjective Chief Complaint Patient presents with ??? Post-op Hannah Tobar is a 41 y.o. year old presenting to be seen for her post-operative visit. She is S/P TLH with bilateral salpingo-oophorectomy, lysis of adhesions, and cystoscopy on 06/28/2022 at [facility] for Chronic Pelvic Pain, Ovarian Cyst and Symptomatic Endometriosis. Currentlyshe reports no problems with eating, bowel movements, voiding, or wound drainage and pain is well controlled. Patient reports mild discomfort in LLQ with movement. Patient describes discomfort as a dull ache. The results were discussed with Hannah. OTHER THINGS SHE WANTS [...] ovarian syndrome) ??? PMS (premenstrual syndrome) ??? PONV (postoperative nausea and vomiting) ??? Urinary tract infection ??? Uterine prolapse ??? Vitamin D deficiency Past Surgical History: Procedure Laterality Date ??? CERVICAL CERCLAGE ??? SECTION 2005 ??? CHOLECYSTECTOMY ? ? D & C [...] ADHESIONS, CYSTOSCOPY; Surgeon: Shara Timmons MD; Location: [facility]; Service: Obstetrics/Gynecology; Laterality: Bilateral; ??? TUMOR EXCISION NOSE--BENIGN The following portions of the patient's history were reviewed and updated as appropriate:current medications and allergies Review of Systems Constitutional: Negative. HENT: Negative. Eyes: Negative. Respiratory: Negative. Cardiovascular: Negative. Gastrointestinal: Positive for abdominal pain. Endocrine: Negative. Genitourinary: Negative. Musculoskeletal: Negative. Skin: Negative. Allergic/Immunologic: Negative. Neurological: Negative. Hematological: Negative. Psychiatric/Behavioral: Negative. Objective BP 120/76 Ht 162.6 cm (64 ) Wt 99.8 kg (220 lb) LMP 05/27/2022 BMI 37.76 kg/m?? Physical Exam Vitals and nursing note reviewed. Constitutional: Appearance: She is well-developed. HENT: Head: Normocephalic and atraumatic. Pulmonary: Effort: Pulmonary effort is normal. Abdominal: General: A surgical scar is present. Palpations: Abdomen is soft. Abdomen is not rigid. Comments: Clean, Dry, and Intact. No erythema. Musculoskeletal: Cervical back: Normal range of motion. Neurological: Mental Status: She is alert and oriented to person, place, and time. Psychiatric: Mood and Affect: Mood normal. Behavior: Behavior normal. Assessment 1. S/P TLH/BSO Plan 1. May return to full activity with no restrictions 2. The importance of keeping all planned follow-up and taking all medications as prescribed was emphasized. 3. Return in about 4 weeks (around 08/15/2022). Shara Timmons MD 07/18/2022 documented in this encounter Plan of Treatment Upcoming Encounters Date Type Department Care Team (Late st Contact Info) Description 09/02/2024 3:30 PM EST Office Visit [facility] OBGYN [address] [phone] Shara Timmons MD [address] [address] documented as of this encounter Visit Diagnoses Diagnosis Status post laparoscopic hysterectomy with BSO- Primary Acquired absence of both cervix and uterus documented in this encounter Care Teams Director Microbiology Relationship Specialty Start Date End Date Aidan Vizcarra MD [address] [facility] [address] [place] [address] PCP - General Family Medicine 04/20/16 documented as of this encounter
--- OUTSIDE RECORDS SUMMARY | 2024-06-20 10:55 | XMS_ITS | Encounter Summary ---
Author Organization [facility] Address [address] [place] [address] Care Team Providers Care Aggregate Conveyor Operator Name Role Phone Unavailable Primary Care Provider Unavailabl e Encounter Details Date Type Department Care Team (Late st Contact Info) Description 04/06/2009 Conversion Encounter [facility] [address] [place] [address] Interface, See Report Social History Tobacco Use Types Packs/Day Years [...] 09/02/2024 3:30 PM EST Office Visit [facility] OBGYN [address] [phone] Shara Timmons MD [address] [address] documented as of this encounter Procedures Procedure Name Priority Date/Time Associated Diagnosis Comments CONVERTED (HISTORICAL) SURGICAL PATHOLOGY Routine 04/06/2009 9:40 AM EDT documented in this encounter Results * Converted Surgical Pathology (04/06/2009 9:40 AM EDT) 04/06/2009 9:40 AM EDT Narrative [facility] - 04/07/2009 3:55 PM EDT [facility] SURGICAL PATHOLOGY REPORT Patient Name: LORENZO TOBAR MR#: [id number] : 1980 Gender: F Ordering Physician: ROSANA ??WALID Copy To: [facility] Location: [facility] Collected: 04/06/2009 Received: 04/06/2009 Reported: 04/07/2009 Clinical Diagnosis and History The working history is biliary colic. Final Diagnosis GALLBLADDER: ? Chronic cholecystitis with microscopic cholesterolosis. ??[facility] Amendments: Electronically Signed Out By Anselmo El M.D. Specimen(s) Received: Gallbladder Gross Description The specimen, labeled gallbladder and contents, received in formalin, consists of a 10.0x3.8x3.0 cm intact gallbladder including up to 0.5 cm of attached cystic duct. ??The serosa is martin/purple, smooth and glistening with prominent vasculature. ??The lumen contains an abundant amount of shad viscid bile. ??No choleliths are appreciated. ??The mucosa is martin and velvety, and the wall thickness averages 0.2 cm. ??No masses are appreciated. ??Curtain Drier sections to include the cystic duct margin, neck, body and fundus are submitted in one cassette. ??HM/mbc ?? Microscopic Description Sections show mucosal distortion with focal collections of foamy histiocytes. There is otherwise an increase in chronic inflammatory cells and perimuscular fibrosis. There is no significant atypia. ??JFJ/mbc Procedures/Addenda us See Report Interface PATHOLOGY/CYTOLOGY ORDERABL ES Final Result [facility] [address] [phone], documented in this encounter Visit Diagnoses Not on filedocumented in this encounter
--- OUTSIDE RECORDS SUMMARY | 2024-06-20 10:55 | XMS_ITS | Encounter Summary ---
Author Organization [facility] Address [address] [place] [address] Care Team Providers Care Fibrous Plasterer Name Role Phone Aidan Vizcarra MD Primary Care Provider [phone] Reason for Visit * Reason Comments Gynecologic Exam Encounter Details Date Type Department Care Team (Latest Contact Info) Description 06/20/2017 1:00 PM EST Office Visit [facility] GYNECOLOGY [address] [facility] [address] [place] [address] Harjinder Marshall MD Encounter for gynecological examination without abnormal finding (Primary Dx); Clostridium difficile infection Social History Tobacco Use Types Packs/Day Years [...] Sign Reading Time Taken Comments Blood Pressure 106/70 06/20/2017 1:08 PM EST Pulse - - Temperature - - Respiratory Rate - - Oxygen Saturation - - Inhaled Oxygen Concentration - - Weight 89.8 kg (198 lb) 06/20/2017 1:08 PM EST Height 165.1 cm (5' 5 ) 06/20/2017 1:08 PM EST Body Mass Index 32.95 06/20/2017 1:08 PM EST documented in this encounter Progress Notes * Harjinder Marshall MD - 06/20/2017 1:00 PM EST Chief Complaint Patient presents with ??? Gynecologic Exam Hannah Renaker is a 36 y.o. year old presenting to be seen for her annual exam.This patient has had a partial left nephrectomy for renal cell carcinoma of the left kidney. She currently has Clostridium difficile colitis and is on her third regimen of vancomycin. She complains of persistent diarrhea and anal pruritus. She has discontinued oral contraceptives and her last several periods have been normal. She has a prior history of oligomenorrhea. SCREENING TESTS Year 2011 Age PAP Neg. HPV high risk Mammogram benign HAVEN score Breast MRI Lipids Vitamin D Colonoscopy DEXA Frax (hip/any) Ovarian Screen She exercises regularly: no. She wears her seat belt: yes. She has concerns about domestic violence: no. She has noticed changes in height: no SANIPRACTIC PHYSICIAN screening history: ?? Last pap: was done on approximately 04/20/2016 and the result was: normal PAP. ?? Last mammogram: was done on approximately 05/02/2016 and the result was: Birads I (Normal).. No Additional Complaints Reported The following portions of the patient's history were reviewed and updated as appropriate:vital signs and She does not have any pertinent problems on file. She has a past surgical history that includes section; Ovarian cyst removal (Left); Cholecystectomy; d&c hysteroscopy laparoscopy; Tumor excision; Cervical cerclage; and Laparoscopic partial nephrectomy (Left). Her family history is not on file. She reports that she has never smoked. She has never used smokeless tobacco. She reports that she does not drink alcohol or use illicit drugs. Current Outpatient Prescriptions Medication Sig Dispense Refill ??? ondansetron ODT (ZOFRAN-ODT) 4 MG disintegrating tablet Take 1 tablet by mouth As Needed. ??? vancomycin (VANCOCIN) 125 MG capsule Take 1 capsule by mouth 4 (Four) Times a Day. ??? vitamin D (ERGOCALCIFEROL) 69599 units capsule capsule Take 1 capsule by mouth 1 (One) Time PerWeek. No current facility-administered medications for this visit. She is allergic to lidocaine-epinephrine and penicillins.. Review of Systems A comprehensive review of systems was taken. Constitutional: negative for fever, chills, activity change, appetite change, fatigue and unexpected weight change. Respiratory: negative Cardiovascular: negative Gastrointestinal: positive for diarrhea and anal itching Genitourinary:negative Musculoskeletal:negative Behavioral/Psych: negative BP 106/70 Ht 165.1 cm (65 ) Wt 89.8 kg (198 lb) LMP 06/12/2017 (Exact Date) BMI 32.95 kg/m2 Physical Exam General: alert; cooperative; well developed; well nourished Skin: No suspicious lesions seen Thyroid: normal to inspection and palpation Lungs: clear to auscultation bilaterally Heart: regular rate and rhythm, S1, S2 normal, no murmur, click, rub or gallop Breasts: Examined in supine position Symmetric without masses or skin dimpling Nipples normal without inversion, lesions or discharge There are no palpable axillary nodes Fibrocystic changes are present both breasts without a discrete mass Abdomen: soft, non-tender; no masses no umbilical or inginual hernias are present no hepato-splenomegaly Pelvis: Clinical staff was present for exam External genitalia: normal appearance of the external genitalia including Bartholin's and Emsworth's glands. Vaginal: normal pink mucosa without prolapse or lesions. Cervix: normal appearance. Uterus: normal size, shape and consistency. anteverted; Adnexa: normal bimanual exam of the adnexa. Rectal: anus visually normal appearing. recto-vaginal exam unremarkable and confirms findings; Lab Review No data reviewed Imaging Mammogram results- benign ASSESSMENT Problems Addressed this Visit Digestive Clostridium difficile infection Other Visit Diagnoses Encounter for gynecological examination without abnormal finding - Primary Relevant Orders Liquid-based Pap Smear, Screening - ThinPrep Vial, Cervix, Endocervix PLAN Medications prescribed this encounter: New Medications Ordered This Visit Medications ??? vitamin D (ERGOCALCIFEROL) 40055 units capsule capsule Sig: Take 1 capsule by mouth 1 (One) Time Per Week. ??? ondansetron ODT (ZOFRAN-ODT) 4 MG disintegrating tablet Sig: Take 1 tablet by mouth As Needed. ??? vancomycin (VANCOCIN) 125 MG capsule Sig: Take 1 capsule by mouth 4 (Four) Times a Day. ?? Pap test done ?? Monthly self breast assessment ?? Follow up CT scan of abdomen and pelvis ?? Calcium, 600 mg/ Vit. D, 400 IU daily; regular weight-bearing exercise ?? Follow up: 12 month(s) *Please note that portions of this documentation may have been completed with a voice recognition program. Efforts were made to edit this dictation, but occasional words may have been mistranscribed. This note was electronically signed. Khanh Marshall MD June 20, 2017 1:34 PM documented in this encounter Plan of Treatment Upcoming Encounters Date Type Department Care Team (Late st Contact Info) Description 09/02/2024 3:30 PM EST Office Visit [facility] OBGYN [address] [facility] [address] [place] [phone] Shara Timmons MD [address] [address] Scheduled Orders Name Type Priority Associated Diagnoses Orde r Schedule Liquid-based Pap Smear, Screening - ThinPrep Vial, Cervix, Endocervix Pathology and Cytology Routine Encounter for gynecological examination without abnormal finding Ordered: 06/20/2017 documented as of this encounter Visit Diagnoses Diagnosis Encounter for gynecological examination without abnormal finding- Primary Clostridium difficile infection Infection due to other anaerobes in conditions classified elsewhere and of unspecified site documented in this encounter Care Teams Fibrous Plasterer Relationship Specialty Start Date End Date Aidan Vizcarra MD 1210 [facility] [address] [facility] [address] [place] [address] PCP - General Family Medicine 04/20/16 documented as of this encounter
--- OUTSIDE RECORDS SUMMARY | 2024-06-20 10:55 | XMS_ITS | Encounter Summary ---
Author Organization [facility] Address [address] [place] [address] Care Team Providers Care Janitorial Maintenance Worker Name Role Phone Aidan Vizcarra MD Primary Care Provider + [phone] Reason for Visit * Reason Comments Annual Exam patient states that she either has some urinary leakage or increased discharge. stays wet all the time, has to wear panty liner. feels that she doesn't empty her bladder completely. Encounter Details Date Type Department Care Team (Latest Contact Info) Description 07/15/2020 9:15 AM EST Office Visit [facility] GYNECOLOGY [address] [facility] [address] [place] [address] Harjinder Marshall MD Fibrocystic breast changes, bilateral (Primary Dx); Mixed incontinence; Encounter for gynecological examination without abnormal finding; Vaginal candidiasis Social History Tobacco Use Types Packs/Day Years [...] Sign Reading Time Taken Comments Blood Pressure 130/86 07/15/2020 9:18 AM EST Pulse - - Temperature - - Respiratory Rate - - Oxygen Saturation - - Inhaled Oxygen Concentration - - Weight 98.1 kg (216 lb 3.2 oz) 07/15/2020 9:18 A M EST Height 165.1 cm (5' 5 ) 07/15/2020 9:18 AM EST Body Mass Index 35.98 07/15/2020 9:18 AM EST documented in this encounter Progress Notes * Harjinder Marshall MD - 07/15/2020 9:15 AM EST Chief Complaint Patient presents with ??? Annual Exam patient states that she either has some urinary leakage or increased discharge. stays wet all the time, has to wear panty liner. feels that she doesn't empty her bladder completely. Hannah Tobar is a 39 y.o. year old presenting to be seen for her annual exam. This patient has a prior history of a renal cell carcinoma of the left kidney with a left partial nephrectomy by Dr. Chu. She has had a cervical cerclage and a section. I did a diagnostic laparoscopy and a hysteroscopy/D&C procedure on her. She has noted occasional leakage of urine. She is also noted increased moisture in the vagina. She denies itching or burning. She denies bowel symptoms. SCREENING TESTS Year 2011 Age PAP Neg. HPV high risk Mammogram benign HAVEN score Breast MRI Lipids Vitamin D Colonoscopy DEXA Frax (hip/any) Ovarian Screen She exercises regularly: yes. She wears her seat belt: yes. She has concerns about domestic violence: no. She has noticed changes in height: no TUNNEL MINER screening history: ?? Last pap: was done on approximately 06/24/2018 and the result was: normal PAP. ?? Last mammogram: was done on approximately 02/20/2020 and the result was: Birads I (Normal).. No Additional Complaints Reported The following portions of the patient's history were reviewed and updated as appropriate:vital signs and She has a past medical history of Cancer of kidney, left (CMS/HCC), Clostridium difficile infection, Fibrocystic breast changes, bilateral, Mixed incontinence, Oligomenorrhea, PCOS (polycystic ovarian syndrome), Uterine prolapse, and Vitamin D deficiency. She does not have any pertinent problems on file. She has a past surgical history that includes section; Ovarian cyst removal (Left); Cholecystectomy; d&c hysteroscopy laparoscopy; Tumor excision; Cervical cerclage; Laparoscopic partialnephrectomy (Left); Lipoma Excision; and Kidney stone surgery. Her family history is not on file. She reports that she has never smoked. She has never used smokeless tobacco. She reports that she does not drink alcohol or use drugs. Current Outpatient Medications Medication Sig Dispense Refill ??? cetirizine (zyrTEC) 10 MG tablet Take 10 mg by mouth Daily. ??? fluconazole (Diflucan) 150 MG tablet Take 1 tablet by mouth Every Other Day for 3 doses. 1 Every other day 3 tablet 1 ??? HAVRIX 1440 EL U/ML vaccine No current facility-administered medications for this visit. She is allergic to lidocaine-epinephrine; penicillins; and cefdinir.. Review of Systems A review of systems was taken. She denies cough, fever, shortness of breath, and loss of her sense of taste or smell Constitutional: negative for fever, chills, activity change, appetite change, fatigue and unexpected weight change. Respiratory: negative Cardiovascular: negative Gastrointestinal: negative Genitourinary:positive for urinary incontinence Musculoskeletal:negative Behavioral/Psych: negative Counseling/Anticipatory Guidance Discussed: nutrition, physical activity, healthy weight, screenings and self-breast exam BP 130/86 Ht 165.1 cm (65 ) Wt 98.1 kg (216 lb 3.2 oz) LMP 06/26/2020 (Exact Date) No BMI 35.98 kg/m?? MEDICALLY INDICATED Physical Exam General: alert; cooperative; well developed; well nourished Skin: No suspicious lesions seen Thyroid: normal to inspection and palpation Lungs: breathing is unlabored clear to auscultation bilaterally Heart: regular rate and rhythm, S1, S2 normal, no murmur, click, rub or gallop normal apical impulse Breasts: Examined in supine position Symmetric without masses or skin dimpling Nipples normal without inversion, lesions or discharge There are no palpable axillary nodes Abdomen: soft, non-tender; no masses no umbilical or inguinal hernias are present no hepato-splenomegaly Pelvis: Clinical staff was present for exam External genitalia: normal appearance of the external genitalia including Bartholin's and [place]'s glands. Vaginal: discharge present - white and thick; pH = 4.0 wet prep done: pseudo- hyphae are present; Cervix: normal appearance. Uterus: normal size, shape and consistency. anteverted; Adnexa: normal bimanual exam of the adnexa. Rectal: anus visually normal appearing. recto-vaginal exam unremarkable and confirms findings; Lab Review Pap results Imaging Mammogram results Advance directives- NO (I have mentioned establishment of advanced directives to the patient) ASSESSMENT Problems Addressed this Visit Other Mixed incontinence Fibrocystic breast changes, bilateral - Primary Other Visit Diagnoses Encounter for gynecological examination without abnormal finding Vaginal candidiasis Relevant Medications fluconazole (Diflucan) 150 MG tablet Diagnoses Codes Comments Fibrocystic breast changes, bilateral - Primary ICD-10-CM: N60.11, N60.12 ICD-9-CM: 610.1 Mixed incontinence ICD-10-CM: N39.46 ICD-9-CM: 788.33 Encounter for gynecological examination without abnormal finding ICD-10-CM: Z01.419 ICD-9-CM: V72.31 Vaginal candidiasis ICD-10-CM: B37.3 ICD-9-CM: 112.1 Substance History: reports that she has never smoked. She has never used smokeless tobacco. reports no history of alcohol use. reports no history of drug use. Substance use counseling is not indicated based on patient history. PLAN Medications prescribed this encounter: New Medications Ordered This Visit Medications ??? fluconazole (Diflucan) 150 MG tablet Sig: Take 1 tablet by mouth Every Other Day for 3 doses. 1 Every other day Dispense: 3 tablet Refill: 1 ?? Monthly self breast assessment and annual breast imaging ?? Urology follow-up ?? Calcium, 600 mg/ Vit. D, 400 IU daily; regular weight-bearing exercise ?? Follow up: 12 month(s) *Please note that portions of this documentation may have been completed with a voice recognition program. Efforts were made to edit this dictation, but occasional words may have been mistranscribed. This note was electronically signed. Khanh Marshall MD July 15, 2020 09:50 EST documented in this encounter Plan of Treatment Upcoming Encounters Date Type Department Care Team (Late st Contact Info) Description 09/02/2024 3:30 PM EST Office Visit [facility] OBGYN [address] [facility] [address] [place] [address] Shara Timmons MD [address] [facility] [address] [place] [address] documented as of this encounter Visit Diagnoses Diagnosis Fibrocystic breast changes, bilateral- Primary Mixed incontinence Mixed incontinence urge and stress (male)(female) Encounter for gynecological examination without abnormal finding Vaginal candidiasis Candidiasis of vulva and vagina documented in this encounter Care Teams Janitorial Maintenance Worker Relationship Specialty Start Date End Date Aidan Vizcarra MD [facility] [address] [place] [address] PCP - General Family Medicine 04/20/16 documented as of this encounter
--- OUTSIDE RECORDS SUMMARY | 2024-06-20 10:55 | XMS_ITS | Encounter Summary ---
Author Organization Healthcare Address [address] [place] [address] Care Team Providers Care Human Relations Teacher Name Role Phone Aidan Vizcarra MD Primary Care Provider [phone] Encounter Details Date Type Department Care Team (Latest Contact Info) Description 03/19/2024 Travel Social History Tobacco Use Types Packs/Day Years Used Date Smoking Tobacco: Never Smokeless Tobacco: Never Alcohol Use Standard Drinks/Week Comments No 0 (1 standard drink = 0.6 oz pur e alcohol) PHQ-2 Answer Date Recorded Patient Health Questionnaire-2 Score 0 12/29/2020 Comments Unknown Sex and Gender Information Value Date Recorded Sex Assigned at Female 12/29/2020 8:42 AM EDT Legal Sex Female 8:46 PM EDT Gender Identity Female 12/29/2020 8:42 AM EDT Sexual Orientation Straight 12/29/2020 8: 42 AM EDT documented as of this encounter Plan of Treatment Upcoming Encounters Date Type Department Care Team (Late st Contact Info) Description 09/18/2024 9:20 AM EST Office Visit [place] [facility] [address] [place] [address] Katie Richmond APRN, DNP [address] [place] [address] 03/25/2025 9:20 AM EDT Appointment [facility] Radiology [address] [place] [address] 03/25/2025 11:40 AM EDT Office Visit [facility] Multidisciplinary Oncology Clinic [address] [place] [address] Nancy Mcbride PA [address] [place] [address] documented as of this encounter Visit Diagnoses Not on filedocumented in this encounter Additional Health Concerns Infection Onset Date Last Indicated Resolved Time C. difficile 12/20/2020 12/20/2020 Assessment Noted Time A fall risk assessment has been complete d for the patient 03/19/2024 2:36 PM EDT A Body Mass Index follow-up plan has been documented for the patient 03/19/2024 3:46 PM EDT documented as of this encounter Care Teams Human Relations Teacher Relationship Specialty Start Date End Date Aidan Vizcarra MD [address] [facility] [address] [place] [address] PCP - General 11/26/20 documented as of this encounter
--- OUTSIDE RECORDS SUMMARY | 2024-06-20 10:55 | XMS_ITS | Encounter Summary ---
Author Organization Healthcare Address [address] [id number] Care Team Providers Care Organic Chemistry Teacher Name Role Phone Aidan Vizcarra MD Primary Care Provider [phone] Reason for Visit * Reason Onset Date Comments HCN - Patient Message 01/24/2024 Encounter Details Date Type Department Care Team (Late st Contact Info) Description 01/24/2024 Telephone [facility] Mult[facility] Oncology Clinic [address] [place] [address] Nancy Mcbride PA [address] [facility] [address] [place] [address] HCN - Patient Message Social History Tobacco Use Types Packs/Day Years [...] AM EDT documented as of this encounter Miscellaneous Notes * Telephone Encounter - Susana Mi - 01/24/2024 1:57 PM EDT Called and spoke to patient. We have rescheduled her 03/12 OV to 09/4 due to provider is out of office. Informed that I will try to get the scan rescheduled as well. Will send appointment reminder also. Patient is aware. * Telephone Encounter - Cuate Webblisamanuel Garcia - 01/24/2024 1:22 PM EDT Patient Phone Message Reason for Call: Pt is returning call from clinic to rs her appt.. Best contact number and optimal time of day to reach caller: [phone] Note: Please do not reply to this message. Follow-up communication and further actions as a result of this message need to be communicated with the patient directly, if the patient is not active onMyChart. If the patient is active on MyChart, they will receive notification of the communication/outcome via [employer]. documented in this encounter Plan of Treatment Upcoming Encounters Date Type Department Care Team (Late st Contact Info) Description 09/18/2024 9:20 AM EST [facility] [address] [place] [address] Katie Richmond APRN, DNP [address] [address] 03/25/2025 9:20 AM EDT Appointment [facility] Radiology [address] [place] [address] 03/25/2025 11:40 AM EDT Office Visit [facility] [address] [place] [address] Nancy Mcbride PA [address] [address] documented as of this encounter Visit Diagnoses Not on filedocumented in this encounter Additional Health Concerns Infection Onset Date Last Indicated Resolved Time C. difficile 12/20/2020 12/20/2020 Assessment Noted Time A fall risk assessment has been complete d for the patient 03/07/2023 10:17 AM EDT A Body Mass Index follow-up plan has been documented for the patient 03/08/2023 2:56 PM EDT documented as of this encounter Care Teams Organic Chemistry Teacher Relationship Specialty Start Date End Date Aidan Vizcarra MD [address] [place] [address] PCP - General 11/26/20 documented as of this encounter
--- OUTSIDE RECORDS SUMMARY | 2024-06-20 10:55 | XMS_ITS | Clinical Summary ---
Author Organization [facility] Address [address] [place] [address] Care Team Providers Care Cement Finishing Supervisor Name Role Phone Aidan Vizcarra MD Primary Care Provider + [phone] Katie Richmond APRN, DNP Unavailable + [phone] Allergies Active Allergy Reactions Criticality Noted Date Comments Cefdinir Rash,Unknown - Patie nt states they do not know rxn details Low 01/31/2017 Penicillins Rash,Unknown - Patie nt states they do not know rxn details Low 01/31/2017 Medications Cetirizine HCl (ZyrTEC ALLERGY) 10 MG capsule Zyrtec 10 mg capsule Take by oral route. Active estradiol (Divigel) gel Place 1 Application (0.25 mg) on the skin 1 (one) time each day. 3 Active cyclobenzaprine (Flexeril) 5 MG tablet Take 1 tablet (5 mg) by mouth if needed for muscle spasms. 4 Active montelukast (Singulair) 10 MG tablet Take 1 tablet (10 mg) by mouth every night. 4 Active Fluticasone Furoate-Vilante rol 100-25 MCG/ACT aerosol powder 4 Active Symbicort 160-4.5 MCG/ACT inhaler Inhale 2 puffs 1 (one) time each day. 4 Active Active Problems Problem Noted Date Diagnosed Date Urinary urgency 06/11/2024 Stress incontinence 06/11/2024 Urge incontinence 06/11/2024 Endometriosis, unspecified 03/19/2024 Overview (03/19/2024): Endometriosis Other allergy status, other than to drugs and biological substances 03/19/2024 Overview (03/19/2024): Environmental allergies Personal history of other di seases of the female genital tract 03/19/2024 Overview (03/19/2024): History of polycystic ovarian syndrome Personal history of other malignant neoplasm of kidney 03/19/2024 Overview (03/19/2024): History of malignant neoplasm of kidney Obesity (BMI 35.0-39.9 without comorbidity) 02/14 Renal cell carcinoma 12/29/2020 Assessment & Plan (12/29/2020 12:25 PM EDT): Renal condition is unchanged. Continue current treatment regimen. Renal condition will be reassessed in [address] Renal Mass w/w/o IV contrast at next visit. Plan for renal U/S in [address] Renal Mass w/w/o IV contrast: 12/29/2020 - Postsurgical changes of left partial nephrectomy. No evidence of disease recurrence. Resolved Problems Problem Noted Date Diagnosed Date Resolved Date Colitis due to Clostridium difficile 08/01/2017 12/29/2020 Encounters Date Type Department Care Team Description 06/11/2024 10:20 AM EST Consult [facility] Urology [address] [place] [address] Katie Richmond, DICK, DNP Urinary urgency (Primary Dx); Stress incontinence; Urge incontinence 06/11/2024 Travel from Last 3 Months Family History Medical History Relation Name Comments Heart attack Father Hypertension Father Stroke Father Lung cancer Maternal Grandmother FH: crispin g cancer Hypertension Mother Relation Name Status Comments Father Maternal Grandmother Mother Social History Tobacco Use Types Packs/Day Years Used Date Smoking Tobacco: Never Smokeless Tobacco: Never Alcohol Use Standard Drinks/Week Comments No 0 (1 standard drink = 0.6 oz pur e alcohol) PHQ-2 Answer Date Recorded Patient Health Questionnaire-2 Score 0 06/11/2024 Comments No Sex and Gender Information Value Date Recorded Sex Assigned at Female 12/29/2020 8:42 AM EDT Legal Sex Female 8:46 PM EDT Gender Identity Female 12/29/2020 8:42 AM EDT Sexual Orientation Straight 12/29/2020 8: 42 AM EDT Last Filed Vital Signs Vital Sign Reading Time Taken Comments Blood Pressure 117/71 06/11/2024 10:45 AM EST Pulse 83 06/11/2024 10:45 AM EST Temperature 36.7 ??C (98 ??F) 06/11/2024 10:45 AM EST Respiratory Rate 16 06/11/2024 10:45 AM EST Oxygen Saturation 96% 06/11/2024 10:45 AM EST Inhaled Oxygen Concentration - - Weight 110 kg (242 lb 8.1 oz) 06/11/2024 10:45 A M EST Height 162.6 cm (5' 4 ) 06/11/2024 10:45 AM EST Body Mass Index 41.63 06/11/2024 10:45 AM EST Plan of Treatment Upcoming Encounters Date Type Department Care Team (Late st Contact Info) Description 09/18/2024 9:20 AM EST Office Visit [place] [facility] [address] [place] [address] Katie Richmond APRN, DNP [address] [facility] [place] [address] 03/25/2025 9:20 AM EDT Appointment [facility] [address] [place] [address] 03/25/2025 11:40 AM EDT Office Visit [facility] [address] [place] [address] Nancy Mcbride PA [address] [place] [address] Health Maintenance Due Date Last Done Comments [facility]-HIV Screening 1979 [facility]-Hepatitis C Screening 1979 [facility]-/Child/Adol SDOH Screenings 1979 [facility]-Pneumococcal Vaccine: Pediatrics (0 to 5 Years) and At-Risk Patients (6 to 64 Years) (1 of 2 - PCV) 11/17/1985 [facility]-Varicella Vaccines (1 of 2 - 13+ 2-dose series) 11/17/1992 [facility]- SDOH Screenings 11/17/1997 [facility]-Adult SDOH Screenings 11/17/1997 [facility]-DTaP,Tdap,and Td Vaccines (1 - Tdap) 11/17/1998 [facility]-Hepatitis B Vaccines (1 of 3 - 19+ 3-dose series) 11/17/1998 [facility]-Zoster Vaccines (1 of 2) 11/17/1998 [id number] Vaccine (3 - Pfizer risk series) 12/09/2020 11/11/2020, 10/14/2020 [facility]-Depression Screening 06/11/2025 06/11/2024 [facility]-RSV Vaccine: 60+ Years or (1 - 1-dose 75+ series) 11/17/2054 [facility]-Hepatitis A Vaccines Aged Out 12/24/2018, 01/2018 No longer eligible based on patient's age to complete this topic [facility]-Influenza Vaccine Completed 04/30/2024 , 05/24/2023, 05/18/2022, Additional history exists [facility]-Obesity Intervention Completed 024, 03/19/2024, 03/07/2023 [facility]-HIB Vaccines Aged Out No longer e ligible based on patient's age to complete this topic [facility]-HPV Vaccines Aged Out No longer e ligible based on patient's age to complete this topic [facility]-IPV Vaccines Aged Out No longer e ligible based on patient's age to complete this topic [facility]-Rotavirus Vaccines Aged Out No lo nger eligible based on patient's age to complete this topic Procedures Procedure Name Priority Date/Time Associated Diagnosis Comments POC US BLADDER SCAN FOR VOLUME Routine 06/11/2024 10:45 AM EST Urinary urgency POCT URINALYSIS DIPSTICK Routine 06/11/2024 10:37 AM EST from Last 3 Months Results * POC US Bladder Volume (06/11/2024 10:45 AM EST) Urine, Volume 0 mL IMAGING Anatomical Region Laterality Modality Other us Katie Richmond APRN, [facility] POINT OF CARE ULTR ASOUND Final Result * (ABNORMAL) POCT URINALYSIS DIPSTICK (06/11/2024 10:37 AM EST) POCT Urine Color Yellow 06/11/2024 10:38 AM EST [facility] PO[facility] Urine Clarity Clear 06/11/2024 10:38 AM EST [facility] PO[facility] Urine Glucose Negative Negative mg/dL 06/11/2024 10:38 AM EST [facility] POCT Urine Bilirubin Negative Negative mg/dL 06/11/2024 10:38 AM EST [facility] UROLOGY POCT Urine Ketones Negative Negative mg/dL 06/11/2024 10:38 AM EST [facility] UROLOG[facility] POCT Urine Specific Dawson >=1.030 1.005 - 1.030 06/11/2024 10:38 AM EST [facility] PO[facility] Urine Blood Small(A) Negative 06/11/2024 10:38 AM EST [facility] UROLOGY POCT pH, Urine 5.5 4.5 to 8.0 06/11/2024 10:38 AM EST [facility] UROLOG[facility] POCT Protein, Urine Negative Negative mg/dL 06/11/2024 10:38 AM EST [facility] UR[facility] POCT Urobilinogen, Urine 0.2 0.2, 1.0 EU/dL 06/11/2024 10:38 AM EST [facility] UROLOG[facility] POCT Nitrite, Urine Negative Negative 06/11/2024 10:38 AM EST [facility] UR[facility] POCT Urine Leukocyte Esterase Negative Negative 06/11/2024 10:38 AM EST [facility] UR[facility] Urine 06/11/2024 10:3 7 AM EST 06/11/2024 10:38 AM EST us Katie Richmond APRN, [facility] POINT OF C ARE TEST DOCKED DEVICE UNSOLICITED RESULTS Final Result [facility] UROLOG[facility] [address], [place] from Last 3 Months Additional Health Concerns Infection Onset Date Last Indicated C. difficile 12/20/2020 12/20/2020 Insurance ANTHEM Care Teams Cement Finishing Supervisor Relationship Specialty Start Date End Date Aidan Vizcarra MD [address] [facility] [address] [place] [address] PCP - General 11/26/20 Katie Richmond APRN, DNP [address] [facility] [address] [place] [address] Nurse Practitioner Urology 06/11/24
--- OUTSIDE RECORDS SUMMARY | 2024-06-20 10:55 | XMS_ITS | Encounter Summary ---
Author Organization Healthcare Address [address] [place] [address] Care Team Providers Care Reheat Furnace Operator Name Role Phone Aidan Vizcarra MD Primary Care Provider [phone] Encounter Details Date Type Department Care Team (Latest Contact Info) Description 03/07/2023 Travel Social History Tobacco Use Types Packs/Day [...] Office Visit [place] [facility] [address] [place] [address] Katie Richmond APRN, DNP [address] [place] [address] 03/25/2025 9:20 AM EDT Appointment [facility] Radiology [address] [place] [address] 03/25/2025 11:40 AM EDT Office Visit [facility] Multidisciplinary Oncology Clinic [address] [place] [address] Nancy Mcbride PA [address] [place] [address] documented as of this encounter Visit Diagnoses [...] documented as of this encounter Care Teams Reheat Furnace Operator Relationship Specialty Start Date End Date Aidan Vizcarra MD [address] [facility] [address] [place] [address] PCP - General 11/26/20 documented as of this encounter
--- OUTSIDE RECORDS SUMMARY | 2024-06-20 10:55 | XMS_ITS | Encounter Summary ---
[facility] Address [address] [id number] Care Team Providers Care Answerer Name Role Phone Provider, No Known Primary Care Provider Unavail able Encounter Details Date Type Department Care Team (Latest Contact Info) Description 09/15/2015 3:42 PM EST - 09/15/2015 11:59 PM EST Hospital Encounter [address] [address] Harjinder Marshall MD Discharge Disposition: Home or Self Care Social [...] Description 09/02/2024 3:30 PM EST Office Visit [facility] OBGYN [address] [address] Shara Timmons MD [address] [id number] documented as of this encounter Visit Diagnoses Not on filedocumented in this encounter Care Teams Answerer Relationship Specialty Start Date End Date Provider, No Known [facility] [place] [address] PCP - General 09/15/15 04/19/16 documented as of this encounter
--- OUTSIDE RECORDS SUMMARY | 2024-06-20 10:55 | XMS_ITS | Encounter Summary ---
Author Organization [facility] ystem Address [address] [id number] Care Team Providers Care Custodial Manager Name Role Phone Unavailable Primary Care Provider Unavailabl e Encounter Details Date Type Department Care Team (Late st Contact Info) Description 03/26/2014 2:36 PM EDT - 03/26/2014 11:59 PM EDT Hospital Encounter [place] [phone] Harjinder Marshall MD Social History Tobacco Use Types Packs/Day Years [...] Description 09/02/2024 3:30 PM EST Office Visit [facility] OBGYN [address] [phone] Shara Timmons MD [address] [phone] documented as of this encounter Visit Diagnoses Not on filedocumented in this encounter
--- OUTSIDE RECORDS SUMMARY | 2024-06-20 10:55 | XMS_ITS | Encounter Summary ---
Author Organization [facility] Address [address] [place] [address] Care Team Providers Care Jewelry Inspector Name Role Phone Unavailable Primary Care Provider Unavailabl e Encounter Details Date Type Department Care Team (Late st Contact Info) Description 02/25/2004 Conversion Encounter [facility]ORICAL CONV [address] [place] [address] Interface, See Report Social History [...] Description 09/02/2024 3:30 PM EST Office Visit [facility] OBGYN [address] [address] Shara Timmons MD [address] [address] documented as of this encounter Procedures Procedure Name Priority Date/Time Associated Diagnosis Comments CONVERTED (HISTORICAL) SURGICAL PATHOLOGY Routine 02/25/2004 11:46 AM EDT documented in this encounter Results * Converted Surgical Pathology (02/25/2004 11:46 AM EDT) 02/25/2004 11:4 6 AM EDT Narrative [facility] - 02/26/2004 11:40 AM EDT [facility] SURGICAL PATHOLOGY REPORT Patient Name: AMAIRANI TOBAR MR#: [id number] : 78 Gender: F Ordering Physician: LEXX CAREY :6C Copy To: [facility] [place] Location: OP Collected: 02/25/04 Received: 02/25/04 Reported: 02/26/04 Clinical Diagnosis and History The working history is left adnexal cyst, RLQ pain, polycystic ovaries. Final Diagnosis FOLLICLE CYST FROM LEFT OVARY. Electronically Signed Out By Luis Addison M.D. Specimen(s) Received: Ovary, cyst, non-neoplastic Gross Description The specimen, labeled left cyst wall, consists of a 3.0 x 1.5 x 0.5 cm aggregate of soft martin to mg membranous portions of tissue. ??The specimen is entirely submitted. ??JM/my Microscopic Description Sections of the cyst wall demonstrate a follicle type lining without atypicality. us See Report Interface PATHOLOGY/CYTOLOGY ORDERABL ES Final Result [facility] [address] [place] [address], documented in this encounter Visit Diagnoses Not on filedocumented in this encounter
--- OUTSIDE RECORDS SUMMARY | 2024-06-20 10:55 | XMS_ITS | Encounter Summary ---
Author Organization [facility] Address [address] [id number] Care Team Providers Care Tennis Coach Name Role Phone Aidan Vizcarra MD Primary Care Provider [phone] Reason for Referral * Imaging (Routine) - Closed Specialty Diagnoses / Procedures Referred By Marly arce Referred To Contact Radiology Diagnoses Renal cell carcinoma of left kidney (CMS/HCC) Procedures US Renal Complete Nancy Mcbride PA [address] [address] Phone: tel: fax: Referral ID Status Reason Start Date Expiration Date Visits Re quested Visits Authorized [id number] Closed 11/06/2023 05/07/2025 1 1 Encounter Details Date Type Department Care Team (Late st Contact Info) Description 11/06/2023 Orders Only [facility] [address] [place] [address] Nancy Mcbride PA [address] [place] [address] Renal cell carcinoma of left kidney (CMS/HCC) (Primary Dx) Social History Tobacco Use Types [...] Office Visit [facility] [address] [place] [address] Katie Richmond, HOME BASED ASSISTANT, DNP [address] [place] [address] 03/25/2025 9:20 AM EDT Appointment [facility] [address] [place] [phone] 03/25/2025 11:40 AM EDT Office Visit [facility] [address] [place] [phone] Nancy Mcbride PA [address] [place] [phone] documented as of this encounter Results * US Renal Complete (03/19/2024 11:08 AM EDT) Anatomical Region Laterality Modality Kidney Ultrasound Impressions 03/19/2024 3:40 PM EDT Unremarkable kidneys CRITICAL RESULT: No. COMMUNICATION: Per this written report. By electronically signing this report, I, the attending physician, attest that I have personally reviewed the images/data for the above examination(s) and agree with the final edited report. Drafted by Paul Talbot MD on 03/19/2024 1:31 PM Final report signed by Gabriel Bosch MD on 03/19/2024 3:40 PM Narrative 03/19/2024 3:40 PM EDT CLINICAL INDICATION: RCC left kidney TECHNIQUE: Multiplanar static and cine mg scale ultrasound images of the kidneys and urinary bladder were obtained, accompanied by selective color Doppler ultrasound images. COMPARISON: CT renal mass from 03/07/2023, 03/08/2022, 12/29/2020 FINDINGS: Right Kidney: Normal in size and echogenicity. Length 10.1 cm. No hydronephrosis or obvious calculi. Left Kidney: Postsurgical change associated with partial nephrectomy of the left kidney. Normal kidney echogenicity. Length 9.5 cm. No hydronephrosis or obvious calculi.. Urinary bladder: Somewhat decompressed but grossly unremarkable. Procedure Note Gabriel Bosch MD - 03/19/2024 CLINICAL INDICATION: RCC left kidney TECHNIQUE: Multiplanar static and cine mg scale ultrasound images of the kidneysand urinary bladder were obtained, accompanied by selective color Dopplerultrasound images. COMPARISON: CT renal mass from 03/07/2023, 03/08/2022, 12/29/2020 FINDINGS: Right Kidney: Normal in size and echogenicity. Length 10.1 cm. Nohydronephrosis or obvious calculi. Left Kidney: Postsurgical change associated with partial nephrectomy ofthe left kidney. Normal kidney echogenicity. Length 9.5 cm. Nohydronephrosis or obvious calculi.. Urinary bladder: Somewhat decompressed but grossly unremarkable. IMPRESSION: Unremarkable kidneys CRITICAL RESULT: No. COMMUNICATION: Per this written report. By electronically signing this report, I, the attending physician, attestthat I have personally reviewed the images/data for the aboveexamination(s) and agree with the final edited report. Drafted by Paul Talbot MD on 03/19/2024 1:31 PM Final report signed by Gabriel Bosch MD on 03/19/2024 3:40 PM us Nancy BLANCHARD IMG US PROCEDURES Final Res ult documented in this encounter Visit Diagnoses Diagnosis Renal cell carcinoma of left kidney (CMS/HCC)- Primary Renal cell carcinoma of left kidney (CMS/HCC) documented in this encounter Additional Health Concerns Infection Onset Date Last Indicated Resolved Time C. difficile 12/20/2020 12/20/2020 Assessment Noted Time A fall risk assessment has been complete d for the patient 03/07/2023 10:17 AM EDT A Body Mass Index follow-up plan has been documented for the patient 03/08/2023 2:56 PM EDT documented as of this encounter Care Teams Tennis Coach Relationship Specialty Start Date End Date Aidan Vizcarra MD [address] [place] [address] PCP - General 11/26/20 documented as of this encounter
--- OUTSIDE RECORDS SUMMARY | 2024-06-20 10:55 | XMS_ITS | Encounter Summary ---
Author Organization [facility] Address [address] [phone] Care Team Providers Care Tank Driver Name Role Phone Aidan Vizcarra MD Primary Care Provider [phone] Encounter Details Date Type Department Care Team (Late st Contact Info) Description 01/24/2024 Telephone [facility] [address] [place] [address] Nancy Mcbride PA [address] [facility] [address] [place] [address] Social History Tobacco Use Types Packs/Day Years [...] Telephone Encounter - Susana Mi - 01/24/2024 1:02 PM EDT Called and left message in regards to rescheduling their OV appointments due to provider is out of office that day. Left office number for call back. documented in this encounter Plan of Treatment Upcoming Encounters Date Type Department Care Team (Late st Contact Info) Description 09/18/2024 9:20 AM EST Office Visit [facility] [address] [place] [phone] Katie Richmond, CENTRAL OFFICE FRAME WIRER, DNP [address] [place] [phone] 03/25/2025 9:20 AM EDT Appointment [facility] [address] [place] [phone] 03/25/2025 11:40 AM EDT Office Visit [facility] [address] [place] [phone] Nancy Mcbride, PA [address] [facility] [address] [place] [phone] documented as of this encounter Visit Diagnoses [...] documented as of this encounter Care Teams Tank Driver Relationship Specialty Start Date End Date Aidan Vizcarra MD [address] [facility] [address] [place] [address] PCP - General 11/26/20 documented as of this encounter
--- OUTSIDE RECORDS SUMMARY | 2024-06-20 10:55 | XMS_ITS | Encounter Summary ---
[facility] Address [address] [place] [address] Care Team Providers Care Laundry Folder Name Role Phone Aidan Vizcarra MD Primary Care Provider [phone] Reason for Visit * Reason Comments Gynecologic Exam Encounter Details Date Type Department Care Team (Latest Contact Info) Description 06/24/2018 2:00 PM EST Office Visit [facility] G[facility]OLOGY [address] [facility] [address] [place] [address] Harjinder Marshall MD Fibrocystic breast changes, bilateral (Primary Dx); Secondary oligomenorrhea; Encounter for gynecological examination without abnormal finding Social History Tobacco Use Types Packs/Day Years [...] Sign Reading Time Taken Comments Blood Pressure 100/66 06/24/2018 2:01 PM EST Pulse - - Temperature - - Respiratory Rate - - Oxygen Saturation - - Inhaled Oxygen Concentration - - Weight 89.2 kg (196 lb 9.6 oz) 06/24/2018 2:01 P M EST Height 165.1 cm (5' 5 ) 06/24/2018 2:01 PM EST Body Mass Index 32.72 06/24/2018 2:01 PM EST documented in this encounter Progress Notes * Harjinder Marshall MD - 06/24/2018 2:00 PM EST Chief Complaint Patient presents with ??? Gynecologic Exam Hannah Tobar is a 37 y.o. year old presenting to be seen for her annual exam. This patienthas previously had a hysteroscopy/D&C/laparoscopy with a left ovarian cystectomy. She has had acholecystectomy. She has had a partial left nephrectomy for carcinoma. She has no evidence of recurrent disease. She has complaints of some swelling in her right axilla. She denies bowel or urinary sy mptoms. SCREENING TESTS Year 2011 Age PAP Neg. HPV high risk Mammogram benign HAVEN score Breast MRI Lipids Vitamin D Colonoscopy DEXA Frax (hip/any) Ovarian Screen She exercises regularly: yes. She wears her seat belt: yes. She has concerns about domestic violence: no. She has noticed changes in height: no AUCTION ASSISTANT screening history: ?? Last pap: was done on approximately 06/20/2017 and the result was: normal PAP. ?? [...] is not on file. She reports that has never smoked. she has never used smokeless tobacco. She reports that she does not drink alcohol or use drugs. Current Outpatient Medications Medication Sig Dispense Refill ??? cetirizine (zyrTEC) 10 MG tablet Take 10 mg by mouth Daily. ??? HAVRIX 1440 EL U/ML vaccine ??? vitamin D (ERGOCALCIFEROL) 09089 units capsule capsule Take 1 capsule by mouth 1 (One) Time PerWeek. No current facility-administered medications for this visit. She is allergic to lidocaine-epinephrine and penicillins.. Review of Systems A comprehensive review of systems was taken. Constitutional: negative for fever, chills, activity change, appetite change, fatigue and unexpected weight change. Respiratory: negative Cardiovascular: negative Gastrointestinal: negative Genitourinary:negative Musculoskeletal:negative Behavioral/Psych: negative BP 100/66 Ht 165.1 cm (65 ) Wt 89.2 kg (196 lb 9.6 oz) LMP 06/03/2018 (Exact Date) BMI 32.72 kg/m?? Physical Exam General: alert; cooperative; well developed; well nourished Skin: No suspicious lesions seen Thyroid: normal to inspection and palpation Lungs: clear to auscultation bilaterally Heart: regular rate and rhythm, S1, S2 normal, no murmur, click, rub or gallop Breasts: Examined in supine position Symmetric without masses or skin dimpling Nipples normal without inversion, lesions or discharge There are no palpable axillary nodes I am unable to feel a mass in the right axilla Abdomen: soft, non-tender; no masses no umbilical or inguinal hernias are present no hepato-splenomegaly Pelvis: Clinical staff was present for exam External genitalia: normal appearance of the external genitalia including [place]'s and [place]'s glands. Vaginal: normal pink mucosa without prolapse or lesions. Cervix: normal appearance. friable; Uterus: normal size, shape and consistency. anteverted; Adnexa: normal bimanual exam of the adnexa. Rectal: anus visually normal appearing. recto-vaginal exam unremarkable and confirms findings; Lab Review No data reviewed Imaging Mammogram results- Birads I ASSESSMENT Problems Addressed this Visit Genitourinary Oligomenorrhea Other Fibrocystic breast changes, bilateral - Primary Other Visit Diagnoses Encounter for gynecological examination without abnormal finding Relevant Orders Liquid-based Pap Smear, Screening PLAN ?? Medications prescribed this encounter: No orders of the defined types were placed in this encounter. ?? Monthly self breast assessment. ?? General surgery follow-up with Dr. PERSAUD ?? Calcium, 600 mg/ Vit. D, 400 IU daily; regular weight-bearing exercise ?? Follow up: 12 month(s) *Please note that portions of this documentation may have been completed with a voice recognition program. Efforts were made to edit this dictation, but occasional words may have been mistranscribed. This note was electronically signed. Khanh Marshall MD June 24, 2018 2:26 PM documented in this encounter Plan of Treatment Upcoming Encounters Date Type Department Care Team (Late st Contact Info) Description 09/02/2024 3:30 PM EST Office Visit [facility] OBGYN [address] [facility] [address] [place] [phone] Shara Timmons MD [address] [address] Scheduled Orders Name Type Priority Associated Diagnoses Orde r Schedule Liquid-based Pap Smear, Screening Pathology and Cytology Routine Encounter for gynecological examination without abnormal finding Ordered: 06/24/2018 documented as of this encounter Visit Diagnoses Diagnosis Fibrocystic breast changes, bilateral- Primary Secondary oligomenorrhea Scanty or infrequent menstruation Encounter for gynecological examination without abnormal finding documented in this encounter Care Teams Laundry Folder Relationship Specialty Start Date End Date Aidan Vizcarra MD [address] [facility] [address] [place] [address] PCP - General Family Medicine 04/20/16 documented as of this encounter
--- OUTSIDE RECORDS SUMMARY | 2024-06-20 10:55 | XMS_ITS | Encounter Summary ---
[facility] [address] [place] [address] Care Team Providers Care Operations Research Scientist Name Role Phone Aidan Vizcarra MD Primary Care Provider [phone] Reason for Visit * Reason Comments Procedure colposcopy Encounter Details Date Type Department Care Team (Late st Contact Info) Description 08/22/2021 8:00 AM EST Office Visit [facility] GYNECOLOGY [address] [phone] Barbie Martinez, DICK Atypical squamous cells of undetermined significance (ASCUS) on Papanicolaou smear of cervix (Primary Dx) Social History Tobacco Use Types [...] Sign Reading Time Taken Comments Blood Pressure 122/88 08/22/2021 8:19 AM EST Pulse - - Temperature - - Respiratory Rate - - Oxygen Saturation - - Inhaled Oxygen Concentration - - Weight 101 kg (223 lb 3.2 oz) 08/22/2021 8:19 AM EST Height 165.1 cm (5' 5 ) 08/22/2021 8:19 AM EST Body Mass Index 37.14 08/22/2021 8:19 AM EST documented in this encounter Progress Notes * Aleisha Maldonado MA - 08/22/2021 8:00 AM ESTAddended by: ALEISHA MALDONADO on: 08/22/2021 09:15 AM Modules accepted: Orders * Mika Srivastava MA - 08/22/2021 8:00 AM ESTAddended by: MIKA SRIVASTAVA on: 08/23/2021 12:48 PM Modules accepted: Orders * Barbie MartinezDICK - 08/22/2021 8:00 AM ESTAssociated Order(s): Colposcopy Post-Procedure Diagnose(s): Atypical squamous cells of undetermined significance (ASCUS) on Papanicolaou smear of cervix Chief Complaint Hannah Tobar is a 40 y.o. female presenting for Procedure (colposcopy) History of Present Illness Very pleasant young woman, here for Colpo of the cx. She has PMHx of twins & had a cerclage. This was her first ABN pap: Recent ASCUS with + HR HPV pool. (She was actually negative for 16, 18, & 45.) We discussed stages of progression vs regression, HPV, and the colposcopic procedure. Consent form was signed. The following portions of the patient's history were reviewed and updated as appropriate: allergies, current medications, past family history, past medical history, past social history, past surgicalhistory and problem list. Allergies Allergen Reactions ??? Lidocaine-Epinephrine Other (See [...] of reaction she had. ??? Cefdinir Rash Current Outpatient Medications: ??? cetirizine (zyrTEC) 10 MG tablet, Take 10 mg by mouth Daily., Disp: , Rfl: ??? HAVRIX 1440 EL U/ML vaccine, , Disp: , Rfl: Past Medical History: Diagnosis Date ??? Cancer of kidney, left (HCC) ??? Clostridium difficile infection ??? Mixed incontinence ??? Oligomenorrhea ??? PCOS (polycystic ovarian syndrome) ??? Uterine prolapse ??? Vitamin D deficiency Past Surgical History: Procedure Laterality Date ??? CERVICAL CERCLAGE ??? SECTION ??? CHOLECYSTECTOMY ? ? D & C HYSTEROSCOPY LAPAROSCOPY ??? KIDNEY STONE SURGERY ??? LAPAROSCOPIC PARTIAL NEPHRECTOMY Left ??? LIPOMA EXCISION back ??? OVARIAN CYST REMOVAL Left laser drilling ??? TUMOR EXCISION NOSE--BENIGN Objective BP 122/88 Ht 165.1 cm (65 ) Wt 101 kg (223 lb 3.2 oz) LMP 08/05/2021 (Exact Date) No BMI 37.14 kg/m?? Physical Exam Genitourinary: Labia: Right: No lesion. Left: No lesion. Vagina: No vaginal discharge or erythema. Cervix: Discharge and friability present. Comments: Abundant mid-cycle type, clear mucoid discharge from cx os. Assessment/Plan Diagnoses and all orders for this visit: 1. Atypical squamous cells of undetermined significance (ASCUS) on Papanicolaou smear of cervix (Primary) Other orders - Colposcopy Colposcopy Date/Time: 08/22/2021 8:56 AM Performed by: Barbie Martinez APRN Authorized by: Barbie Martinez APRN Local anesthesia used: no Anesthesia: Local anesthesia used: no Sedation: Patient sedated: no Patient tolerance: patient tolerated the procedure well with no immediate complications Comments: I am able to visualize all 360 degrees of the current SCJ. There is no leukoplakia. No atypical vessels. There are small foci of thin AW lesion with flocculent borders. Bx taken at first from 1:00, but it looked insufficient. Additional bx taken at 11:00. Hemostasis with silver nitrate stick, then Monsel's solution. Pt tolerated the procedure very well, and left in good condition. She was able to verbalize routine aftercare instructions / importance of vaginal rest x 5 days. No follow-ups on file. Barbie Martinez APRN 08/22/2021 documented in this encounter Plan of Treatment Upcoming Encounters Date Type Department Care Team (Late st Contact Info) Description 09/02/2024 3:30 PM EST Office Visit [facility] [address] [facility] [address] [place] [address] Shara Timmons MD [address] [facility] [address] [place] [address] documented as of this encounter Procedures Procedure Name Priority Date/Time Associated Diagnosis Comments COLPOSCOPY Routine 08/22/2021 8:56 AM EST Atypical squamous cells of undetermined significance (ASCUS) on Papanicolaou smear of cervix TISSUE PATHOLOGY EXAM Routine 08/22/2021 Atypical squamous cells of undetermined significance (ASCUS) on Papanicolaou smear of cervix documented in this encounter Results * Colposcopy (08/22/2021 8:56 AM EST) Narrative Barbie Martinez APRN - 08/22/2021 8:56 AM EST Barbie Martinez APRN ? 08/22/2021 ??9:03 AM Colposcopy Date/Time: 08/22/2021 8:56 AM Performed by: Barbie Martinez APRN Authorized by: Barbie Martinez APRN Local anesthesia used: no Anesthesia: Local anesthesia used: no Sedation: Patient sedated: no Patient tolerance: patient tolerated the procedure well with no immediate complications Comments: I am able to visualize all 360 degrees of the current SCJ. ?? There is no leukoplakia. ??No atypical vessels. ??There are small foci of thin AW lesion with flocculent borders. ??Bx taken at first from 1:00, but it looked insufficient. ??Additional bx taken at 11:00. ??Hemostasis with silver nitrate stick, then Monsel's solution. ??Pt tolerated the procedure very well, and left in good condition. ??She was able to verbalize routine aftercare instructions / importance of vaginal rest x 5 days. ?? us Barbie Martinez APRN PROCEDURE/MINOR SURGIC AL ORDERABLES Final Result * Tissue Pathology Exam (08/22/2021) Tissue Cervix uteri structure / Unknown Barbie Martinez ROLL PRESS OPERATOR PATHOLOGY/CYTOLOGY ORD ERABLES Final Result [facility]
[address] [place] [address], documented in this encounter Visit Diagnoses Diagnosis Atypical squamous cells of undetermined significance (ASCUS) on Papanicolaou smear of cervix- Primary documented in this encounter Care Teams Operations Research Scientist Relationship Specialty Start Date End Date Aidan Vizcarra MD [facility] [address] [facility] [address] [place] [address] PCP - General Family Medicine 04/20/16 documented as of this encounter
--- OUTSIDE RECORDS SUMMARY | 2024-06-20 10:55 | XMS_ITS | Encounter Summary ---
[facility] Organization [facility] Address [address] [place] [id number] Care Team Providers Care Laser Engraver Name Role Phone Aidan Vizcarra MD Primary Care Provider [phone] Reason for Referral * Diagnostic Imaging (Routine) - Closed Specialty Diagnoses / Procedures Referred By Marly arce Referred To Contact Radiology Diagnoses Visit for screening mammogram Procedures Mammo Screening Digital Tomosynthesis Bilateral With CAD Aidan Vizcarra MD [address] [place] [facility] [address] [facility] [place] [address] Phone: tel: fax: Referral ID Status Reason Start Date Expiration Date Visits Re quested Visits Authorized [id number] Closed 01/24/2021 01/24/2022 1 1 Reason for Visit * Diagnostic Imaging (Routine) - Closed Specialty Diagnoses / Procedures Referred By Marly arce Referred To Contact Radiology Diagnoses Visit for screening mammogram Procedures Mammo Screening Digital Tomosynthesis Bilateral With CAD Aidan Vizcarra MD [address] [place] [facility] [facility] [address] [facility] [place] [address] Phone: tel: fax: Referral ID Status Reason Start Date Expiration Date Visits Re quested Visits Authorized [id number] Closed 01/24/2021 01/24/2022 1 1 Encounter Details Date Type Department Care Team (Latest Contact Info) Description 03/03/2021 9:10 AM EDT - 03/03/2021 11:59 PM EDT Hospital Encounter [facility] [place] [address] Aidan Vizcarra MD 1210 [facility] [address] [facility] [address] [place] [address] Visit for screening mammogram Discharge Disposition: Home [...] Description 09/02/2024 3:30 PM EST Office Visit [facility] OBGYN [address] [address] Shara Timmons MD [address] [address] documented as of this encounter Procedures Procedure Name Priority Date/Time Associated Diagnosis Comments MAMMO SCREENING DIGITAL TOMOSYNTHESIS BILATERAL W CAD Routine 03/03/2021 10:15 AM EDT Visit for screening mammogram documented in this encounter Results * (ABNORMAL) Mammo Screening Digital Tomosynthesis Bilateral With CAD (03/03/2021 10:15 AM EDT) Anatomical Region Laterality Modality Breast N/A Mammography 03/08/2021 9:58 AM EDT Impressions 03/08/2021 10:04 AM EDT Focal asymmetry in the left lower outer quadrant with possible associated architectural distortion. RECOMMENDATION: ??Left CC focal compression and left MLO focal compression views with tomosynthesis. BI-RADS CATEGORY 0, INCOMPLETE: ??NEED ADDITIONAL IMAGING EVALUATION. ?? The patient will be contacted by our office to schedule an appointment for the additional studies. ??A letter, in lay terminology, with the results of this exam will be mailed to the patient. CAD was utilized. The standard false-negative rate of mammography is between 10% and 25%. Complex patterns or increased breast density will markedly elevate the false-negative rate of mammography. ?? Physician Order Diagnostic Mammogram and/or Ultrasound. Diagnosis: Abnormal Screening Mammogram This report was finalized on 03/08/2021 10:[address] Steph Hillman MD. Narrative 03/08/2021 10:04 AM EDT BILATERAL SCREENING MAMMOGRAM WITH TOMOSYNTHESIS: HISTORY: The patient has no personal history or significant family history of breast cancer and no new breast complaints at the time of screening mammography. She has gained 9 pounds since her prior mammogram. TECHNIQUE: Bilateral CC and MLO low dose, full field digital mammographic images were obtained with 2-D acquisitions and tomosynthesis. COMPARISON: ??02/20/2020, 09/19/2012, and 06/23/2010 FINDINGS: ??There are scattered areas of fibroglandular density. ?? There is a focal asymmetry with possible associated architectural distortion in the left lower outer quadrant. The remaining bilateral fibroglandular pattern is stable. No new or suspicious findings are noted in the right breast. us Aidan Vizcarra MD IMG MAMMOGRAPHY ORDERABLES F inal Result documented in this encounter Visit Diagnoses Diagnosis Visit for screening mammogram documented in this encounter Care Teams Laser Engraver Relationship Specialty Start Date End Date Aidan Vizcarra MD [address] [place] [address] PCP - General Family Medicine 04/20/16 documented as of this encounter
--- OUTSIDE RECORDS SUMMARY | 2024-06-20 10:55 | XMS_ITS | Encounter Summary ---
Author Organization [facility]stem Address [address] [place] [id number] Care Team Providers Care Primary Class Teacher Name Role Phone Provider, No Known Primary Care Provider Unavail able Encounter Details Date Type Department Care Team (Latest Contact Info) Description 09/15/2015 8:06 AM EST - 09/15/2015 11:59 PM EST Hospital Encounter [address] [phone] Harjinder Marshall MD Discharge Disposition: Home or [...] Description 09/02/2024 3:30 PM EST Office Visit [facility] OBGYN [address] [address] Shara Timmons MD [address] [place] [phone] documented as of this encounter Procedures Procedure Name Priority Date/Time Associated Diagnosis Comments URINALYSIS, MICROSCOPIC ONLY Routine 09/15/2015 10:56 AM EST URINALYSIS W/ CULTURE IF INDICATED Routine 09/15/2015 10:56 AM EST documented in this encounter Results * (ABNORMAL) Urinalysis, Microscopic only (09/15/2015 10:56 AM EST) WBC, UA 0-2 None Seen,0-2 /hpf [facility] RBC, UA 3-6(A) None Seen,0-2 /hpf [facility] Epithelial Cells, UA 0-2 None Seen,0-2 /hpf [facility] Bacteria, UA None Seen None Seen /hpf [facility] Hyaline Casts, UA 0-6 0 - 6 /hpf [facility] Urine specimen (specimen) Urine specimen obtained by clean catch procedure / Unknown 09/15/2015 10:56 AM EST 09/15/2015 12:11 PM EST Narrative [facility] - 09/15/2015 12:11 PM EST Specimen Type : UrineSpecimen Source : Clean Catch Harjinder Marshall MD URINE ORDERABLES Final Re sult [facility]
[address] [place] [address], * (ABNORMAL) Urinalysis w/Culture if Indicated (09/15/2015 10:56 AM EST) Color Yellow [facility] Appearance, UA Clear [facility] pH, UA 6.0 4.5 - 8.0 [facility] Specific [place], UA 1.021 1.001 - 1.030 [facility] Glucose, UA Negative Negative mg/dL [facility] Ketones, UA Negative Negative [facility] Bilirubin, UA Negative Negative [facility] Blood, UA Small(A) Negative [facility] Protein, UA Negative Negative mg/dL [facility] Comment:This test was previo usly referred to as Albumin Nitrite, UA Negative Negative [facility] Leukocytes, UA Negative Negative [facility] Urobilinogen, UA 0.2 0.2 - 1.0 mg/dL [facility] Urine specimen (specimen) Urine specimen obtained by clean catch procedure / Unknown 09/15/2015 10:56 AM EST 09/15/2015 10:57 AM EST Narrative [facility] - 09/15/2015 12:11 PM EST Specimen Type : UrineSpecimen Source : Clean Catch Harjinder Marshall MD URINE ORDERABLES Final Re sult [facility] Organization Address City/State/ZIP Co de Phone Number [facility]
[address] [place] [address], [place] [phone] documented in this encounter Visit Diagnoses Not on filedocumented in this encounter Care Teams Primary Class Teacher Relationship Specialty Start Date End Date Provider, No Known [facility] [place] [address] PCP - General 09/15/15 04/19/16 documented as of this encounter
--- OUTSIDE RECORDS SUMMARY | 2024-06-20 10:55 | XMS_ITS | Encounter Summary ---
Author Organization [facility] Address [address] [place] [address] Care Team Providers Care Vendor Management Consultant Name Role Phone Aidan Vizcarra MD Primary Care Provider [phone] Reason for Referral * Imaging (Routine) - Pending Review Specialty Diagnoses / Procedures Referred By Marly arce Referred To Contact Radiology Diagnoses Renal cell carcinoma of left kidney (CMS/HCC) Procedures CT Abdomen Pelvis w IV Contrast Nancy Mcbride PA [address] [address] Phone: tel: fax: Referral ID Status Reason Start Date Expiration Date V isits Requested Visits Authorized [id number] Pending Review 03/19/2024 09/18/2025 1 1 Reason for Visit * Reason Comments Follow-up Renal cell carcinoma of left kidney (CMS/HCC) Encounter Details Date Type Department Care Team (Late st Contact Info) Description 03/19/2024 2:20 PM EDT Office Visit [facility] Multidisciplinary Oncology Clinic [address] [place] [address] Nancy Mcbride PA [address] [address] Renal cell carcinoma of left kidney (CMS/HCC) (Primary Dx); NATHAN (stress urinary incontinence, female) Social History Tobacco Use Types Packs/Day Years [...] AM EDT documented as of this encounter Last Filed Vital Signs Vital Sign Reading Time Taken Comments Blood Pressure 122/77 03/19/2024 2:36 PM EDT Pulse 99 03/19/2024 2:36 PM EDT Temperature 36.8 ??C (98.3 ??F) 03/19/2024 2:36 PM ED T Respiratory Rate - - Oxygen Saturation 97% 03/19/2024 2:36 PM EDT Inhaled Oxygen Concentration - - Weight 108 kg (238 lb 1.6 oz) 03/19/2024 2:36 PM EDT Height 164.1 cm (5' 4.6 ) 03/19/2024 2:36 PM EDT Body Mass Index 40.11 03/19/2024 2:36 PM EDT documented in this encounter Miscellaneous Notes * Progress Notes - Nancy Mcbride PA - 03/19/2024 2:20 PM EDT Subjective Patient ID: Hannah Tobar is a 43 y.o. female. Chief Complaint Patient presents with Follow-up Renal cell carcinoma of left kidney (CMS/HCC) HPI Hannah Tobar is a 43 y.o. female with a history of endometriosis s/p transvaginal surgery with incidentally discovered renal lesions (back pain) who is status post robotic partial nephrectomy of two left sided lesions on 12/28/[address] Beltran: (1) Anterior fat containing lesion on CT with final pathology consistent with AML. (2) 2 cm posterior solid lesion on CT with final pathology showing pT1a Type II Papillary RCC, Deanna Grade III with positive margin. Surveillance scans have shown no recurrence to date. She returns today, relays doing well since herlast visit. Denies any fevers, chills, UTIs, hematuria, flank pain. She underwent genetic testing and was told she had no actionable findings. DAFNE : FINDINGS: Right Kidney: Normal in size and echogenicity. Length 10.1 cm. No hydronephrosis or obvious calculi. Left Kidney: Postsurgical change associated with partial nephrectomy of the left kidney. Normal kidney echogenicity. Length 9.5 cm. No hydronephrosis or obvious calculi.. Urinary bladder: Somewhat decompressed but grossly unremarkable. IMPRESSION: Unremarkable kidneys Today she reports worsening NATHAN which is impacting QOL. Objective Physical Exam Vitals reviewed. Constitutional: Appearance: Normal appearance. Pulmonary: Effort: Pulmonary effort is normal. Neurological: Mental Status: She is alert and oriented to person, place, and time. Psychiatric: Mood and Affect: Mood normal. Behavior: Behavior normal. Thought Content: Thought content normal. Assessment/Plan Diagnoses and all orders for this visit: Renal cell carcinoma of left kidney (CMS/[facility]) Comments: s/p robotic partial nephrectomy 12/2016, Dr Beltran- pT1a papillary type II, Grade 3 with positive margin. -no recurrence to date. Orders: - CT Abdomen Pelvis w IV Contrast; Future NATHAN (stress urinary incontinence, female) Comments: -referral to female urology team documented in this encounter Plan of Treatment Upcoming Encounters Date Type Department Care Team (Late st Contact Info) Description 09/18/2024 9:20 AM EST Office Visit [facility] [address] [place] [address] Katie Richmond, PICTURE ENGRAVER, DNP [address] [place] [address] 03/25/2025 9:20 AM EDT Appointment [facility] [address] [place] [address] 03/25/2025 11:40 AM EDT Office Visit [facility] [address] [place] [address] Nancy Mcbride PA [address] [facility] [address] [place] [address] Scheduled Orders Name Type Priority Associated Diagnoses Orde r Schedule CT Abdomen Pelvis w IV Contrast Imaging Routine Renal cell carcinoma of left kidney (CMS/HCC) Expected: 03/25/2025 (Approximate), Expires: 09/19/2025 documented as of this encounter Visit Diagnoses Diagnosis Renal cell carcinoma of left kidney (CMS/HCC)- Primary NATHAN (stress urinary incontinence, female) documented in this encounter Additional Health Concerns Infection Onset Date Last Indicated Resolved Time C. difficile 12/20/2020 12/20/2020 Assessment Noted Time A fall risk assessment has been complete d for the patient 03/19/2024 2:36 PM EDT A Body Mass Index follow-up plan has been documented for the patient 03/19/2024 3:46 PM EDT documented as of this encounter Care Teams Vendor Management Consultant Relationship Specialty Start Date End Date Aidan Vizcarra MD [facility] [address] [place] [address] PCP - General 11/26/20 documented as of this encounter
--- OUTSIDE RECORDS SUMMARY | 2024-06-20 10:55 | XMS_ITS | Encounter Summary ---
Author Organization [facility] Address [address] [place] [address] Care Team Providers Care Range Manager Name Role Phone Aidan Vizcarra MD Primary Care Provider + [phone] Katie Richmond APRN, DNP Unavailable + [phone] Encounter Details Date Type Department Care Team (Latest Contact Info) Description 06/11/2024 Travel Social History Tobacco Use Types Packs/Day [...] Office Visit [facility] [address] [place] [address] Katie Richmond, DICK, DNP [address] [place] [address] 03/25/2025 9:20 AM EDT Appointment [facility] [address] [place] [address] 03/25/2025 11:40 AM EDT Office Visit [facility] Multidisciplinary Oncology Clinic [address] [place] [address] Nancy Mcbride PA [address] [facility]00 [place] [address] documented as of this encounter Visit Diagnoses Not on filedocumented in this encounter Additional Health Concerns Infection Onset Date Last Indicated Resolved Time C. difficile 12/20/2020 12/20/2020 Assessment Noted Time A fall risk assessment has been complete d for the patient 03/19/2024 2:36 PM EDT A Body Mass Index follow-up plan has been documented for the patient 06/11/2024 11:24 AM EST documented as of this encounter Care Teams Range Manager Relationship Specialty Start Date End Date Aidan Vizcarra MD [facility]0 [place] [address] [place] [address] PCP - General 11/26/20 Katie Richmond APRN, DNP [address] [facility]00 [place] [address] Nurse Practitioner Urology 06/11/24 documented as of this encounter
--- OUTSIDE RECORDS SUMMARY | 2024-06-20 10:55 | XMS_ITS | Encounter Summary ---
[facility] Address [address] [place] [address] Care Team Providers Care Engineering Faculty Name Role Phone Provider, No Known Primary Care Provider Unavail able Reason for Visit * Reason Onset Date Comments Med Refill 04/03/2016 Encounter Details Date Type Department Care Team (Late st Contact Info) Description 04/03/[address] [facility] OBGYN [address] [facility] [address] [place] [phone] Katie Abbasi, RN Med Refill Social History Tobacco Use Types Packs/Day Years Used Date Smoking Tobacco: Never Assessed Comments Unknown Sex and Gender Information Value Date Recorded Sex Assigned at Not on file Legal Sex Female 11:45 AM EDT Gender Identity Not on file Sexual Orientation Not on file documented as of this encounter Miscellaneous Notes * Telephone Encounter - Katie Abbasi, RN - 04/03/2016 11:43 AM EDT Pt calling to request RX for Leolal[place] ([place]) OCPs. States she has Annual appt scheduled 04/20/16, Last year she had OCP's filled by her PCP. Ok'd by Dr Spicer. documented in this encounter Plan of Treatment Upcoming Encounters Date Type Department Care Team (Late st Contact Info) Description 09/02/2024 3:30 PM EST Office Visit [facility] O[facility]YN [address] [facility] [address] [place] [phone] Shara Timmons MD [address] [place] [phone] documented as of this encounter Visit Diagnoses Not on filedocumented in this encounter Care Teams Engineering Faculty Relationship Specialty Start Date End Date Provider, [place] [address] PCP - General 09/15/15 04/19/16 documented as of this encounter
--- OUTSIDE RECORDS SUMMARY | 2024-06-20 10:55 | XMS_ITS | Encounter Summary ---
Author Organization [facility] ystem Address [address] [place] [id number] Care Team Providers Care Accounts Receivable Analyst Name Role Phone Provider, No Known Primary Care Provider Unavail able Encounter Details Date Type Department Care Team (Late st Contact Info) Description 11/09/2015 1:05 PM EDT - 11/09/2015 11:59 PM EDT Hospital Encounter [address] [place] [address] [address] [place] [phone] Anselmo Nolasco MD 1720 [facility] [address] [place] [address] Discharge Disposition: Home or Self Care Social [...] 09/02/2024 3:30 PM EST Office Visit [facility] OBGYN [address]00 [facility] [address] [place] [phone] Shara Timmons MD [address]00 [facility] [address] [place] [address] documented as of this encounter Procedures Procedure Name Priority Date/Time Associated Diagnosis Comments THROAT / UPPER RESPIRATORY CULTURE (REFERENCE) Routine 11/09/2015 1:00 PM EDT documented in this encounter Results * Throat culture (11/09/2015 1:00 PM EDT) Swab (specimen) 11/09/2015 1 :00 PM EDT 11/09/2015 2:52 PM EDT Narrative [facility] - 11/11/2015 7:29 AM EDT Specimen Type : Throat Specimen: Throat Collected: 11/09/2015 13:00 EDT Status: Final ?Last Updated: 11/10/2015 07:38 EDT ?Culture Result (Final) ?No Beta Hemolytic Streptococcus Isolated us Anselmo Nolasco MD MICROBIOLOGY - GENERAL ORDERABLE S Final Result [facility]
[address] [place] [address], documented in this encounter Visit Diagnoses Not on filedocumented in this encounter Care Teams Accounts Receivable Analyst Relationship Specialty Start Date End Date Provider, No Known [facility] [place] [address] PCP - General 09/15/15 04/19/16 documented as of this encounter
--- OUTSIDE RECORDS SUMMARY | 2024-06-20 10:55 | XMS_ITS | Encounter Summary ---
Author Organization [facility] Address [address] [place] [phone] Care Team Providers Care Global Lead Name Role Phone Aidan Vizcarra MD Primary Care Provider [phone] Reason for Visit * Reason Comments Follow-up Renal cell carcinoma Encounter Details Date Type Department Care Team (Late st Contact Info) Description 03/07/2023 10:20 AM EDT Office Visit [facility] Multidisciplinary Oncology Clinic [address] [place] [address] Nancy Mcbride PA [address] [facility] [address] [place] [address] Renal cell carcinoma of left kidney (CMS/HCC) [...] Sign Reading Time Taken Comments Blood Pressure 127/82 03/07/2023 10:17 AM EDT Pulse 96 03/07/2023 10:17 AM EDT Temperature 36.6 ??C (97.8 ??F) 03/07/2023 10:17 AM E DT Respiratory Rate - - Oxygen Saturation 97% 03/07/2023 10:17 AM EDT Inhaled Oxygen Concentration - - Weight 104 kg (228 lb 2.8 oz) 03/07/2023 10:17 A M EDT Height 162.6 cm (5' 4 ) 03/07/2023 10:17 AM EDT Body Mass Index 39.17 03/07/2023 10:17 AM EDT documented in this encounter Miscellaneous Notes * Progress Notes - Nancy Mcbride PA - 03/07/2023 10:20 AM EDT Subjective Patient ID: Hannah Tobar is a 42 y.o. female. Chief Complaint Patient presents with Follow-up Renal cell carcinoma HPI HPI: Hannah Tobar is a 42 y.o. female with a history of endometriosis [...] Papillary RCC, Deanna Grade III with positive margin Surveillance scans have shown no recurrence to date. She returns today, relays doing well since herlast visit. Denies any fevers, chills, UTIs, hematuria, flank pain. She underwent genetic testing and was told she had no concerning findings. CT RENAL MASS W AND WO IV CONTRAST authorized by: Lamont Ingram MD IMPRESSION: No evidence of recurrence or metastatic disease in the abdomen. Latest Reference Range & Units 03/07/23 09:01 Creatinine, Point of Care 0.6 - 1.1 mg/dL 1.0 Objective Physical Exam Vitals reviewed. Constitutional: Appearance: Normal appearance. Cardiovascular: Rate and Rhythm: Normal rate and regular rhythm. Pulmonary: Effort: Pulmonary effort is normal. Breath sounds: Normal breath sounds. Abdominal: General: Bowel sounds are normal. There is no distension. Palpations: Abdomen is soft. There is no mass. Musculoskeletal: Cervical back: Neck supple. Lymphadenopathy: Cervical: No cervical adenopathy. Skin: General: Skin is warm. Neurological: Mental Status: She is alert and oriented to person, place, and time. Psychiatric: Mood and Affect: Mood normal. Behavior: Behavior normal. Assessment/Plan Diagnoses and all orders for this visit: Renal cell carcinoma of left kidney (CMS/HCC) Comments: s/p robotic partial nephrectomy 12/2016, Dr Beltran- pT1a papillary type II, Grade 3 with positive margin. -no recurrence to date. -she is now 6 years out but considering high risk pathology and young age, reasonable to continue surveillance. Will get DAFNE in [address] q 2 yrs. documented in this encounter Plan of Treatment Upcoming Encounters Date Type Department Care Team (Late st Contact Info) Description 09/18/2024 9:20 AM EST Office Visit [facility] Urology [address] [place] [address] Katie Richmond, PULL WORKER, DNP [address] [facility] [address] [place] [address] 03/25/2025 9:20 AM EDT Appointment [facility] [address] [place] [address] 03/25/2025 11:40 AM EDT Office Visit [facility] [address] [place] [address] Nancy Mcbride PA [address] [facility] [address] [place] [address] documented as of this encounter Visit Diagnoses Diagnosis Renal cell carcinoma of left kidney (CMS/HCC)- Primary documented in this encounter Additional Health Concerns Infection Onset Date Last Indicated Resolved Time C. difficile 12/20/2020 12/20/2020 Assessment Noted Time A fall risk assessment has been complete d for the patient 03/07/2023 10:17 AM EDT A Body Mass Index follow-up plan has been documented for the patient 03/08/2023 2:56 PM EDT documented as of this encounter Care Teams Global Lead Relationship Specialty Start Date End Date Aidan Vizcarra MD [address] [place] [facility] [address] [place] [address] PCP - General 11/26/20 documented as of this encounter
--- OUTSIDE RECORDS SUMMARY | 2024-06-20 10:55 | XMS_ITS | Encounter Summary ---
[facility] Organization [facility] Address [address] [place] [address] Care Team Providers Care Ethical Hacker Name Role Phone Aidan Vizcarra MD Primary Care Provider [phone] Reason for Visit * Reason Comments Gynecologic Exam Encounter Details Date Type Department Care Team (Latest Contact Info) Description 06/25/2019 1:45 PM EST Office Visit [facility] GYNECOLOGY [address] [facility] [address] [place] [address] Harjinder Marshall MD Fibrocystic breast changes, bilateral (Primary Dx); Cancer of kidney, left; Encounter for gynecological examination without abnormal finding [...] Sign Reading Time Taken Comments Blood Pressure 118/70 06/25/2019 1:48 PM EST Pulse - - Temperature - - Respiratory Rate - - Oxygen Saturation - - Inhaled Oxygen Concentration - - Weight 91 kg (200 lb 9.6 oz) 06/25/2019 1:48 PM EST Height 165.1 cm (5' 5 ) 06/25/2019 1:48 PM EST Body Mass Index 33.38 06/25/2019 1:48 PM EST documented in this encounter Progress Notes * Harjinder Marshall MD - 06/25/2019 1:45 PM EST Chief Complaint Patient presents with ??? Gynecologic Exam Hannah Tobar is a 38 y.o. year old presenting to be seen for her annual exam. This patienthas a history of a cervical cerclage and a subsequent section. She had laparoscopy with ovarian drilling prior to that. She has had a hysteroscopy D&C. She has had a cholecystectomy. Shehad a laparoscopic partial left nephrectomy for carcinoma. She is [facility]. She has had no recurrence of disease. She recently underwent cystoscopy with retrieval of a ureteral stone. She is also had excision of a lipoma from her right back in the past year. She denies bowel or urinary symptoms currently. Her menses are cyclic without intermenstrual bleeding. SCREENING TESTS Year 2011 Age PAP Neg. HPV high risk Mammogram benign HAVEN score Breast MRI Lipids Vitamin D Colonoscopy DEXA Frax (hip/any) Ovarian Screen She exercises regularly: yes. She wears her seat belt: yes. She has concerns about domestic violence: no. She has noticed changes in height: no DIVER PUMPER screening history: ?? Last pap: was done [...] Daily. ??? HAVRIX 1440 EL U/ML vaccine No current facility-administered medications for this visit. She is allergic to lidocaine-epinephrine; penicillins; and cefdinir.. Review of Systems A comprehensive review of systems was taken. Constitutional: negative for fever, chills, activity change, appetite change, fatigue and unexpected weight change. Respiratory: negative Cardiovascular: negative Gastrointestinal: negative Genitourinary:negative Musculoskeletal:negative Behavioral/Psych: negative BP 118/70 Ht 165.1 cm (65 ) Wt 91 kg (200 lb 9.6 oz) LMP 06/03/2019 (Exact Date) No BMI 33.38 kg/m?? Physical Exam General: alert; cooperative; well [...] of the external genitalia including Bartholin's and [place]'s glands. Vaginal: normal pink mucosa without prolapse or lesions. Cervix: normal appearance. Uterus: anteverted; bulky and 8 weeks size Adnexa: normal bimanual exam of the adnexa. Rectal: anus visually normal appearing. recto-vaginal exam unremarkable and confirms findings; Lab Review No data reviewed Imaging Mammogram results ASSESSMENT Problems Addressed this Visit Genitourinary Cancer of kidney, left (CMS/HCC) Other Fibrocystic breast changes, bilateral - Primary Other Visit Diagnoses Encounter for gynecological examination without abnormal finding Substance History: reports that she has never smoked. She has never used smokeless tobacco. reports that she does not drink alcohol. reports that she does not use drugs. Substance use counseling is not indicated based on patient history. PLAN ?? Medications prescribed this encounter: No orders of the defined types were placed in this encounter. ?? Monthly self breast assessment, breast imaging in 2019 ?? Calcium, 600 mg/ Vit. D, 400 IU daily; regular weight-bearing exercise ?? Follow up: 12 month(s) *Please note that portions of this documentation may have been completed with a voice recognition program. Efforts were made to edit this dictation, but occasional words may have been mistranscribed. This note was electronically signed. Khanh Marshall MD June 25, 2019 2:31 PM documented in this encounter Plan of Treatment Upcoming Encounters Date Type Department Care Team (Late st Contact Info) Description 09/02/2024 3:30 PM EST Office Visit [facility] OBGYN [address] [address] Shara Timmons MD [address] [facility] [address] [place] [address] documented as of this encounter Visit Diagnoses Diagnosis Fibrocystic breast changes, bilateral- Primary Cancer of kidney, left Encounter for gynecological examination without abnormal finding documented in this encounter Care Teams Ethical Hacker Relationship Specialty Start Date End Date Aidan Vizcarra MD [address] [facility] [address] [place] [address] PCP - General Family Medicine 04/20/16 documented as of this encounter
--- OUTSIDE RECORDS SUMMARY | 2024-06-20 10:55 | XMS_ITS | Encounter Summary ---
[facility] Address [address] [place] [id number] Care Team Providers Care Hospital Monitor Name Role Phone Aidan Vizcarra MD Primary Care Provider [phone] Reason for Visit * (Routine) - Closed Specialty Diagnoses / Procedures Referred By Marly arce Referred To Contact Radiology Diagnoses Abnormal mammogram Procedures Mammo Diagnostic Digital Tomosynthesis Left With CAD Mammo Diagnostic Left With CAD Aidan Vizcarra MD [address] [facility] [address] [place] [id number] Phone: tel: fax: Referral ID Status Reason Start Date Expiration Date Visits Re quested Visits Authorized [id number] Closed 03/09/2021 03/09/2022 1 1 Encounter Details Date Type Department Care Team (Late st Contact Info) Description 04/05/2021 8:06 AM EDT - 04/05/2021 11:59 PM EDT Hospital Encounter [facility] [address] [place] [address] Steph Hillman MD [address] [place] [address] Abnormal mammogram Discharge Disposition: Home or Self Care [...] Description 09/02/2024 3:30 PM EST Office Visit [facility] OBGYN [address] [address] Shara Timmons MD [address] [address] documented as of this encounter Procedures Procedure Name Priority Date/Time Associated Diagnosis Comments MAMMO DIAGNOSTIC DIGITAL TOMOSYNTHESIS LEFT W CAD Routine 04/05/2021 9:47 AM EDT Abnormal mammogram documented in this encounter Results * Mammo Diagnostic Digital Tomosynthesis Left With CAD (04/05/2021 9:47 AM EDT) Anatomical Region Laterality Modality Breast Left Mammography 04/05/2021 9:22 AM EDT Impressions 04/05/2021 9:23 AM EDT No suspicious findings BI-RADS CATEGORY: ??2, BENIGN RECOMMENDATION: ??Return to screening CAD was utilized. The standard false-negative rate of mammography is between 10% and 25%. Complex patterns or increased breast density will markedly elevate the false-negative rate of mammography. ?? A letter, in lay terminology, with the results of this exam was given to the patient at the time of the visit. This report was finalized on 04/05/2021 9:[address] Nirali Garza MD. Narrative 04/05/2021 9:23 AM EDT LEFT DIAGNOSTIC MAMMOGRAM WITH TOMOSYNTHESIS CLINICAL INDICATION: ??Additional views of the left breast for focal asymmetry in the left lower outer quadrant with associated potential distortion TECHNIQUE: Spot compression 2-D 3-D MLO and CC views COMPARISON: Prior exam 02/20/2020 FINDINGS: With the additional imaging reproducible distortion is not appreciated on the ML oh spot compression. On the CC image the tissue effaces and the tissue of concern on the CC view overlaps a stable at the 2:00 position. us Steph Hillman MD IMG MAMMOGRAPHY ORDERABLES Fin al Result documented in this encounter Visit Diagnoses Diagnosis Abnormal mammogram Abnormal mammogram, unspecified documented in this encounter Care Teams Hospital Monitor Relationship Specialty Start Date End Date Aidan Vizcarra MD [address] [facility] [address] [facility] [facility] [address] [place] [address] PCP - General Family Medicine 04/20/16 documented as of this encounter
--- OUTSIDE RECORDS SUMMARY | 2024-06-20 10:55 | XMS_ITS | Encounter Summary ---
[facility] [address] [place] [address] Care Team Providers Care Chief Psychology Name Role Phone Aidan Vizcarra MD Primary Care Provider [phone] Reason for Visit * Reason Comments Annual Exam Urinary Incontinence patient does have a urologist Encounter Details Date Type Department Care Team (Latest Contact Info) Description 07/19/2021 9:30 AM EST Office Visit [facility] GYNECOLOGY [address] [place] [address] Barbie Martinez APRN Encounter for gynecological examination with abnormal finding (Primary Dx); Mixed stress and urge urinary incontinence Social History Tobacco Use Types Packs/Day Years [...] Sign Reading Time Taken Comments Blood Pressure 118/76 07/19/2021 9:44 AM EST Pulse - - Temperature - - Respiratory Rate - - Oxygen Saturation - - Inhaled Oxygen Concentration - - Weight 100 kg (220 lb 6.4 oz) 07/19/2021 9:44 AM EST Height 165.1 cm (5' 5 ) 07/19/2021 9:44 AM EST Body Mass Index 36.68 07/19/2021 9:44 AM EST documented in this encounter Progress Notes * Aleisha Maldonado MA - 07/19/2021 9:30 AM ESTAddended by: ALEISHA MALDONADO on: 07/19/2021 01:15 PM Modules accepted: Orders * Aleisha Maldonado MA - 07/19/2021 9:30 AM ESTAddended by: ALEISHA MALDONADO on: 07/19/2021 01:29 PM Modules accepted: Orders * Barbie Martinez APRN - 07/19/2021 9:30 AM EST Chief Complaint Hannah Tobar is a 40 y.o. 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 No pain or burning with urination, but does note worsening mixed urinary incont x past 2 yrs. We discussed limiting bladder irritants (dion caffeine), doing Kegel's and pelvic floor exercises, staying well estrogenized, and advised modest wt loss (10% of body wt). She has an established urologist and will reach out to him. Otherwise, all ROS neg. The following portions of the patient's history [...] drilling ??? TUMOR EXCISION NOSE--BENIGN Objective BP 118/76 Ht 165.1 cm (65 ) Wt 100 kg (220 lb 6.4 oz) LMP 07/08/2021 (Exact Date) No BMI 36.68 kg/m?? Physical Exam Exam conducted with a clinic md associate present. Constitutional: Appearance: Normal appearance. HENT: Head: Normocephalic. Neck: Thyroid: No thyroid mass or thyromegaly. Cardiovascular: Rate and Rhythm: Normal rate and regular rhythm. Heart sounds: Normal heart sounds. Pulmonary: Effort: Pulmonary effort is normal. Breath sounds: Normal breath sounds. Chest: Breasts: Right: No inverted nipple, mass, nipple discharge, axillary adenopathy or supraclavicular adenopathy. Left: No inverted nipple, mass, nipple discharge, axillary adenopathy or supraclavicular adenopathy. Abdominal: Palpations: Abdomen is soft. There is no mass. Tenderness: There is no abdominal tenderness. Genitourinary: General: Normal vulva. Vagina: No erythema. Cervix: No discharge, lesion or erythema. Uterus: Not enlarged and not tender. Adnexa: Right: No mass or tenderness. Left: No mass or tenderness. Comments: Only mild pelvic organ prolapse. Anus appears wnl. No rectal exam performed. Lymphadenopathy: Upper Body: Right upper body: No supraclavicular or axillary adenopathy. Left upper body: No supraclavicular or axillary adenopathy. Neurological: Mental Status: She is alert. Assessment/Plan Diagnoses and all orders for this visit: 1. Encounter for gynecological examination with abnormal finding (Primary) 2. Mixed stress and urge urinary incontinence To urology for the mixed urinary incont. Couns re: SBE, mammo, and see above couns in HPi. Procedures Return in about 1 year (around 07/19/2022) for Annual physical. Barbie Martinez APRN 07/19/2021 documented in this encounter Plan of Treatment Upcoming Encounters Date Type Department Care Team (Late st Contact Info) Description 09/02/2024 3:30 PM EST Office Visit [facility] OBGYN [address] [facility] [address] [place] [phone] Shara Timmons MD [address] [facility] [address] [place] [address] Scheduled Orders Name Type Priority Associated Diagnoses Orde r Schedule Pap IG, Rfx HPV ASCU Pathology and Cytology Routine Encounter for gynecological examination with abnormal finding Expected: 07/19/2021 (Approximate), Expires: 07/19/2022 documented as of this encounter Visit Diagnoses Diagnosis Encounter for gynecological examination with abnormal finding- Primary Mixed stress and urge urinary incontinence Mixed incontinence urge and stress (male)(female) documented in this encounter Care Teams Chief Psychology Relationship Specialty Start Date End Date Aidan Vizcarra MD [address] [facility] [address] [place] [address] PCP - General Family Medicine 04/20/16 documented as of this encounter
--- OUTSIDE RECORDS SUMMARY | 2024-06-20 10:55 | XMS_ITS | Encounter Summary ---
Author Organization [facility] Address [address] [place] [address] Care Team Providers Care Transit Mixer Driver Name Role Phone Aidan Vizcarra MD Primary Care Provider [phone] Reason for Referral * Imaging (Routine) - Closed Specialty Diagnoses / Procedures Referred By Marly arce Referred To Contact Radiology Diagnoses Renal cell carcinoma of left kidney (CMS/HCC) Procedures US Renal Complete Nancy Mcbride PA [address] [address] Phone: tel: fax: Referral ID Status Reason Start Date Expiration Date Visits Re quested Visits Authorized [id number] Closed 11/06/2023 05/07/2025 1 1 Reason for Visit * Imaging (Routine) - Closed Specialty Diagnoses / Procedures Referred By Marly arce Referred To Contact Radiology Diagnoses Renal cell carcinoma of left kidney (CMS/HCC) Procedures US Renal Complete Nancy Mcbride PA [address] [facility] [address] [place] [address] Phone: tel: fax: Referral ID Status Reason Start Date Expiration Date Visits Re quested Visits Authorized [id number] Closed 11/06/2023 05/07/2025 1 1 Encounter Details Date Type Department Care Team (Latest Contact Info) Description 03/19/2024 10:32 AM EDT - 03/19/2024 11:59 PM EDT Hospital Encounter [facility] [address] [place] [address] Renal cell carcinoma of left kidney (CMS/HCC) Discharge Disposition: Home or Self Care Social [...] AM EDT documented as of this encounter Medications at Time of Discharge Cetirizine HCl (ZyrTEC ALLERGY) 10 MG capsule Zyrtec 10 mg capsule Take by oral route. cyclobenzaprine (Flexeril) 5 MG tablet Take 1 tablet (5 mg) by mouth if needed for muscle spasms. 08/17/2023 estradiol (Divigel) gel Place 1 Application (0.25 mg) on the skin 1 (one) time each day. 10/25/2022 Fluticasone Furoate-Vilanter ol 100-25 MCG/ACT aerosol powder 10/13/2023 montelukast (Singulair) 10 MG tablet Take 1 tablet (10 mg) by mouth every night. 12/17/2023 Symbicort 160-4.5 MCG/ACT inhaler Inhale 2 puffs 1 (one) time each day. 11/06/2023 documented as of this encounter Plan of Treatment Upcoming Encounters Date Type Department Care Team (Late st Contact Info) Description 09/18/2024 9:20 AM EST Office Visit [facility] [address] [place] [address] Katie Richmond APRN, DNP [address] [place] [address] 03/25/2025 9:20 AM EDT Appointment [facility] [address] [place] [address] 03/25/2025 11:40 AM EDT Office Visit [facility] [address] [place] [phone] Nancy Mcbride, LO [address] [place] [address] documented as of this encounter Procedures Procedure Name Priority Date/Time Associated Diagnosis Comments US RENAL COMPLETE Routine 03/19/2024 11: 08 AM EDT Renal cell carcinoma of left kidney (CMS/HCC) documented in this encounter Results * US Renal Complete [...] signing this report, I, the attending physician, zeynepat I have personally reviewed the images/data for the aboveexamination(s) and agree with the final edited report. Drafted by Paul Talbot MD on 03/19/2024 1:31 PM Final report signed by Gabriel Bosch MD on 03/19/2024 3:40 PM us Nancy BLANCHARD IMG US PROCEDURES Final Res ult documented in this encounter Visit Diagnoses Diagnosis Renal cell carcinoma of left kidney (CMS/HCC) [...] documented as of this encounter Care Teams Transit Mixer Driver Relationship Specialty Start Date End Date Aidan Vizcarra MD [facility] [place] [address] PCP - General 11/26/20 documented as of this encounter
--- OUTSIDE RECORDS SUMMARY | 2024-06-20 10:55 | XMS_ITS | Encounter Summary ---
[facility] Address [address] [place] [address] Care Team Providers Care Property Underwriter Name Role Phone Aidan Vizcarra MD Primary Care Provider [phone] Reason for Visit * Reason Comments Gynecologic Exam Med Refill Encounter Details Date Type Department Care Team (Latest Contact Info) Description 04/20/2016 9:15 AM EDT Office Visit [facility] OBGYN [address] [facility] [address] [place] [phone] Harjinder Marshall MD PCOS (polycystic ovarian syndrome) (Primary Dx); Oral contraceptive pill surveillance; Encounter for gynecological examination without abnormal finding Social History Tobacco Use Types Packs/Day Years Used Date Smoking Tobacco: Never Alcohol Use Standard Drinks/Week Comments [...] Sign Reading Time Taken Comments Blood Pressure 126/80 04/20/2016 9:21 AM EDT Pulse - - Temperature - - Respiratory Rate - - Oxygen Saturation - - Inhaled Oxygen Concentration - - Weight 88.5 kg (195 lb) 04/20/2016 9:21 AM EDT Height 165.1 cm (5' 5 ) 04/20/2016 9:21 AM EDT Body Mass Index 32.45 04/20/2016 9:21 AM EDT documented in this encounter Progress Notes * Harjinder Marshall MD - 04/20/2016 9:53 AM EDT Chief Complaint Patient presents with ??? Gynecologic Exam ??? Med Refill Hannah Tobar is a 35 y.o. year old presenting to be seen for her annual exam. He has a history of metabolic syndrome (polycystic ovarian disease) and is treated with generic Seasonale oral contraceptives for cycling. She has menses every 3 months. She has had a decrease in dysmenorrhea. Has complaints of dyspareunia. She is also had a recent urinary tract infection which was treated withciprofloxacin. She complains of soreness in the right axilla and has had a benign mammogram in 2012. SCREENING TESTS Year 2011 2012 2013 2014 2016 2016 Age PAP Neg. HPV high risk Mammogram HAVEN score Breast MRI Lipids Vitamin D Colonoscopy DEXA Frax (hip/any) Ovarian Screen normal Enter the month test was performed. If month not known, enter X' ?? Black numbers = normal results ?? Red numbers = abnormal results ?? Black X = patient reported normal ?? Red X - patient reported abnormal Referred by: Profession: Other info: History Sexual Activity ??? Sexual activity: Yes ??? Partners: Male ??? control/ protection: OCP , She would not like to be screened for STD's at today's exam. She exercises regularly: yes. She wears her seat belt: yes. She has concerns about domestic violence: no. She has noticed changes in height: no MOLD DESIGNER screening history: ?? Last pap: was done on approximately 03/26/2014 and the result was: normal PAP.. No Additional Complaints Reported The following portions of the patient's history were reviewed and updated as appropriate:vital signs and She does not have any pertinent problems on file. She has a past surgical history that includes section; Ovarian cyst removal (Left); Cholecystectomy; d&c hysteroscopy laparoscopy; Tumor excision; and Cervical cerclage. Her family history is not on file. She reports that she has never smoked. She does not have any smokeless tobacco history on file. Shereports that she does not drink alcohol or use illicit drugs. Current Outpatient Prescriptions on File Prior to Visit Medication Sig ??? [DISCONTINUED] levonorgestrel-ethinyl estradiol (SEASONALE) 0.15-0.03 MG per tablet Take 1 tablet by mouth daily. No current facility-administered medications on file prior to visit. She is allergic to lidocaine-epinephrine and penicillins.. Review of Systems A comprehensive review of systems was negative. Constitutional: negative for fever, chills, activity change, appetite change, fatigue and unexpected weight change. Respiratory: negative Cardiovascular: negative Gastrointestinal: negative Genitourinary:negative Musculoskeletal:negative Behavioral/Psych: negative Visit Vitals ??? BP 126/80 ??? Ht 65 (165.1 cm) ??? Wt 195 lb (88.5 kg) ??? LMP 04/01/2016 (Exact Date) ??? BMI 32.45 kg/m2 Physical Exam General: alert; cooperative; well [...] without a discrete mass Abdomen: soft, non-tender; bowel sounds normal; no masses, no organomegaly Pelvis: Clinical staff was present for exam External genitalia: normal appearance of the external genitalia including Bartholin's and [place]'s glands Vaginal: normal pink mucosa without prolapse or lesions Cervix: normal appearance Uterus: normal size, shape and consistency and anteverted Adnexa: normal bimanual exam of the adnexa Rectal: anus visually normal appearing, recto-vaginal exam unremarkable and confirms findings Lab Review No data reviewed Imaging No data reviewed ASSESSMENT Problems Addressed this Visit Endocrine PCOS (polycystic ovarian syndrome) - Primary Other Oral contraceptive pill surveillance Relevant Medications levonorgestrel-ethinyl estradiol (SEASONALE) 0.15-0.03 MG per tablet Other Visit Diagnoses Encounter for gynecological examination without abnormal finding Relevant Orders Liquid-based Pap Smear, Screening PLAN Medications prescribed this encounter: New Medications Ordered This Visit Medications ??? cetirizine (ZyrTEC) 10 MG tablet Sig: Take 10 mg by mouth Daily. ??? levonorgestrel-ethinyl estradiol (SEASONALE) 0.15-0.03 MG per tablet Sig: Take 1 tablet by mouth Daily. Dispense: 91 tablet Refill: 3 ?? Pap test ?? Calcium, 600 mg/ Vit. D, 400 IU daily; regular weight-bearing exercise ?? Follow up: 12 month(s) The patient called on 04/26/2016 and requested a consultative mammogram and scan of the right breast due to persistent soreness in the right axilla. She was advised that there may be out of pocket expenses for this study. This note was electronically signed. Khanh Marshall MD April 20, 2016 9:53 AM documented in this encounter Plan of Treatment Upcoming Encounters Date Type Department Care Team (Late st Contact Info) Description 09/02/2024 3:30 PM EST Office Visit [facility] OBGYN [address] [address] Shara Timmons MD [address] [address] Scheduled Orders Name Type Priority Associated Diagnoses Orde r Schedule Liquid-based Pap Smear, Screening Pathology and Cytology Routine Encounter for gynecological examination without abnormal finding Ordered: 04/20/2016 documented as of this encounter Visit Diagnoses Diagnosis PCOS (polycystic ovarian syndrome)- Primary Polycystic ovaries Oral contraceptive pill surveillance Encounter for gynecological examination without abnormal finding documented in this encounter Care Teams Property Underwriter Relationship Specialty Start Date End Date Aidan Vizcarra MD [address] [facility] [address] [place] [address] PCP - General Family Medicine 04/20/16 documented as of this encounter
--- OUTSIDE RECORDS SUMMARY | 2024-06-20 10:55 | XMS_ITS | Encounter Summary ---
Author Organization [facility] Address [address] [place] [address] Care Team Providers Care Cable Mock Up Assembler Name Role Phone Aidan Vizcarra MD Primary Care Provider + [phone] Katie Richmond APRN, DNP Unavailable + [phone] Reason for Referral * Consultation (Routine) - Pending Review Specialty Diagnoses / Procedures Referred By Marly arce Referred To Contact Physical Therapy Diagnoses Urinary urgency Stress incontinence Urge incontinence Katie Richmond APRN, DNP [address] [address] Phone: tel: fax: Referral ID Status Reason Start Date Expiration Date Visits Requested Visits Authorized [id number] Pending Review Specialty Services Required 4 12/11/2025 1 1 Reason for Visit * Reason Comments Urinary Incontinence Encounter Details Date Type Department Care Team (Late st Contact Info) Description 06/11/2024 10:20 AM EST Consult [facility] [address] [place] [address] Katie Richmond APRN, DNP [address] [address] Urinary urgency (Primary Dx); Stress incontinence; Urge incontinence Social History Tobacco Use Types Packs/Day [...] Mass Index 41.63 06/11/2024 10:45 AM EST documented in this encounter Miscellaneous Notes * Progress Notes - Katie Richmond, DICK, DNP - 06/11/2024 10:20 AM EST [facility] Note Consulting provider: No ref. provider found CC: Urinary Incontinence HPI: Hannah Tobar is a 43 y.o. F with a h/o endometriosis s/p transvaginal surgery with incidentally discovered [...] RCC, Deanna Grade III with positive margin. She is followed by IRON Mcbride. Last seen seen Mar 2024, surveillance scans have shown no recurrence to date. She presents in consultation of NATHAN that began following hysterectomy in 2021, that has progressively worsened. Will wear 3-4 panty liners per day, changes more for hygiene not due to saturation. Reports a voiding frequency of 5x/day, severe urgency when first waking, nocturia 1x/night, daily smallvolume NATHAN, stress predominant MARIAH with urge, coughing, laughing, sneezing. No improvement with kegel exercises. Has attempted to stop drinking fluids at 9 pm, goes to bed at midnight. Endorses drinking coffee and iced tea at dinner. PMHx: Patient Active Problem List Diagnosis Renal cell carcinoma (CMS/HCC) Obesity (BMI 35.0-39.9 without comorbidity) Endometriosis, unspecified Other allergy status, other than to drugs and biological substances Personal history of other diseases of the female genital tract Personal history of other malignant neoplasm of kidney Urinary urgency Stress incontinence Urge incontinence Past Medical History: Diagnosis Date Colitis due to Clostridium difficile 08/01/2017 Endometriosis, unspecified Endometriosis Other allergy status, other than to drugs and biological substances Environmental allergies Personal history of other diseases of the female genital tract History of polycystic ovarian syndrome Personal history of other malignant neoplasm of kidney History of malignant neoplasm of kidney PSHx: Past Surgical History: Procedure Laterality Date SECTION, LOW TRANSVERSE N/A section from [facility] SECTION, LOW TRANSVERSE N/A section from [facility] CHOLECYSTECTOMY N/A cholecystectomy from [facility] CHOLECYSTECTOMY N/A Cholecystectomy from [facility] NEPHRECTOMY N/A 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 from [facility] OTHER SURGICAL HISTORY N/A Laparoscopic surgical removal of endometriosis from [facility] OVARIAN CYST REMOVAL N/A ovarian cystectomy from [facility] OVARIAN CYST REMOVAL N/A Ovarian cyst removal from [facility] PARTIAL NEPHRECTOMY N/A nephrectomy partial from [facility] FHx: Family History Problem Relation Name Age of Onset Stroke Father Hypertension Mother Hypertension Father Heart attack Father Lung cancer Maternal Grandmother FH: lung cancer SHx: Social History Tobacco Use Smoking status: Never Smokeless tobacco: Never Vaping Use Vaping status: Never Used Substance Use Topics Alcohol use: No Drug use: No Comment: Drug use: No illicit drug use 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 G 1 P 2, Ovaries: absent bilateral Uterus: absent Vaginal estrogen: No Systemic estrogen: Yes, Divigel nightly Review of Systems : See HPI Physical Exam: Vitals: 06/11/24 1045 BP: 117/71 Pulse: 83 Resp: 16 Temp: 36.7 ??C (98 ??F) SpO2: 96% General: Pleasant, alert, in no acute distress, well appearing Pulmonary: no increased work of breathing or signs of respiratory distress. Cardiovascular: regular rate, palpated Abdomen: soft, flat, no TTP Musculoskeletal: normal gait and station. No spine tenderness. No CVAT. Skin: Warm, dry, and intact Neurologic: perineal sensation to light touch intact and symmetric Psychiatric: oriented to person, place, and time. Mood and affect appeared normal. : Normal external genitalia. The urethral meatus was normal without mucosal prolapse or stenosis. Theurethra had normal mobility without NATHAN with cough or Valsalva; however bladder empty. Vaginal exam showed no erythema, tenderness, bleeding, or mass. Estrogenization was poor. No anterior, apical, or posterior prolapse. Palpation of the bladder revealed no abnormalities. Bilateral anterior and posterior levators not tight or TTP. Kegel ability was weak. Results/Data: Recent Results (from the past week) POCT URINALYSIS DIPSTICK Collection Time: 06/11/24 10:37 AM Result Value Ref Range POCT Urine Color Yellow POCT Urine Clarity Clear POCT Urine Glucose Negative Negative mg/dL POCT Urine Bilirubin Negative Negative mg/dL POCT Urine Ketones Negative Negative mg/dL POCT Urine Specific [place] >=1.030 1.005 - 1.030 POCT Urine Blood Small (A) Negative POCT pH, Urine 5.5 4.5 to 8.0 POCT Protein, Urine Negative Negative mg/dL POCT Urobilinogen, Urine 0.2 0.2, 1.0 EU/dL POCT Nitrite, Urine Negative Negative POCT Urine Leukocyte Esterase Negative Negative POC US Bladder Volume Collection Time: 06/11/24 10:45 AM Result Value Ref Range Urine, Volume 0 mL Urine, Volume Date Value Ref Range Status 06/11/2024 0 mL Final Labs: Lab Results Component Value Date HGBA1C 4.90 06/22/2022 Lab Results Component Value Date GLUCOSE 79 06/29/2022 CALCIUM 8.0 (L) 06/29/2022 NA 140 06/29/2022 K 4.0 06/29/2022 CL 107 06/29/2022 BUN 10 06/29/2022 CREATININE 0.93 06/29/2022 EGFR 72 03/07/2023 Cultures: No results found for: URINECX Imaging: Procedure: Assessment: Hannah Tobar is a 43 y.o. F with Urinary Incontinence Discussed limiting evening bladder irritants including caffeine by mid afternoon; this may improve nocturia and urgency upon awakening. She is most bothered by her NATHAN. We discussed interventions including Kegels, pelvic floor physical therapy, the use of a pessary, bulking agent, and/or sling procedure. Opted to continue Kegel exercises and begin pelvic floor physical therapy. Order and contact list provided. Plan: Behavioral modifications as above Kegel exercises Call to schedule pelvic floor physical therapy Return in 3 months or sooner as needed Katie Richmond APRN, DNP Note to patient: The Century Cures Act makes medical notes like these available to patients inthe interest of transparency. However, be advised this is a medical document. It is intended as peer to peer communication. It is written in medical language and may contain abbreviations or verbiagethat are unfamiliar. It may appear blunt or direct. Medical documents are intended to carry relevant information, facts as evident, and the clinical opinion of the practitioner. documented in this encounter Plan of Treatment Upcoming Encounters Date Type Department Care Team (Late st Contact Info) Description 09/18/2024 9:20 AM EST Office Visit [facility] Urology [address] [place] [address] Katie Richmond APRN, DNP [address] [place] [address] 03/25/2025 9:20 AM EDT Appointment [facility] [address] [place] [address] 03/25/2025 11:40 AM EDT Office Visit [facility] [address] [place] [phone] Nancy Mcbride PA [address] [place] [address] Scheduled Referrals Name Type Priority Associated Diagnoses Orde r Schedule Ambulatory referral to Pelvic Floor Physical Therapy Outpatient Referral Routine Urinary urgency Stress incontinence Urge incontinence 1 Occurrences starting 06/11/2024 until 12/09/2025 documented as of this encounter Procedures Procedure Name Priority Date/Time Associated Diagnosis Comments POC US BLADDER SCAN FOR VOLUME Routine 06/11/2024 10:45 AM EST Urinary urgency POCT URINALYSIS DIPSTICK Routine 06/11/2024 10:37 AM EST documented in this encounter Results * POC US Bladder Volume (06/11/2024 10:45 AM EST) Urine, Volume 0 mL IMAGING Anatomical Region Laterality Modality Other Katie Caballero Basilio OPEN HEARTH DOOR LINER, DNP IMG POINT OF CARE ULTR ASOUND Final Result * (ABNORMAL) POCT URINALYSIS DIPSTICK (06/11/2024 10:37 AM EST) POCT Urine Color Yellow 06/11/2024 10:38 AM EST [facility] POCT Urine Clarity Clear 06/11/2024 10:38 AM EST [facility] POCT Urine Glucose Negative Negative mg/dL 06/11/2024 10:38 AM EST [facility] POCT Urine Bilirubin Negative Negative mg/dL 06/11/2024 10:38 AM EST [facility] POCT Urine Ketones Negative Negative mg/dL 06/11/2024 10:38 AM EST [facility] POCT Urine Specific [place] >=1.030 1.005 - 1.030 06/11/2024 10:38 AM EST [facility] POCT Urine Blood Small(A) Negative 06/11/2024 10:38 AM EST [facility] POCT pH, Urine 5.5 4.5 to 8.0 06/11/2024 10:38 AM EST [facility] POCT Protein, Urine Negative Negative mg/dL 06/11/2024 10:38 AM EST [facility] POCT Urobilinogen, Urine 0.2 0.2, 1.0 EU/dL 06/11/2024 10:38 AM EST [facility] POCT Nitrite, Urine Negative Negative 06/11/2024 10:38 AM EST [facility] POCT Urine Leukocyte Esterase Negative Negative 06/11/2024 10:38 AM EST [facility] Urine 06/11/2024 10:3 7 AM EST 06/11/2024 10:38 AM EST Katie Richmond APRN, DNP LAB POINT OF C ARE TEST DOCKED DEVICE UNSOLICITED RESULTS Final Result [facility] UR[facility] [address], [place] documented in this encounter Visit Diagnoses Diagnosis Urinary urgency- Primary Urgency of urination Stress incontinence Female stress incontinence Urge incontinence documented in this encounter Additional Health Concerns Infection Onset Date Last Indicated Resolved Time C. difficile 12/20/2020 12/20/2020 Assessment Noted Time A fall risk assessment has been complete d for the patient 03/19/2024 2:36 PM EDT A Body Mass Index follow-up plan has been documented for the patient 06/11/2024 11:24 AM EST documented as of this encounter Care Teams Cable Mock Up Assembler Relationship Specialty Start Date End Date Aidan Vizcarra MD [address] [place] [address] PCP - General 11/26/20 Katie Richmond APRN, HOWARD [address] [place] [address] Nurse Practitioner Urology 06/11/24 documented as of this encounter
--- OUTSIDE RECORDS SUMMARY | 2024-06-20 10:55 | XMS_ITS | Encounter Summary ---
Author Organization [facility] Address [address] [place] [address] Care Team Providers Care Engine Designer Name Role Phone Unavailable Primary Care Provider Unavailabl e Encounter Details Date Type Department Care Team (Late st Contact Info) Description 11/08/2007 Conversion Encounter [facility] HISTORICAL CONV [address] [place] [place] [address] Interface, See Report Social History [...] Description 09/02/2024 3:30 PM EST Office Visit [facility] OBGYN [address] [address] Shara Timmons MD [address] [address] documented as of this encounter Procedures Procedure Name Priority Date/Time Associated Diagnosis Comments CONVERTED (HISTORICAL) SURGICAL PATHOLOGY Routine 11/08/2007 11:23 AM EDT documented in this encounter Results * Converted Surgical Pathology (11/08/2007 11:23 AM EDT) 11/08/2007 11:2 3 AM EDT Narrative [facility] - 11/11/2007 2:11 PM EDT [facility] SURGICAL PATHOLOGY REPORT Patient Name: LORENZO TOBAR MR#: [id number] : 1980 Gender: F Ordering Physician: LEXX CAREY :6C Copy To: [facility] Location: LAB Collected: 11/08/2007 Received: 11/08/2007 Reported: 11/11/2007 Clinical Diagnosis and History The working history is dysmenorrhea, dyspareunia, chronic pelvic pain, endometriosis and adhesions. Final Diagnosis ENDOMETRIAL CURETTINGS: ? Tiny fragment of secretory endometrium and mucus. ? DGD/rw Electronically Signed Out By DIANNA VIGIL Specimen(s) Received: Endometrium, curretage Gross Description The specimen, labeled EMC, received in formalin, consists of a 2.5 x 2.5 x 0.3 cm aggregate of martin pink irregular soft tissue fragments which are wrapped and submitted in toto in one cassette. ??HM/my Microscopic Description Sections of the specimen show it to consist almost entirely of mucus and several tiny fragments of endometrium. ??The endometrial glands are in secretory phase and show no evidence of atypia or hyperplasia. ??DGD/rw us See Report Interface PATHOLOGY/CYTOLOGY ORDERABL ES Final Result [facility] [place] [address], documented in this encounter Visit Diagnoses Not on filedocumented in this encounter
--- OUTSIDE RECORDS SUMMARY | 2024-06-20 10:55 | XMS_ITS | Encounter Summary ---
Author Organization [facility] Address [address] [place] [address] Care Team Providers Care Lump Room Supervisor Name Role Phone Aidan Vizcarra MD Primary Care Provider [phone] Reason for Referral * Diagnostic Imaging (Routine) - Closed Specialty Diagnoses / Procedures Referred By Marly arce Referred To Contact Radiology Diagnoses Visit for screening mammogram Procedures Mammo Screening Digital Tomosynthesis Bilateral With CAD Harjinder Marshall MD Referral ID Status Reason Start Date Expiration Date Visits Re quested Visits Authorized [id number] Closed 12/09/2019 12/08/2020 1 1 Reason for Visit * Diagnostic Imaging (Routine) - Closed Specialty Diagnoses / Procedures Referred By Marly arce Referred To Contact Radiology Diagnoses Visit for screening mammogram Procedures Mammo Screening Digital Tomosynthesis Bilateral With CAD Harjinder Marshall MD Referral ID Status Reason Start Date Expiration Date Visits Re quested Visits Authorized [id number] Closed 12/09/2019 12/08/2020 1 1 Encounter Details Date Type Department Care Team (Latest Contact Info) Description 02/20/2020 12:49 PM EDT - 02/20/2020 11:59 PM EDT Hospital Encounter [address] [address] Harjinder Marshall MD Visit for screening mammogram Discharge Disposition: Home [...] Description 09/02/2024 3:30 PM EST Office Visit [facility] OBGYN [address] [facility] [address] [place] [address] Shara Timmnos MD [address] [facility] [address] [place] [address] documented as of this encounter Procedures Procedure Name Priority Date/Time Associated Diagnosis Comments MAMMO SCREENING DIGITAL TOMOSYNTHESIS BILATERAL W CAD Routine 02/20/2020 1:23 PM EDT Visit for screening mammogram documented in this encounter Results * Mammo Screening Digital Tomosynthesis Bilateral With CAD (02/20/2020 1:23 PM EDT) Anatomical Region Laterality Modality Breast N/A Mammography 02/26/2020 9:25 AM EDT Impressions 02/26/2020 9:26 AM EDT No findings suspicious for malignancy. ACR [...] exam will be mailed to the patient. At our facility, a triangular marker is positioned over a palpable area of concern indicated by the patient. A [place] marker is placed over a visible skin lesion. A linear marker indicates a scar. ?? If there is a palpable area of concern, biopsy should be considered regardless of imaging findings. This report was finalized on 02/26/2020 9:[address] Serena Porter MD. Narrative 02/26/2020 9:26 AM EDT ROUTINE DIGITAL SCREENING MAMMOGRAM WITH TOMOSYNTHESIS HISTORY: Routine screening. IMAGE COMPARISON: ??Comparison is made to previous exams of the right breast on 09/19/2012 and 06/23/2010.. TECHNIQUE: ??Low dose full field digital breast tomosynthesis imaging was performed with 2D and 3D acquisitions consisting of bilateral CC and MLO views. In addition, bilateral exaggerated lateral CC views were obtained. FINDINGS: There are scattered areas of fibroglandular density. The fibroglandular pattern of the right breast appears stable. ??There is no mass, worrisome microcalcifications, or architectural distortion to suggest development of malignancy. Harjinder Marshall MD IMG MAMMOGRAPHY ORDERABLE S Final Result documented in this encounter Visit Diagnoses Diagnosis Visit for screening mammogram documented in this encounter Care Teams Lump Room Supervisor Relationship Specialty Start Date End Date Aidan Vizcarra MD [address] [facility] [address] [facility] [address] [place] [address] PCP - General Family Medicine 04/20/16 documented as of this encounter
--- OUTSIDE RECORDS SUMMARY | 2024-06-20 10:56 | XMS_ITS | Encounter Summary ---
Author Organization [facility] Address [address] [place] [address] Care Team Providers Care Gravity Prospector Name Role Phone Aidan Vizcarra MD Primary Care Provider [phone] Reason for Visit * Reason Onset Date Comments HCN - Patient Message 10/11/2021 Encounter Details Date Type Department Care Team ([facility] st Contact Info) Description 10/11/2021 Telephone PFE SCHEDULING [address] [place] [address] Lamont Ingram MD [address] [facility] [address] [place] [phone] HCN - Patient Message Social History Tobacco [...] encounter Miscellaneous Notes * Telephone Encounter - Sridevi Pan - 10/11/2021 2:21 PM EDT Called patient back and moved her appts * Telephone Encounter - Serena Lopes - 10/11/2021 11:39 AM EDT Patient Phone Message Reason for Call: Dr Ingram. Needs to reschedule appts in December to the week after. Please call. Best contact number and optimal time of day to reach caller: [phone] Note: Please do not reply to this message. Follow-up communication and further actions as a result of this message need to be communicated with the patient directly, if the patient is not active onMyChart. If the patient is active on MyChart, they will receive notification of the communication/outcome via CBTechart. documented in this encounter Plan of Treatment Upcoming Encounters Date Type Department Care Team (Late st Contact Info) Description 09/18/2024 9:20 AM EST Office Visit [facility] [address] [place] [address] Katie Richmond, CADDY, DNP [address] [place] [address] 03/25/2025 9:20 AM EDT Appointment [facility] [address] [place] [address] 03/25/2025 11:40 AM EDT Office Visit [facility] [address] [place] [address] Nancy Mcbride PA [address] [place] [address] documented as of this encounter Visit Diagnoses Not on filedocumented in this encounter Additional Health Concerns Infection Onset Date Last Indicated Resolved Time C. difficile 12/20/2020 12/20/2020 Assessment Noted Time A fall risk assessment has been complete d for the patient 12/29/2020 11:32 AM EDT documented as of this encounter Care Teams Gravity Prospector Relationship Specialty Start Date End Date Aidan Vizcarra MD [address] [place] [facility] [address] [place] [address] PCP - General 11/26/20 documented as of this encounter
--- OUTSIDE RECORDS SUMMARY | 2024-06-20 10:56 | XMS_ITS | Encounter Summary ---
Author Organization [facility] Address [address] [place] [address] Care Team Providers Care Lithographer Helper Name Role Phone Aidan Vizcarra MD Primary Care Provider [phone] Reason for Referral * Imaging (Routine) - Closed Specialty Diagnoses / Procedures Referred By Marly arce Referred To Contact Radiology Diagnoses Renal cell carcinoma of left kidney (CMS/HCC) Procedures CT Renal Mass w and wo IV Contrast Lamont Ingram MD [address] [address] Phone: tel: fax: Referral ID Status Reason Start Date Expiration Date Visits Re quested Visits Authorized [id number] Closed 1 1 Reason for Visit * Imaging (Routine) - Closed Specialty Diagnoses / Procedures Referred By Marly arce Referred To Contact Radiology Diagnoses Renal cell carcinoma of left kidney (CMS/HCC) Procedures CT Renal Mass w and wo IV Contrast Lamont Ingram MD [address] [address] Phone: tel: fax: Referral ID Status Reason Start Date Expiration Date Visits Re quested Visits Authorized [id number] Closed 1 1 Encounter Details Date Type Department Care Team (Latest Contact Info) Description 03/08/2022 8:40 AM EDT - 03/08/2022 11:59 PM EDT Hospital Encounter [facility] [address] [place] [address] Renal cell carcinoma of left kidney (CMS/HCC) [...] Orientation Straight 12/29/2020 8: 42 AM EDT COVID-19 Exposure Response Date Recorded In the last 10 days, have yo u been in contact with someone who was confirmed or suspected to have Coronavirus/COVID-19? No / Unsure 03/08/2022 11:04 PM EDT documented as of this encounter Discharge Instructions * Attachments The following attachments cannot be sent through Care Everywhere. * Contrast Imaging Discharge Instructions ([place]) (Ghanaian) documented in this encounter Medications at Time of Discharge Cetirizine HCl (ZyrTEC ALLERGY) 10 MG capsule Zyrtec 10 mg capsule Take by oral route. documented as of this encounter Plan of Treatment Upcoming Encounters Date Type Department Care Team (Late st Contact Info) Description 09/18/2024 9:20 AM EST Office Visit [facility] [address] [place] [address] Katie Richmond APRN, DNP [address] [place] [address] 03/25/2025 9:20 AM EDT Appointment [facility] [address] [place] [phone] 03/25/2025 11:40 AM EDT Office Visit [facility] [address] [place] [address] Nancy Mcbride PA [address] [facility] [address] [place] [address] documented as of this encounter Procedures Procedure Name Priority Date/Time Associated Diagnosis Comments CT RENAL MASS W AND WO IV CONTRAST Routine 03/08/2022 9:19 AM EDT Renal cell carcinoma of left kidney (CMS/HCC) POCT CREATININE ISTAT UNSOLICITED RESULTS Routine 03/08/2022 8:55 AM EDT documented in this encounter Results * CT Renal Mass w and wo IV Contrast (03/08/2022 9:19 AM EDT) Anatomical Region Laterality Modality Kidney Computed Tomogra phy Impressions 03/08/2022 9:36 AM EDT Stable examination. Postsurgical changes from partial left nephrectomy. There is no evidence of recurrence or metastatic disease.. CRITICAL RESULT: No. COMMUNICATION: Per this written report. Dictated by Sharyn Ramirez on 03/08/2022 9:27 AM Signed by Sharyn Ramirez on 03/08/2022 9:36 AM Narrative 03/08/2022 9:36 AM EDT Exam/Procedure: CT RENAL MASS W AND WO IV CONTRAST ordered by LAMONT INGRAM, [id number] CLINICAL INDICATION: Urologic cancer, surveillance TECHNIQUE: Multiple pre-contrast axial CT images were obtained from lower chest through upper pelvis, followed by multiple axial CT images of the abdomen following the administration of IV contrast, Omnipaque 300, 100 mL. Images were obtained in the corticomedullary and excretory phases. Reformatted images in the coronal and sagittal planes were generated from the axial data set to facilitate diagnostic accuracy. Total DLP (Dose-Length Product): 691.03 mGy.cm. Please note: The reported value represents the total of one or more individual components during the CT acquisition on this date and at this time, and as such, the same value may appear in more than one CT report depending on the interpreting/reporting physicians. COMPARISON: None. FINDINGS: Kidneys: Patient has undergone partial left nephrectomy. No stones identified on noncontrasted imaging. Normal symmetric enhancement pattern of the renal parenchyma. There is no evidence of recurrent mass or lesion. Small cyst identified in the right kidney. No significant distention seen of the renal collecting system. Ureters are normal in caliber. Remaining Abdominal Solid Organs: The liver is homogeneous in appearance. No underlying mass or lesion. The gallbladder is been surgically removed. No intrahepatic or extra hepatic biliary ductal dilatation. The spleen is homogeneous. The pancreas is unremarkable. Both adrenal glands are within normal limits. Gi Tract/Mesentery/Peritoneum: Stomach is unremarkable no wall thickening. The small bowel is within normal limits. No mucosal abnormality or distention. Visualized colon is unremarkable. Stool with no evidence of obvious obstruction or obstructing lesion. Free Fluid: None. Lymph Nodes and Vasculature:There is no adenopathy according to CT size criteria. No significant atherosclerotic disease within the abdominal aorta or iliac vessels. Musculoskeletal and Body Wall: There is no ventral abdominal wall mass. There is a small ventral abdominal wall hernia in the. Helical hernia just left of midline containing fat only. No aggressive osseous abnormality. Lower Chest: The lung bases are grossly clear.. Procedure Note Sharyn Ramirez MD - 03/08/2022 Exam/Procedure: CT RENAL MASS W AND WO IV CONTRAST ordered by LAMONT HERCULES, [id number] CLINICAL INDICATION: Urologic cancer, surveillance TECHNIQUE: Multiple pre-contrast axial CT images were obtained from lower chestthrough upper pelvis, followed by multiple axial CT images of the abdomenfollowing the administration of IV contrast, Omnipaque 300, 100 mL. Imageswere obtained in the corticomedullary and excretory phases. Reformattedimages in the coronal and sagittal planes were generated from the axialdata set to facilitate diagnostic accuracy. Total DLP (Dose-Length Product): 691.03 mGy.cm. Please note: The reportedvalue represents the total of one or more individual components during theCT acquisition on this date and at this time, and as such, the same valuemay appear in more than one CT report depending on theinterpreting/reporting physicians. COMPARISON: None. FINDINGS: Kidneys: Patient has undergone partial left nephrectomy. No stonesidentified on noncontrasted imaging. Normal symmetric enhancement patternof the renal parenchyma. There is no evidence of recurrent mass or lesion.Small cyst identified in the right kidney. No significant distention seenof the renal collecting system. Ureters are normal in caliber. Remaining Abdominal Solid Organs: The liver is homogeneous in appearance.No underlying mass or lesion. The gallbladder is been surgically removed.No intrahepatic or extra hepatic biliary ductal dilatation. The spleen ishomogeneous. The pancreas is unremarkable. Both adrenal glands are withinnormal limits. Gi Tract/Mesentery/Peritoneum: Stomach is unremarkable no wall thickening.The small bowel is within normal limits. No mucosal abnormality ordistention. Visualized colon is unremarkable. Stool with no evidence ofobvious obstruction or obstructing lesion. Free Fluid: None. Lymph Nodes and Vasculature:There is no adenopathy according to CT sizecriteria. No significant atherosclerotic disease within the abdominalaorta or iliac vessels. Musculoskeletal and Body Wall: There is no ventral abdominal wall mass.There is a small ventral abdominal wall hernia in the. Helical hernia justleft of midline containing fat only. No aggressive osseous abnormality. Lower Chest: The lung bases are grossly clear.. IMPRESSION: Stable examination. Postsurgical changes from partial left nephrectomy.There is no evidence of recurrence or metastatic disease.. CRITICAL RESULT: No. COMMUNICATION: Per this written report. Dictated by Sharyn Ramirez on 03/08/2022 9:27 AM Signed by Sharyn Ramirez on 03/08/2022 9:36 AM Lamont Ingram MD IMG CT PROCEDURES Final Resul t * POCT creatinine (03/08/2022 8:55 AM EDT) Creatinine, Point of Care 0.6 0.6 - 1.1 mg/dL 03/08/2022 9:00 AM EDT [facility] POCT eGFR 115 mL/min/1. 73m*2 03/08/2022 9:00 AM EDT [email or web address] Pulmonologist/Intensivist ID BINTA WASHBURN 03/08/2022 9:00 AM EDT [facility] Device ID [id number] 03/08/2022 9:00 AM EDT [facility] Comment 03/08/2022 9:00 AM EDT [facility] Comment: Testing performed on i-STAT at the point of care. Testing performed on i-STAT at the point of care. Reported eGFRcr in mL/min/1.73m2 is based the CKD-EPI 2021 equation that does not use a race coefficient. Effective 02/08/22 our laboratory changed the eGFR calculation to the CKD-EPI 2021 equation from the previously reported eGFR, based on the MDRD equation. For comparisons between the two equations, please see laboratory website: [email or web address] Blood Venous blood specimen / Unknown 03/08/2022 8:55 AM EDT 03/08/2022 9:00 AM EDT us Generic Provider Poct LAB POINT OF CARE TEST DOCKED DEVICE UNSOLICITED RESULTS Final Result [facility] [address] [place] [address] documented in this encounter Visit Diagnoses Diagnosis Renal cell carcinoma of left kidney (CMS/HCC) documented in this encounter Administered Medications Inactive Administered Medications - up to 3 most recent administrations Medication Order MAR Action Action Date Dose Rate Site iohexol (OMNIPaque) 350 MG/ML injection 100 mL 100 mL, Intravenous, Once in imaging, 1 dose, Starting on Sun03/08/22 at 0847, Until Sun03/08/22 at 0909, Routine Given 03/08/2022 9:09 AM EDT 100 mL documented in this encounter Additional Health Concerns Infection Onset Date Last Indicated Resolved Time C. difficile 12/20/2020 12/20/2020 Assessment Noted Time A fall risk assessment has been complete d for the patient 03/08/2022 12:06 PM EDT documented as of this encounter Care Teams Lithographer Helper Relationship Specialty Start Date End Date Aidan Vizcarra MD [address] [place] [address] PCP - General 11/26/20 documented as of this encounter
--- OUTSIDE RECORDS SUMMARY | 2024-06-20 10:56 | XMS_ITS | Encounter Summary ---
Author Organization [facility] Address [address] [place] [address] Care Team Providers Care Timber Sizer Name Role Phone Aidan Vizcarra MD Primary Care Provider [phone] Encounter Details Date Type Department Care Team (Latest Contact Info) Description 12/29/2020 Travel Social History Tobacco Use Types Packs/Day [...] Exposure Response Date Recorded In the last month, have you been in contact with someone who was confirmed or suspected to have Coronavirus / COVID-19? No / Unsure 12/29/2020 8:31 AM EDT documented as of this encounter Plan of Treatment Upcoming Encounters Date Type Department Care Team (Late st Contact Info) Description 09/18/2024 9:20 AM EST Office Visit [facility] [address] [place] [address] Katie Richmond, [employer], DNP [address] [place] [address] 03/25/2025 9:20 AM EDT Appointment [facility] [address] [place] [address] 03/25/2025 11:40 AM EDT Office Visit [facility] [address] [place] [address] Nancy Mcbride PA [address] [place] [address] documented as of this encounter Visit Diagnoses Not on filedocumented in this encounter Additional Health Concerns Infection Onset Date Last Indicated Resolved Time C. difficile 12/20/2020 12/20/2020 Assessment Noted Time A fall risk assessment has been complete d for the patient 12/29/2020 11:32 AM EDT documented as of this encounter Care Teams Timber Sizer Relationship Specialty Start Date End Date Aidan Vizcarra MD [address] [facility] [address] [place] [address] PCP - General 11/26/20 documented as of this encounter
--- OUTSIDE RECORDS SUMMARY | 2024-06-20 10:56 | XMS_ITS | Encounter Summary ---
Author Organization [facility] Address [address] [place] [address] Care Team Providers Care Turpentine Distiller Name Role Phone Aidan Vizcarra MD Primary Care Provider [phone] Reason for Referral * Imaging (Routine) - Closed Specialty Diagnoses / Procedures Referred By Marly arce Referred To Contact Radiology Diagnoses Renal cell carcinoma of left kidney (CMS/HCC) Procedures CT Renal Mass w and wo IV Contrast Lamont Inrgam MD [address] [address] Phone: tel: fax: Referral ID Status Reason Start Date Expiration Date Visits Re quested Visits Authorized [id number] Closed 1 1 Encounter Details Date Type Department Care Team (Late st Contact Info) Description 12/29/2020 10:00 AM EDT Office Visit [facility] [address] [place] [address] Lamont Ingram MD [address] [facility] [place] [address] Renal cell carcinoma of left [...] Sign Reading Time Taken Comments Blood Pressure 132/80 12/29/2020 11:31 AM EDT Pulse 82 12/29/2020 11:31 AM EDT Temperature 36.7 ??C (98.1 ??F) 12/29/2020 11:31 AM E DT Respiratory Rate 18 12/29/2020 11:31 AM EDT Oxygen Saturation 100% 12/29/2020 11:31 AM EDT Inhaled Oxygen Concentration - - Weight 98.7 kg (217 lb 9.5 oz) 12/29/2020 11:31 AM EDT Height 165.1 cm (5' 5 ) 12/29/2020 11:31 AM EDT Body Mass Index 36.21 12/29/2020 11:31 AM EDT documented in this encounter Miscellaneous Notes * Assessment & Plan Note - Sai Raymundo MD - 12/29/2020 11:47 AM EDT Associated Problem(s): Renal cell carcinoma (CMS/HCC) Renal condition is unchanged. Continue current treatment regimen. Renal condition will be reassessed in [address] Renal Mass w/w/o IV contrast at next visit.Plan for renal U/S in [address] Renal Mass w/w/o IV contrast: 12/29/2020 - Postsurgical changes of left partial nephrectomy. No evidence of disease recurrence. * Progress Notes - Sai Raymundo MD - 12/29/2020 10:00 AM EDT Subjective HPI: Hannah Tobar is a 40 y.o. female that was last seen in our clinic on 12/31/2019 for second opinion of her known RCC. She underwent robotic partial nephrectomy of two left sided lesions on 12/28/[address] Beltran: (1) Anterior fat containing lesion on CT with final pathology consistent with AML. (2) 2 cm posterior solid lesion on CT with final pathology showing pT1a Type II Papillary RCC, Deanna Grade III with positive margin. Her post-operative course was complicated by C diff colitis. Her post-operative serum creatinine was 0.9 with GFR>60. Due to positive margins seen on CT, she has been following with us with yearly CT scans. Patient has not had any recent fevers, chills, nausea, vomiting, headache, chest pain, shortness ofbreath, GI/ issues, MSK problems, or new skin wounds/ulcers. No dysuria, hematuria, no incontinence, no increased frequency, no enuresis. The following portions of the chart were reviewed this encounter and updated as appropriate: Tobacco Allergies Meds Problems Med Hx Surg Hx Fam Hx Review of Systems Constitutional: Negative. HENT: Negative. Eyes: Negative. Respiratory: Negative. Cardiovascular: Negative. Gastrointestinal: Negative. Endocrine: Negative. Genitourinary: Positive for flank pain (June 2020, managed conservatively). Negative for difficulty urinating, dysuria, enuresis, frequency, hematuria, pelvic pain and urgency. Allergic/Immunologic: Negative. Neurological: Negative. Hematological: Negative. Psychiatric/Behavioral: Negative. Objective Physical Exam Constitutional: Appearance: She is obese. HENT: Head: Normocephalic and atraumatic. Nose: Nose normal. Eyes: Extraocular Movements: Extraocular movements intact. Conjunctiva/sclera: Conjunctivae normal. Pupils: Pupils are equal, round, and reactive to light. Pulmonary: Effort: Pulmonary effort is normal. No respiratory distress. Abdominal: Comments: obese Musculoskeletal: General: Normal range of motion. Cervical back: Normal range of motion. Skin: General: Skin is warm. Capillary Refill: Capillary refill takes less than 2 seconds. Neurological: General: No focal deficit present. Mental Status: She is alert and oriented to person, place, and time. Mental status is at baseline. Psychiatric: Mood and Affect: Mood normal. Behavior: Behavior normal. Thought Content: Thought content normal. Judgment: Judgment normal. Assessment/Plan Problem List Items Addressed This Visit Genitourinary Renal cell carcinoma (CMS/HCC) - Primary Renal condition is unchanged. Continue current treatment regimen. Renal condition will be reassessed in [address] Renal Mass w/w/o IV contrast at next visit.Plan for renal U/S in [address] Renal Mass w/w/o IV contrast: 12/29/2020 - Postsurgical changes of left partial nephrectomy. No evidence of disease recurrence. Sai Raymundo MD (Jay), PhD, MS General Surgery Resident, PGY-1 Pager: Cosigned by Lamont Ingram MD at 01/10/2021 6:59 AM EDT Associated attestation - Lamont Ingram MD - 01/10/2021 6:59 AM EDT I saw and evaluated the patient with the resident/fellow. I discussed the case with the resident/fellow and agree with the findings and plan as documented. documented in this encounter Plan of Treatment Upcoming Encounters Date Type Department Care Team (Late st Contact Info) Description 09/18/2024 9:20 AM EST Office Visit [facility] [address] [place] [address] Katie Richmond, [employer]INET ATTENDANT, DNP [address] [place] [address] 03/25/2025 9:20 AM EDT Appointment [facility] [address] [place] [address] 03/25/2025 11:40 AM EDT Office Visit [facility] [address] [place] [address] Nancy Mcbride PA [address] [place] [address] documented as of this encounter Results * CT Renal Mass [...] WO IV CONTRAST ordered by LAMONT INGRAM, [id number] CLINICAL INDICATION: Urologic cancer, surveillance TECHNIQUE: Multiple [...] WO IV CONTRAST ordered by LAMONT HERCULES, [id number] CLINICAL INDICATION: Urologic cancer, surveillance TECHNIQUE: Multiple [...] MD IMG CT PROCEDURES Final Resul t documented in this encounter Visit Diagnoses Diagnosis [...] documented as of this encounter Care Teams Turpentine Distiller Relationship Specialty Start Date End Date Aidan Vizcarra MD [address] [place] [address] [place] [address] PCP - General 11/26/20 documented as of this encounter
--- OUTSIDE RECORDS SUMMARY | 2024-06-20 10:56 | XMS_ITS | Encounter Summary ---
Author Organization [facility] Address [address] [id number] Care Team Providers Care Head Transfer Clerk Name Role Phone Aidan Vizcarra MD Primary Care Provider + [phone] Reason for Visit * Reason Comments Genetic Counseling * Consultation (Routine) - Closed Specialty Diagnoses / Procedures Referred By Marly arce Referred To Contact Genetics Diagnoses Renal cell carcinoma of left kidney (CMS/HCC) Lamont Ingram MD [address] [facility] [address] [place] [address] Phone: tel: fax: [facility] Genetic Counseling [address] [place] [address] Phone: tel: Referral ID Status Reason Start Date Expiration Date V isits Requested Visits Authorized [id number] Closed Specialty Services Required 03/08/2022 09/07/2023 1 1 Encounter Details Date Type Department Care Team ([facility] Contact Info) Description 03/09/2022 9:45 AM EDT Consult [facility] Multidisciplinary Oncology Clinic [address] [place] [address] Dori Casanova [address] [facility] [address] [place] [address] Renal cell carcinoma of left kidney (CMS/HCC) Social History Tobacco Use Types Packs/Day Years [...] PM EDT documented as of this encounter Miscellaneous Notes * Progress Notes - Dori Toro - 03/09/2022 9:45 AM EDT Images from the original note were not included. [facility] Clinical Cancer Genetics Consultation Patient Name: Hannah Tobar Date of : 1980 This patient's identity has been confirmed using name and date of and the patient has confirmed that they are physically located in [place]. The patient has received and understands the Authorizations and Agreements form and consents to the general terms and conditions of care. The patient has received the Consent for Care Using Telehealth. The risk, benefits, and alternatives of care being provided via telehealth were discussed with the patient who understands and agrees to proceed. Hannah is a 41 y.o. year old female who was referred for genetic counseling due to a personal diagnosis of renal cancer as well as a family history of cancer. She was unaccompanied to her visit. Ms. Tobar was diagnosed with renal cancer in 2017 at age 36. Ms. Tobar has a personal history of endometriosis and PCOS s/p transvaginal surgery with incidentally discovered renal lesions (back pain). She underwent robotic partial nephrectomy of two left sided lesions on 12/28/[address] 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 Tobar stated she did not require further treatment at that time. Ms. Tobar provided the following personal history information: Menarche- 13 Total number of pregnancies- 1 Age at first live - 24 Hx - No control use- Yes, used for 18 years Menopause status - premenopausal Hormone replacement use- No Hormone treatment to help get - Yes, 6 cyles Mammogram- Yes, mammo in 2020 Hx Breast Biopsy- No RADHIKA/BSO- No Colonoscopy- No Upper endoscopy- No Ms. Tobar was interested in discussing her risk for a hereditary cancer syndrome. FAMILY HISTORY (see pedigree below): Father diagnosed with skin cancer, squamous cell carcinoma, at age 64; still living at age 71. Paternal aunt diagnosed with bladder cancer in her late 40s/early 50s; still living at unknown age. Paternal uncle diagnosed with prostate cancer in his late 50s; still living at unknown age. Maternal grandmother diagnosed with lung cancer at age 55; at age 61. We do not have the medical records regarding the diagnoses in the patient's family. She denies any Ashkenazi Sabianism ancestry or consanguinity. CANCER RISK ASSESSMENT AND GENETIC COUNSELING: We reviewed the patient's medical and family historyin detail. We also discussed the characteristics of sporadic cancer versus familial cancer versus hereditary cancer syndromes. Family histories typical of hereditary cancer syndromes usually include multiple close relatives diagnosed with the same type of cancer or cancer types that are part of a defined hereditary condition. Hereditary cancer is usually diagnosed at a younger than expected age (<50 years of age) and may involve more than one primary site in a single individual. Regarding the hereditary forms of cancer, autosomal dominant inheritance was reviewed. We briefly discussed potential changes in screening and management guidelines that could occur, based on genetic testing results. GENETIC TESTING: Ms. Tobar meets criteria for Burton syndrome (MLH1, MSH2, MSH6, PMS2, EPCAM) genetic testing as well as testing for hereditary renal cancer genes such as FH. After reviewing the patient???s medical history, family history, and risk assessment, we discussed genetic testing options. Specifically, we talked about currently available multi-gene panel testing options, including benefits and limitations. ? The patient elected to proceed with the following test: ? CancerNext-Expanded Genes included: AIP, ALK, APC, CYNTHIA, AXIN2, BAP1, BARD1, BLM, BMPR1A, BRCA1, BRCA2, BRIP1, CDC73, CDH1, CDK4, CDKN1B, CDKN2A, CHEK2, CTNNA1, DICER1, EGFR, EGLN1, EPCAM, FANCC, FH, FLCN, GALNT12, GREM1, HOXB13, KIF1B, KIT, LZTR1, MAX, MEN1, MET, MITF, MLH1, MSH2, MSH3, MSH6, MUTYH, NBN, NF1, NF2, NTHL1, PALB2, PDGFRA, PHOX2B, PMS2, POLD1, POLE, POT1, HIYKI6T, PTCH1, PTEN, RAD51C, RAD51D, RB1, RECQL, RET, SDHA, SDHAF2, SDHB, SDHC, SDHD, SMAD4, SMARCA4, SMARCB1, SMARCE1, STK11, SUFU, MXXP717, TP53,TSC1, TSC2, VHL, XRCC2 ? Lab: [facility] ? Turnaround Time:?Approximately 3 weeks ? We explained possible results of genetic testing including positive, negative or a variant of uncertain significance, and briefly discussed the implications of each. PLAN: A saliva sample kit will be mailed to the patient's home and they will send this sample to [facility] for testing via the above panel. [facility] will contact the patient's insurance company to find out if they will pay for the testing. If it is estimated that the patient will receive a bill greater than $100, a retail sales representative from [facility] will call the patient to discuss whether or not the patient still wants the testing performed, the laboratory's available payment plans, etc. I will call the patient with the test results when they are available, usually in about 3 weeks from the date that the lab receives the sample. The Genetic Information Nondiscrimination Act (TOMMY) was reviewed. It was a pleasure to meet with this patient and I remain available to the patient, their physicians, and family for future questions or concerns. I can be reached at [phone]. This telehealth visit occurred via online audio and video. The provider was located at their home. The patient was located at their home. Total time for this visit was approximately 32 minutes. Written information regarding genetic testing was sent to the patient following their appointment. documented in this encounter Plan of Treatment Upcoming Encounters Date Type Department Care Team ([facility] st Contact Info) Description 09/18/2024 9:20 AM EST Office Visit [facility] [address] [place] [address] Katie Richmond APRN, DNP [address] [facility] [address] [place] [phone] 03/25/2025 9:20 AM EDT Appointment [facility] [address] [place] [phone] 03/25/2025 11:40 AM EDT Office Visit [facility] [address] [place] [phone] Nancy Mcbride, PA [address] [facility] [address] [place] [address] documented as of this encounter Visit Diagnoses Diagnosis Renal cell carcinoma of left kidney (CMS/HCC) documented in this encounter Additional Health Concerns Infection Onset Date Last Indicated Resolved Time C. difficile 12/20/2020 12/20/2020 Assessment Noted Time A fall risk assessment has been complete d for the patient 03/08/2022 12:06 PM EDT documented as of this encounter Care Teams Head Transfer Clerk Relationship Specialty Start Date End Date Aidan Vizcarra MD [address] [facility] [address] [place] [address] PCP - General 11/26/20 documented as of this encounter
--- OUTSIDE RECORDS SUMMARY | 2024-06-20 10:56 | XMS_ITS | Encounter Summary ---
Author Organization [facility] Address [address] [place] [address] Care Team Providers Care Thread Dresser Name Role Phone Aidan Vizcarra MD Primary Care Provider [phone] Reason for Referral * Imaging (Routine) - Closed Specialty Diagnoses / Procedures Referred By Marly arce Referred To Contact Radiology Diagnoses Renal cell carcinoma (CMS/HCC) Procedures CT Renal Mass w and wo IV Contrast Lamont Ingram MD [address] [address] Phone: tel: fax: Referral ID Status Reason Start Date Expiration Date Visits Re quested Visits Authorized [id number] Closed 12/05/2020 06/03/2021 1 1 Reason for Visit * Imaging (Routine) - Closed Specialty Diagnoses / Procedures Referred By Marly arce Referred To Contact Radiology Diagnoses Renal cell carcinoma (CMS/HCC) Procedures CT Renal Mass w and wo IV Contrast Lamont Ingram MD [address] [facility] [place] [address] Phone: tel: fax: Referral ID Status Reason Start Date Expiration Date Visits Re quested Visits Authorized [id number] Closed 12/05/2020 06/03/2021 1 1 Encounter Details Date Type Department Care Team (Latest Contact Info) Description 12/29/2020 8:20 AM EDT - 12/29/2020 11:59 PM EDT Hospital Encounter [facility] [address] [place] [address] Renal cell carcinoma (CMS/HCC) Discharge Disposition: Home or Self Care [...] [facility] [address] [place] [address] Katie Richmond APRN, DNP [address] [address] 03/25/2025 9:20 AM EDT Appointment [facility] Radiology [address] [place] [address] 03/25/2025 11:40 AM EDT Office Visit [facility] Multidisciplinary Oncology Clinic [address] [place] [address] Nancy Mcbride PA [address] [address] documented as of this encounter Procedures Procedure Name Priority Date/Time Associated Diagnosis Comments CT RENAL MASS W AND WO IV CONTRAST Routine 12/29/2020 9:43 AM EDT Renal cell carcinoma (CMS/HCC) POCT CREATININE UNSOLICITED RESULTS Routine 12/29/2020 8:55 AM EDT documented in this encounter Results * CT Renal Mass w and wo IV Contrast (12/29/2020 9:43 AM EDT) Anatomical Region Laterality Modality Kidney Computed Tomogra phy Impressions 12/29/2020 11:25 AM EDT Postsurgical changes of left partial nephrectomy. No evidence of disease recurrence. CRITICAL RESULT: No. COMMUNICATION: Per this written report. Signed by Gabriel Bosch on ??12/29/2020 11:25 AM Narrative 12/29/2020 11:25 AM EDT Exam/Procedure: CT RENAL MASS W AND WO IV CONTRAST ordered by LAMONT INGRAM, [id number] CLINICAL INDICATION: Renal cell carcinoma. TECHNIQUE: Multiple pre-contrast axial CT images were [...] facilitate diagnostic accuracy. Total DLP (Dose-Length Product): 2116.41 mGy.cm. Please note: The reported value represents the total of one or more individual components during the CT acquisition on this date and at this time, and as such, the same value may appear in more than one CT report depending on the interpreting/reporting physicians. COMPARISON: None. FINDINGS: Kidneys: Partial nephrectomy changes noted along the left kidney. No recurrent mass. No hydronephrosis. No renal calculi. Remaining Abdominal Solid Organs: Liver contour is smooth. No discrete suspicious focal liver lesions. Absent gallbladder. Unremarkable pancreas and spleen. Unremarkable adrenal glands Gi Tract/Mesentery/Peritoneum: The large and small bowel appear normal in caliber without evidence of inflammation. Free Fluid: No ascites. Lymph Nodes and Vasculature:No lymphadenopathy by CT size criteria. The abdominal aorta is normal in caliber. Musculoskeletal and Body Wall: No clearly aggressive bone lesions Lower Chest: Lung bases are clear. Procedure Note Gabriel Bosch MD - 06/16/2021 Exam/Procedure: CT RENAL MASS W AND WO IV CONTRAST ordered by LAMONT HERCULES, [id number] CLINICAL INDICATION: Renal cell carcinoma. TECHNIQUE: Multiple pre-contrast axial CT images were obtained from lower chestthrough upper pelvis, followed by multiple axial CT images of the abdomenfollowing the administration of IV contrast, Omnipaque 300, 100 mL. Imageswere obtained in the corticomedullary and excretory phases. Reformattedimages in the coronal and sagittal planes were generated from the axialdata set to facilitate diagnostic accuracy. Total DLP (Dose-Length Product): 2116.41 mGy.cm. Please note: The reportedvalue represents the total of one or more individual components during theCT acquisition on this date and at this time, and as such, the same valuemay appear in more than one CT report depending on theinterpreting/reporting physicians. COMPARISON: None. FINDINGS: Kidneys: Partial nephrectomy changes noted along the left kidney. Norecurrent mass. No hydronephrosis. No renal calculi. Remaining Abdominal Solid Organs: Liver contour is smooth. No discretesuspicious focal liver lesions. Absent gallbladder. Unremarkable pancreasand spleen. Unremarkable adrenal glands Gi Tract/Mesentery/Peritoneum: The large and small bowel appear normal incaliber without evidence of inflammation. Free Fluid: No ascites. Lymph Nodes and Vasculature:No lymphadenopathy by CT size criteria. Theabdominal aorta is normal in caliber. Musculoskeletal and Body Wall: No clearly aggressive bone lesions Lower Chest: Lung bases are clear. IMPRESSION: Postsurgical changes of left partial nephrectomy. No evidence of diseaserecurrence. CRITICAL RESULT: No. COMMUNICATION: Per this written report. Signed by Gabriel Bosch on 12/29/2020 11:25 AM us Lamont Ingram MD IMG CT PROCEDURES Final Resul t * POCT creatinine (12/29/2020 8:55 AM EDT) Creatinine, Point of Care 0.9 0.6 - 1.1 mg/dL 12/29/2020 9:00 AM EDT [facility] POCT eGFR >60 >60 mL/min/1 .73m*2 12/29/2020 9:00 AM EDT [facility] Generator Operator ID MIR MCALLISTER 12/29/2020 9:00 AM EDT [facility] Device ID [id number] 12/29/2020 9:00 AM EDT [facility] Comment 12/29/2020 9:00 AM EDT [facility] Comment:Testing performed by staff at point of care. All tests are immediately reported to the physician or primary caregiver. Results have not been confirmed by the Clinical Laboratory. It is the responsibility of the physician to confirm results. Blood Venous blood specimen / Unknown 12/29/2020 8:55 AM EDT 12/29/2020 9:00 AM EDT us Generic Provider Poct LAB POINT OF CARE TEST DOCKED DEVICE UNSOLICITED RESULTS Final Result [facility] [address] [place] [address] documented in this encounter Visit Diagnoses Diagnosis Renal cell carcinoma (CMS/HCC) Malignant neoplasm of kidney, except pelvis documented in this encounter Administered Medications Inactive Administered Medications - up to 3 most recent administrations Medication Order MAR Action Action Date Dose Rate Site iohexol (OMNIPaque) 300 MG/ML injection 100 mL 100 mL, Intravenous, Once in imaging, 1 dose, Starting on Sun12/29/20 at 0852, Until Sun12/29/20 at 0930, Routine, Imaging Protocol Orders Given 12/29/2020 9:30 AM EDT 100 mL documented in this encounter Additional Health Concerns Infection Onset Date Last Indicated Resolved Time C. difficile 12/20/2020 12/20/2020 Assessment Noted Time A fall risk assessment has been complete d for the patient 12/29/2020 11:32 AM EDT documented as of this encounter Care Teams Thread Dresser Relationship Specialty Start Date End Date Aidan Vizcarra MD [address] [place] [address] [place] [address] PCP - General 11/26/20 documented as of this encounter
--- OUTSIDE RECORDS SUMMARY | 2024-06-20 10:56 | XMS_ITS | Encounter Summary ---
Author Organization [facility] Address [address] [place] [address] Care Team Providers Care Sales And Marketing Analyst Name Role Phone Aidan Vizcarra MD Primary Care Provider [phone] Reason for Referral * Imaging (Routine) - Closed Specialty Diagnoses / Procedures Referred By Marly arce Referred To Contact Radiology Diagnoses Renal cell carcinoma of left kidney (CMS/HCC) Procedures CT Renal Mass w and wo IV Contrast Lamont Ingram MD [address] [address] Phone: tel: fax: Referral ID Status Reason Start Date Expiration Date Visits Re quested Visits Authorized [id number] Closed 03/08/2022 09/07/2023 1 1 Reason for Visit * Imaging (Routine) - Closed Specialty Diagnoses / Procedures Referred By Marly arce Referred To Contact Radiology Diagnoses Renal cell carcinoma of left kidney (CMS/HCC) Procedures CT Renal Mass w and wo IV Contrast Lamont Ingram MD [address] [address] Phone: tel: fax: Referral ID Status Reason Start Date Expiration Date Visits Re quested Visits Authorized [id number] Closed 03/08/2022 09/07/2023 1 1 Encounter Details Date Type Department Care Team (Latest Contact Info) Description 03/07/2023 8:40 AM EDT - 03/07/2023 11:59 PM EDT Hospital Encounter [facility] [address] [place] [address] Renal cell carcinoma of left kidney (CMS/HCC) [...] AM EDT documented as of this encounter Discharge Instructions * Attachments The following attachments cannot be sent through Care Everywhere. * Contrast Imaging Discharge Instructions ([place]) ([place]e) documented in this encounter Medications at Time of Discharge Cetirizine HCl (ZyrTEC ALLERGY) 10 MG capsule Zyrtec 10 mg capsule Take by oral route. estradiol (Divigel) gel Place 1 Application (0.25 mg) on the skin 1 (one) time each day. 10/25/2022 documented as of this encounter Plan of Treatment Upcoming Encounters Date Type Department Care Team (Late st Contact Info) Description 09/18/2024 9:20 AM EST Office Visit [facility] [address] [place] [address] Katie Richmond, PASSENGER ATTENDANT, DNP [address] [facility] [address] [place] [address] 03/25/2025 9:20 AM EDT Appointment [facility] [address] [place] [address] 03/25/2025 11:40 AM EDT Office Visit [facility] [address] [place] [address] Nancy Mcbride PA [address] [place] [address] documented as of this encounter Procedures Procedure Name Priority Date/Time Associated Diagnosis Comments CT RENAL MASS W AND WO IV CONTRAST Routine 03/07/2023 9:14 AM EDT Renal cell carcinoma of left kidney (CMS/HCC) POCT CREATININE ISTAT UNSOLICITED RESULTS Routine 03/07/2023 9:01 AM EDT documented in this encounter Results * CT Renal Mass w and wo IV Contrast (03/07/2023 9:14 AM EDT) Anatomical Region Laterality Modality Kidney Computed Tomogra phy Impressions 03/07/2023 10:07 AM EDT No evidence of recurrence or metastatic disease in the abdomen. CRITICAL RESULT: ?? No. COMMUNICATION: Per this written report. By electronically signing this report, I, the attending physician, attest that I have personally reviewed the images/data for the above examination(s) and agree with the final edited report. 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 Delayed images of abdomen and kidneys also obtained. Reformatted images in the coronal and sagittal planes were generated from the axial data set to facilitate diagnostic accuracy. Total DLP (Dose-Length Product): 945.80 mGy.cm. Please note: The reported value represents the total of one or more individual components during the CT acquisition on this date and at this time, and as such, the same value may appear in more than one CT report depending on the interpreting/reporting physicians. COMPARISON: CT renal mass from 03/08/2022 FINDINGS: Lower Chest: No suspicious findings. Kidneys: Postsurgical change associated with partial nephrectomies of the left kidney, with suture material anterior/inferior as well as posterior/superior. No abnormal soft tissue at the surgical beds. There are a few subcentimeter hypoattenuating lesions within both kidneys which are too small to characterize on CT but statistically represent cysts. No suspicious renal mass. No hydronephrosis. Other solid abdominal organs: Liver parenchyma is homogeneous. No suspicious liver lesion. Gallbladder is surgically absent. No intrahepatic or extrahepatic biliary ductal dilatation. Adrenal glands are unremarkable. Pancreas and spleen are unremarkable. GI Tract/Mesentery/Peritoneum: Partially included small and large bowel are unremarkable. No suspicious mesenteric or peritoneal findings. Lymph Nodes/Vasculature: No adenopathy by CT size criteria. Abdominal aorta and IVC maintain normal caliber and contour. Portal vein, SMV, and splenic vein are patent. Free Fluid:No free fluid. Musculoskeletal and Body Wall:No aggressive or suspicious findings. 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 Procedure Note Flores Mg MD - 03/07/2023 CLINICAL INDICATION: 42-year-old female with history of left AML and left papillary renal cellcarcinoma status post partial nephrectomy x2 TECHNIQUE: Multiple axial CT images were obtained from lung bases through pubicsymphysis following administration of IV contrast, Omnipaque 300, 100 mL.Delayed images of abdomen and kidneys also obtained. Reformatted images inthe coronal and sagittal planes were generated from the axial data set tofacilitate diagnostic accuracy. Total DLP (Dose-Length Product): 945.80 mGy.cm. Please note: The reportedvalue represents the total of one or more individual components during theCT acquisition on this date and at this time, and as such, the same valuemay appear in more than one CT report depending on theinterpreting/reporting physicians. COMPARISON: CT renal mass from 03/08/2022 FINDINGS: Lower Chest: No suspicious findings. Kidneys: Postsurgical change associated with partial nephrectomies of theleft kidney, with suture material anterior/inferior as well asposterior/superior. No abnormal soft tissue at the surgical beds. Thereare a few subcentimeter hypoattenuating lesions within both kidneys whichare too small to characterize on CT but statistically represent cysts. Nosuspicious renal mass. No hydronephrosis. Other solid abdominal organs: Liver parenchyma is homogeneous. Nosuspicious liver lesion. Gallbladder is surgically absent. No intrahepaticor extrahepatic biliary ductal dilatation. Adrenal glands areunremarkable. Pancreas and spleen are unremarkable. GI Tract/Mesentery/Peritoneum: Partially included small and large bowelare unremarkable. No suspicious mesenteric or peritoneal findings. Lymph Nodes/Vasculature: No adenopathy by CT size criteria. Abdominalaorta and IVC maintain normal caliber and contour. Portal vein, SMV, andsplenic vein are patent. Free Fluid:No free fluid. 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 IMPRESSION: No evidence of recurrence or metastatic disease in the abdomen. CRITICAL RESULT: No. COMMUNICATION: Per this written report. By electronically signing this report, I, the attending physician, attestthat I have personally reviewed the images/data for the aboveexamination(s) and agree with the final edited report. Drafted by Mariela Spence MD on 03/07/2023 9:26 AM Final report signed by Flores Mg MD on 03/07/2023 10:07 AM Lamont Ingram MD IMG CT PROCEDURES Final Resul t * POCT creatinine (03/07/2023 9:01 AM EDT) Creatinine, Point of Care 1.0 0.6 - 1.1 mg/dL 03/07/2023 9:03 AM EDT [facility] POCT eGFR 72 mL/min/1. 73m*2 03/07/2023 9:03 AM EDT [facility] Test Engineer ID Hortencia Galan 03/07/2023 9:03 AM EDT [facility] Device ID [id number] 03/07/2023 9:03 AM EDT [facility] Comment 03/07/2023 9:03 AM EDT [facility] Comment:Testing performed on i-STAT at the point of care. Reported eGFRcr in mL/min/1.73m2 is based the CKD-EPI 2020 equation that does not use a race coefficient. Blood Venous blood specimen / Unknown 03/07/2023 9:01 AM EDT 03/07/2023 9:03 AM EDT us Generic Provider Poct LAB POINT OF CARE TEST DOCKED DEVICE UNSOLICITED RESULTS Final Result [facility] [address] [place] [address] documented in this encounter Visit Diagnoses Diagnosis Renal cell carcinoma of left kidney (CMS/HCC) documented in this encounter Administered Medications Inactive Administered Medications - up to 3 most recent administrations Medication Order MAR Action Action Date Dose Rate Site iohexol (OMNIPaque) 300 MG/ML injection 100 mL 100 mL, Intravenous, Once in imaging, 1 dose, Starting on Sun03/07/23 at 0848, Until Sun03/07/23 at 0904, Routine, Imaging Protocol Orders Given 03/07/2023 9:04 AM EDT 100 mL documented in this encounter Additional Health Concerns Infection Onset Date Last Indicated Resolved Time C. difficile 12/20/2020 12/20/2020 Assessment Noted Time A fall risk assessment has been complete d for the patient 03/07/2023 10:17 AM EDT A Body Mass Index follow-up plan has been documented for the patient 03/08/2023 2:56 PM EDT documented as of this encounter Care Teams Sales And Marketing Analyst Relationship Specialty Start Date End Date Aidan Vizcarra MD [facility] [place] [address] PCP - General 11/26/20 documented as of this encounter
--- OUTSIDE RECORDS SUMMARY | 2024-06-20 10:56 | XMS_ITS ---
[facility] [address] [place] [id number] Care Team Providers Care Beverage Manager Name Role Phone Bill Bhandari Primary Care Provider Valentina Bautista Unavailable [phone] Aidan Vizcarra Unavailable [phone] ALLERGIES Allergen (clinical drug ingredient) Drug/Non Drug Allergy documented on EMR Reaction Allergy Type Onset Date Status cefdinir Cefdinir rash Drug Allergy Active Penicillin Unknown Drug Allergy Active REASON FOR VISIT swelling in ankles blood work MEDICATIONS Medication SIG (Take, Route, Frequency, Duration) Notes Start Date End Date Status Vitamin D3 1.25 MG (92446 UT) 1 capsule Orally once weekly 09/21/2023 Active Estradiol 0.75 MG/1.25 GM (0.06%) 1 pump to skin to arm Transdermal Once a day for 30 day(s) Active Montelukast Sodium 10 MG 1 tablet Orally Once a day for 30 day(s) Active Ondansetron HCl 4 MG 1 tablet Orally Onc e a day as needed 06/20/2024 Active Zepbound 2.5 MG/0.5ML 0.5 ml Subcutaneou s once weekly 06/20/2024 Active Colestid 1 GM 2 tablets Orally Onc e a day for 30 day(s) Active PROBLEMS Problem Type ICD Code Onset Dates Problem Status W/U Status Risk SNOMED Code Notes Problem Morbid obesity (E66.01) Active confirmed 382634204 VITAL SIGNS Weight 242.6 lbs 06/20/2024 Blood pressure systolic 120 mm Hg 06/20/20 24 Blood pressure diastolic 70 mm Hg 024 Heart Rate 95 /min 06/20/2024 Height 63.75 in 06/20/2024 BMI 41.96 kg/m2 06/20/2024 Encounters Encounter Location Date Provider Diagnosis [facility] [address] [facility] [address] [place] [id number] 06/20/2024 Aidan [place] Peripheral edema R60 .0 ; SOB (shortness of breath) on exertion R06.02 ; Morbid obesity E66.01 ; Vitamin D deficiency E55.9 and B12 deficiency E53.8 ASSESSMENTS Encounter Date Diagnosis Assessment Notes Treatment Notes Treatment Clinical Notes 06/20/2024 Peripheral edema (ICD-10 - R60.0) 06/20/2024 SOB (shortness of breath) on exertion (ICD-10 - R06.02) 06/20/2024 Morbid obesity (ICD-10 - E66.01) 06/20/2024 Vitamin D deficiency (ICD-10 - E55.9) 06/20/2024 B12 deficiency (ICD-10 - E53.8) PLAN OF TREATMENT Medication Medication Name Sig Start Date Stop Date Notes Ondansetron HCl 4 MG 1 tablet Orally Once a day as needed 06/20/2024 Zepbound 2.5 MG/0.5ML 0.5 ml Subcutaneous once weekly 12/2023 Pending Test Test Name Order Date H-TSH 06/20/2024 H-CBC 06/20/2024 H-VITAMIN D 06/20/2024 H-BNP 06/20/2024 H-Lipid Panel 06/20/2024 H-CMP 06/20/2024 H-Glycohemoglobin A1C 06/20/2024 H-VITAMIN B12 06/20/2024 History and Physical Notes * HPI (History of Present Illness) Category Sub-Category Detail Notes Cardiology Leg Edema Pt complains of bilateral ankle swelling for about a week. Pt states that swelling is worse at the end of the day
--- OUTSIDE RECORDS SUMMARY | 2024-06-20 10:56 | XMS_ITS | Encounter Summary ---
Author Organization [facility] Address [address] [place] [address] Care Team Providers Care Ballistician Name Role Phone Aidan Vizcarra MD Primary Care Provider [phone] Encounter Details Date Type Department Care Team (Latest Contact Info) Description 03/03/2022 Travel Social History Tobacco Use Types Packs/Day [...] suspected to have Coronavirus/COVID-19? No / Unsure 03/03/2022 11:08 AM EDT documented as of this encounter Plan of Treatment Upcoming Encounters Date Type Department Care Team (Late st Contact Info) Description 09/18/2024 9:20 AM EST Office Visit [place] [facility] [address] [place] [address] Katie Richmond, QUICKBOOKS BOOKKEEPER, DNP [address] [place] [address] 03/25/2025 9:20 AM EDT Appointment [facility] [address] [place] [address] 03/25/2025 11:40 AM EDT Office Visit [facility] [address] [place] [address] Nancy Mcbride PA [address] [place] [address] documented as of this encounter Visit Diagnoses Not on filedocumented in this encounter Additional Health Concerns Infection Onset Date Last Indicated Resolved Time C. difficile 12/20/2020 12/20/2020 Assessment Noted Time A fall risk assessment has been complete d for the patient 12/29/2020 11:32 AM EDT documented as of this encounter Care Teams Ballistician Relationship Specialty Start Date End Date Aidan Vizcarra MD [address] [facility] [address] [place] [address] PCP - General 11/26/20 documented as of this encounter
--- OUTSIDE RECORDS SUMMARY | 2024-06-20 10:56 | XMS_ITS ---
Author Organization [facility] Address [address] [facility] [address] [facility] [address] [place] [id number] Care Team Providers Care Circuit Board Repair Technician Name Role Phone Bill Bhandari Primary Care Provider Valentina Bautista [phone] REASON FOR VISIT Message MEDICATIONS Medication SIG (Take, Route, Fr equency, Duration) Notes Start Date End Date Status Diflucan 150 MG 1 tablet Orally once 04/18/2024 Active Encounters Encounter Location Date Provider Diagnosis [facility] [address] [facility] [address] [facility] [address] [place] [phone] 04/23/2024 Bill Bhandari PLAN OF TREATMENT Medication Medication Name Sig Start Date Stop Date Notes Diflucan 150 MG 1 tablet Orally once 04/18/2024
--- OUTSIDE RECORDS SUMMARY | 2024-06-20 10:56 | XMS_ITS | Patient Health Record ---
Author Organization [facility] Address [address] [facility] [address] ZOHAIB Prasad [id number] Care Team Providers Care Strickler Attendant Name Role Phone Bill Bhandari Primary Care Provider [phone] Valentina Bautista Unavailable [phone] Aidan Vizcarra Unavailable [phone] Abby Prieto Unavailable [phone] ALLERGIES Allergen (clinical drug ingredient) Drug/Non Drug Allergy documented on EMR Reaction Allergy Type Onset Date Status cefdinir Cefdinir rash Drug Allergy Active Penicillin Unknown Drug Allergy Active RESULTS Component Value Reference Range Notes Rapid Strep- Inhouse Reviewed date:09/19/2023 06:43:09 PM Interpretation: Performing Lab: Notes/Report: strep test Neg CBC Fingerstick (in house) Reviewed date:09/19/2023 06:42:58 PM Interpretation: Performing Lab: Notes/Report: wbc 10.4 3.5 - 10 lym 28.9 15 - 50 mid 7.5 2 - 15 gran 63.6 35 - 80 rbc 4.69 3.5 - 5.5 hgb 14.3 11.5 - 16.5 hct 42.2 35 - 55 mcv 89.8 75 - 100 mch 30.5 25 - 35 mchc 34.0 31 - 38 plat 274 100 - 400 P-Vitamin B12 Reviewed date:09/21/2023 01:46:01 PM Interpretation: Performing Lab: Notes/Report: CLIA: [id number] Roberto Mendes MD, [employer] [address] [place] [address] , [address], [place] [address] Test performed by [employer] Vitamin B12 812 576-9990 pg/mL P-Vitamin D 25-Hydroxy Reviewed date:09/21/2023 01:46:01 PM Interpretation:Vit D 21.4 Performing Lab: Notes/Report: Test performed by [employer] [address] [place] [address] [address], [place] [address] Roberto Mendes MD, [employer] CLIA: [id number] Vitamin D 25-Hydroxy 21.4 30.0-100.0 ng/mL Interpretation of Vitamin D 25 OH: < 20 ng/mL - Deficiency 20 - 29 ng/mL - Insufficiency 30 - 100 ng/mL - Sufficiency > 100 ng/mL - Super-therapeutic- toxicity may occur above this level. Clinical correlation required. Urinalysis - Inhouse Reviewed date:08/17/2023 05:30:30 PM Interpretation: Performing Lab: Notes/Report: Color/Clarity yellow/clear Leuk neg Nitrite neg Urobili 3.2 Protein neg pH 6.0 Blood trace-intact Sp. Gr. <=1.005 Ketone neg Bili neg Gluc neg bacteria WBC RBC P-Culture, Urine Reviewed date:08/20/2023 02:36:45 PM Interpretation:No growth Performing Lab: Notes/Report: CLIA: [id number] Roberto Mendes MD, [employer] [address] [place] [address] , [address], [place] [address] Test performed by [employer] Specimen Source Urine - Void Culture, Urine See Below No growth CBC Fingerstick (in house) Reviewed date:04/15/2024 10:22:22 AM Interpretation: Performing Lab: Notes/Report: wbc 10.8 3.5 - 10 lym 31.5% 15 - 50 mid 7.2% 2 - 15 gran 61.3% 35 - 80 rbc 5.20 3.5 - 5.5 hgb 15.5 11.5 - 16.5 hct 47.1 35 - 55 mcv 90.5 75 - 100 mch 29.7 25 - 35 mchc 32.8 31 - 38 plat 202 100 - 400 P-Comprehensive Metabolic Pa epifanio (CMP) Reviewed date:07/12/2023 08:14:03 AM Interpretation:Alk Phos 130 Performing Lab: Notes/Report: CLIA: [id number] Roberto Mendes MD, [employer] [address] [place] [address] , [address], [place] [address] Test performed by [employer] Sodium 141 135-145 mEq/L Potassium 4.2 3.5-5.3 mEq/L Chloride 105 97-108 mEq/L CO2 25 22-32 mEq/L Glucose 94 65-99 mg/dL BUN 14 6-20 mg/dL Creatinine 0.97 0.50-1.00 mg/dL Calcium 9.3 8.6-10.4 mg/dL eGFR by Creatinine 74 >59 mL/min/1.73m2 Protein 7.1 6.0-8.3 g/dL Albumin 4.2 3.5-5.3 g/dL Alkaline Phosphatase 130 35-121 IU/L ALT (SGPT) 27 <5-47 IU/L AST (SGOT) 23 <5-40 IU/L Bilirubin, Total 0.6 <0.2-1.2 mg/dL A/G Ratio 1.4 1.1-2.5 mg/dL P-Vitamin B12 Reviewed date:07/12/2023 08:14:03 AM Interpretation:Vit B12 197 Performing Lab: Notes/Report: Test performed by [employer] [address] [place] [address] , [address] [id number] Roberto Mendes MD, [employer] CLIA: [id number] Vitamin B12 929 174-1476 pg/mL CBC Venipuncture (in house) Reviewed date:07/10/2023 01:54:11 PM Interpretation: Performing Lab: Notes/Report: wbc 7.5 3.5 - 10 lymph 31.0 15 - 50 mid 7.8 2 - 15 gran 61.2 35 - 80 rbc 5.14 3.5 - 5.5 hgb 15.4 11.5 - 16.5 hct 45.7 35 - 55 mcv 88.9 75 - 100 mch 29.9 25 - 35 mchc 33.6 31 - 38 platlet 277 100 - 400 P-Arthritis Panel, [employer] Reviewed date:07/12/2023 08:14:03 AM Interpretation:Normal Performing Lab: Notes/Report: Test performed by [employer] [address] [place] [address] , [address], [place] [address] Roberto Mendes MD, [employer] CLIA: [id number] Erythrocyte Sedimentation Rate (ESR), Automated 9 <26 mm/hr Rheumatoid Factor <10 <14.1 IU/mL C-Reactive Protein (CRP) 0.42 <0.50 mg/dL Antinuclear Antibodies (BELIA) Screen, Reflex BELIA 9 Panel Negative Negative Test performed by Bux180iplex Bead Immunoassay methodology. Antinuclear Antibodies (BELIA) Result Note SEE COMMENT For positive Autoantibodies, please refer to the interpretive chart here: [email or web address] CCP Antibodies <0.5 <0.5-3.0 U/mL P-Lipid Panel Reviewed date:07/12/2023 08:14:03 AM Interpretation:Normal Performing Lab: Notes/Report: Test performed by [employer], [address] , [place] [address] Roberto Mendes MD, [employer] CLIA: [id number] Cholesterol 144 <200 mg/dL Triglycerides 65 <150 mg/dL HDL Cholesterol 46 >39 mg/dL Cholesterol / HDL Ratio 3.13 0.00-4.44 Ratio Non-HDL Cholesterol 98 <130 mg/dL LDL Cholesterol (Calculation) 85 <130 mg/dL LDL Cholesterol Levels* Less than 100 mg/dL Optimal 100 to 129 mg/dL Near Optimal/ Above Optimal 130 to 159 mg/dL Borderline High 160 to 189 mg/dL High 190 mg/dL and above Very High * Categories as recommended by the 2004 ATPIII guidelines LDL/HDL Ratio 1.8 <3.3 Ratio LDL Cholesterol Patient History Test Date: 07/06/2023 LDL Results: 85 Units: mg/dL % Change: - P-TSH reflex to FT4 Reviewed date:07/12/2023 08:14:03 AM Interpretation:Normal Performing Lab: Notes/Report: Test performed by [employer] [address] [place] [address] , [place] [address] Roberto Mendes MD, [employer] CLIA: [id number] TSH reflex to FT4 4.14 0.43-5.25 mU/L P-Vitamin D 25-Hydroxy Reviewed date:07/12/2023 08:14:03 AM Interpretation:Vit D 18.3 Performing Lab: Notes/Report: Test performed by [employer] [address] [place], [place] [address] [place] , [place] [address] Roberto Mendes MD, [employer] CLIA: [id number] Vitamin D 25-Hydroxy 18.3 30.0-100.0 ng/mL Interpretation of Vitamin D 25 OH: < 20 ng/mL - Deficiency 20 - 29 ng/mL - Insufficiency 30 - 100 ng/mL - Sufficiency > 100 ng/mL - Super-therapeutic- toxicity may occur above this level. Clinical correlation required. P-Vitamin B1 (Thiamine), Ser um/Plasma, LC/MS/MS Reviewed date:07/12/2023 08:14:03 AM Interpretation:Normal Performing Lab: Notes/Report: Vitamin B1 (Thiamine), Serum/Plasma, LC/MS/MS 6 4-15 nmol/L INTERPRETIVE DATA: Vitamin B1, Plasma Thiamine (vitamin B1) is reported. However, thiamine diphosphate (TDP), the biologically active form of thiamine, is not found in measurable concentrations in plasma, and is best determined in whole blood specimens. Plasma thiamine concentration reflects recent intake rather than body stores. This test was developed and its performance characteristics determined by [facility]. It has not been cleared or approved by the [place] Food and Drug Administration. This test was performed in a CLIA certified laboratory and is intended for clinical purposes. Performed By: [facility] [address] [place] [address] [employer]: Yaya Henry MD, PhD CLIA Number: [id number] MEDICATIONS Medication SIG (Take, Route, Frequency, Duration) Notes Start Date End Date Status Vitamin D3 1.25 MG (46750 UT) 1 capsule Orally once weekly 09/21/2023 Active Estradiol 0.75 MG/1.25 GM (0.06%) 1 pump to skin to arm Transdermal Once a day for 30 day(s) Active Ondansetron HCl 4 MG 1 tablet Orally Onc e a day as needed 06/20/2024 Active Montelukast Sodium 10 MG 1 tablet Orally Once a day for 30 day(s) Active Zepbound 2.5 MG/0.5ML 0.5 ml Subcutaneou s once weekly 06/20/2024 Active Colestid 1 GM 2 tablets Orally Onc e a day for 30 day(s) Active IMMUNIZATIONS Vaccine Route Administration Date Status Comme nts COVID 19 Pfizer Unknown 10/14/2020 Administered COVID 19 Pfizer Unknown 11/11/2020 Administered Flublok IM Intramuscular 05/31/2018 Administered Fluzone PF Quad (6-35 months) Unknown 05/24/2023 Administered Fluzone Quad (6months&older) IM Intramuscular 05/17/2015 Administered Fluzone Quad (6months&older) IM Intramuscular 05/19/2017 Administered Fluzone Quad (6months&older) IM Intramuscular 06/13/2019 Administered Hepatitis A (adult) Unknown 06/21/2018 Administered Hepatitis A (adult) Unknown 12/24/2018 Administered xFlu shot-36 months and older IM Intramuscular 05/30/2006 Administered xFlu shot-36 months and older IM Intramuscular 05/31/2007 Administered xFlu shot-36 months and older IM Intramuscular 06/15/2008 Administered xFlu shot-36 months and older IM Intramuscular 06/18/2009 Administered xFlu shot-36 months and older IM Intramuscular 05/07/2010 Administered xFlu shot-36 months and older IM Intramuscular 04/28/2011 Administered xFluzone (6mos and older)-trivalent IM Intramuscular 06/14/2012 Administered SOCIAL HISTORY Sex Assigned At : Social History Observation Description Sex Assigned At Unknown PROBLEMS Problem Type ICD Code Onset Dates Problem Status W/U Status Risk SNOMED Code Notes Problem Vitamin D deficiency (E55.9) Active confirmed 53583663 Problem Vitamin B12 deficiency (E53.8) Active confirmed 568259031 Problem Morbid obesity (E66.01) Active confirmed 363684810 Problem Exercise induced bronchospasm (J45.990) Active confirmed 809784859 Problem Kidney stone (N20.0) Active confirmed 68289224 Problem Allergic reaction, initial encounter (T78.40XA) Active confirmed 206374821 Problem History of renal cell carcinoma (Z85.528) Active confirmed 688245028 Problem Non morbid obesity (E66.9) Active confirmed 387859371 Problem Seasonal allergic rhinitis, unspecified trigger (J30.2) Active confirmed 313725810 VITAL SIGNS Heart Rate 95 /min 06/20/2024 Blood pressure diastolic 70 mm Hg 06/20/2024 Height 63.75 in 06/20/2024 Blood pressure systolic 120 mm Hg 06/20/2024 Weight 242.6 lbs 06/20/2024 BMI 41.96 kg/m2 06/20/2024 Encounters Encounter Location Date Provider Diagnosis [facility] [address] [facility] [address] [place], [place] [id number] 09/19/2023 Aidan Kenmore URI, acute J06.9 ; Vitamin D deficiency E55.9 ; Vitamin B12 deficiency E53.8 and Neck muscle spasm M62.838 [facility] [address] [facility] [address] [place], [place] [id number] 07/06/2023 Aidan Kenmore Fatigue, unspecified type R53.83 ; Vitamin D deficiency E55.9 ; Vitamin B12 deficiency E53.8 ; Polyarthralgia M25.50 and Screening, lipid Z13.220 [facility] [address] [place], [place] [id number] 08/17/2023 Abby Crowdy Trapezius muscle spa sm M62.838 and Dysuria R30.0 [facility] [address] [place], [place] [id number] 04/11/2024 Abby Crowdy [facility] [address] [place], [place] [id number] 04/14/2024 Aidan Kenmore Acute URI J06.9 ; Vitamin D deficiency E55.9 and Non morbid obesity E66.9 [facility] [address] [place], [place] [id number] 06/20/2024 Aidan Kenmore Peripheral edema R60 .0 ; SOB (shortness of breath) on exertion R06.02 ; Morbid obesity E66.01 ; Vitamin D deficiency E55.9 and B12 deficiency E53.8 [facility] [address] [place], [place] [id number] 07/12/2023 R Saw Thony [facility] [address] [place] [id number] 07/17/2023 R Saw Thony [facility] [address] [place] [id number] 09/21/2023 R Saw Thony [facility] [address] [place] [id number] 04/18/2024 R Saw Thony [facility] [address] [place] [id number] 04/23/2024 R Saw Thony ASSESSMENTS Encounter Date Diagnosis Assessment Notes Treatment Notes Treatment Clinical Notes 08/17/2023 Dysuria (ICD-10 - R30.0) 08/17/2023 Trapezius muscle spasm (ICD-10 - M62.838) 09/19/2023 Vitamin D deficiency (ICD-10 - E55.9) 09/19/2023 URI, acute (ICD-10 - J06.9) Probabale resistance strep 04/14/2024 Vitamin D deficiency (ICD-10 - E55.9) 04/14/2024 Acute URI (ICD-10 - J06.9) 06/20/2024 SOB (shortness of breath) on exertion (ICD-10 - R06.02) 06/20/2024 Peripheral edema (ICD-10 - R60.0) 07/06/2023 Vitamin D deficiency (ICD-10 - E55.9) 07/06/2023 Fatigue, unspecified type (ICD-10 - R53.83) 06/20/2024 Morbid obesity (ICD-10 - E66.01) 07/06/2023 Vitamin B12 deficiency (ICD-10 - E53.8) 04/14/2024 Non morbid obesity (ICD-10 - E66.9) Weight loss medications discussed with patient. She will enroll in the [facility] weight loss program through her employer 09/19/2023 Vitamin B12 deficiency (ICD-10 - E53.8) 09/19/2023 Neck muscle spasm (ICD-10 - M62.838) Home exercise program provided to patient TENS unit OTC recommended 06/20/2024 Vitamin D deficiency (ICD-10 - E55.9) 07/06/2023 Polyarthralgia (ICD-10 - M25.50) 06/20/2024 B12 deficiency (ICD-10 - E53.8) 07/06/2023 Screening, lipid (ICD-10 - Z13.220) PLAN OF TREATMENT Pending Test Test Name Order Date H-TSH 06/20/2024 H-CBC 06/20/2024 H-VITAMIN D 06/20/2024 H-BNP 06/20/2024 H-Lipid Panel 06/20/2024 H-CMP 06/20/2024 H-Glycohemoglobin A1C 06/20/2024 H-VITAMIN B12 06/20/2024 Insurance Providers Payer Name Payer Address Payer Phone Subscriber Number Group Number Insured Name Patient Relationship to Insured Coverage Start Date Coverage End Date AFRA [employer]ODHISS [employer] [facility] [id number] [place] [address] [id number] [facility] LORENZO TOBAR Self - patient is the insured MEDICATIONS ADMINISTERED Medication Instructions Date of Administration Dosage Notes Dexamethasone 08/06/2013 Dexamethasone 09/29/2015 1 mL Dexamethasone 06/09/2020 1 mL Dexamethasone 10/12/2022 1 mL MEDICAL (GENERAL) HISTORY Medical History History ICD Code Allergic Rhinitis Liver Hemangiomas SOFTWARE SUPPORT 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 Marshall in [place] Polycystic Ovarian Syndrome Renal Cell Carcinoma, left k lisa, stage I, grade 3, December 2016, s/p primary resection Clostridium difficile, 2016 kidney stones, calcium oxylate, November 2018 Vitamin D deficiency Vitamin B 12 deficiency Surgical History Surgery Date(Month/Year) 2006 [place] 2006 Nasal Mass Removal (Hemangioma), Septopl asty Ovarian Cyst Removal 2003 Endometeriosis Laperscopic Cholecystectomy 04/06/2009 Partial Nephrectomy for Cony l Cell Carcinoma, L kidney/Dr. Beltran/ [facility]. 12/28/2016 Kidney Stone Removal, basket extraction 11/16/2018 Lipoma Removal - [facility] - Dr. Ab Galvez 05/28/2020 hysterectomy vaginal 2021 Hospitalization History Reason Date(Month/Year) Kidney Surgery- [facility] 12/28- Swelling Post Surgery- [facility] ER 01/01/2017 Kidney Stone- [facility] 11/11-11/16/2018 Kidney Stone Surgery- [facility] 11/16/2018
--- OUTSIDE RECORDS SUMMARY | 2024-06-20 10:56 | XMS_ITS | Encounter Summary ---
Author Organization [facility] Address [address] [place] [address] Care Team Providers Care Portfolio Director Name Role Phone Aidan Vizcarra MD Primary Care Provider [phone] Encounter Details Date Type Department Care Team (Late st Contact Info) Description 12/20/2020 [facility] [address] [place] [address] Aidan Vizcarra MD [address] [facility] [address] [place], [place] [id number] Social History Tobacco Use Types Packs/Day Years Used Date Smoking Tobacco: Never Alcohol Use Standard Drinks/Week Comments No 0 (1 standard drink = 0.6 oz pur e alcohol) Comments Unknown Sex and Gender Information Value Date Recorded Sex Assigned at Female 12/29/2020 8:42 AM EDT Legal Sex Female 8:46 PM EDT Gender Identity Female 12/29/2020 8:42 AM EDT Sexual Orientation Straight 12/29/2020 8: 42 AM EDT documented as of this encounter Last Filed Vital Signs Vital Sign Reading Time Taken Comments Blood Pressure 114/79 10/04/2017 10:04 AM EDT Pulse - - Temperature - - Respiratory Rate - - Oxygen Saturation - - Inhaled Oxygen Concentration - - Weight - - Height - - Body Mass Index - - documented in this encounter Plan of Treatment Upcoming Encounters Date Type Department Care Team (Late st Contact Info) Description 09/18/2024 9:20 AM EST Office Visit [facility] Urology [address] [place] [phone] Katie Richmond APRN, DNP [address] [place] [address] 03/25/2025 9:20 AM EDT Appointment [facility] [address] [place] [phone] 03/25/2025 11:40 AM EDT Office Visit [facility] [address] [place] [phone] Nancy Mcbride PA [address] [place] [phone] documented as of this encounter Visit Diagnoses Not on filedocumented in this encounter Additional Health Concerns Infection Onset Date Last Indicated Resolved Time C. difficile 12/20/2020 12/20/2020 documented as of this encounter Care Teams Portfolio Director Relationship Specialty Start Date End Date Aidan Vizcarra MD [address] [address] PCP - General 11/26/20 documented as of this encounter
--- OUTSIDE RECORDS SUMMARY | 2024-06-20 10:56 | XMS_ITS | Encounter Summary ---
Author Organization [facility] Address [address] [place] [address] Care Team Providers Care Inlayer Name Role Phone Aidan Vizcarra MD Primary Care Provider [phone] Reason for Referral * Imaging (Routine) - Closed Specialty Diagnoses / Procedures Referred By Marly arce Referred To Contact Radiology Diagnoses Renal cell carcinoma of left kidney (CMS/HCC) Procedures CT Renal Mass w and wo IV Contrast Lamont Ingram MD [address] [address] Phone: tel: fax: Referral ID Status Reason Start Date Expiration Date Visits Re quested Visits Authorized [id number] Closed 03/08/2022 09/07/2023 1 1 * Consultation (Routine) - Closed Specialty Diagnoses / Procedures Referred By Marly arce Referred To Contact Genetics Diagnoses Renal cell carcinoma of left kidney (CMS/HCC) Lamont Ingram MD [address] [address] Phone: tel: fax: [facility] Genetic Counseling [address] [place] [address] Phone: tel: Referral ID Status Reason Start Date Expiration Date V isits Requested Visits Authorized [id number] Closed Specialty Services Required 03/08/2022 09/07/2023 1 1 Reason for Visit * Reason Comments Cancer Encounter Details Date Type Department Care Team (Late st Contact Info) Description 03/08/2022 11:20 AM EDT Office Visit [facility] Multidisciplinary Oncology Clinic [address] [place] [address] Lamont Ingram MD [address] [place] [address] Renal cell carcinoma of left [...] PM EDT documented as of this encounter Last Filed Vital Signs Vital Sign Reading Time Taken Comments Blood Pressure 123/81 03/08/2022 12:02 PM EDT Pulse 72 03/08/2022 12:02 PM EDT Temperature 36.4 ??C (97.5 ??F) 03/08/2022 12:02 PM E DT Respiratory Rate 20 03/08/2022 12:02 PM EDT Oxygen Saturation 99% 03/08/2022 12:02 PM EDT Inhaled Oxygen Concentration - - Weight 101 kg (222 lb 7.1 oz) 03/08/2022 12:02 P M EDT Height 162.6 cm (5' 4 ) 03/08/2022 12:02 PM EDT Body Mass Index 38.18 03/08/2022 12:02 PM EDT documented in this encounter Miscellaneous Notes * Progress Notes - Amina Carvajal MD - 03/08/2022 11:20 AM EDT [facility] Clinic Note 03/08/22 CC: Papillary type II renal cell carcinoma HPI: Hannah Tobar is a 41 y.o. female with a history of endometriosis [...] RCC, Deanna Grade III with positive margin Since then, surveillance scans have been negative. She returns today with surveillance imaging. Shehas been doing well since her last visit. Denies any fevers, chills, UTIs, hematuria, flank pain. Physical Exam: Vitals: 03/08/22 1202 BP: 123/81 Pulse: 72 Resp: 20 Temp: 36.4 ??C (97.5 ??F) SpO2: 99% GEN: NAD HEENT: NCAT, EOMI RESP: Equal bilateral chest rise, normal work of breathing CV: RRR, appears well perfused ABD: Soft, nontender, nondistended : no flank pain EXT: No gross deformities MSK: Full ROM in BL UE NEURO: No focal deficits, AOx3 PSYCH: Normal mood and affect Labs: Cr today 0.6 Imaging: CT RMP today - IMPRESSION: Stable examination. Postsurgical changes from partial left nephrectomy. There is no evidence of recurrence or metastatic disease. Assessment: Hannah Tobar is a 41 y.o. 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 Surveillance scans have been negative to date. It is interesting that she has also had endometriosis/fibroids requiring surgical intervention. We discussed that this could be connected to a genetic disease called Hereditary Leiomyoma RCC (HLRCC). There are noother family members with renal cancer, but this genetic disease only has a 20% penetrate rate. Shira have a twin 16-year-old daughters, one of which is already struggling with heavy, painful periods. She had renal cell carcinoma at a very young age and therefore would be a candidate for genetic testing anyways. We discussed the pros and cons of undergoing genetic testing. If she were to have HLRCC, she would then have to decide if she would get her daughters tested. If they were to have HLRCC too, they would require surveillance for renal cancer. She understood the pros and cons and wished to proceed with genetic testing. Plan: - referral to genetics - RTC in [address] RMP - At that time, consider spacing surveillance imaging out to 2 years, but due to the aggressive nature of papillary type 2 RCC, will continue with CT instead of renal ultrasound Amina Carvajal MD Cosigned by Lamont Ingram MD at 03/12/2022 9:45 PM EDT Associated attestation - Lamont Ingram MD - 03/12/2022 9:45 PM EDT I saw and evaluated the patient with the resident/fellow. I discussed the case with the resident/fellow and agree with the findings and plan as documented. documented in this encounter Plan of Treatment Upcoming Encounters Date Type Department Care Team (Late st Contact Info) Description 09/18/2024 9:20 AM EST Office Visit [facility] [address] [place] [address] Katie Richmond, INCINERATOR ATTENDANT, DNP [address] [place] [address] 03/25/2025 9:20 AM EDT Appointment [facility] [address] [place] [address] 03/25/2025 11:40 AM EDT Office Visit [facility] [address] [place] [address] Nancy Mcbride PA [address] [place] [address] Scheduled Referrals Name Type Priority Associated Diagnoses Order Schedule Ambulatory Referral to Oncology Genetics Outpatient Referral Routine Renal cell carcinoma of left kidney (CMS/HCC) Expected: 03/08/2022 (Approximate), Expires: 09/08/2023 documented as of this encounter Results * [...] signing this report, I, the attending physician, álvaro I have personally reviewed the images/data for [...] documented as of this encounter Care Teams Inlayer Relationship Specialty Start Date End Date Aidan Vizcarra MD [address] [place] [address] [place] [address] PCP - General 11/26/20 documented as of this encounter
--- OUTSIDE RECORDS SUMMARY | 2024-06-20 10:56 | XMS_ITS | Encounter Summary ---
Author Organization [facility] Address [address] [place] [address] Care Team Providers Care Awning Assembler Name Role Phone Aidan Vizcarra MD Primary Care Provider + [phone] Encounter Details Date Type Department Care Team (Late st Contact Info) Description 02/19/2023 Telephone [facility] [address] [place] [phone] Kimberly Griffiths, RN `````````````````````` `````````````````````` `````````````````````` ```````CH - OPERATING ROOM, PAV A Social History Tobacco Use Types Packs/Day Years [...] encounter Miscellaneous Notes * Telephone Encounter - Kimberly Griffiths RN - 02/19/2023 2:04 PM EDT Called pt to see about moving her appt to [facility] at 10:20, instead of with [facility]. Pt agreed and confirmed appt. documented in this encounter Plan of Treatment Upcoming Encounters Date Type Department Care Team (Late st Contact Info) Description 09/18/2024 9:20 AM EST Office [facility] [address], [address] [place] [address] Katie Richmond, DRILLER MULTIPLE SPINDLE, DNP [address] [place] [address] 03/25/2025 9:20 AM EDT Appointment [facility] Rad[facility] [address] [place] [address] 03/25/2025 11:40 AM EDT Office Visit [facility] [address] [place] [address] Nancy Mcbride PA [address] [facility] [address] [place] [address] documented as of this encounter Visit Diagnoses Not on filedocumented in this encounter Additional Health Concerns Infection Onset Date Last Indicated Resolved Time C. difficile 12/20/2020 12/20/2020 Assessment Noted Time A fall risk assessment has been complete d for the patient 03/08/2022 12:06 PM EDT documented as of this encounter Care Teams Awning Assembler Relationship Specialty Start Date End Date Aidan Vizcarra MD [address] [facility] [address] [place] [address] PCP - General 11/26/20 documented as of this encounter
--- OUTSIDE RECORDS SUMMARY | 2024-06-20 10:56 | XMS_ITS | Encounter Summary ---
Author Organization [facility] Address [address] [place] [address] Care Team Providers Care Tar Heater Operator Name Role Phone Aidan Vizcarra MD Primary Care Provider [phone] Reason for Visit * Imaging (Routine) - Closed Specialty Diagnoses / Procedures Referred By Marly arce Referred To Contact Cardiology Diagnoses Chest pain, unspecified Dyspnea, unspecified Procedures ADULT ECHO OUTSIDE READ Patience Mccracken, SUPERVISOR DRYING [address] [facility] [address] [place] [address] Phone: tel: fax: Referral ID Status Reason Start Date Expiration Date V isits Requested Visits Authorized [id number] Closed Perform Procedure 11/29/2021 05/31/2023 1 1 Encounter Details Date Type Department Care Team (Latest Contact Info) Description 11/29/2021 11:45 AM EDT Ancillary Procedure [facility] [address] [place] [address] [place] [phone] Chest pain, unspecified; Dyspnea, unspecified Social History Tobacco Use Types Packs/Day Years [...] [address] [place] [address] Katie Richmond, SUPERVISOR DRYING, DNP [address] [place] [address] 03/25/2025 9:20 AM EDT Appointment [facility] Radiology [address] [place] [phone] 03/25/2025 11:40 AM EDT Office Visit [facility] [address] [place] [address] Nancy Mcbride, PA [address] [place] [address] documented as of this encounter Procedures Procedure Name Priority Date/Time Associated Diagnosis Comments ADULT ECHO OUTSIDE READ Routine 11/29/2021 11:41 AM EDT Chest pain, unspecified Dyspnea, unspecified documented in this encounter Results * ADULT ECHO OUTSIDE READ (11/29/2021 11:41 AM EDT) Baseline Systolic BP 119 KARINE ISCV Baseline Diastolic BP 61 KARINE ISCV Height 162.6 KARINE ISCV Weight 101.2 KARINE ISCV BSA 2.05 m2 KARINE ISCV Heart Rate 85 KARINE ISCV LVIDd 37 mm KARINE ISCV IVSd 10 mm KARINE ISCV LVPWd 10 mm KARINE ISCV LV RWT 0.54 mm KARINE ISCV Anatomical Region Laterality Modality Echocardiography Narrative 11/29/2021 3:47 PM EDT ?Left??Ventricle: The left ventricle is normal size. There is normal left ventricular myocardial thickness and mass. Based upon the calculated wall thickness and left ventricular mass, there is concentric remodeling. The left ventricular systolic function is normal.The LVEF is visually estimated at 55 - 60%. The diastolic function is normal. The left ventricular filling pressure is normal. ?Right??Ventricle: Right ventricle size is normal. The right ventricular systolic function is normal. ?Pericardium: No pericardial effusion. ?There is no recent echo study available for direct [id number] comparison. Left Ventricle The left ventricle is normal size. There is normal left ventricular myocardial thickness and mass. Based upon the calculated wall thickness and left ventricular mass, there is concentric remodeling. The left ventricular systolic function is normal.The LVEF is visually estimated at 55 - 60%. No regional wall motion abnormalities are seen. The diastolic function is normal. The left ventricular filling pressure is normal. Right Ventricle Right ventricle size is normal. The right ventricular systolic function is normal. Unable to estimate RVSP due to inadequate TR signal. Left Atrium The left atrial size is normal. Right Atrium The right atrial size is normal. IVC/SVC The IVC was not well visualized, and an assumed pressure of 8mmHg was used for calculations. Mitral Valve The mitral valve is normal in appearance with no evidence of mitral valve prolapse. There is trace mitral regurgitation. There is no mitral stenosis. Tricuspid Valve The tricuspid valve is normal in appearance. There is trace tricuspid regurgitation. There is no tricuspid stenosis. Aortic Valve The aortic valve appears to be trileaflet. There is no valvular regurgitation. There is no hemodynamically significant valvular aortic stenosis. Pulmonic Valve The pulmonic valve is normal in appearance. There is trace pulmonic regurgitation. There is no pulmonic stenosis. Pericardium No pericardial effusion. Great Vessels The aortic root is normal in size. Study Details A complete transthoracic echocardiogram using two-dimensional (2D), m-mode, color and spectral flow Doppler imaging was performed. This complete 2D, M-mode, and Doppler transthoracic echocardiogram was performed on site at [facility] ([place], [place]) and interpreted remotely by faculty at the [facility] ([place], [place]). BP: 119/61 mmHg. Heart Rate: 85 bpm. Height: 162.6 cm. Weight: 101.2 kg. BSA: 2.05 m2. Study Recommendation There is no recent echo study available for direct [id number]-[id number] comparison. Patience Mccracken APRN CV ECHO PROCEDURES Fin al Result documented in this encounter Visit Diagnoses Diagnosis Chest pain, unspecified Dyspnea, unspecified documented in this encounter Additional Health Concerns Infection Onset Date Last Indicated Resolved Time C. difficile 12/20/2020 12/20/2020 Assessment Noted Time A fall risk assessment has been complete d for the patient 12/29/2020 11:32 AM EDT documented as of this encounter Care Teams Tar Heater Operator Relationship Specialty Start Date End Date Aidan Vizcarra MD [address] [place] [address] PCP - General 11/26/20 documented as of this encounter
--- OUTSIDE RECORDS SUMMARY | 2024-06-20 10:56 | XMS_ITS | Encounter Summary ---
Author Organization [facility] Address [address] [place] [address] Care Team Providers Care Associate Professor Of Church Music Name Role Phone Aidan Vizcarra MD Primary Care Provider [phone] Encounter Details Date Type Department Care Team (Latest Contact Info) Description 11/29/2021 11:10 AM EDT Ancillary Procedure [facility] [address] [place] [address] [place] [phone] Chest pain, unspecified type; SOB (shortness of breath); Tachycardia Social History Tobacco Use Types Packs/Day Years [...] Office Visit [facility] [address], [address] [place] [address] Katie Richmond, FUNDRAISING SALE REPRESENTATIVE, DNP [address] [place] [address] 03/25/2025 9:20 AM EDT Appointment [facility] [address] [place] [address] 03/25/2025 11:40 AM EDT Office Visit [facility] [address] [place] [address] Nancy Mcbride PA [address] [place] [address] documented as of this encounter Procedures Procedure Name Priority Date/Time Associated Diagnosis Comments NM CARDIAC OUTSIDE READ Routine 11/29/2021 11:07 AM EDT Chest pain, unspecified type SOB (shortness of breath) Tachycardia documented in this encounter Results * NM CARDIAC OUTSIDE READ (11/29/2021 11:07 AM EDT) Target HR 151 bpm CAR DO NOT SEND MPHR 178 bpm CAR DO NOT SEND Exercise duration (min) 8 min CAR DO NOT SEND Exercise duration (sec) 31 sec CAR DO NOT SEND Pressure Product 33,488.0 CAR DO NOT SEND % of Max Predicted HR 103 % CAR DO NOT SEND Peak HR 184 bpm CAR DO NOT SEND Baseline Systolic BP 129 CAR DO NOT SEND Baseline Diastolic BP 77 CAR DO NOT SEND Peak BP Systolic 182 mmHg CAR DO NOT SEND Peak BP Diastolic 80 mmHg CAR DO NOT SEND Recovery One Min HR 159 bpm CAR DO NOT SEND Anatomical Region Laterality Modality Echocardiography Narrative 11/29/2021 1:38 PM EDT ?Combined ECG/SPECT: This is a normal nuclear stress test with no evidence of myocardial ischemia. ?Stress ECG: No ischemic ST segment changes occurred with stress. ?Perfusion: SPECT images demonstrate normal myocardial perfusion. ?Function: Normal left ventricular cavity size. Gated SPECT images demonstrate normal systolic function. Regional wall motion is normal. ?LVEF: 60 - 64%. Technical Details This SPECT myocardial perfusion study was performed on site at [facility], and interpreted remotely by faculty at the [facility] ([place], [place]). A one-day protocol was followed. 9.7 mCi of Tc-99m sestamibi were injected intravenously at rest. After a waiting period of 45-60 minutes, SPECT imaging of the heart was performed with three-dimensional tomographic reconstructions. The patient performed treadmill exercise using a standard Jean protocol 28.8 mCi of Tc-99m sestamibi were injected intravenously at peak stress. After a waiting period of 30-45 minutes, post-stress SPECT imaging of the heart was performed Motion correction was not applied to the rest and/or post-stress acquisitions. Stress Findings An exercise stress test was performed. The exercise stress test using a Jean protocol was performed. The patient exercised for 8 min and 31 sec. Reached stage 3 of the protocol. The patient reached target heart rate. The heart rate recovery at 1 minute is normal (>12bpm). The patient had appropriate BP response to exercise. Overall, the patient's functional capacity was normal for their age and gender.No symptoms such as chest pain, discomfort, or anginal equivalent were reported. Stress ECG Baseline ECG: The baseline ECG shows normal sinus rhythm. Baseline ECG shows no ST segment deviation. Stress and Recovery ECG: No ischemic ST segment changes occurred. There were no arrhythmias during stress. There were no arrhythmias during recovery. ECG Conclusion: No ischemic ST segment changes occurred with stress. Study Impression There is no significant patient motion noted. The SPECT images demonstrate a normal left ventricular cavity size with an estimated left ventricular end-diastolic volume of 94 mL (normal: <149 mL for males, < 102 mL for females). There is no stress-induced transient ischemic dilation (TID) of the left ventricular cavity. SPECT images demonstrate normal myocardial perfusion. There is a small, mild perfusion defect located in the basal anterior myocardium. The perfusion defect is fixed. The perfusion finding is best explained by attenuation artifact related to breast tissue. There is no myocardial ischemia. The gated SPECT images demonstrate normal systolic function. Regional wall motion is normal. The calculated post- stress LVEF is 60 - 64%. Nuclear Conclusion Combined ECG/SPECT: This is a normal nuclear stress test with no evidence of myocardial ischemia. Patience Mccracken APRN CV CARDIAC NUCLEAR PRO CEDURES Final Result documented in this encounter Visit Diagnoses Diagnosis Chest pain, unspecified type SOB (shortness of breath) Shortness of breath Tachycardia Unspecified tachycardia documented in this encounter Additional Health Concerns Infection Onset Date Last Indicated Resolved Time C. difficile 12/20/2020 12/20/2020 Assessment Noted Time A fall risk assessment has been complete d for the patient 12/29/2020 11:32 AM EDT documented as of this encounter Care Teams Associate Professor Of Church Music Relationship Specialty Start Date End Date Aidan Vizcarra MD [address] [place] [address] PCP - General 11/26/20 documented as of this encounter
--- OUTSIDE RECORDS SUMMARY | 2024-06-20 10:56 | XMS_ITS | Encounter Summary ---
Author Organization [facility] Address [address] [place] [address] Care Team Providers Care Language Tutor Name Role Phone Aidan Vizcarra MD Primary Care Provider [phone] Encounter Details Date Type Department Care Team (Latest Contact Info) Description 03/07/2022 Travel Social History Tobacco Use Types Packs/Day [...] suspected to have Coronavirus/COVID-19? No / Unsure 03/07/2022 3:24 PM EDT documented as of this encounter Plan of Treatment Upcoming Encounters Date Type Department Care Team (Late st Contact Info) Description 09/18/2024 9:20 AM EST Office Visit [place] [facility] [address], [address] [place] [address] Katie Richmond, PLANT SCIENCE PROFESSOR, DNP [address] [place] [address] 03/25/2025 9:20 AM EDT Appointment [facility] [address] [place] [address] 03/25/2025 11:40 AM EDT Office Visit [facility] [address] [place] [address] Nancy Mcbride PA [address] [place] [address] documented as of this encounter Visit Diagnoses Not on filedocumented in this encounter Additional Health Concerns Infection Onset Date Last Indicated Resolved Time C. difficile 12/20/2020 12/20/2020 Assessment Noted Time A fall risk assessment has been complete d for the patient 12/29/2020 11:32 AM EDT documented as of this encounter Care Teams Language Tutor Relationship Specialty Start Date End Date Aidan Vizcarra MD [address] [facility] [address] [place] [address] PCP - General 11/26/20 documented as of this encounter
--- OUTSIDE RECORDS SUMMARY | 2024-06-20 10:56 | XMS_ITS ---
Author Organization [facility] Address [address] [facility] [address] [facility] [address] [place] [id number] Care Team Providers Care Rubber Goods Tester Name Role Phone Bill Bhandari Primary Care Provider Valentina Bautista [phone] REASON FOR VISIT medication MEDICATIONS Medication SIG (Take, Route, Fr equency, Duration) Notes Start Date End Date Status Diflucan 150 MG 1 tablet Orally for 10 day(s) 10/2023 Active Encounters Encounter Location Date Provider Diagnosis [facility] [facility] [address] [facility] [address] [place] [id number] 04/18/2024 Bill Bhandari PLAN OF TREATMENT Medication Medication Name Sig Start Date Stop Date Notes Diflucan 150 MG 1 tablet Orally for 10 day(s) 04/18/2024
--- OUTSIDE RECORDS SUMMARY | 2024-06-20 10:56 | XMS_ITS | Encounter Summary ---
Author Organization [facility] Address [address] [id number] Care Team Providers Care Correctional Food Service Supervisor Name Role Phone Aidan Vizcarra MD Primary Care Provider [phone] Encounter Details Date Type Department Care Team (Late Contact Info) Description 11/29/2021 Orders Only External Location [address] [place] [address] Provider, External Social History Tobacco Use Types Packs/Day Years [...] Department Care Team (Late Contact Info) Description 09/18/2024 9:20 AM EST Office Visit [place] [facility] [address] [place] [address] Katie Richmond APRN, DNP [address] [place] [address] 03/25/2025 9:20 AM EDT Appointment [facility] [address] [place] [address] 03/25/2025 11:40 AM EDT Office Visit [facility] [address] [place] [address] Nancy Mcbride, LO [address] [place] [address] documented as of this encounter Procedures Procedure Name Priority Date/Time Associated Diagnosis Comments NM OUTSIDE IMAGES 11/29/2021 9:35 AM EDT documented in this encounter Results * NM OUTSIDE IMAGES (11/29/2021 9:35 AM EDT) Anatomical Region Laterality Modality Nuclear Medicine 11/29/2021 9:35 AM EDT us External Provider IMG NM PROCEDURES Final Result documented in this encounter Visit Diagnoses Not on filedocumented in this encounter Additional Health Concerns Infection Onset Date Last Indicated Resolved Time C. difficile 12/20/2020 12/20/2020 Assessment Noted Time A fall risk assessment has been complete d for the patient 12/29/2020 11:32 AM EDT documented as of this encounter Care Teams Correctional Food Service Supervisor Relationship Specialty Start Date End Date Aidan Vizcarra MD [address] [facility] [address] [place] [address] PCP - General 11/26/20 documented as of this encounter
--- OUTSIDE RECORDS SUMMARY | 2024-06-20 10:56 | XMS_ITS | Encounter Summary ---
Author Organization [facility] Address [address] [place] [address] Care Team Providers Care Petroleum Geology Faculty Member Name Role Phone Aidan Vizcarra MD Primary Care Provider [phone] Encounter Details Date Type Department Care Team (Latest Contact Info) Description 03/08/2022 Travel Social History Tobacco Use Types Packs/Day [...] Description 09/18/2024 9:20 AM EST Office Visit [place] [facility] [address] [place] [address] Katie Richmond, RECYCLING TECHNICIAN, DNP [address] [place] [address] 03/25/2025 9:20 AM EDT Appointment [facility] [address] [place] [address] 03/25/2025 11:40 AM EDT Office Visit [facility] [address] [place] [address] Nancy Mcbride PA [address] [place] [address] documented as of this encounter Visit Diagnoses Not on filedocumented in this encounter Additional Health Concerns Infection Onset Date Last Indicated Resolved Time C. difficile 12/20/2020 12/20/2020 Assessment Noted Time A fall risk assessment has been complete d for the patient 03/08/2022 12:06 PM EDT documented as of this encounter Care Teams Petroleum Geology Faculty Member Relationship Specialty Start Date End Date Aidan Vizcarra MD [address] [facility] [address] [place] [address] PCP - General 11/26/20 documented as of this encounter
--- OUTSIDE RECORDS SUMMARY | 2024-06-20 10:56 | XMS_ITS | Encounter Summary ---
Author Organization [facility] Address [address] [place] [address] Care Team Providers Care Drivers License Examiner Name Role Phone Aidan Vizcarra MD Primary Care Provider [phone] Encounter Details Date Type Department Care Team (Latest Contact Info) Description 02/28/2023 Travel Social History Tobacco Use Types Packs/Day [...] Office Visit [place] [facility] [address] [place] [address] Katie Richmond APRN, DNP [address] [place] [address] 03/25/2025 9:20 AM EDT Appointment [facility] [address] [place] [address] 03/25/2025 11:40 AM EDT Office Visit [facility] [address] [place] [address] Nancy Mcbride PA [address] [place] [address] documented as of this encounter Visit Diagnoses Not on filedocumented in this encounter Additional Health Concerns Infection Onset Date Last Indicated Resolved Time C. difficile 12/20/2020 12/20/2020 Assessment Noted Time A fall risk assessment has been complete d for the patient 03/08/2022 12:06 PM EDT documented as of this encounter Care Teams Drivers License Examiner Relationship Specialty Start Date End Date Aidan Vizcarra MD [address] [address] PCP - General 11/26/20 documented as of this encounter
--- OUTSIDE RECORDS SUMMARY | 2024-06-20 10:56 | XMS_ITS | Encounter Summary ---
Author Organization [facility] Address [address] [place] [address] Care Team Providers Care Cytology Teacher Name Role Phone Aidan Vizcarra MD Primary Care Provider [phone] Reason for Visit * Reason Onset Date Comments HCN - Patient Message 12/27/2021 Encounter Details Date Type Department Care Team ([facility] st Contact Info) Description 12/27/2021 Telephone [facility] SCHEDULING [address] [place] [address] Lamont Ingram MD [address] [facility] [address] [place] [phone] HCN - Patient Message Social History Tobacco [...] encounter Miscellaneous Notes * Telephone Encounter - Rafa Chopra - 12/30/2021 1:48 PM EDT Rescheduled 03/08. Patient is aware of appointment * Telephone Encounter - Mitzy Joshua - 12/27/2021 9:43 AM EDT Patient Phone Message [facility] Reason for Call: R/S 01/11/22 CT/ [place] be out of state. Please call Best contact number and optimal time of day to reach caller: Note: Please do not reply to this message. Follow-up communication and further actions as a result of this message need to be communicated with the patient directly, if the patient is not active onMyChart. If the patient is active on MyChart, they will receive notification of the communication/outcome via [employer]. documented in this encounter Plan of Treatment Upcoming Encounters Date Type Department Care Team (Late st Contact Info) Description 09/18/2024 9:20 AM EST Office Visit [place] [facility] [address] [place] [address] Katie Richmond, CARDIOTHORACIC SURGEON, DNP [id number] [place] [address] 03/25/2025 9:20 AM EDT Appointment [facility] [address] [place] [address] 03/25/2025 11:40 AM EDT Office Visit [facility] [address] [place] [address] Nancy Mcbride PA [address] [facility] [address] [place] [address] documented as of this encounter Visit Diagnoses Not on filedocumented in this encounter Additional Health Concerns Infection Onset Date Last Indicated Resolved Time C. difficile 12/20/2020 12/20/2020 Assessment Noted Time A fall risk assessment has been complete d for the patient 12/29/2020 11:32 AM EDT documented as of this encounter Care Teams Cytology Teacher Relationship Specialty Start Date End Date Aidan Vizcarra MD [address] [place] [phone] PCP - General 11/26/20 documented as of this encounter
[2024-06-20 11:19] LABS: Basophils # 0.1 K/mm3 (0-0.2); Basophils % 0.6 % (0.1-2.0); Eosinophils # 0.2 K/mm3 (0.0-0.4); Eosinophils % 2.6 % (0.1-12.0); Hematocrit 46.5 % (37.0-47.0); Hemoglobin 15.8 g/dL (12.2-16.2); Lymphocytes # 2.8 K/mm3 (0.7-4.5); Lymphocytes % 30.8 % (10-50); Mean Corpuscular HGB Conc 33.9 g/dL (31.8-35.4); Mean Corpuscular Hemoglobin 30.2 pg (27.0-31.2); Mean Corpuscular Volume 89.1 fl (81-99); Mean Platelet Volume 7.9 fl (7.4-10.4); Monocytes # 0.6 K/mm3 (0.1-1.0); Neutrophils # 5.5 K/mm3 (1.8-7.8); Platelet Count 266 K/mm3 (142-424); Red Blood Count 5.22 M/mm3 (4.20-5.40); Red Cell Distribution Width 14.2 % (11.5-17.5); White Blood Count 9.2 K/mm3 (4.8-10.8)
[2024-06-20 11:45] LABS: Potassium 4.1 mmoL/L (3.5-5.1)
[2024-06-20 11:46] LABS: Alanine Aminotransferase 37 U/L (12-78); Albumin Level 4.3 g/dl (3.5-5.0); Albumin/Globulin Ratio 1.5 (1.1-1.8); Alkaline Phosphatase 144 U/L (38-126); Anion Gap 11.1 mEq/L (5-15); Aspartate Amino Transferase 36 U/L (14-36); Bilirubin,Total 0.8 mg/dl (0.2-1.3); Blood Urea Nitrogen 14 mg/dl (7-17); Calcium 9.3 mg/dl (8.4-10.2); Carbon Dioxide 25 mmol/L (22.0-30.0); Chloride 108 mmol/L (98-107); Chol/HDL Ratio 3.1 (1-3.5); Cholesterol 150 mg/dl (140-200); Estimated Glomerular Filt Rate 68 ml/min (>60); GFR (African American) 82 ML/MIN (>60); Globulin 2.9 g/dL (1.3-3.2); Glucose 93 mg/dl (74-100); HDL Cholesterol 49 mg/dl (40-60); Sodium 140 mmol/L (136-145); Total Protein,Serum 7.2 g/dl (6.3-8.2); Triglycerides 72 mg/dl (30-150); VLDL Cholesterol 14 mg/dL (0-40)
[2024-06-20 11:55] LABS: NT Pro Brain Natriuretic Pep. 152 pg/mL (0-125)
[2024-06-20 11:57] LABS: Direct LDL Cholesterol 92.43 mg/dL (100-129)
[2024-06-20 12:02] LABS: Hemoglobin A1C 5.2 % (4.0-6.0)
[2024-06-20 12:04] LABS: 25-OH Vitamin D, Total 65.9 ng/mL (30-100)
[2024-06-20 12:36] LABS: Vitamin B12 203 pg/mL (239-931)
== END 2024-06-20 23:59 | disposition home or self-care (01) ==
LOC: LAB 10:50
PROVIDERS: PCP Family Medicine; Visit Provider Family Medicine
DX: R06.02 Shortness of breath (principal); E66.01 Morbid (severe) obesity due to excess calories; E53.8 Deficiency of other specified B group vitamins; R60.0 Localized edema; E55.9 Vitamin D deficiency, unspecified
CPT/HCPCS: 36415; 80050; 80053; 80061; 82306; 82607; 83036; 83880; 84443; 85025

== ENCOUNTER 2024-07-14 08:04 | Outpatient (CLI) | payer BC, SELFPAY ==
[2024-07-14 08:30] VITALS: PULSE 80; PULSE 84
[2024-07-14] MEDS: ALBUTEROL 0.083% 2.5 MG/3 ML NEB IH (08:30)
== END 2024-07-14 23:59 | disposition home or self-care (01) ==
PROVIDERS: PCP Family Medicine; Visit Provider Internal Medicine Pulmonary Disease
DX: J44.9 Chronic obstructive pulmonary disease, unspecified (principal); R06.02 Shortness of breath
CPT/HCPCS: 94060; 94640; J7613

== ENCOUNTER 2024-09-30 23:30 | Emergency (ER) | payer BC, SELFPAY ==
--- NOTE | 2024-09-30 23:38 | ED_ITS ---
Discharge Plan Disposition Patient Disposition: Home, Self-Care Prescriptions Prescriptions: New sulfamethoxazole-trimethoprim 800-160 mg tablet 1 tab PO BID 4 Days Qty: 8 0RF No Action montelukast 10 mg tablet 10 mg PO QPM 90 Days Qty: 90 2RF albuterol sulfate 90 mcg/actuation HFA aerosol inhaler 90 mcg inhalation DAILY estradiol 0.5 mg/0.5 gram (0.1 %) gel in packet 0.5 mg topical DAILY Patient Comments: APPLY 1 APPLICATION TO THE SKIN DAILY DIRECTED BY PROVIDER pantoprazole 20 mg tablet,delayed release (DR/EC) 20 mg PO DAILY Qty: 90 1RF Zepbound 5 mg/0.5 mL pen injector SQ budesonide-formoterol 160-4.5 mcg/actuation HFA aerosol inhaler 2 puff inhalation BID 90 Days Qty: 10.2 2RF ipratropium-albuterol 0.5 mg-3 mg(2.5 mg base)/3 mL solution for nebulization 3 ml inhalation Q6H PRN (Reason: shortness of breath or wheezing) 30 Days Qty: 90 3RF Referrals Follow up/Referrals: Provider,Referral, MD [Primary Care Provider] - See instructions Activity Restrictions/Add. Instructions Additional Instructions/Restrictions: Recommend doing MiraLAX cleanout and continuing daily MiraLAX as discussed. Please follow-up with your primary care provider. Please return to the emergency department if you develop any new or worsening symptoms or become concerned for your health. I sent a prescription for antibiotic to take if you develop signs of a UTI. Clinical Impressions Clinical Impression: Fecal impaction in rectum, Anal or rectal pain Instructions Patient Instructions: DI for Acute Abdominal Pain Print Language Print Language: Bengali Discharge ED Provider: Cr Weinstein General Adult HPI General Chief complaint: Abdominal Pain Stated complaint: possible impacted bowel, abd pain Time Seen by Provider: 09/30/24 23:38 History of Present Illness HPI narrative: 43-year-old female with history of asthma, obesity, recently initiated on Zebbound presents for severe rectal pain. She reports that she thinks she is constipated. She did have a small bowel movement on Sunday. She started the Zepbound about 10 days ago. The pain just started prior to arrival. Related Data Home Medications ?Medication ?Instructions ?Recorded ?Confirmed albuterol sulfate 90 mcg/actuation 90 mcg inhalation DAILY 04/03/24 08/19/24 aerosol inhaler estradiol 0.5 mg/0.5 gram (0.1 %) 0.5 mg topical DAILY 04/03/24 08/19/24 transdermal gel packet tirzepatide (weight loss) 5 mg/0.5 mg SQ 08/19/24 08/19/24 mL subcutaneous pen injector (Zepbound) Previous Rx's ?Medication ?Instructions ?Recorded montelukast 10 mg tablet 10 mg PO QPM 90 days #90 tabs 12/17/23 pantoprazole 20 mg tablet,delayed 20 mg PO DAILY #90 tabs 04/03/24 release budesonide-formoterol HFA 160 2 puff inhalation BID 90 days 08/19/24 mcg-4.5 mcg/actuation aerosol #10.2 grams inhaler ipratropium 0.5 mg-albuterol 3 mg 3 ml inhalation Q6H PRN shortness 08/19/24 (2.5 mg base)/3 mL nebulization of breath or wheezing 30 days #90 soln mL sulfamethoxazole 800 1 tab PO BID 4 days #8 tabs 10/01/24 mg-trimethoprim 160 mg tablet Allergies Allergy/AdvReac Type Severity Reaction Status Date / Time cefdinir Allergy Intermediate I-RASH Verified 08/19/24 09:59 Penicillins Allergy Intermediate I-RASH Verified 08/19/24 09:59 [facility] Disclaimer: The information contained in this section may have been updated after the patient was seen, as this information can be updated by other users. Medical History GERD (gastroesophageal reflux disease) Hx of Clostridium difficile infection Strep pharyngitis Visit for TB skin test Acute maxillary sinusitis Moderate persistent asthma Witnessed episode of apnea Daytime somnolence Asthma Peripheral eosinophilia Mild persistent asthma Chronic dyspnea Post-COVID syndrome History of 2019 novel coronavirus disease (COVID-19) Chest pain Fatigue Dyspnea Palpitations Sinus tachycardia Exposure to COVID-19 virus Renal insufficiency H/O Clostridium difficile infection Penicillin allergy Ureteric stone History of kidney cancer Kidney stone on left side Surgical History Hx of hysterectomy History of left nephrectomy History of section Hx of cholecystectomy H/O partial nephrectomy Family History Other Cancer Diabetes Heart attack Hyperlipidemia Hypertension Stroke Social History Smoking Status: Never smoker alcohol intake: never substance use type: denies use current occupational status: other Travel in the last 8 weeks: None household members: family housing: house 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 current occupational exposures/hazards: No Have you lived/traveled outside [place] in past 30 days?: No Contact w/someone who lives/traveled outside [place] past 30 days?: No Exposure to someone with infectious disease in past 14 days?: No Do you have a fever (greater than 100.4 F or 38 C)?: No Have you tested positive for COVID-19: No Exposed to someone with COVID-19 in past 14 days?: No Do you have a sore throat?: No Do you have a cough?: No Do you have any weakness?: No Do you have any diarrhea?: No Are you experiencing any unusual bleeding?: No Do you have any muscle aches/pain?: No Do you have any abdominal pain?: Yes Are you experiencing loss of taste or smell?: No Other Medical History Have you received the Flu Vaccine for this season: No Have you received the Pneumonia Vaccine: No ROS Obtained: Yes All systems reviewed & no additional complaints except as documented Physical Exam General General appearance: alert and in distress Head Head exam: atraumatic and normocephalic Eye Eye exam: Present normal appearance, PERRL and EOMI ENT ENT exam: Present normal oropharynx and normal external ear exam Neck Neck exam: Present normal inspection and full ROM Chest Chest inspection: Present normal inspection and symmetric chest wall rise; Absent tenderness Respiratory Respiratory exam: Present normal lung sounds bilaterally; Absent respiratory distress Cardiovascular Cardiovascular exam: Present regular rate and normal rhythm Abdominal Exam Abdominal exam: Present soft; Absent distention, tenderness or guarding Rectal Exam Rectal exam: Present fecal impaction; Absent hemorrhoids Extremities Exam Extremities exam: Present normal inspection; Absent edema or joint swelling Back Exam Back exam: Present normal inspection; Absent tenderness Neurological Exam Neurological exam: Present alert and oriented X3; Absent motor sensory deficit Psychiatric Psychiatric exam: Present normal affect and normal mood Skin Skin exam: Present warm, dry and normal color Lymphatic Lymphatic Findings: no adenopathy Medical Decision Making Medical Records Medical records reviewed: Yes I reviewed the patient's medical records. Screening: Per USPSTF and CDC recommendations, given the prevalence of disease in our region, it is our hospital?s policy to screen for HIV and viral Hepatitis for all patients aged 18 and over and those with ongoing risk factors. Conrad Inquiry Pt receiving controlled substance: No Conrad was queried for this patient: No Vital Signs: 09/30/24 23:39 10/01/24 04:40 Temperature 98.1 F 98.4 F Temperature Source Oral Pulse Rate 74 Pulse Rate [Right] 113 H Respiratory Rate 20 15 Blood Pressure 110/59 L Blood Pressure [Right Arm] 167/104 H Blood Pressure Mean [Right Arm] 125 02 Sat by Pulse Oximetry 99 Oxygen Delivery Method Room Air Nasal Cannula Oxygen Flow Rate (LPM) 2 Lab Data Lab results reviewed: Yes I reviewed the patient's lab results. Orders (Tests/Meds): ED MEDICATIONS Discontinued Medications Generic Name Dose Route Start Last Admin Trade Name Freq PRN Reason Stop Dose Admin Hydromorphone HCl 1 mg 10/01/24 00:08 10/01/24 00:10 Hydromorphone 2mg/Ml Syringe IM 10/01/24 00:09 1 mg ONCE ONE Administration Ketamine HCl 300 mg 10/01/24 01:52 10/01/24 03:12 Ketamine 50mg/1ml Syringe IV 10/01/24 01:53 50 mg ONCE ONE Administration Medical Decision Narrative: 43-year-old female with history of asthma, obesity, recently started on Zepbound presents for severe anorectal pain that started after she felt the urge to go to the bathroom shortly prior to arrival. She is concerned that she is severely constipated because of the Zepbound. History was obtained via interactive discussion with patient, family, chart. On arrival, patient is [afebrile, hemodynamically stable, satting appropriately, alert, oriented x4, GCS 15], moving all extremities spontaneously. Full physical exam performed and signific ant for large fecal stool ball noted on rectal exam. Presentation is consistent with rectal impaction. We attempted digital disimpaction without success as patient was unable to tolerate it secondary to pain. She was also unable more than a few 100 mL of enema secondary to pain. The attempted enema did produce a bowel movement. She was given Zofran and Dilaudid for pain control and again attempted interventions but without success. Given this, patient was given an IV and procedural sedation was performed with successful disimpaction. There was a large volume of hard stool and feculent f luid removed. Patient recovered successfully from sedation and we attempted another enema but she did not have significant stool output at that time. I had extensive discussion with patient regarding presentation. She is currently asymptomatic, has no abdominal tenderness. Imaging was considered but was deemed unnecessary. I recommend that she do a MiraLAX bowel cleanout and adjust MiraLAX dosing at home to have daily soft stools. I discharged her with a prescription for Bactrim to take as needed if she develops signs of a UTI, given that there was a large volume of stool and fluid that was exposed to her vaginal area during disimpaction. Procedures Risk/Benefits of Procedure(s) Were Explained: Yes Procedural Sedation Presedation Evaluation: Alert and oriented, clear lungs bilaterally, normal vital signs. A heart and lung assessment was performed on this patient at: 02:00 Mallampati Score:: Class I Indication: other (Rectal disimpaction) ASA Class: II Preparation: cost analyst applied, pulse oximeter, capnometry used, supplemental O2 applied, suction/airway equipment at bedside and IV secured Ketamine: IV Ketamine dose (mg): 50 Patient Tolerated Procedure: well and no complications Complications: none Additional Comments: Sedation time 2:45-3:05 Rectal Disimpaction Time out performed rectal disimpaction: Yes Indication: fecal impaction Procedural Sedation: Yes Sedation/Analgesia: opioids and other (ketamine) Technique: manual disimpaction with gloved finger Result: significant stool output Patient Tolerated Procedure: well Critical Care Critical Care Time Critical Care Time: No
[2024-09-30 23:39] VITALS: BP 167/104; PULSE 113; RESP 20; TEMP 36.7; O2SAT 99; BMI 39.4
[2024-10-01] MEDS: HYDROMORPHONE 2MG/ML SYRINGE 1 MG IM (00:10)
[2024-10-01 02:45] VITALS: BP 139/105; PULSE 85; RESP 18; TEMP 36.8; O2SAT 99
[2024-10-01] MEDS: KETAMINE 50MG/1ML SYRINGE 300 MG IV (02:45)
[2024-10-01 04:40] VITALS: BP 110/59; PULSE 74; RESP 15; TEMP 36.9; O2SAT 99
--- NOTE | 2024-10-01 05:47 | PC.NURSE ---
Sedation for bowel disimpaction. 0245- Ketamine administered (50) Vitals: 139/105 P-85 O2-99 R-18 0250- 113/47 P-106 O2-100 R-21 0300- 110/59 P-95 O2-99 R-27 0310- 107/57 P-85 O2-99 R-18 Pt tolerated sedation very well. This RN stayed bedside with pt until 0320. Pt is A&O*4 at this time. Pt states the pressure feels so much better but states her rectum is sore. Mother is bedside and pt is drinking water.
== END 2024-10-01 04:43 | disposition home or self-care (01) ==
PROVIDERS: Emergency Provider Emergency Medicine
DX: K62.89 Other specified diseases of anus and rectum (principal); R10.9 Unspecified abdominal pain; K56.41 Fecal impaction
CPT/HCPCS: 45915; 96372; 99284; J1171